=== PATIENT | male | born 1960 | race African-American/Black ===

== ENCOUNTER 2024-07-22 09:52 | Inpatient (IN) | payer OTHER, SELFPAY ==
[2024-07-22] VITALS (41 sets, daily range): BP systolic 87–170; BP diastolic 59–105; PULSE 110–152; RESP 24–54; TEMP 36.4–39.2; O2SAT 73–100; BMI 23.7
--- NOTE | ~2024-07-22 | XR_ITS ---
EXAMINATION: XR chest 1V portable DATE: 07/22/2024 10:44 INDICATION: Dyspnea. TECHNIQUE: A single frontal view of the chest was obtained. COMPARISON: None. FINDINGS: There are airspace opacities in right lower lung zone. The lung bases are excluded. No pneu mothorax. No pleural effusion. The heart size is normal. IMPRESSION: 1. Airspace opacities in right lower lung zone, consistent with pneumonia. Reviewed, dictated and finalized at location A. NG RAMMER
--- NOTE | ~2024-07-22 | US_ITS ---
EXAMINATION: US renal BI DATE: 07/26/2024 15:26 INDICATION: MILENA TECHNIQUE: Multiple grayscale and Doppler ultrasound images of the kidneys were obtained. COMPARISON: Ultrasound abdomen limited 07/23/2024. CTPA abdomen pelvis 07/22/2024. FINDINGS: The right kidney measures 11.7 x 4.8 x 5.7 cm. The left kidney measures 13.0 x 5.4 x 5.4 cm. The kidn eys demonstrate normal parenchymal echogenicity. There is mild right pelviectasis, measuring up to 1 cm. The bladder is partially decompressed by Gregorio catheter. Minimal pericholecystic fluid and gallbl adder wall thickening to 3 mm. IMPRESSION: Mild right pelviectasis. Mild pericholecystic fluid and gallbladder wall thickening. Reviewed, dictated and finalized at location K. ER CONVEYOR LOADER
--- NOTE | ~2024-07-22 | XR_ITS ---
EXAMINATION: XR chest 1V portable DATE: 07/26/2024 06:14 INDICATION: Acute respiratory failure. Mechanical ventilation. TECHNIQUE: A single frontal view of the chest was obtained. COMPARISON: Chest single view 07/25/2024 FINDINGS: There are airspace opacities in the right mid and lower lung zones and left lower lung zone . There is a small right pleural effusion. No pneumothorax. The heart size is normal. The endotrachea l tube tip is 7.4 cm above the nando. The nasogastric tube tip is beyond the inferior margin of the radiograph, but at least to the stomach. A right internal jugular central venous catheter is seen wit h tip at the superior cavoatrial junction. IMPRESSION: 1. Stable small right pleural effusion. 2. Stable airspace opacities in the right mid and lower lung zones and left lower lung zone, consiste nt with atelectasis versus pneumonia. Reviewed, dictated and finalized at location A. CTOR SOFTWARE QUALITY ASSURANCE IMPRESSION: 1. Stable small right pleural effusion. 2. Stable airspace opacities in the right mid and lower lung zones and left low er lung zone, consistent with atelectasis versus pneumonia.
--- NOTE | ~2024-07-22 | XR_ITS ---
EXAMINATION: XR abdomen gastric tube insert DATE: 07/26/2024 06:14 INDICATION: Nasogastric tube placement. TECHNIQUE: An upright view of the abdomen was obtained. COMPARISON: CT abdomen and pelvis 07/22/2024 FINDINGS: The lower abdomen is excluded. There are no dilated loops of bowel. The nasogastric tube ti p is in the stomach. There is a central line tip at superior cavoatrial junction. There is a small ri ght pleural effusion. There are airspace opacities in the lower lung zones. IMPRESSION: 1. Nasogastric tube tip in the stomach. 2. Small right pleural effusion. 3. Airspace opacities in the lower lung zones, consistent with atelectasis versus pneumonia. Reviewed, dictated and finalized at location A. OR SPECIALIST IMPRESSION: 1. Nasogastric tube tip in the stomach. 2. Small right pleural effusion. 3. Airspace opacities in the lower lung zones, consistent with atelectasis vers us pneumonia.
--- NOTE | ~2024-07-22 | XR_ITS ---
EXAMINATION: XR chest 1V portable DATE: 07/25/2024 05:09 INDICATION: Acute respiratory failure. TECHNIQUE: A single frontal view of the chest was obtained. COMPARISON: Chest single view 07/24/2024 FINDINGS: There are airspace opacities in the lower lung zones, right worse than left. There is a sma ll right pleural effusion. No pneumothorax. The heart size is normal. The endotracheal tube tip is 4. 6 cm above the nando. The nasogastric tube tip is beyond the inferior margin of the radiograph, but at least to the stomach. A right internal jugular central venous catheter is seen with tip at the sup erior cavoatrial junction. IMPRESSION: 1. Stable airspace opacities in the lower lung zones, consistent with atelectasis versus pneumonia. 2. Stable small right pleural effusion. Reviewed, dictated and finalized at location A. OR STORES AND AGENCIES SUPERVISOR IMPRESSION: 1. Stable airspace opacities in the lower lung zones, consistent with atelectas is versus pneumonia. 2. Stable small right pleural effusion.
--- NOTE | ~2024-07-22 | XR_ITS ---
EXAMINATION: XR chest 1V portable DATE: 07/27/2024 06:23 INDICATION: Acute respiratory failure. TECHNIQUE: A single frontal view of the chest was obtained. COMPARISON: Chest single view 07/26/2024 FINDINGS: There is a small right pleural effusion. There are airspace opacities in right mid and lowe r lung zones and left lower lung zone. No pneumothorax. The heart size is normal. The endotracheal tu be tip is 6.5 cm above the nando. The nasogastric tube tip is in the stomach. A right internal jugul ar central venous catheter is seen with tip at the superior cavoatrial junction. IMPRESSION: 1. Stable small right pleural effusion. 2. Stable airspace opacities in right mid and lower lung zones and left lower lung zone, consistent w ith atelectasis versus pneumonia. Reviewed, dictated and finalized at location A. TCHER AND DRIER IMPRESSION: 1. Stable small right pleural effusion. 2. Stable airspace opacities in right mid and lower lung zones and left lower l rama zone, consistent with atelectasis versus pneumonia.
--- NOTE | ~2024-07-22 | XR_ITS ---
XR abdomen gastric tube insert DATE: 07/22/2024 15:37 INDICATION: NG tube placement TECHNIQUE: AP view on 07/22/2024 1534 hours COMPARISON: None FINDINGS: NG tube tip is in the body of the stomach, the proximal side port 6 cm distal to the diaphr agmatic hiatus. IMPRESSION: NG tube in body of stomach Reviewed, dictated and finalized at Location A. Reviewed, dictated and finalized at location A. N SUPPLY LOAD BUILDER IMPRESSION: NG tube in body of stomach
--- NOTE | ~2024-07-22 | XR_ITS ---
XR chest ET placement DATE: 07/22/2024 15:37 INDICATION: Intubation and central line placement TECHNIQUE: Portable AP chest on 07/22/2024 1533 hours COMPARISON: 07/22/2024 portable AP chest at 1042 hours FINDINGS: Interval ET tube placement, distal tip approximately 5.3 cm above nando. An NG tube is not ed in the stomach. Right internal jugular central venous catheter tip overlies the lower aspect of the superior vena cav a the superior cavoatrial junction. No pneumothorax is detected. Bilateral mid and lower lung infiltrate and/or atelectasis, right greater than left. Normal heart size. Descending thoracic aortic calcification. Diffuse idiopathic skeletal hyperostosis of the thoracic spine IMPRESSION: ET and NG tube in satisfactory position Right internal jugular central venous catheter tip overlies lower aspect of superior vena cava near s uperior cavoatrial junction Bilateral mid and lower lung infiltrates and/or atelectasis, right greater than left Reviewed, dictated and finalized at Location A. Reviewed, dictated and finalized at location A. ING INSPECTOR IMPRESSION: ET and NG tube in satisfactory position Right internal jugular central venous catheter tip overlies lower aspect of sup erior vena cava near superior cavoatrial junction Bilateral mid and lower lung infiltrates and/or atelectasis, right greater than left
--- NOTE | ~2024-07-22 | XR_ITS ---
EXAMINATION: XR chest 1V portable DATE: 07/23/2024 05:59 INDICATION: Intubated. Pneumonia. TECHNIQUE: A single frontal view of the chest was obtained. COMPARISON: Chest single view 07/22/2024, chest CT 07/22/2024 FINDINGS: There are airspace opacities in the lower lung zones. There is a small right pleural effusi on. No pneumothorax. The heart size is normal. The endotracheal tube tip is 5.0 cm above the nando. The nasogastric tube tip is beyond the inferior margin of the radiograph, but at least to the stomach . A right internal jugular central venous catheter is seen with tip at the superior cavoatrial juncti on. IMPRESSION: 1. Stable airspace opacities in the lower lung zones, likely a combination of atelectasis and pneumon ia. 2. Small right pleural effusion. Reviewed, dictated and finalized at location A. LOPE MACHINE ADJUSTER IMPRESSION: 1. Stable airspace opacities in the lower lung zones, likely a combination of a telectasis and pneumonia. 2. Small right pleural effusion.
--- NOTE | ~2024-07-22 | CT_ITS ---
EXAMINATION: CTA chest PE abdomen pel DATE: 07/22/2024 18:28 INDICATION: Tachypnea, tachycardia TECHNIQUE: Computed tomography angiography (CTA) of the chest was performed with 100 mL Omnipaque-350 intravenous contrast timed to evaluate the pulmonary arteries. Coronal maximum intensity projection 3D-reconstructions were created by the technologist. Automated exposure control and iterative reconst ruction technique were employed. Exam dose: 881.96 mGy-cm total exam DLP. COMPARISON: 07/22/2024 AP chest FINDINGS: There is diagnostic contrast enhancement of the pulmonary arteries and no evidence of pulmo nary embolism. There is an ET tube. There is an NG tube in the stomach. Right internal jugular central venous catheter in superior vena cava. Mild cardiomegaly. No pericardial effusion. Prominent left main and left anterior descending coronary artery calcification. Borderline thoracic aortic dimension, the ascending aorta measures up to 4 cm diameter, the mid aorti c arch 2.9 cm, descending thoracic aorta 3 cm. No thoracic aortic dissection. No hilar or mediastinal mass lesion or lymphadenopathy is appreciated. There is very prominent consolidation of both lower lobes. Mild middle lobe infiltrate. Minimal pleural effusions. There is extensive degenerative changes of the cervical and thoracic spine. No suspicious osteolytic or osteoblastic lesions are noted. IMPRESSION: No evidence of pulmonary embolism Prominent bilateral lower lobe consolidation. Mild lobe infiltrate. Reviewed, dictated and finalized at Location A. Reviewed, dictated and finalized at location A. L HOUSEMAN
--- NOTE | ~2024-07-22 | XR_ITS ---
EXAMINATION: XR chest 1V portable DATE: 07/28/2024 05:42 INDICATION: Acute respiratory failure. Mechanical ventilation. TECHNIQUE: frontal view of the chest was obtained. COMPARISON: Chest radiograph dated 07/27/2024 FINDINGS: Endotracheal tube tip 4.6 cm above the nando. Nasogastric tube extends below the left hemidiaphragm with distal tip collimated off the study. Right internal jugular central venous catheter with distal tip at the high right atrium. Decrease in the hazy opacities in the right lower lung zone since resolved in the midlung zone consis tent with decreasing small posterior layering right pleural effusion. Mild bibasilar opacities which could represent atelectasis or pneumonia. No pneumothorax. Heart size is normal. IMPRESSION: 1. Decreasing small right pleural effusion. 2. unchanged mild bibasilar atelectasis versus pneumonia. Reviewed, dictated and finalized at location A. THCARE ANALYST
--- NOTE | ~2024-07-22 | XR_ITS ---
EXAMINATION: XR chest 1V portable DATE: 07/25/2024 18:29 INDICATION: Intermittent tachypnea with mechanical ventilation. TECHNIQUE: A single frontal view of the chest was obtained on 2 radiographs. COMPARISON: Chest view at 4:57 AM FINDINGS: There are airspace opacities in right mid and lower lung zones and left lower lung zone. Th ere is a small right pleural effusion. No pneumothorax. The heart size is normal. The nasogastric tub e tip is in the stomach. A right internal jugular central venous catheter is seen with tip at the sup erior cavoatrial junction. IMPRESSION: 1. Worsened airspace opacities in right mid and lower lung zones and left lower lung zone, consistent with atelectasis versus pneumonia. 2. Worsened small right pleural effusion. Reviewed, dictated and finalized at location A. [employer]
--- NOTE | ~2024-07-22 | US_ITS ---
Limited ABDOMINAL ULTRASOUND Ordering provider: Nidia Salinas MD History: . Y . Comparison: None. FINDINGS: LIVER: Normal size and echotexture. No focal hepatic lesions or perihepatic fluid collections are kurt ntified. Normal flow of the portal vein. Measures 17.8 cm. Fluid is seen superior to the right lobe o f the liver suggestive of pleural effusion. GALLBLADDER: Unremarkable. No evidence for stones, sludge, and gallbladder wall thickening. Minimal p ericholecystic fluid collections. Gallbladder wall is 1.4 mm A negative sonographic Matthews's sign was noted. BILIARY DUCTS: No evidence for intra or extrahepatic biliary dilation. Common bile duct measures 1.4 mm in diameter which is within normal limits. PANCREAS: Normal echotexture and size. UPPER ABDOMINAL AORTA: Normal in caliber. IVC: Patent. FREE FLUID: None. IMPRESSION: 1. Right pleural effusion. Minimal fluid around the gallbladder. Evaluation for cholecystitis advised . Otherwise, normal Limited ultrasound of the abdomen. Reviewed, dictated and finalized at location A. NT SCOUT IMPRESSION: 1. Right pleural effusion. Minimal fluid around the gallbladder. Evaluation for cholecystitis advised. Otherwise, normal Limited ultrasound of the abdomen.
--- NOTE | ~2024-07-22 | XR_ITS ---
EXAMINATION: XR chest 1V portable DATE: 07/24/2024 05:29 INDICATION: Acute respiratory failure. TECHNIQUE: A single frontal view of the chest was obtained. COMPARISON: Chest single view 07/23/2024, chest CT 07/22/2024 FINDINGS: There is a small right pleural effusion. There are airspace opacities in the lower lung zon es. No pneumothorax. The heart size is normal. The endotracheal tube tip is 6.2 cm above the nando. The nasogastric tube tip is beyond the inferior margin of the radiograph, but at least to the stomach . A right internal jugular central venous catheter is seen with tip at the superior cavoatrial juncti on. IMPRESSION: 1. Stable airspace opacities in the lower lung zones, likely a combination of atelectasis and pneumon ia. 2. Stable small right pleural effusion. Reviewed, dictated and finalized at location A. OR NEWSPAPER IMPRESSION: 1. Stable airspace opacities in the lower lung zones, likely a combination of a telectasis and pneumonia. 2. Stable small right pleural effusion.
--- NOTE | ~2024-07-22 | CT_ITS ---
EXAMINATION: CT soft tissue neck wo con DATE: 07/22/2024 18:28 INDICATION: Tachypnea and tachycardia. Restricted movement. TECHNIQUE: Computed tomography (CT) of the neck was performed without intravenous contrast. Automated exposure control and iterative reconstruction technique were employed. The dose-length product was 1 178.92 mGy-cm. COMPARISON: None FINDINGS: The endotracheal tube tip is in expected position. There is a small right pleural effusion. There are no pathologically enlarged lymph nodes. Partially visualized is an orogastric tube. Partia lly visualized is a right internal jugular central venous catheter with tip at least to the superior vena cava. There is mucosal thickening in right maxillary sinus. There is multifocal dental disease. There is a 17 mm nodule in right thyroid lobe. There are bridging endplate osteophytes at multiple le vels in the spine, consistent with diffuse idiopathic skeletal hyperostosis (DISH). IMPRESSION: 1. Small right pleural effusion. 2. 17 mm right thyroid nodule. Consider thyroid ultrasound for risk stratification. 3. Multifocal dental disease. Reviewed, dictated and finalized at location A. H HAND IMPRESSION: 1. Small right pleural effusion. 2. 17 mm right thyroid nodule. Consider thyroid ultrasound for risk stratificat ion. 3. Multifocal dental disease.
--- NOTE | 2024-07-22 09:53 | ECG_ITS ---
Test Date: 2024-07-22 10:03:54 Measurements Intervals [place] Rate: 151 P: 0 WA: 0 QRS: 43 QRSD: 79 T: 81 QT: 287 QTc: 456 Interpretive Statements sinus tachycardianwith frequent PACs INDETERMINATE AXIS MODERATE ST DEPRESSION [0.05+ mV ST DEPRESSION] CRITICAL TEST RESULT No previous ECG available for comparison Electronically Signed On 07-22-2024 10:14:04 BOOM CRANE OPERATOR by Katie White M.D.
--- NOTE | 2024-07-22 10:07 | ED_ITS ---
HPI - Chest Pain General Chief Complaint: Chest Pain Stated Complaint: chest pain Time Seen by Provider: 07/22/24 09:57 History of Present Illness HPI narrative: 63-year-old male with a past medical history including heart failure presenting to the emergency room with a chief complaint of difficulty in breathing. Patient states he is having itchiness in his chest and trouble reading. He is in respiratory distress upon arrival and requiring 15 L non-rebreather. He was 77% on room air and still hypoxic on non-rebreather. Patient denies any sharp pain or pressure in his chest but states that he feels like he is drowning. No headache, vision change, nausea or vomiting. No back pain. Patient is in respiratory distress and able to only answer questions intermittently secondary to dyspnea. He is not sure if he has any history of arrhythmia and is not able to tell me his medications at this time. He was placed in the room 6 as a medical resuscitation at this time and respiratory therapy was called to bedside for assistance. Related Data Allergies Allergy/AdvReac Type Severity Reaction Status Date / Time No Known Allergies Allergy Mild Verified 07/22/24 10:06 Review of Systems 2 Review of Systems: As reviewed above in HPI Exam 2 Narrative: GENERAL: Severe respiratory distress, dyspneic, awake and answering questions intermittently with conversational dyspnea HEAD: [Normocephalic, atraumatic.] EYES: [PERRLA and EOMI.] ENT: Nares clear, no rhinorrhea or epistaxis. Mucous membranes moist. NECK: Supple. CHEST: Very coarse breath sounds throughout all lung [place], rales, accessory muscle use with belly breathing HEART: Tachycardic rate, somewhat irregular rhythm. No murmur heard. [Normal peripheral pulses.] ABDOMEN: [Soft, nondistended], [nontender], [No rigidity or guarding] EXTREMITIES: Normal range of motion. No significant pitting edema SKIN: Warm, dry, no rash. NEURO: [No focal deficits]. Alert and oriented [x3.] PSYCH: Anxious Course Vital Signs Vital signs: Vital Signs Temperature 36.4 C 07/22/24 09:57 Pulse Rate 152 H 07/22/24 09:57 Respiratory Rate 46 H 07/22/24 09:57 Blood Pressure 142/87 H 07/22/24 09:57 Pulse Oximetry 77 L 07/22/24 09:57 Oxygen Delivery Room Air 12/22/24 09:57 Temperature 36.4 C 07/22/24 09:57 Pulse Rate 122 H 07/22/24 15:12 Respiratory Rate 43 H 07/22/24 13:35 Blood Pressure 104/74 07/22/24 13:15 Pulse Oximetry 99 07/22/24 15:12 Oxygen Delivery Mechanical Ventilation 07/22/24 15:12 Oxygen Flow Rate 15 07/22/24 10:04 Fraction of Inspired Oxygen 70 07/22/24 15:12 MDM - Chest Pain MDM Narrative Medical decision making narrative: 63-year-old male with history of heart failure and unknown other cardiac disease history presenting to the emergency department severe respiratory distress. He is found to be hypoxic at 77% on room air and still hypoxic requiring non- rebreather 15 L with only mild improvement. He does have very coarse breath sounds with rales throughout all lung yarbrough, does not appear particularly edematous without any anasarca or leg swelling. He states he has a history of heart failure but is not sure if he has any other cardiac history. Not able to tell me his medications. No records in the EMR his previous visits. RT was called to bedside to place him on BiPAP therapy with settings of 14/8 and rate of 20. Laboratory studies were obtained after IV access. He was given 40 mg of IV Lasix while laboratory studies were underway. Chest x-ray ordered as well as an EKG. EKG appears very tachycardic with a rate in the 150s but I do identify P-waves behind most QRS complexes even though the EKG is read as AFib I believe this is more sinus arrhythmia with significant sinus tachycardia and likely secondary to his respiratory variations causing the waveform, we will re-evaluate after initial treatments. Bedside ultrasound was used to identify his heart function status, he does have hyperdynamic ventricles, appropriate ejection fraction, collapse completely flat IVC more consistent with volume down status rather than fluid overload. Will discontinue diuretic therapy and switch to aggressive fluid resuscitation strategies. She is given 30 cc/kg bolus of lactated Ringer's which did improve him. After BiPAP therapy he had improvement in his tachypnea but still breathing in the 30s to 40s. His blood pressure started becoming soft and reached in the high 80s low 90s at one point. Tachycardia and tachypnea did improve and now his in the low 120s heart rate with sinus tachycardia, no irregularities. Full septic bundle was ordered this time he was given antibiotics for community-acquired coverage including vancomycin, azithromycin, ceftriaxone, lactic acid and blood cultures ordered. Patient was re-evaluated frequently and improving on the BiPAP but still to capping the 30s to 40s. Did have some slight agitation and requested something to help calm down. Given 1 mg of IV Ativan with good effect. Patient was more comfortable, breathing more comfortably on the BiPAP. I went over patient's imaging studies with him and plan of care for admission to the hospital. He requires ICU level of care at this time given his respiratory efforts. His workup reveals a white count of 6.3, anemia of 13.4 were no baseline. Blood gas reassuring with a pH is 7.36, pCO2 of 38.5, bicarb 21.3 overall very reassuring without any acute acidosis or compensatory mechanism. Electrolytes within anion gap elevated acidosis with a lactate 11.1 likely secondary to profound volume depletion and sepsis. Downtrending of 5.2 after resuscitative efforts. Creatinine of 2.0 with no baseline but likely secondary to pre renal depletion. Magnesium low at 0.8 provided 2 g IV bolus. ALT and AST mildly elevated, troponin negative at 0.024. BNP mildly elevated 727. Urinalysis without signs of infection. COVID fluid RSV negative. Chest x-ray independently reviewed shows airspace opacities in the right lower lung consistent with pneumonia. Repeat EKG obtained after fluid resuscitation significantly improved, sinus tachycardia with no ST segment elevations or depressions. No arrhythmia. No ectopy. Overall sinus tachycardia compared to previous EKG with better rate control and less ectopy. Patient at this time has been optimized here in the emergency department but I believe requires ICU level of care given his respiratory status. Discussed the case with the hospitalist as currently being covered by the midlevel provider Priya. We will patient's plan of care regarding med antibiotics, continued BiPAP therapy and respiratory support and admission to the ICU, they agreed with the plan and I contacted the sweet goods machine operator over the phone. Spoke with Dr. Salinas from ICU and we went over patient's care and he agreed patient requires ICU level of care and accepted him to the unit. Patient left the department at this time. Medical Records Data Attestation: I reviewed the patient's medical records. Lab Data Attestation: I reviewed the patient's lab results. 07/22/24 10:08 07/22/24 10:08 Labs: Lab Results 07/22/24 07/22/24 07/22/24 Range/Units 10:08 11:21 11:36 WBC 6.3 (4.5-10.0) K/mm3 RBC 3.76 L (4.6-6.20) M/mm3 Hgb 13.4 L (14.0-18.0) g/dL Hct 39.2 L (42.0-52.0) % MCV 104.3 H (80-100) fl MCH 35.6 H (26-34) pg MCHC 34.2 (32-36) g/dl RDW 12.8 (11.5-14.5) % Plt Count 195 (150-375) k/mm3 MPV 10.2 (7.4-10.4) fl Immature Gran % (Auto) 0.3 (0-0.5) % Neut % (Auto) 86.0 H (45.5-73.1) % Lymph % (Auto) 8.6 L (18.3-44.2) % [place] % (Auto) 4.8 (2.6-8.5) % Eos % (Auto) 0.0 (0-4.4) % Baso % (Auto) 0.3 (0.2-1.2) % Lymph # (Auto) 0.54 L (0.9-3.2) K/mm3 [place] # (Auto) 0.3 (0.1-0.6) K/mm3 Eos # (Auto) 0.0 (0-0.3) K/mm3 Baso # (Auto) 0.0 (0.0-0.1) K/mm3 Abs Immat Gran (auto) 0.02 (0.00-0.031) K/mm3 Absolute Neuts (auto) 5.4 (1.3-6.7) K/mm3 Absolute Nucleated RBC 0.000 (0.0-0.012) K/mm3 Nucleated RBC % 0.0 (0.0-0.2) % Platelet Estimate Adequate (Adequate) Macrocytosis 1+ (NORMAL) Schistocytes None seen PT 13.1 (11.1-14.7) Seconds INR 0.9 APTT 32.7 (22.3-36.8) Seconds Sodium 139 (137-145) mmol/L Potassium 3.7 (3.4-5.0) mmol/L Chloride 102 (98-107) mmol/L Carbon Dioxide 17 L (22-30) mmol/L Anion Gap 20 H (4-12) mmol/L BUN 22 H (9-20) mg/dL Creatinine 2.00 H (0.7-1.3) mg/dL Estim Creat Clear Calc 40 ml/min Estimated GFR 41 L (59 - ) Glucose 224 H (65-110) mg/dL Lactic Acid 11.7 H* (0.7-2.0) mmol/L Calcium 8.8 (8.4-10.2) mg/dL Magnesium 0.8 L (1.6-2.3) mg/dL Total Bilirubin 1.0 (0.2-1.3) mg/dL AST 128 H (17-59) U/L ALT 92 H (6-50) U/L Alkaline Phosphatase 68 (38-126) U/L Troponin I 0.024 (0.000-0.034) ng/mL C-Reactive Protein 4.0 H (<1.0) mg/dL NT-Pro-B Natriuret Pep 727 H (19.9-100) pg/mL Total Protein 8.0 (6.3-8.2) g/dL Albumin 4.1 (3.5-5.1) g/dL Urine Color Yellow (Yellow) Urine Appearance Clear (Clear) Urine pH 6.0 (5.0-9.0) Ur Specific [place] 1.007 (1.001-1.035) Urine Protein 1+ H (Negative) mg/dL Urine Glucose (UA) Negative (Negative) mg/dL Urine Ketones Negative (Negative) mg/dL Ur Blood (Man) Negative (Negative) Urine Nitrate Negative (Negative) Urine Bilirubin Negative (Negative) Urine Urobilinogen 0.2 (<2.0) mg/dL Leukocyte Esterase Rfl Negative (Negative) MARJ/UL Urine RBC 0-2 (0-2) /hpf Urine WBC 0-5 (0-3) /hpf Ur Squamous Epith Cells None seen (Few) /hpf Urine Bacteria None seen /hpf Urine Casts 3-5 Nasal MRSA (PCR) Not detected (NOT DETECTE) Influenza A (RT-PCR) Negative (Negative) Influenza B (RT-PCR) Negative (Negative) RSV (RT-PCR) Negative (Negative) SARS-CoV-2 RNA (RT-PCR) Negative (Negative) ABG Data Attestation: I personally reviewed and interpreted this ABG as follows: Interpretation: Normal pH, pCO2 and bicarb, no hypoxia Imaging Data Attestation: I personally reviewed and interpreted this imaging study as follows: My impression: Impressions Chest X-Ray 07/22/24 10:46 IMPRESSION: 1. Airspace opacities in right lower lung zone, consistent with pneumonia. Critical Care Time Critical Care Time Critical Care Time: Yes Total Critical Care Time: 75 Discharge Plan Discharge Clinical Impression: Pneumonia, Severe sepsis, Lactic acid acidosis, Elevated liver enzymes, CHF (congestive heart failure), MILENA (acute kidney injury), Acute respiratory failure, Tachycardia Patient Disposition: Still a Patient Condition: Serious Time of Disposition: 13:30
[2024-07-22] MEDS: ASPIRIN 81 MG CHEWABLE TABLET 324 MG PO (10:08)
[2024-07-22] MEDS: FUROSEMIDE INJ 40 MG/4 ML VIAL IV PUSH (10:10)
[2024-07-22 10:13] LABS: Basophils Percent Auto 0.3 % (0.2-1.2); Hematocrit 39.2 % (42.0-52.0); Hemoglobin 13.4 g/dL (14.0-18.0); Immature Granulocyte Absolute 0.02 K/mm3 (0.00-0.031); Immature Granulocyte Percent A 0.3 % (0-0.5); Lymphocytes Absolute Auto 0.54 K/mm3 (0.9-3.2); Lymphocytes Percent Auto 8.6 % (18.3-44.2); Mean Corpuscular HGB Conc 34.2 g/dl (32-36); Mean Corpuscular Hemoglobin 35.6 pg (26-34); Mean Corpuscular Volume 104.3 fl (80-100); Mean Platelet Volume 10.2 fl (7.4-10.4); Monocytes Absolute Auto 0.3 K/mm3 (0.1-0.6); Monocytes Percent Auto 4.8 % (2.6-8.5); Neutrophils Absolute Auto 5.4 K/mm3 (1.3-6.7); Platelet Count Result 195 k/mm3 (150-375); Red Blood Count 3.76 M/mm3 (4.6-6.20); Red Cell Distribution Width 12.8 % (11.5-14.5); White Blood Count 6.3 K/mm3 (4.5-10.0)
[2024-07-22 10:23] LABS: Macrocytosis 1+ (NORMAL); Platelet Estimate Adequate (Adequate); Schistocytes None Seen
[2024-07-22 10:25] LABS: Albumin Level 4.1 g/dL (3.5-5.1); Alkaline Phosphatase 68 U/L (38-126); Anion Gap 20 mmol/L (4-12); Blood Urea Nitrogen 22 mg/dL (9-20); Calcium 8.8 mg/dL (8.4-10.2); Carbon Dioxide 17 mmol/L (22-30); Chloride 102 mmol/L (98-107); Estimated CRCL calculation 40 ml/min; Estimated Glomerular Filt Rate 41; Glucose 224 mg/dL (65-110); Magnesium 0.8 mg/dL (1.6-2.3); Potassium 3.7 mmol/L (3.4-5.0); Sodium 139 mmol/L (137-145)
[2024-07-22 10:26] LABS: INR 0.9; Prothrombin Time 13.1 Seconds (11.1-14.7)
[2024-07-22 10:27] LABS: Partial Thromboplastin Time 32.7 Seconds (22.3-36.8)
[2024-07-22 10:34] LABS: Alanine Aminotransferase 92 U/L (6-50); Aspartate Amino Transferase 128 U/L (17-59)
[2024-07-22 10:35] LABS: NT Pro B Type Natriuretic Pept 727 pg/mL (19.9-100); Troponin I 0.024 ng/mL (0.000-0.034)
[2024-07-22] MEDS: LACTATED RINGERS 2,000 ML 999 ML IV CONT (10:40)
[2024-07-22] MEDS: ONDANSETRON INJ 4 MG/2 ML VIAL IV PUSH (10:49)
[2024-07-22] MEDS: cefTRIAXone 2 GM/NS 100 ML 2 GM/100 ML BAG IVPB (11:23)
[2024-07-22] MEDS: LACTATED RINGERS 1,000 ML 999 ML IV CONT (11:23)
[2024-07-22 11:44] LABS: Add Urine Microscopic? YES; Appearance Urine Clear (Clear); Bacteria Urine None Seen /hpf; Bilirubin Urine Negative (Negative); Blood Urine Negative (Negative); Color Urine Yellow (Yellow); Glucose Urine UA Negative (Negative); Ketones Urine Negative (Negative); Leukocyte Esterase Ur Negative LEU/UL (Negative); Nitrate Urine Negative (Negative); Protein Urine 1+ mg/dL (Negative); RBC Urine 0-2 /hpf (0-2); Specific Grav Ur 1.007 (1.001-1.035); Squamous Epithelial Cell Urine None Seen /hpf (Few); Urobilinogen Urine 0.2 mg/dL (<2.0); WBC Urine 0-5 /hpf (0-3)
[2024-07-22 11:48] LABS: Lactic Acid Reflex 11.7 mmol/L (0.7-2.0)
[2024-07-22] MEDS: AZITHROMYCIN 500 MG/NS 250 ML 500 MG/250 ML BAG 250 MG IVPB (11:56)
[2024-07-22 12:03] LABS: Influenza A QL RT-PCR Negative (Negative); Influenza B QL RT-PCR Negative (Negative); RSV RNA, RT-PCR Negative (Negative); SARS-CoV-2 RNA PCR Negative (Negative)
[2024-07-22] MEDS: MAGNESIUM SULF 2 GM/WATER 50ML 2 GM/50 ML BAG IVPB (12:03)
[2024-07-22 12:57] LABS: MRSA (PCR) NOT DETECTED (NOT DETECTE)
--- NOTE | 2024-07-22 12:58 | PM.IMHP ---
H&P: HPI History of Present Illness Date/Time: 07/22/24 12:58 Chief Complaint: Shortness of breath Narrative: 63-year-old male with a past medical history including heart failure presenting to the emergency room with a chief complaint of difficulty in breathing. HPI is limited due to patient being intubated at the time. ED chart reviewed. . He is found to be hypoxic at 77% on room air and still hypoxic requiring non-rebreather 15 L with only mild improvement. Bedside ultrasound was used to identify his heart function status, he does have hyperdynamic ventricles, appropriate ejection fraction, collapse completely flat IVC more consistent with volume down status rather than fluid overload. Will discontinue diuretic therapy and switch to aggressive fluid resuscitation strategies. She is given 30 cc/kg bolus of lactated Ringer's which did improve him. After BiPAP therapy he had improvement in his tachypnea but still breathing in the 30s to 40s. Full septic bundle was ordered this time he was given antibiotics for community-acquired coverage including vancomycin, azithromycin, ceftriaxone, lactic acid and blood cultures ordered. Patient was sent up to the ICU on BiPAP once inside the ICU digital analytics manager decided to intubate the patient. He is intubated and sedated paralyzed. His laboratory work from ED shows BUN 22, Cr 2.0, lactic acid of 11.7, CRP 4.0, BNP of 727, carbon dioxide of 17, UA negative for acute infection, influenza a, B, RSV and COVID negative. Review of Systems Review of Systems: ROS unobtainable: Yes unobtainable due to endotracheal tube PMFSH Social History Social History Smoking packs per day: 1 Smoking cigarettes per day: 20.0 Smoking status: Current every day smoker Tobacco type: cigarettes Spiritual care concerns: No (ZENAIDA) Meds Home Medications and Allergies Allergies Allergy/AdvReac Type Severity Reaction Status Date / Time No Known Allergies Allergy Mild Verified 07/22/24 10:06 Vital Signs Vital Signs - 24 hr 07/22/24 09:57 07/22/24 10:00 07/22/24 10:04 Temperature 97.6 F Pulse Rate 152 H 149 H Respiratory Rate 46 H Blood Pressure 142/87 H Pulse Oximetry 77 L 80 L Oxygen Delivery Room Air Non-Rebreather Mask Oxygen Flow Rate 15 07/22/24 10:04 07/22/24 10:10 07/22/24 10:14 Temperature Pulse Rate 144 H Respiratory Rate 51 H Blood Pressure Pulse Oximetry 73 L 100 100 Oxygen Delivery Non-Rebreather Mask BiPAP BiPAP Oxygen Flow Rate 15 07/22/24 10:21 07/22/24 10:22 07/22/24 10:31 Temperature Pulse Rate 147 H 144 H 138 H Respiratory Rate 54 H 51 H 51 H Blood Pressure 101/70 101/70 87/59 L Pulse Oximetry 100 100 100 Oxygen Delivery Oxygen Flow Rate 07/22/24 10:36 07/22/24 10:46 07/22/24 11:16 Temperature Pulse Rate 139 H 137 H 131 H Respiratory Rate 51 H 46 H 43 H Blood Pressure 90/72 L 112/85 170/105 H Pulse Oximetry 100 98 100 Oxygen Delivery Oxygen Flow Rate 07/22/24 11:30 07/22/24 11:46 07/22/24 12:01 Temperature Pulse Rate 135 H 133 H 129 H Respiratory Rate 44 H 29 H 43 H Blood Pressure 167/100 H 124/92 H Pulse Oximetry 100 100 100 Oxygen Delivery BiPAP Oxygen Flow Rate 07/22/24 12:16 Temperature Pulse Rate 128 H Respiratory Rate 45 H Blood Pressure 121/85 Pulse Oximetry 100 Oxygen Delivery Oxygen Flow Rate Exam Narrative: General: Intubated sedated paralyzed HEENT: normocephalic, atraumatic. Mucous membranes moist. EOMI, PERRLA, bilateral sclera anicteric, no conjunctival injection. Neck supple without JVD, lymphadenopathy, or bruit. Respiratory: clear to ascultation bilaterally. No rales/rhonic/wheezes. Breathing with the ventilator Cardiovascular: Tachycardic Regular rate and rhythm, normal S1-S2 upon ascultation. No murmurs, rubs, or clicks. PMI is nondisplaced, capillary refill less than 3 second. Abdomen: Soft, round, no pulsatile masses, nondistended and nontender. No rebound, no guarding. No CVA tenderness, no hepatosplenomegaly. Bowel sounds present to all four quadrants. No high pitch or tinkling sounds, resonant to percussion. Extremities: No cyanosis, clubbing, or edema present. Pulses are palpable 2/2. Active ROM to all four extremities. Neuro: Intubated, sedated and paralyzed Skin: Warm, dry, and intact, without rash, erythema, or lesion. Psych: Unable to assess H&P: Results Labs Labs: Short CBC 07/22/24 Range/Units 10:08 WBC 6.3 (4.5-10.0) K/mm3 Hgb 13.4 L (14.0-18.0) g/dL Hct 39.2 L (42.0-52.0) % Plt Count 195 (150-375) k/mm3 BMP 07/22/24 10:08 Sodium 139 Potassium 3.7 Chloride 102 Carbon Dioxide 17 L BUN 22 H Creatinine 2.00 H Glucose 224 H Calcium 8.8 Cardiac Enzymes 07/22/24 Range/Units 10:08 Troponin I 0.024 (0.000-0.034) ng/mL Liver Function 07/22/24 Range/Units 10:08 Total Bilirubin 1.0 (0.2-1.3) mg/dL AST 128 H (17-59) U/L ALT 92 H (6-50) U/L Alkaline Phosphatase 68 (38-126) U/L Albumin 4.1 (3.5-5.1) g/dL Urine 07/22/24 Range/Units 11:36 Urine Color Yellow (Yellow) Urine Appearance Clear (Clear) Urine pH 6.0 (5.0-9.0) Ur Specific [place] 1.007 (1.001-1.035) Urine Protein 1+ H (Negative) mg/dL Urine Glucose (UA) Negative (Negative) mg/dL Assessment and Plan Assessment and plan (1) Acute respiratory failure: Code(s): J96.00 - Acute respiratory failure, unspecified whether with hypoxia or hypercapnia Status: Acute Assessment and Plan: Patient was 77% on room air BiPAP failed intubated in ICU ICU digital analytics manager to manage (2) Severe sepsis: Code(s): A41.9 - Sepsis, unspecified organism; R65.20 - Severe sepsis without septic shock Status: Acute Assessment and Plan: Patient received 3 L of LR in the emergency room, initial lactic acid 11.7 Repeat lactic improving now 5.2 continue to trend IV ceftriaxone, Rocephin and vancomycin Right IJ place (3) Lactic acid acidosis: Code(s): E87.20 - Acidosis, unspecified Status: Acute Assessment and Plan: Secondary to above Lactic acid on admission 11.7 Repeat lactic is 5.2 Continue to trend to help below 2.4 (4) Pneumonia: Code(s): J18.9 - Pneumonia, unspecified organism Status: Acute Assessment and Plan: ICU admission for hypoxia, tachycardia and lactic 11.7 IV azithromycin, Rocephin and vancomycin renally dose Gentle IV hydration (5) Tachycardia: Code(s): R00.0 - Tachycardia, unspecified Status: Acute Assessment and Plan: Hypoxia and severe sepsis CAP CTA negative for PE (6) MILENA (acute kidney injury): Code(s): N17.9 - Acute kidney failure, unspecified Status: Acute Assessment and Plan: No previous in system to compare creatinine, unknown if patient has CKD Renally dose medications IV fluids for hydration Renal panel in the a.m. (7) Elevated troponin: Code(s): R79.89 - Other specified abnormal findings of blood chemistry Status: Acute Assessment and Plan: Could be due to severe hypoxia Trend troponin until flat EKG showing sinus tachycardia possible right ventricular conduction delay QTC 419 Repeat troponin improving (8) Elevated liver enzymes: Code(s): R74.8 - Abnormal levels of other serum enzymes Status: Acute Assessment and Plan: Daily CMP Hepatitis panel negative Abdominal CT and pelvis (9) CHF (congestive heart failure): Code(s): I50.9 - Heart failure, unspecified Status: Acute Assessment and Plan: History of congestive heart failure currently dehydrated Given 3 L of LR in the emergency room will need to monitor for pulmonary edema Plan Daily CMP, magnesium phosphorus, and CBC Quality VTE Prophylaxis VTE prophylaxis: mechanical ordered and pharmacologic ordered Hospitalist [facility] Advance Care Plan I have confirmed that the patient's Advanced Care Plan is present, code status is documented, or surrogate decision maker is listed in patient medical record.: Yes Medication Reconciliation The patient is not eligible for med reconciliation; the patient is in a emergent medical situation where delaying treatment would jeopardize the patients health.: Yes
[2024-07-22] MEDS: VANCOMYCIN 1,250 MG/NS 250 ML 1,250 MG/250 ML BAG 166.67 MG IVPB (13:02)
[2024-07-22 13:30] LABS: Troponin I 0.077 ng/mL (0.000-0.034)
--- NOTE | 2024-07-22 13:34 | ECG_ITS ---
Test Date: 2024-07-22 13:38:31 Measurements Intervals [place] Rate: 125 P: 70 IN: 158 QRS: 23 QRSD: 75 T: 77 QT: 290 QTc: 419 Interpretive Statements SINUS TACHYCARDIA POSSIBLE RIGHT VENTRICULAR CONDUCTION DELAY [RSR (QR) IN V1/V2] ABNORMAL RHYTHM ECG Compared to ECG 07/22/2024 10:03:54 Indeterminate axis no longer present ST (T wave) deviation no longer present Electronically Signed On 07-22-2024 14:23:56 DIRECTOR TALENT MANAGEMENT by Katie White M.D.
[2024-07-22] MEDS: LORazepam INJ (*CRX) 2 MG/ML VIAL 1 MG IV PUSH (13:37)
[2024-07-22] MEDS: LACTATED RINGERS 1,000 ML 125 ML IV CONT (13:39)
[2024-07-22 13:54] LABS: Alveolar/Arterial O2 Gradient 544.5 mmHg; Base Excess ABG -3.8 mEq/l (+/-2.0); Fractional Inspired Oxygen 100 %; HCO3 ABG 21.3 mEq/l (22.0-26.0); Oxygen Content ABG 17.2 %vol (16.0-22.0); Oxygen Saturation ABG 99.4 % (95.0-100.0); Oxyhemoglobin 98.5 % THb (90.0-100.0); PCO2 ABG 38.5 mmHg (35.0-45.0); PO2 ABG 208.4 mmHg (80.0-100.0); PO2 FiO2 Ratio Arterial Blood 2.08 %; Total Hemoglobin 12.1 g/dL (12.0-18.0)
[2024-07-22 13:55] LABS: Site Drawn RIGHT RADIAL
[2024-07-22 13:56] LABS: Device BIPAP; Expiratory Pressure 8 cmH2O; Inspiratory Pressure 14 cmH2O; Modified Allen's Test Pass
[2024-07-22 14:01] LABS: Lactic Acid Reflex 5.2 mmol/L (0.7-2.0)
[2024-07-22 14:25] LABS: Reflex Lactic Acid Yes or No Add Lactic
--- NOTE | 2024-07-22 14:34 | WPDCNINT ---
Assessment and Plan Assessment and plan (1) Severe sepsis: Code(s): A41.9 - Sepsis, unspecified organism; R65.20 - Severe sepsis without septic shock Status: Acute Assessment and Plan: 07/22: Patient presented the ED with shortness of breath, chest x-ray showed right lower lobe consolidation/pneumonia, acute kidney injury, tachycardia, tachypnea -patient given 30 cc/kg IV fluids in the ER, patient was also given Lasix 40 mg IV x1 -07/22: Blood cultures have been obtained -07/22: Have ordered sputum culture -elevated lactic acid of 11.7, down to 5.2, will continue to trend lactic acid level -started on ceftriaxone, azithromycin, vancomycin (07/22) -blood pressures have been stable at this time -07/22: Right IJ central line was inserted in the ICU (2) Acute respiratory failure: Code(s): J96.00 - Acute respiratory failure, unspecified whether with hypoxia or hypercapnia Status: Acute Assessment and Plan: Acute respiratory failure likely related to right lower lobe pneumonia. Patient also tachypneic and tachycardic, will send patient for a CT scan of the chest PE protocol to rule out pulmonary embolism -07/22: Intubated in the ICU -continue CMV mode of ventilation, peep of 10, 100% FiO2, wean FiO2 to maintain O2 sats > 92% -post intubation ABGs pending -will add bronchodilators -sedated with propofol infusion, maintain RASS of 0 to -2. Daily SAT and SBT (3) Pneumonia: Code(s): J18.9 - Pneumonia, unspecified organism Status: Acute Assessment and Plan: Right lower lobe pneumonia seen on chest x-ray -continue mechanical ventilation, bronchodilators (4) MILENA (acute kidney injury): Code(s): N17.9 - Acute kidney failure, unspecified Status: Acute Assessment and Plan: Patient presented with severe sepsis, acute kidney injury with creatinine of 2.00. Baseline creatinine unknown -received 30 cc/kg IV fluid bolus in the ER -continue maintenance IV fluids at 75 mL -will given additional 500 mL of albumin for volume expansion (5) Elevated liver enzymes: Code(s): R74.8 - Abnormal levels of other serum enzymes Status: Acute Assessment and Plan: Elevated liver enzymes -obtain hepatitis panel -order CT abdomen pelvis (6) CHF (congestive heart failure): Code(s): I50.9 - Heart failure, unspecified Status: Acute Assessment and Plan: History of CHF, proBNP was 700 -chest x-ray did not show any pulmonary edema -will obtain echocardiogram to assess structural and functional heart disease (7) Elevated troponin: Code(s): R79.89 - Other specified abnormal findings of blood chemistry Status: Acute Assessment and Plan: Elevated troponin likely related to 2 type 2 infarct, secondary to tachycardia, tachypnea -will continue to monitor -echocardiogram to evaluate wall motion abnormality -will recheck troponin received Plan DVT prophylaxis: Enoxaparin Stress ulcer prophylaxis: Protonix Nutrition: NPO Code Status: Full code Critical Care Time Spent: 77 minutes Due to a high probability of clinically significant, life threatening deterioration, the patient required my highest level of preparedness to intervene emergently and I personally spent this critical care time directly and personally managing the patient. This critical care time included obtaining a history; examining the patient; pulse oximetry; ordering and review of studies; arranging urgent treatment with development of a management plan; evaluation of patient's response to treatment; frequent reassessment; and discussions with other providers. It was exclusive of separately billable procedures and treating other patients and teaching time. Please see Assessment and Plan section and the rest of the note for further information on patient assessment and treatment This dictation may have been done utilizing a voice recognition system. Attempts have been made to correct errors. However, there may be uncorrected grammatical, spelling, and recognitions errors present. Reproductive Endocrinologist Consult Note Consult date: 07/22/24 Reason for consult: Acute respiratory failure, pneumonia, severe sepsis HPI: Kofi Verduzco is a 63 year old male with past medical history of CHF presented the ED on 07/20/2024 with complains of shortness of breath, hypoxia. He was found to be hypoxic with O2 sats of 70s on room air and remained hypoxic on non-rebreather at 15 L. In the ER patient was given Lasix 40 mg IV x1 for possible CHF exacerbation. Patient was tachypneic, tachycardic with adequate blood pressures. WBC count of 6.3, hemoglobin 13.4, platelets 195, her potassium of 3.7, BUN 22 and creatinine of 2.00 with a blood sugars of 224. Elevated LFTs, Patient had lactic acid of 11.7, troponin of 0.024. C-reactive protein of 4.0 proBNP was 727. UA was was not reflective of UTI, influenza RSV and SARS-CoV-2 PCR were negative. Patient was then given 30 cc/kg IV fluid bolus and placed on BiPAP after which the ER physician stated that his heart rate is tachypnea improved. Chest x-ray showed right lower lobe pneumonia. Blood cultures were ordered, patient was started on vancomycin and azithromycin and ceftriaxone and transferred to the ICU for further management. Patient seen and examined upon arrival to the ICU, he was breathing 40-50 times a minute, tachycardic in the 140s, could not complete a sentence. I discussed with patient regarding intubation as he would tire at some point breathing so fast. He agreed to intubation, patient in impending respiratory failure was successfully intubated in the ICU without any complications. A right IJ central line was inserted as one of his IV lines seem to be not functioning. Review of Systems Review of Systems: ROS unobtainable: Yes unobtainable due to endotracheal tube and unobtainable due to medical condition Meds Home Medications and Allergies Allergies Allergy/AdvReac Type Severity Reaction Status Date / Time No Known Allergies Allergy Mild Verified 07/22/24 10:06 Vital Signs Vital Signs - 24 hr 07/22/24 09:57 07/22/24 10:00 07/22/24 10:04 Temperature 97.6 F Pulse Rate 152 H 149 H Respiratory Rate 46 H Blood Pressure 142/87 H Pulse Oximetry 77 L 80 L Oxygen Delivery Room Air Non-Rebreather Mask Oxygen Flow Rate 15 07/22/24 10:04 07/22/24 10:10 07/22/24 10:14 Temperature Pulse Rate 144 H Respiratory Rate 51 H Blood Pressure Pulse Oximetry 73 L 100 100 Oxygen Delivery Non-Rebreather Mask BiPAP BiPAP Oxygen Flow Rate 15 07/22/24 10:21 07/22/24 10:22 07/22/24 10:31 Temperature Pulse Rate 147 H 144 H 138 H Respiratory Rate 54 H 51 H 51 H Blood Pressure 101/70 101/70 87/59 L Pulse Oximetry 100 100 100 Oxygen Delivery Oxygen Flow Rate 07/22/24 10:36 07/22/24 10:46 07/22/24 11:16 Temperature Pulse Rate 139 H 137 H 131 H Respiratory Rate 51 H 46 H 43 H Blood Pressure 90/72 L 112/85 170/105 H Pulse Oximetry 100 98 100 Oxygen Delivery Oxygen Flow Rate 07/22/24 11:30 07/22/24 11:46 07/22/24 12:01 Temperature Pulse Rate 135 H 133 H 129 H Respiratory Rate 44 H 29 H 43 H Blood Pressure 167/100 H 124/92 H Pulse Oximetry 100 100 100 Oxygen Delivery BiPAP Oxygen Flow Rate 07/22/24 12:16 07/22/24 12:31 07/22/24 13:00 Temperature Pulse Rate 128 H 126 H 138 H Respiratory Rate 45 H 42 H 29 H Blood Pressure 121/85 127/87 Pulse Oximetry 100 100 100 Oxygen Delivery Oxygen Flow Rate 07/22/24 13:07 07/22/24 13:15 Temperature Pulse Rate 129 H 123 H Respiratory Rate 44 H 39 H Blood Pressure 114/74 104/74 Pulse Oximetry 100 100 Oxygen Delivery Oxygen Flow Rate Exam Narrative: General: Ill-appearing gentleman in respiratory distress upon arrival to the ICU HEENT:? Pupils equal and reactive, sclera is clear, ETT in place Neck:? Supple Respiratory:? Coarse breath sounds bilaterally, rales in light lower base no wheezing, adequate air entry Cardiac:? S1-S2 is normal, sinus tachycardia Abdomen:? Soft, nondistended, nontender, hypoactive bowel so Extremities:? No edema, palpable pedal pulses Neuro:? Patient is intubated, sedated, does not follow simple commands or answers to questions. Prior to intubation patient was moving all 4 extremities, answering to questions appropriately Skin:? Dry skin, no other lesions noted Psych:? Unable to assess at this time Results Labs 07/22/24 10:08 07/22/24 10:08 Labs: Short CBC 07/22/24 Range/Units 10:08 WBC 6.3 (4.5-10.0) K/mm3 Hgb 13.4 L (14.0-18.0) g/dL Hct 39.2 L (42.0-52.0) % Plt Count 195 (150-375) k/mm3 BMP 07/22/24 10:08 Sodium 139 Potassium 3.7 Chloride 102 Carbon Dioxide 17 L BUN 22 H Creatinine 2.00 H Glucose 224 H Calcium 8.8 Cardiac Enzymes 07/22/24 07/22/24 Range/Units 10:08 13:02 Troponin I 0.024 0.077 H* D (0.000-0.034) ng/mL Liver Function 07/22/24 Range/Units 10:08 Total Bilirubin 1.0 (0.2-1.3) mg/dL AST 128 H (17-59) U/L ALT 92 H (6-50) U/L Alkaline Phosphatase 68 (38-126) U/L Albumin 4.1 (3.5-5.1) g/dL Urine 07/22/24 Range/Units 11:36 Urine Color Yellow (Yellow) Urine Appearance Clear (Clear) Urine pH 6.0 (5.0-9.0) Ur Specific [place] 1.007 (1.001-1.035) Urine Protein 1+ H (Negative) mg/dL Urine Glucose (UA) Negative (Negative) mg/dL Quality VTE Prophylaxis VTE prophylaxis: pharmacologic ordered Hospitalist MIPS Advance Care Plan I have confirmed that the patient's Advanced Care Plan is present, code status is documented, or surrogate decision maker is listed in patient medical record.: Yes Medication Reconciliation I have utilized all available resources to obtain, update and review the patients current medications (includes all prescriptions, OTC, herbals, cannabis, and nutritional supplements).: Yes
[2024-07-22] MEDS: VANCOMYCIN 1,000 MG/NS 250 ML 1,000 MG/250 ML BAG 250 MG IVPB (14:35)
--- NOTE | 2024-07-22 14:45 | ADMGEN ---
This patient, Kofi Verduzco, was admitted to Intensive Care Unit-8 at 1445. Patient/family oriented to hospital policies and general routines including ID bracelet, bed and alarms, visiting hours, pain management, procedures, bathroom and other care routines, personal items, smoking policy, room service/diet, and visiting hours. Information on how to activate the Rapid Response Team has been discussed. Patient/Family are encouraged to report perceived risks to care and to ask questions if they do not understand what they are told or what they should do.
[2024-07-22] MEDS: ETOMIDATE 20 MG/10 ML AMPUL 30 MG IV PUSH (14:59)
[2024-07-22] MEDS: ROCURONIUM BROMIDE 50 MG/5 ML VIAL IV PUSH ×2 (15:03→16:26)
[2024-07-22] MEDS: MIDAZOLAM HCL (*CRX) 2 MG/2 ML VIAL IV PUSH ×2 (15:05→16:26)
[2024-07-22] MEDS: PROPOFOL IV EMULSION 100 ML 5.46 MG IV CONT (15:10)
--- NOTE | 2024-07-22 15:40 | WPDPROCEDUR ---
Procedures Intubation Intubation Date: 07/22/24 Intubation Time: 15:05 Consent: Discussed with patient regarding his respiratory distress, tachypnea and that he will tire out and going to respiratory arrest. I discussed with him options of intubation and he was agreeable. A pre-procedural Time-Out was completed immediately before starting the procedure and confirmed: Patient Identification, Site, Procedure, Patient Position and the Availability of Requisite Equipment: Yes Sedative: etomidate Paralytic: rocuronium Laryngoscope: fiber optic video scope Assist device used: fiber optic device ET tube size: 8 Tube secured depth (cm): 25 Tube secured location: lips Tube placement confirmation: visualized tube passing through cords, equal breath sounds bilaterally, no breath sounds over epigastrium and confirmation by capnometry Patient tolerated procedure: well and no complications Intubation complications: none
--- NOTE | 2024-07-22 15:42 | WPDPROCEDUR ---
Procedures Central Line Placement Right IJ: Central Line Date: 07/22/24 Central Line Time: 15:42 Consent: I have discussed with the patient and/or surrogate, the non-emergent placement of a central venous catheter, including its clinical necessity/indication and associated potential risks and complications. The patient and/or surrogate understand(s) and acknowledge(s) the need to proceed with central venous catheter insertion as an important element of the patient's clinical management. Time Out Performed: Yes Patient Position: supine Patient placed on monitor/pulse ox: Yes Provider Prep: mask, sterile gown, sterile gloves, Max. sterile barrier precautions, cap and hand hygiene with conventional soap/water or alcohol based hand rub Central line prep: 2% Chlorhexidine scrub Local anesthesia used: lidocaine 1% Amount of anesthesia used (ml): 3 Sterile US Technique with sterile gel/sterile probe covers: Yes Central line lumen inserted: triple Ug[place]an: 12 Length (cm): 16 Depth of Insertion (cm): 16 Post Procedure: sutured in place, good blood return, all ports aspirated, flushed, capped, transparent dressing, hemostatic product, antimicrobial product, securement product and aseptic technique maintained throughout procedure Post procedure x-ray: tip of catheter in good position Patient tolerated procedure: well and no complications Complications: none
[2024-07-22 16:14] LABS: Alveolar/Arterial O2 Gradient 605.6 mmHg; Fractional Inspired Oxygen 100 %; HCO3 ABG 22.7 mEq/l (22.0-26.0); Modified Allen's Test Pass; Oxygen Content ABG 15.4 %vol (16.0-22.0); Oxygen Saturation ABG 91.3 % (95.0-100.0); Oxyhemoglobin 89.1 % THb (90.0-100.0); PCO2 ABG 43.2 mmHg (35.0-45.0); PO2 ABG 64.2 mmHg (80.0-100.0); PO2 FiO2 Ratio Arterial Blood 0.64 %; Site Drawn RIGHT RADIAL; Total Hemoglobin 12.3 g/dL (12.0-18.0); pH ABG 7.339 (7.350-7.450)
[2024-07-22 16:15] LABS: Arterial Blood Gas PEEP 10 cmH2O; Arterial Blood Gas Vent Mode CMV; Arterial Blood Gas Ventilator rate 24 /MIN; Device VENTILATOR
[2024-07-22 16:16] LABS: Arterial Blood Gas Tidal Volume 500 ml
[2024-07-22] MEDS: MIDAZOLAM 100MG/NS 100ML(*CRX) 100 MG/100 ML BAG IV CONT (16:25)
[2024-07-22] MEDS: ALBUMIN HUMAN 5% 25 GM/500 ML BTL IV CONT (16:26)
[2024-07-22] MEDS: CISATRACURIUM BESYLATE 200 MG in DEXTROSE 5% 80 ML 8.19 ML IV CONT (16:27)
[2024-07-22 16:32] LABS: Lactic Acid 3.7 mmol/L (0.7-2.0)
[2024-07-22 16:48] LABS: Troponin I 0.104 ng/mL (0.000-0.034)
[2024-07-22 16:52] LABS: Triglycerides 184 mg/dL (<150)
--- NOTE | 2024-07-22 17:09 | ADMGEN ---
This patient, Kofi Verduzco, was admitted to Intensive Care Unit-8. Patient/family oriented to hospital policies and general routines including ID bracelet, bed and alarms, visiting hours, pain management, procedures, bathroom and other care routines, personal items, smoking policy, room service/diet, and visiting hours. Information on how to activate the Rapid Response Team has been discussed. Patient/Family are encouraged to report perceived risks to care and to ask questions if they do not understand what they are told or what they should do.
[2024-07-22] MEDS: HYDROCORTISONE SODIUM SUCCINATE 100 MG/2 ML VIAL 50 MG IV PUSH ×2 (17:18→23:24)
[2024-07-22 17:27] LABS: Hepatitis B Surface Antigen Negative (Negative)
[2024-07-22 17:32] LABS: HAV RESULT Negative (Negative); Hepatitis B Core IgM Result Negative (Negative)
[2024-07-22 17:46] LABS: Hepatitis C Virus Antibody Reactive (Negative)
[2024-07-22] MEDS: ACETAMINOPHEN ELIXIR 325 MG/10.15 ML UDC 650 MG PO (19:06)
[2024-07-22] MEDS: PROPOFOL IV EMULSION 100 ML 21.84 MG IV CONT (19:50)
[2024-07-22 20:36] LABS: Troponin I 0.094 ng/mL (0.000-0.034)
[2024-07-22] MEDS: IPRATROPIUM BR 0.02% INH SOLN 0.5 MG/2.5 ML VIAL INHALATION (20:46)
[2024-07-22] MEDS: LEVALBUTEROL NEB 1.25 MG/3 ML INHALATION (20:46)
[2024-07-22] MEDS: MINERAL OIL/WHITE PETROLATUM OINTMENT 1 APPLIC EACH EYE (21:15)
[2024-07-22] MEDS: CENTRAL LINE FLUSH 10 ML IV PUSH (21:15)
[2024-07-22 21:45] LABS: Alveolar/Arterial O2 Gradient 495.9 mmHg; Base Excess ABG -4.9 mEq/l (+/-2.0); Fractional Inspired Oxygen 100 %; HCO3 ABG 20.1 mEq/l (22.0-26.0); Oxygen Content ABG 17.5 %vol (16.0-22.0); Oxygen Saturation ABG 99.2 % (95.0-100.0); Oxyhemoglobin 98.9 % THb (90.0-100.0); PCO2 ABG 36.9 mmHg (35.0-45.0); PO2 ABG 180.2 mmHg (80.0-100.0); Total Hemoglobin 12.3 g/dL (12.0-18.0); pH ABG 7.353 (7.350-7.450)
[2024-07-22 21:46] LABS: Device VENTILATOR; Modified Allen's Test Pass; Site Drawn RIGHT BRACHIAL
[2024-07-22 21:47] LABS: Arterial Blood Gas PEEP 8 cmH2O; Arterial Blood Gas Vent Mode CMV; Arterial Blood Gas Ventilator rate 24 /MIN
[2024-07-22 21:48] LABS: Arterial Blood Gas Tidal Volume 500 ml
[2024-07-22 22:38] LABS: MRSA (PCR) NOT DETECTED (NOT DETECTE)
[2024-07-22 23:34] LABS: Glucose Point of Care 156 mg/dl (65-105)
[2024-07-23] VITALS (59 sets, daily range): BP systolic 77–179; BP diastolic 64–126; PULSE 86–109; RESP 24; TEMP 36.5–38.8; O2SAT 95–100; BMI 23.4
[2024-07-23] MEDS: PROPOFOL IV EMULSION 100 ML 21.84 MG IV CONT ×5 (01:18→19:59)
[2024-07-23 02:25] LABS: IFOB Positive Control Positive; Immunochemical Fecal Occult Bl Negative (N)
[2024-07-23] MEDS: LEVALBUTEROL NEB 1.25 MG/3 ML INHALATION ×4 (02:56→20:03)
[2024-07-23] MEDS: IPRATROPIUM BR 0.02% INH SOLN 0.5 MG/2.5 ML VIAL INHALATION ×4 (02:56→20:03)
[2024-07-23] MEDS: CISATRACURIUM BESYLATE 200 MG in DEXTROSE 5% 80 ML 8.19 ML IV CONT (04:05)
[2024-07-23] MEDS: HYDROCORTISONE SODIUM SUCCINATE 100 MG/2 ML VIAL 50 MG IV PUSH ×4 (05:14→23:35)
[2024-07-23 05:31] LABS: Basophils Absolute Auto 0.1 K/mm3 (0.0-0.1); Basophils Percent Auto 1.5 % (0.2-1.2); Hematocrit 33.8 % (42.0-52.0); Hemoglobin 11.5 g/dL (14.0-18.0); Immature Granulocyte Absolute 0.06 K/mm3 (0.00-0.031); Lymphocytes Absolute Auto 0.38 K/mm3 (0.9-3.2); Lymphocytes Percent Auto 6.5 % (18.3-44.2); Mean Corpuscular Hemoglobin 35.5 pg (26-34); Mean Corpuscular Volume 104.3 fl (80-100); Mean Platelet Volume 10.5 fl (7.4-10.4); Monocytes Absolute Auto 0.3 K/mm3 (0.1-0.6); Monocytes Percent Auto 4.9 % (2.6-8.5); Neutrophils Percent Auto 86.1 % (45.5-73.1); Platelet Count Result 119 k/mm3 (150-375); Red Blood Count 3.24 M/mm3 (4.6-6.20); Red Cell Distribution Width 12.7 % (11.5-14.5); White Blood Count 5.9 K/mm3 (4.5-10.0)
[2024-07-23 05:40] LABS: INR 1.2; Prothrombin Time 15.3 Seconds (11.1-14.7)
[2024-07-23] MEDS: CENTRAL LINE FLUSH 10 ML IV PUSH ×3 (05:41→20:00)
[2024-07-23] MEDS: LACTATED RINGERS 1,000 ML 75 ML IV CONT (05:41)
[2024-07-23 05:43] LABS: Lactic Acid Reflex 3.1 mmol/L (0.7-2.0)
[2024-07-23 06:01] LABS: Alveolar/Arterial O2 Gradient 364.7 mmHg; Base Excess ABG -3.1 mEq/l (+/-2.0); Carboxyhemoglobin 0.1 % THb (0-2.0); Fractional Inspired Oxygen 80 %; HCO3 ABG 22.6 mEq/l (22.0-26.0); Methemoglobin ABG 0.1 %THb (0-1.5); Oxygen Content ABG 22.4 %vol (16.0-22.0); PCO2 ABG 42.4 mmHg (35.0-45.0); PO2 ABG 161.2 mmHg (80.0-100.0); PO2 FiO2 Ratio Arterial Blood 2.01 %; Reduced Hemoglobin 0.8 %THb (0-5.0); Total Hemoglobin 15.9 g/dL (12.0-18.0); pH ABG 7.344 (7.350-7.450)
[2024-07-23 06:02] LABS: Device VENTILATOR; Modified Allen's Test Pass; Site Drawn RIGHT BRACHIAL
[2024-07-23 06:03] LABS: Arterial Blood Gas PEEP 8 cmH2O; Arterial Blood Gas Tidal Volume 500 ml; Arterial Blood Gas Vent Mode CMV; Arterial Blood Gas Ventilator rate 24 /MIN
[2024-07-23 06:27] LABS: Macrocytosis 1+ (NORMAL); Platelet Estimate Slightly Decreased (Adequate); Schistocytes None Seen
[2024-07-23 06:39] LABS: Fibrinogen 536 mg/dl (215-510)
[2024-07-23 08:25] LABS: Reflex Lactic Acid Yes or No Add Lactic
[2024-07-23] MEDS: PANTOPRAZOLE SODIUM IV 40 MG VIAL IV PUSH (08:49)
[2024-07-23] MEDS: cefTRIAXone 2 GM/NS 100 ML 2 GM/100 ML BAG IVPB (08:49)
[2024-07-23] MEDS: ENOXAPARIN 40 MG/0.4 ML SYRINGE SUB-Q (08:49)
[2024-07-23] MEDS: AZITHROMYCIN 500 MG/NS 250 ML 500 MG/250 ML BAG 250 MG IVPB (08:49)
[2024-07-23] MEDS: MINERAL OIL/WHITE PETROLATUM OINTMENT 1 APPLIC EACH EYE ×2 (08:49→20:00)
[2024-07-23 09:07] LABS: Alanine Aminotransferase 106 U/L (6-50); Albumin Level 3.6 g/dL (3.5-5.1); Alkaline Phosphatase 42 U/L (38-126); Anion Gap 8 mmol/L (4-12); Aspartate Amino Transferase 217 U/L (17-59); Bilirubin,Total 0.9 mg/dL (0.2-1.3); Blood Urea Nitrogen 37 mg/dL (9-20); Calcium 7.8 mg/dL (8.4-10.2); Carbon Dioxide 23 mmol/L (22-30); Chloride 103 mmol/L (98-107); Estimated CRCL calculation 47 ml/min; Estimated Glomerular Filt Rate 50; Glucose 162 mg/dL (65-110); Lipase 15 U/L (23-300); Magnesium 1.3 mg/dL (1.6-2.3); Phosphorus 5.1 mg/dL (2.5-4.5); Potassium 5.4 mmol/L (3.4-5.0); Sodium 134 mmol/L (137-145)
[2024-07-23 09:07] LABS: Lactic Acid 3.4 mmol/L (0.7-2.0)
[2024-07-23] MEDS: SODIUM ZIRCONIUM CYCLOSILICATE 10 GM POWD.PACK PO (10:52)
[2024-07-23] MEDS: MAGNESIUM SULF 2 GM/WATER 50ML 2 GM/50 ML BAG IVPB (10:52)
--- NOTE | 2024-07-23 11:24 | P.PNINT_ITS ---
Progress Note: A&P Assessment and Plan (1) Severe sepsis: Code(s): A41.9 - Sepsis, unspecified organism; R65.20 - Severe sepsis without septic shock Status: Acute Assessment and Plan: 07/22: Patient presented the ED with shortness of breath, chest x-ray showed right lower lobe consolidation/pneumonia, acute kidney injury, tachycardia, tachypnea -patient given 30 cc/kg IV fluids in the ER, patient was also given Lasix 40 mg IV x1 -07/22: Blood cultures obtained and pending -07/22: Sputum cultures obtained and pending -elevated lactic acid of 11.7, down to 5.2, -lactic acid remains elevated, could be multifactorial -continue ceftriaxone, azithromycin, vancomycin (07/22) -07/22: Right IJ central line was inserted in the ICU -07/23: Patient has some blood in stool, Hemoccult was negative, DIC panel was within normal limits, hematuria has cleared up -blood pressures continue to remain stable an adequate continue 07/22: CT soft tissue neck without contrast: This was done as his neck movement s were restricted. Impression: The endotracheal tube tip is in expected position. There is a small right pleural effusion. There are no pathologically enlarged lymph nodes. Partially visualized is an orogastric tube. Partially visualized is a right internal jugular central venous catheter with tip at least to the superior vena cava. There is mucosal thickening in right maxillary sinus. There is multifocal dental disease. There is a 17 mm nodule in right thyroid lobe. There are bridging endplate osteophytes at multiple levels in the spine, consistent with diffuse idiopathic skeletal hyperostosis (DISH). (2) Acute respiratory failure: Code(s): J96.00 - Acute respiratory failure, unspecified whether with hypoxia or hypercapnia Status: Acute Assessment and Plan: Acute respiratory failure likely related to right lower lobe pneumonia. Patient also tachypneic and tachycardic, will send patient for a CT scan of the chest PE protocol to rule out pulmonary embolism -07/22: Intubated in the ICU -continue CMV mode of ventilation, peep of 8 and 50% FiO2, wean FiO2 to maintain O2 sats > 92% -chest x-ray this morning and ABGs reviewed, continue low tidal volume strategy -continue bronchodilators -sedated with propofol infusion, maintain RASS of 0 to -2. Daily SAT and SBT 07/22: CT a chest PE, abdomen/pelvis IMPRESSION: No evidence of pulmonary embolism Prominent bilateral lower lobe consolidation. Mild lobe infiltrate. (3) Pneumonia: Code(s): J18.9 - Pneumonia, unspecified organism Status: Acute Assessment and Plan: Right lower lobe pneumonia seen on chest x-ray -continue mechanical ventilation, bronchodilators -patient has been started on hydrocortisone 50 mg IV q.6 hours for pneumonia (4) MILENA (acute kidney injury): Code(s): N17.9 - Acute kidney failure, unspecified Status: Acute Assessment and Plan: Patient presented with severe sepsis, acute kidney injury with creatinine of 2.00. Baseline creatinine unknown -received 30 cc/kg IV fluid bolus in the ER -patient is received adequate amount of IV fluids, urine output has been adequate, creatinine improving -discontinue IV fluids at this time -hyperkalemia, will treat with Lokelma -hypomagnesemia, will be replaced magnesium (5) Elevated liver enzymes: Code(s): R74.8 - Abnormal levels of other serum enzymes Status: Acute Assessment and Plan: Elevated liver enzymes -hepatitis panel is negative -HCV RNA PCR pending -check right upper quadrant ultrasound (6) CHF (congestive heart failure): Code(s): I50.9 - Heart failure, unspecified Status: Acute Assessment and Plan: History of CHF, proBNP was 700 -chest x-ray did not show any pulmonary edema -echocardiogram has been ordered to assess structural and functional heart disease (7) Elevated troponin: Code(s): R79.89 - Other specified abnormal findings of blood chemistry Status: Acute Assessment and Plan: Elevated troponin likely related to 2 type 2 infarct, secondary to tachycardia, tachypnea -will continue to monitor -echocardiogram to evaluate wall motion abnormality -troponins have plateaued Plan DVT prophylaxis: Enoxaparin Stress ulcer prophylaxis: Protonix Nutrition: Will start tube feeds Code Status: Full code Critical Care Time Spent: 36 minutes 07/22/2024: Discuss with Miranda, patient's daughter and next of kin. She stated that the patient lives in [facility] by himself, has never , she is the only child. States he drinks alcohol from sun up to sun down, also uses marijuana and cocaine. Smokes cigarettes 1 pack per day for many years. She does not know what other medical conditions he has. I updated the daughter with patient's condition and plan of care. I answered all her questions Due to a high probability of clinically significant, life threatening deterioration, the patient required my highest level of preparedness to intervene emergently and I personally spent this critical care time directly and personally managing the patient. This critical care time included obtaining a history; examining the patient; pulse oximetry; ordering and review of studies; arranging urgent treatment with development of a management plan; evaluation of patient's response to treatment; frequent reassessment; and discussions with other providers. It was exclusive of separately billable procedures and treating other patients and teaching time. Please see Assessment and Plan section and the rest of the note for further information on patient assessment and treatment This dictation may have been done utilizing a voice recognition system. Attempts have been made to correct errors. However, there may be uncorrected grammatical, spelling, and recognitions errors present. Subjective Date/time seen: 07/23/24 11:24 Interval history: Reason for consult: Acute respiratory failure, pneumonia, severe sepsis, acute kidney injury 07/23/2024: Patient seen and examined in the ICU, remains intubated on CMV mode of ventilation, peep of 8, 80% FiO2. Sedated with Versed and propofol infusion. Patient also on Nimbex for neuromuscular blockade for vent synchrony. Urine output has been adequate, hemodynamically stable, afebrile overnight. Potassium of 5.4 this morning, creatinine down to 1.70. Lactic of 3.4. Overnight patient had some dark colored stool, Hemoccult was negative. Patient also had some hematuria which is cleared up. DIC panel was obtained which does not reflect that patient is in DIC Review of Systems Review of Systems: All systems reviewed & are unremarkable except as noted in HPI and below ROS unobtainable: Yes unobtainable due to endotracheal tube and unobtainable due to medical condition Exam Narrative: General: Patient intubated, sedated, paralyzed on Nimbex infusion HEENT:? Pupils equal and reactive, sclera is clear, ETT in place Neck:? Neck movements are restricted Respiratory:? Coarse breath sounds bilaterally, rales in light lower base no wheezing, adequate air entry Cardiac:? S1-S2 is normal, sinus tachycardia Abdomen:? Soft, nondistended, nontender, hypoactive bowel sounds Extremities:? No edema, palpable pedal pulses Neuro:? Patient is intubated, sedated, and paralyzed does not follow simple commands or answers to questions. Skin:? Dry skin, no other lesions noted Psych:? Unable to assess at this time Objective Data Vital Signs Vital Signs: Vital Signs - 24 hr 07/22/24 11:30 07/22/24 11:46 07/22/24 12:01 Temperature Pulse Rate 135 H 133 H 129 H Respiratory Rate 44 H 29 H 43 H Blood Pressure 167/100 H 124/92 H Pulse Oximetry 100 100 100 Oxygen Delivery BiPAP Fraction of Inspired Oxygen 07/22/24 12:16 07/22/24 12:31 07/22/24 13:00 Temperature Pulse Rate 128 H 126 H 138 H Respiratory Rate 45 H 42 H 29 H Blood Pressure 121/85 127/87 Pulse Oximetry 100 100 100 Oxygen Delivery Fraction of Inspired Oxygen 07/22/24 13:07 07/22/24 13:15 07/22/24 13:35 Temperature Pulse Rate 129 H 123 H 126 H Respiratory Rate 44 H 39 H 43 H Blood Pressure 114/74 104/74 Pulse Oximetry 100 100 100 Oxygen Delivery BiPAP Fraction of Inspired Oxygen 07/22/24 14:00 07/22/24 15:10 07/22/24 15:12 Temperature Pulse Rate 119 H 122 H Respiratory Rate 24 H Blood Pressure Pulse Oximetry 99 Oxygen Delivery BiPAP Mechanical Ventilation Fraction of Inspired Oxygen 70 07/22/24 15:20 07/22/24 15:30 07/22/24 15:35 Temperature Pulse Rate 120 H 116 H 110 H Respiratory Rate 24 H 30 H 32 H Blood Pressure Pulse Oximetry Oxygen Delivery Fraction of Inspired Oxygen 07/22/24 15:40 07/22/24 15:45 07/22/24 15:50 Temperature Pulse Rate 120 H 119 H 123 H Respiratory Rate 28 H 24 H 24 H Blood Pressure Pulse Oximetry Oxygen Delivery Fraction of Inspired Oxygen 07/22/24 16:00 07/22/24 16:00 07/22/24 16:00 Temperature 102 F H Pulse Rate 121 H 121 H 121 H Respiratory Rate 35 H 35 H Blood Pressure 119/89 Pulse Oximetry 91 92 Oxygen Delivery Mechanical Ventilation Fraction of Inspired Oxygen 100 07/22/24 16:15 07/22/24 16:15 07/22/24 16:25 Temperature Pulse Rate 120 H 125 H Respiratory Rate 24 H Blood Pressure Pulse Oximetry 92 92 Oxygen Delivery Mechanical Ventilation Mechanical Ventilation Fraction of Inspired Oxygen 100 100 07/22/24 16:27 07/22/24 18:00 07/22/24 18:00 Temperature 102 F H Pulse Rate 125 H 121 H 113 H Respiratory Rate 29 H 24 H Blood Pressure 122/94 H 129/94 H Pulse Oximetry 100 Oxygen Delivery Fraction of Inspired Oxygen 07/22/24 18:30 07/22/24 19:06 07/22/24 19:50 Temperature 102.5 F H Pulse Rate 115 H 111 H Respiratory Rate 24 H Blood Pressure Pulse Oximetry 100 Oxygen Delivery Mechanical Ventilation Fraction of Inspired Oxygen 100 07/22/24 19:50 07/22/24 20:00 07/22/24 20:00 Temperature Pulse Rate 111 H 111 H 111 H Respiratory Rate 24 H 24 H 24 H Blood Pressure 107/77 Pulse Oximetry Oxygen Delivery Fraction of Inspired Oxygen 07/22/24 20:00 07/22/24 20:00 07/22/24 20:00 Temperature 102.0 F H Pulse Rate 113 H 113 H Respiratory Rate 24 H Blood Pressure 107/77 Pulse Oximetry 99 Oxygen Delivery Mechanical Ventilation Fraction of Inspired Oxygen 100 07/22/24 20:00 07/22/24 20:06 07/22/24 20:38 Temperature 101.8 F H Pulse Rate 113 H Respiratory Rate Blood Pressure Pulse Oximetry 100 Oxygen Delivery Mechanical Ventilation Fraction of Inspired Oxygen 100 100 07/22/24 20:47 07/22/24 22:00 07/22/24 22:00 Temperature 100.6 F H Pulse Rate 114 H 112 H 112 H Respiratory Rate 24 H 24 H Blood Pressure 121/89 Pulse Oximetry 100 Oxygen Delivery Fraction of Inspired Oxygen 07/22/24 22:00 07/22/24 22:00 07/22/24 22:00 Temperature Pulse Rate 112 H 112 H 112 H Respiratory Rate 24 H 24 H 24 H Blood Pressure 121/89 Pulse Oximetry Oxygen Delivery Fraction of Inspired Oxygen 07/23/24 00:00 07/23/24 00:00 07/23/24 00:00 Temperature Pulse Rate 102 H Respiratory Rate Blood Pressure Pulse Oximetry 100 Oxygen Delivery Mechanical Ventilation Mechanical Ventilation Fraction of Inspired Oxygen 100 100 100 07/23/24 00:00 07/23/24 00:00 07/23/24 00:00 Temperature Pulse Rate 101 H 101 H 101 H Respiratory Rate 24 H 24 H 24 H Blood Pressure 101/78 Pulse Oximetry Oxygen Delivery Fraction of Inspired Oxygen 07/23/24 00:00 07/23/24 00:00 07/23/24 00:25 Temperature 100.0 F H Pulse Rate 101 H 101 H 95 Respiratory Rate 24 H 24 H Blood Pressure 101/78 Pulse Oximetry 100 Oxygen Delivery Fraction of Inspired Oxygen 07/23/24 01:18 07/23/24 02:00 07/23/24 02:00 Temperature Pulse Rate 95 93 93 Respiratory Rate 24 H 24 H 24 H Blood Pressure 94/71 L Pulse Oximetry Oxygen Delivery Fraction of Inspired Oxygen 07/23/24 02:00 07/23/24 02:00 07/23/24 02:00 Temperature 98.4 F Pulse Rate 93 93 93 Respiratory Rate 24 H 24 H Blood Pressure 94/71 L Pulse Oximetry 96 Oxygen Delivery Fraction of Inspired Oxygen 07/23/24 02:47 07/23/24 02:58 07/23/24 03:08 Temperature Pulse Rate 91 93 91 Respiratory Rate 24 H 24 H Blood Pressure Pulse Oximetry 99 Oxygen Delivery Mechanical Ventilation Fraction of Inspired Oxygen 100 07/23/24 04:00 07/23/24 04:00 07/23/24 04:00 Temperature Pulse Rate 89 Respiratory Rate Blood Pressure Pulse Oximetry Oxygen Delivery Mechanical Ventilation Fraction of Inspired Oxygen 80 80 07/23/24 04:00 07/23/24 04:00 07/23/24 04:00 Temperature 98.4 F Pulse Rate 89 89 89 Respiratory Rate 24 H 24 H 24 H Blood Pressure 88/76 L Pulse Oximetry 99 Oxygen Delivery Fraction of Inspired Oxygen 07/23/24 04:05 07/23/24 04:05 07/23/24 04:47 Temperature Pulse Rate 89 89 96 Respiratory Rate 24 H 24 H 24 H Blood Pressure 88/76 L 88/76 L 131/103 H Pulse Oximetry Oxygen Delivery Fraction of Inspired Oxygen 07/23/24 04:58 07/23/24 04:59 07/23/24 05:16 Temperature 98.4 F Pulse Rate 102 H 102 H 104 H Respiratory Rate 24 H 24 H 24 H Blood Pressure 157/118 H 179/126 H Pulse Oximetry 100 Oxygen Delivery Fraction of Inspired Oxygen 07/23/24 05:20 07/23/24 05:40 07/23/24 05:40 Temperature Pulse Rate 100 97 97 Respiratory Rate 24 H 24 H Blood Pressure Pulse Oximetry 100 Oxygen Delivery Mechanical Ventilation Fraction of Inspired Oxygen 100 07/23/24 06:00 07/23/24 06:00 07/23/24 06:00 Temperature Pulse Rate 99 99 99 Respiratory Rate 24 H 24 H 24 H Blood Pressure 126/90 Pulse Oximetry Oxygen Delivery Fraction of Inspired Oxygen 07/23/24 06:00 07/23/24 06:00 07/23/24 07:00 Temperature 98.9 F Pulse Rate 99 99 101 H Respiratory Rate 24 H 24 H Blood Pressure 126/90 146/105 H Pulse Oximetry 97 Oxygen Delivery Fraction of Inspired Oxygen 07/23/24 08:00 07/23/24 08:00 07/23/24 08:00 Temperature 99.0 F Pulse Rate 100 101 H 101 H Respiratory Rate 24 H 24 H 24 H Blood Pressure 155/106 H 155/106 H Pulse Oximetry 100 Oxygen Delivery Fraction of Inspired Oxygen 07/23/24 08:00 07/23/24 08:00 07/23/24 08:00 Temperature Pulse Rate 101 H 99 Respiratory Rate 24 H 24 H Blood Pressure Pulse Oximetry 98 Oxygen Delivery Mechanical Ventilation Fraction of Inspired Oxygen 80 80 07/23/24 08:00 07/23/24 08:32 07/23/24 08:32 Temperature Pulse Rate 98 102 H Respiratory Rate 24 H Blood Pressure Pulse Oximetry 100 Oxygen Delivery Mechanical Ventilation Fraction of Inspired Oxygen 50 50 07/23/24 08:58 07/23/24 09:00 07/23/24 09:00 Temperature Pulse Rate 100 99 Respiratory Rate 24 H 24 H Blood Pressure 135/99 H Pulse Oximetry 98 Oxygen Delivery Mechanical Ventilation Fraction of Inspired Oxygen 50 07/23/24 09:01 07/23/24 10:00 07/23/24 10:00 Temperature 99.1 F Pulse Rate 98 106 H 106 H Respiratory Rate 24 H Blood Pressure 136/94 H Pulse Oximetry 100 99 Oxygen Delivery Mechanical Ventilation Fraction of Inspired Oxygen 50 07/23/24 10:02 07/23/24 10:02 07/23/24 10:02 Temperature Pulse Rate 106 H 106 H 106 H Respiratory Rate 24 H 24 H 24 H Blood Pressure 136/94 H Pulse Oximetry Oxygen Delivery Fraction of Inspired Oxygen 07/23/24 10:15 07/23/24 10:46 07/23/24 10:59 Temperature Pulse Rate 109 H 109 H 109 H Respiratory Rate 24 H 24 H 24 H Blood Pressure 160/99 H Pulse Oximetry Oxygen Delivery Fraction of Inspired Oxygen 07/23/24 10:59 07/23/24 10:59 Temperature Pulse Rate 109 H 109 H Respiratory Rate 24 H 24 H Blood Pressure Pulse Oximetry Oxygen Delivery Fraction of Inspired Oxygen Intake/Output Intake/Output: Intake & Output 07/20/24 07/21/24 07/22/24 07/23/24 23:59 23:59 23:59 23:59 Intake Total 4618.7 1763.3 Output Total 300 535 Balance 4318.7 1228.3 Meds/Results Medications: Active Medications Generic Name Dose Route Start Last Admin Trade Name Freq PRN Reason Stop Dose Admin Acetaminophen 650 mg 07/22/24 17:34 07/22/24 19:06 Acetaminophen Elixir 325 Mg/10.15 Ml Udc PO 650 mg Q6H PRN Administration Mild Pain (1-3) or Fever Enoxaparin Sodium 40 mg 07/23/24 09:00 07/23/24 08:49 Enoxaparin 40 Mg/0.4 Ml Syringe SUB-Q 40 mg DAILY ACOSTA Administration Hydrocortisone Sodium Succinate 50 mg 07/22/24 16:20 07/23/24 05:14 Hydrocortisone Sodium Succinate 100 Mg/2 Ml Vial IV PUSH 50 mg Q6HR ACOSTA Administration Vancomycin HCl 1,500 mg in 500 mls @ 250 mls/hr 07/23/24 12:00 Vancomycin 1,500 Mg/Ns 500 Ml IVPB Q24H ACOSTA Ceftriaxone Sodium 2 gm in 100 mls @ 200 mls/hr 07/23/24 09:00 07/23/24 11:00 Rocephin 2 Gm/Ns 100 Ml IVPB Infused QAM ACOSTA Infusion Azithromycin 500 mg in 250 mls @ 250 mls/hr 07/23/24 09:00 07/23/24 11:00 Zithromax IVPB Infused QAM ACOSTA Infusion Propofol 100 mls @ 21.84 mls/hr 07/22/24 15:10 07/23/24 10:59 Diprivan IV CONT 40 mcg/kg/min .Q4H35M ACOSTA 21.84 mls/hr Titration Protocol 40 MCG/KG/MIN Midazolam HCl 100 mg in 100 mls @ 4 mls/hr 07/22/24 16:15 07/23/24 10:59 Versed 100 Mg/Ns 100 Ml IV CONT 4 mg/hr .Q25H ACOSTA 4 mls/hr Titration Protocol 4 MG/HR Cisatracurium Besylate 200 mg/ 100 mls @ 8.19 mls/hr 07/22/24 16:15 07/23/24 10:59 Dextrose IV CONT 07/23/24 14:29 3 mcg/kg/min .[id number] ACOSTA 8.19 mls/hr Infusion 3 MCG/KG/MIN Magnesium Sulfate 2 gm in 50 mls @ 50 mls/hr 07/23/24 10:32 07/23/24 10:52 Magnesium Sulf 2 Gm/Water 50ml IVPB 07/23/24 11:31 50 mls/hr ONCE ONE Administration Cisatracurium Besylate 200 mg/ 100 mls @ 7.452 mls/hr 07/23/24 14:30 Dextrose IV CONT .[id number] ACOSTA Protocol 3 MCG/KG/MIN Ipratropium [place] 0.5 mg 07/22/24 20:00 07/23/24 08:59 Ipratropium Br 0.02% Inh Soln 0.5 Mg/2.5 Ml Vial INHALATION 0.5 mg Q6HRT ACOSTA Administration Levalbuterol HCl 1.25 mg 07/22/24 20:00 07/23/24 08:59 Levalbuterol Neb 1.25 Mg/3 Ml INHALATION 1.25 mg Q6HRT ACOSTA Administration Multi-Ingred Cream/Lotion/Oil/Oint 1 applic 07/22/24 21:00 07/23/24 08:49 Mineral Oil/White Petrolatum Ointment EACH EYE 1 applic Q12HR ACOSTA Administration Pantoprazole Sodium 40 mg 07/23/24 09:00 07/23/24 08:49 Pantoprazole Sodium Iv 40 Mg Vial IV PUSH 40 mg DAILY ACOSTA Administration Perflutren Lipid Microsphere 0 ml 07/22/24 16:00 Perflutren Lipid Microspheres 1.5 Ml Vial Diluted To 10 Ml Total Volume IV PUSH 07/25/24 16:00 ONCE PRN adequate visualization Protocol Sodium Chloride 10 ml 07/22/24 22:00 07/23/24 05:41 Central Line Flush IV PUSH 10 ml Q8HR ACOSTA Administration Sodium Chloride 20 ml 07/22/24 16:23 Central Line Flush IV PUSH PRN PRN after blood draws Radiology Results: ITS Impressions Abdomen X-Ray 07/22/24 16:09 IMPRESSION: NG tube in body of stomach Chest/Abdomen/Pelvis CTA 07/22/24 18:32 IMPRESSION: No evidence of pulmonary embolism Prominent bilateral lower lobe consolidation. Mild lobe infiltrate. Chest X-Ray 07/23/24 06:14 IMPRESSION: 1. Stable airspace opacities in the lower lung zones, likely a combination of atelectasis and pneumonia. 2. Small right pleural effusion. Soft Tissue Neck CT 07/23/24 06:55 IMPRESSION: 1. Small right pleural effusion. 2. 17 mm right thyroid nodule. Consider thyroid ultrasound for risk stratification. 3. Multifocal dental disease. Labs Labs: Laboratory Results - last 24 hr 07/22/24 07/22/24 07/22/24 10:08 11:21 11:36 WBC RBC Hgb Hct MCV MCH MCHC RDW Plt Count MPV Immature Gran % (Auto) Neut % (Auto) Lymph % (Auto) Mcd[place] % (Auto) Eos % (Auto) Baso % (Auto) Lymph # (Auto) [place] # (Auto) Eos # (Auto) Baso # (Auto) Abs Immat Gran (auto) Absolute Neuts (auto) Absolute Nucleated RBC Nucleated RBC % Platelet Estimate % Immature Plt Fraction Macrocytosis Schistocytes PT INR APTT Fibrinogen D-Dimer Puncture Site ABG pH ABG pCO2 ABG pO2 ABG PO2/FiO2 Ratio ABG HCO3 ABG O2 Saturation ABG O2 Content ABG Base Excess A-a Gradient Oxyhemoglobin Carboxyhemoglobin Methemoglobin Reduced Hemoglobin Total Hemoglobin O2 Delivery Device O2 Liters/Min Minute Volume Vent Rate Vent Mode FiO2 Expiratory Pressure Tidal Volume PEEP Inspiratory Pressure Peak Inspir Pressure Pressure Support Sodium Potassium Chloride Carbon Dioxide Anion Gap BUN Creatinine Estim Creat Clear Calc Estimated GFR Glucose POC Capillary Glucose Lactic Acid 11.7 H* Calcium Phosphorus Magnesium Total Bilirubin AST ALT Alkaline Phosphatase Troponin I C-Reactive Protein 4.0 H Total Protein Albumin Triglycerides Lipase Urine Color Yellow Urine Appearance Clear Urine pH 6.0 Ur Specific [place] 1.007 Urine Protein 1+ H Urine Glucose (UA) Negative Urine Ketones Negative Ur Blood (Man) Negative Urine Nitrate Negative Urine Bilirubin Negative Urine Urobilinogen 0.2 Leukocyte Esterase Rfl Negative Urine RBC 0-2 Urine WBC 0-5 Ur Squamous Epith Cells None seen Urine Bacteria None seen Urine Casts 3-5 Nasal MRSA (PCR) Not detected Stl Occult Blood (IFOB) Hepatitis A IgM Ab Hep Bs Antigen Hep B Core IgM Ab Hepatitis C Ab Screen Influenza A (RT-PCR) Negative Influenza B (RT-PCR) Negative RSV (RT-PCR) Negative SARS-CoV-2 RNA (RT-PCR) Negative 07/22/24 07/22/24 07/22/24 13:02 13:43 13:48 WBC RBC Hgb Hct MCV MCH MCHC RDW Plt Count MPV Immature Gran % (Auto) Neut % (Auto) Lymph % (Auto) [place]cd[place] % (Auto) Eos % (Auto) Baso % (Auto) Lymph # (Auto) [place]cd[place] # (Auto) Eos # (Auto) Baso # (Auto) Abs Immat Gran (auto) Absolute Neuts (auto) Absolute Nucleated RBC Nucleated RBC % Platelet Estimate % Immature Plt Fraction Macrocytosis Schistocytes PT INR APTT Fibrinogen D-Dimer Puncture Site Right radial ABG pH 7.360 ABG pCO2 38.5 ABG pO2 208.4 H ABG PO2/FiO2 Ratio 2.08 ABG HCO3 21.3 L ABG O2 Saturation 99.4 ABG O2 Content 17.2 ABG Base Excess -3.8 A-a Gradient 544.5 Oxyhemoglobin 98.5 Carboxyhemoglobin Methemoglobin Reduced Hemoglobin Total Hemoglobin 12.1 O2 Delivery Device Bipap O2 Liters/Min Not Reportable Minute Volume Vent Rate Vent Mode FiO2 100 Expiratory Pressure 8 Tidal Volume PEEP Inspiratory Pressure 14 Peak Inspir Pressure Pressure Support Sodium Potassium Chloride Carbon Dioxide Anion Gap BUN Creatinine Estim Creat Clear Calc Estimated GFR Glucose POC Capillary Glucose Lactic Acid 5.2 H* Calcium Phosphorus Magnesium Total Bilirubin AST ALT Alkaline Phosphatase Troponin I 0.077 H* D C-Reactive Protein Total Protein Albumin Triglycerides Lipase Urine Color Urine Appearance Urine pH Ur Specific [place] Urine Protein Urine Glucose (UA) Urine Ketones Ur Blood (Man) Urine Nitrate Urine Bilirubin Urine Urobilinogen Leukocyte Esterase Rfl Urine RBC Urine WBC Ur Squamous Epith Cells Urine Bacteria Urine Casts Nasal MRSA (PCR) Stl Occult Blood (IFOB) Hepatitis A IgM Ab Hep Bs Antigen Hep B Core IgM Ab Hepatitis C Ab Screen Influenza A (RT-PCR) Influenza B (RT-PCR) RSV (RT-PCR) SARS-CoV-2 RNA (RT-PCR) 07/22/24 07/22/24 07/22/24 15:57 15:58 16:05 WBC RBC Hgb Hct MCV MCH MCHC RDW Plt Count MPV Immature Gran % (Auto) Neut % (Auto) Lymph % (Auto) [place]cd[place] % (Auto) Eos % (Auto) Baso % (Auto) Lymph # (Auto) [place]cd[place] # (Auto) Eos # (Auto) Baso # (Auto) Abs Immat Gran (auto) Absolute Neuts (auto) Absolute Nucleated RBC Nucleated RBC % Platelet Estimate % Immature Plt Fraction Macrocytosis Schistocytes PT INR APTT Fibrinogen D-Dimer Puncture Site Right radial ABG pH 7.339 L ABG pCO2 43.2 ABG pO2 64.2 L ABG PO2/FiO2 Ratio 0.64 ABG HCO3 22.7 ABG O2 Saturation 91.3 L ABG O2 Content 15.4 L ABG Base Excess -3.0 A-a Gradient 605.6 Oxyhemoglobin 89.1 L Carboxyhemoglobin Methemoglobin Reduced Hemoglobin Total Hemoglobin 12.3 O2 Delivery Device Ventilator O2 Liters/Min Not Reportable Minute Volume Not Reportable Vent Rate 24 Vent Mode Cmv FiO2 100 Expiratory Pressure Tidal Volume 500 PEEP 10 Inspiratory Pressure Peak Inspir Pressure Not Reportable Pressure Support Not Reportable Sodium Potassium Chloride Carbon Dioxide Anion Gap BUN Creatinine Estim Creat Clear Calc Estimated GFR Glucose POC Capillary Glucose Lactic Acid 3.7 H Calcium Phosphorus Magnesium Total Bilirubin AST ALT Alkaline Phosphatase Troponin I 0.104 H* D C-Reactive Protein Total Protein Albumin Triglycerides 184 H Lipase Urine Color Urine Appearance Urine pH Ur Specific [place] Urine Protein Urine Glucose (UA) Urine Ketones Ur Blood (Man) Urine Nitrate Urine Bilirubin Urine Urobilinogen Leukocyte Esterase Rfl Urine RBC Urine WBC Ur Squamous Epith Cells Urine Bacteria Urine Casts Nasal MRSA (PCR) Stl Occult Blood (IFOB) Hepatitis A IgM Ab Negative Hep Bs Antigen Negative Hep B Core IgM Ab Negative Hepatitis C Ab Screen Reactive Influenza A (RT-PCR) Influenza B (RT-PCR) RSV (RT-PCR) SARS-CoV-2 RNA (RT-PCR) 07/22/24 07/22/24 07/22/24 20:05 21:18 21:21 WBC RBC Hgb Hct MCV MCH MCHC RDW Plt Count MPV Immature Gran % (Auto) Neut % (Auto) Lymph % (Auto) [place] % (Auto) Eos % (Auto) Baso % (Auto) Lymph # (Auto) [place] # (Auto) Eos # (Auto) Baso # (Auto) Abs Immat Gran (auto) Absolute Neuts (auto) Absolute Nucleated RBC Nucleated RBC % Platelet Estimate % Immature Plt Fraction Macrocytosis Schistocytes PT INR APTT Fibrinogen D-Dimer Puncture Site Right brachial ABG pH 7.353 ABG pCO2 36.9 ABG pO2 180.2 H ABG PO2/FiO2 Ratio 1.80 ABG HCO3 20.1 L ABG O2 Saturation 99.2 ABG O2 Content 17.5 ABG Base Excess -4.9 A-a Gradient 495.9 Oxyhemoglobin 98.9 Carboxyhemoglobin Methemoglobin Reduced Hemoglobin Total Hemoglobin 12.3 O2 Delivery Device Ventilator O2 Liters/Min Not Reportable Minute Volume Not Reportable Vent Rate 24 Vent Mode Cmv FiO2 100 Expiratory Pressure Tidal Volume 500 PEEP 8 Inspiratory Pressure Peak Inspir Pressure Not Reportable Pressure Support Not Reportable Sodium Potassium Chloride Carbon Dioxide Anion Gap BUN Creatinine Estim Creat Clear Calc Estimated GFR Glucose POC Capillary Glucose Lactic Acid 3.0 H Calcium Phosphorus Magnesium Total Bilirubin AST ALT Alkaline Phosphatase Troponin I 0.094 H* C-Reactive Protein Total Protein Albumin Triglycerides Lipase Urine Color Urine Appearance Urine pH Ur Specific [place] Urine Protein Urine Glucose (UA) Urine Ketones Ur Blood (Man) Urine Nitrate Urine Bilirubin Urine Urobilinogen Leukocyte Esterase Rfl Urine RBC Urine WBC Ur Squamous Epith Cells Urine Bacteria Urine Casts Nasal MRSA (PCR) Not detected Stl Occult Blood (IFOB) Hepatitis A IgM Ab Hep Bs Antigen Hep B Core IgM Ab Hepatitis C Ab Screen Influenza A (RT-PCR) Influenza B (RT-PCR) RSV (RT-PCR) SARS-CoV-2 RNA (RT-PCR) 07/22/24 07/23/24 07/23/24 23:21 00:48 05:20 WBC 5.9 RBC Hgb Hct MCV MCH MCHC RDW Plt Count MPV Immature Gran % (Auto) Neut % (Auto) Lymph % (Auto) Mcd[place] % (Auto) Eos % (Auto) Baso % (Auto) Lymph # (Auto) [place] # (Auto) Eos # (Auto) Baso # (Auto) Abs Immat Gran (auto) Absolute Neuts (auto) Absolute Nucleated RBC Nucleated RBC % Platelet Estimate % Immature Plt Fraction Macrocytosis Schistocytes PT INR APTT Fibrinogen D-Dimer Puncture Site ABG pH ABG pCO2 ABG pO2 ABG PO2/FiO2 Ratio ABG HCO3 ABG O2 Saturation ABG O2 Content ABG Base Excess A-a Gradient Oxyhemoglobin Carboxyhemoglobin Methemoglobin Reduced Hemoglobin Total Hemoglobin O2 Delivery Device O2 Liters/Min Minute Volume Vent Rate Vent Mode FiO2 Expiratory Pressure Tidal Volume PEEP Inspiratory Pressure Peak Inspir Pressure Pressure Support Sodium Potassium Chloride Carbon Dioxide Anion Gap BUN Creatinine Estim Creat Clear Calc Estimated GFR Glucose POC Capillary Glucose 156 H Lactic Acid Calcium Phosphorus Magnesium Total Bilirubin AST ALT Alkaline Phosphatase Troponin I C-Reactive Protein Total Protein Albumin Triglycerides Lipase Urine Color Urine Appearance Urine pH Ur Specific [place] Urine Protein Urine Glucose (UA) Urine Ketones Ur Blood (Man) Urine Nitrate Urine Bilirubin Urine Urobilinogen Leukocyte Esterase Rfl Urine RBC Urine WBC Ur Squamous Epith Cells Urine Bacteria Urine Casts Nasal MRSA (PCR) Stl Occult Blood (IFOB) Negative Hepatitis A IgM Ab Hep Bs Antigen Hep B Core IgM Ab Hepatitis C Ab Screen Influenza A (RT-PCR) Influenza B (RT-PCR) RSV (RT-PCR) SARS-CoV-2 RNA (RT-PCR) 07/23/24 07/23/24 07/23/24 05:20 05:20 05:20 WBC Cancelled RBC 3.24 L Cancelled Hgb 11.5 L Cancelled Hct 33.8 L MCV MCH MCHC RDW Plt Count MPV Immature Gran % (Auto) Neut % (Auto) Lymph % (Auto) [place] % (Auto) Eos % (Auto) Baso % (Auto) Lymph # (Auto) [place]cd[place] # (Auto) Eos # (Auto) Baso # (Auto) Abs Immat Gran (auto) Absolute Neuts (auto) Absolute Nucleated RBC Nucleated RBC % Platelet Estimate % Immature Plt Fraction Macrocytosis Schistocytes PT INR APTT Fibrinogen D-Dimer Puncture Site ABG pH ABG pCO2 ABG pO2 ABG PO2/FiO2 Ratio ABG HCO3 ABG O2 Saturation ABG O2 Content ABG Base Excess A-a Gradient Oxyhemoglobin Carboxyhemoglobin Methemoglobin Reduced Hemoglobin Total Hemoglobin O2 Delivery Device O2 Liters/Min Minute Volume Vent Rate Vent Mode FiO2 Expiratory Pressure Tidal Volume PEEP Inspiratory Pressure Peak Inspir Pressure Pressure Support Sodium Potassium Chloride Carbon Dioxide Anion Gap BUN Creatinine Estim Creat Clear Calc Estimated GFR Glucose POC Capillary Glucose Lactic Acid Calcium Phosphorus Magnesium Total Bilirubin AST ALT Alkaline Phosphatase Troponin I C-Reactive Protein Total Protein Albumin Triglycerides Lipase Urine Color Urine Appearance Urine pH Ur Specific [place] Urine Protein Urine Glucose (UA) Urine Ketones Ur Blood (Man) Urine Nitrate Urine Bilirubin Urine Urobilinogen Leukocyte Esterase Rfl Urine RBC Urine WBC Ur Squamous Epith Cells Urine Bacteria Urine Casts Nasal MRSA (PCR) Stl Occult Blood (IFOB) Hepatitis A IgM Ab Hep Bs Antigen Hep B Core IgM Ab Hepatitis C Ab Screen Influenza A (RT-PCR) Influenza B (RT-PCR) RSV (RT-PCR) SARS-CoV-2 RNA (RT-PCR) 07/23/24 07/23/24 07/23/24 05:20 05:20 05:20 WBC RBC Hgb Hct Cancelled MCV 104.3 H Cancelled MCH 35.5 H Cancelled MCHC 34.0 RDW Plt Count MPV Immature Gran % (Auto) Neut % (Auto) Lymph % (Auto) [place] % (Auto) Eos % (Auto) Baso % (Auto) Lymph # (Auto) [place]cd[place] # (Auto) Eos # (Auto) Baso # (Auto) Abs Immat Gran (auto) Absolute Neuts (auto) Absolute Nucleated RBC Nucleated RBC % Platelet Estimate % Immature Plt Fraction Macrocytosis Schistocytes PT INR APTT Fibrinogen D-Dimer Puncture Site ABG pH ABG pCO2 ABG pO2 ABG PO2/FiO2 Ratio ABG HCO3 ABG O2 Saturation ABG O2 Content ABG Base Excess A-a Gradient Oxyhemoglobin Carboxyhemoglobin Methemoglobin Reduced Hemoglobin Total Hemoglobin O2 Delivery Device O2 Liters/Min Minute Volume Vent Rate Vent Mode FiO2 Expiratory Pressure Tidal Volume PEEP Inspiratory Pressure Peak Inspir Pressure Pressure Support Sodium Potassium Chloride Carbon Dioxide Anion Gap BUN Creatinine Estim Creat Clear Calc Estimated GFR Glucose POC Capillary Glucose Lactic Acid Calcium Phosphorus Magnesium Total Bilirubin AST ALT Alkaline Phosphatase Troponin I C-Reactive Protein Total Protein Albumin Triglycerides Lipase Urine Color Urine Appearance Urine pH Ur Specific [place] Urine Protein Urine Glucose (UA) Urine Ketones Ur Blood (Man) Urine Nitrate Urine Bilirubin Urine Urobilinogen Leukocyte Esterase Rfl Urine RBC Urine WBC Ur Squamous Epith Cells Urine Bacteria Urine Casts Nasal MRSA (PCR) Stl Occult Blood (IFOB) Hepatitis A IgM Ab Hep Bs Antigen Hep B Core IgM Ab Hepatitis C Ab Screen Influenza A (RT-PCR) Influenza B (RT-PCR) RSV (RT-PCR) SARS-CoV-2 RNA (RT-PCR) 07/23/24 07/23/24 07/23/24 05:20 05:20 05:20 WBC RBC Hgb Hct MCV MCH MCHC Cancelled RDW 12.7 Cancelled Plt Count 119 L Cancelled MPV 10.5 H Immature Gran % (Auto) Neut % (Auto) Lymph % (Auto) [place] % (Auto) Eos % (Auto) Baso % (Auto) Lymph # (Auto) [place] # (Auto) Eos # (Auto) Baso # (Auto) Abs Immat Gran (auto) Absolute Neuts (auto) Absolute Nucleated RBC Nucleated RBC % Platelet Estimate % Immature Plt Fraction Macrocytosis Schistocytes PT INR APTT Fibrinogen D-Dimer Puncture Site ABG pH ABG pCO2 ABG pO2 ABG PO2/FiO2 Ratio ABG HCO3 ABG O2 Saturation ABG O2 Content ABG Base Excess A-a Gradient Oxyhemoglobin Carboxyhemoglobin Methemoglobin Reduced Hemoglobin Total Hemoglobin O2 Delivery Device O2 Liters/Min Minute Volume Vent Rate Vent Mode FiO2 Expiratory Pressure Tidal Volume PEEP Inspiratory Pressure Peak Inspir Pressure Pressure Support Sodium Potassium Chloride Carbon Dioxide Anion Gap BUN Creatinine Estim Creat Clear Calc Estimated GFR Glucose POC Capillary Glucose Lactic Acid Calcium Phosphorus Magnesium Total Bilirubin AST ALT Alkaline Phosphatase Troponin I C-Reactive Protein Total Protein Albumin Triglycerides Lipase Urine Color Urine Appearance Urine pH Ur Specific [place] Urine Protein Urine Glucose (UA) Urine Ketones Ur Blood (Man) Urine Nitrate Urine Bilirubin Urine Urobilinogen Leukocyte Esterase Rfl Urine RBC Urine WBC Ur Squamous Epith Cells Urine Bacteria Urine Casts Nasal MRSA (PCR) Stl Occult Blood (IFOB) Hepatitis A IgM Ab Hep Bs Antigen Hep B Core IgM Ab Hepatitis C Ab Screen Influenza A (RT-PCR) Influenza B (RT-PCR) RSV (RT-PCR) SARS-CoV-2 RNA (RT-PCR) 07/23/24 07/23/24 07/23/24 05:20 05:20 05:20 WBC RBC Hgb Hct MCV MCH MCHC RDW Plt Count MPV Cancelled Immature Gran % (Auto) 1.0 H Neut % (Auto) 86.1 H Lymph % (Auto) 6.5 L Mcdonough % (Auto) 4.9 Eos % (Auto) 0.0 Baso % (Auto) 1.5 H Lymph # (Auto) 0.38 L [place]cd[place] # (Auto) 0.3 Eos # (Auto) 0.0 Baso # (Auto) 0.1 Abs Immat Gran (auto) 0.06 H Absolute Neuts (auto) 5.0 Absolute Nucleated RBC 0.000 Nucleated RBC % 0.0 Platelet Estimate Slightly decreased % Immature Plt Fraction 6.0 Cancelled Macrocytosis 1+ Schistocytes None seen PT Cancelled INR Cancelled APTT Cancelled Fibrinogen Cancelled D-Dimer Cancelled Puncture Site ABG pH ABG pCO2 ABG pO2 ABG PO2/FiO2 Ratio ABG HCO3 ABG O2 Saturation ABG O2 Content ABG Base Excess A-a Gradient Oxyhemoglobin Carboxyhemoglobin Methemoglobin Reduced Hemoglobin Total Hemoglobin O2 Delivery Device O2 Liters/Min Minute Volume Vent Rate Vent Mode FiO2 Expiratory Pressure Tidal Volume PEEP Inspiratory Pressure Peak Inspir Pressure Pressure Support Sodium 134 L Potassium 5.4 H Chloride 103 Carbon Dioxide 23 Anion Gap 8 BUN 37 H D Creatinine 1.70 H Estim Creat Clear Calc 47 Estimated GFR 50 L Glucose 162 H POC Capillary Glucose Lactic Acid 3.1 H Calcium 7.8 L Phosphorus 5.1 H Magnesium 1.3 L Cancelled Total Bilirubin 0.9 AST 217 H ALT 106 H Alkaline Phosphatase 42 Troponin I C-Reactive Protein Total Protein 7.0 Albumin 3.6 Triglycerides Lipase 15 L Urine Color Urine Appearance Urine pH Ur Specific [place] Urine Protein Urine Glucose (UA) Urine Ketones Ur Blood (Man) Urine Nitrate Urine Bilirubin Urine Urobilinogen Leukocyte Esterase Rfl Urine RBC Urine WBC Ur Squamous Epith Cells Urine Bacteria Urine Casts Nasal MRSA (PCR) Stl Occult Blood (IFOB) Hepatitis A IgM Ab Hep Bs Antigen Hep B Core IgM Ab Hepatitis C Ab Screen Influenza A (RT-PCR) Influenza B (RT-PCR) RSV (RT-PCR) SARS-CoV-2 RNA (RT-PCR) 07/23/24 07/23/24 07/23/24 05:21 05:22 08:47 WBC RBC Hgb Hct MCV MCH MCHC RDW Plt Count MPV Immature Gran % (Auto) Neut % (Auto) Lymph % (Auto) [place] % (Auto) Eos % (Auto) Baso % (Auto) Lymph # (Auto) [place] # (Auto) Eos # (Auto) Baso # (Auto) Abs Immat Gran (auto) Absolute Neuts (auto) Absolute Nucleated RBC Nucleated RBC % Platelet Estimate % Immature Plt Fraction Macrocytosis Schistocytes PT 15.3 H INR 1.2 APTT 39.0 H Fibrinogen 536 H D-Dimer 1.50 H Puncture Site Right brachial ABG pH 7.344 L ABG pCO2 42.4 ABG pO2 161.2 H ABG PO2/FiO2 Ratio 2.01 ABG HCO3 22.6 ABG O2 Saturation 99.0 ABG O2 Content 22.4 H ABG Base Excess -3.1 A-a Gradient 364.7 Oxyhemoglobin 99.0 Carboxyhemoglobin 0.1 Methemoglobin 0.1 Reduced Hemoglobin 0.8 Total Hemoglobin 15.9 O2 Delivery Device Ventilator O2 Liters/Min Not Reportable Minute Volume Not Reportable Vent Rate 24 Vent Mode Cmv FiO2 80 Expiratory Pressure Tidal Volume 500 PEEP 8 Inspiratory Pressure Peak Inspir Pressure Not Reportable Pressure Support Not Reportable Sodium Potassium Chloride Carbon Dioxide Anion Gap BUN Creatinine Estim Creat Clear Calc Estimated GFR Glucose POC Capillary Glucose Lactic Acid 3.4 H Calcium Phosphorus Magnesium Total Bilirubin AST ALT Alkaline Phosphatase Troponin I C-Reactive Protein Total Protein Albumin Triglycerides Lipase Urine Color Urine Appearance Urine pH Ur Specific [place] Urine Protein Urine Glucose (UA) Urine Ketones Ur Blood (Man) Urine Nitrate Urine Bilirubin Urine Urobilinogen Leukocyte Esterase Rfl Urine RBC Urine WBC Ur Squamous Epith Cells Urine Bacteria Urine Casts Nasal MRSA (PCR) Stl Occult Blood (IFOB) Hepatitis A IgM Ab Hep Bs Antigen Hep B Core IgM Ab Hepatitis C Ab Screen Influenza A (RT-PCR) Influenza B (RT-PCR) RSV (RT-PCR) SARS-CoV-2 RNA (RT-PCR) Quality VTE Prophylaxis VTE prophylaxis: mechanical ordered and pharmacologic ordered
--- NOTE | 2024-07-23 11:57 | PC.NURSE ---
Care Coordination has updated family. Family at bedside and verified daughter's (Valarie) phone number of [phone]. Secondary number obtained for contact purposes for Valarie (daughter) is [phone]. This number is Valarie's mother's (Adore) contact information. If we are unable to get ahold of Valarie at her primary number we may use Adore's number for a point of contact.
[2024-07-23] MEDS: VANCOMYCIN 1,500 MG/NS 500 ML 1,500 MG/500 ML BAG 250 MG IVPB (12:53)
[2024-07-23] MEDS: INSULIN ASPART (*BKC) 100 UNITS/ML SUB-Q (13:01)
[2024-07-23 13:02] LABS: Glucose Point of Care 227 mg/dl (65-105)
[2024-07-23] MEDS: CISATRACURIUM BESYLATE 200 MG in DEXTROSE 5% 80 ML IV CONT (14:38)
[2024-07-23 18:13] LABS: Glucose Point of Care 134 mg/dl (65-105)
--- NOTE | 2024-07-23 19:06 | PM.IMPN ---
Progress Note: A&P Assessment and Plan (1) Severe sepsis: Code(s): A41.9 - Sepsis, unspecified organism; R65.20 - Severe sepsis without septic shock Status: Acute Assessment and Plan: Patient presented the ED with SOB and fond to have acute resp failure. CXR showing RLL PNA. Sepsis due to PNA with MILENA, lactic acidosis, fever, resp failure, and tachycaroda Given 30cc/kg IV fluids in the ER, patient was also given Lasix 40 mg IV x1. Central line placed 07/22 Started on Rocephin, Azithro and Vanco after BCx collected. BCx - growing GPC in chains in aerobic bottle only Sputum Cx - pending Lactic 11.7 -> 3.4. WBC normal. CRP 4. DIC panel was within normal limits CTA Ch/A/P - no PE but prominent bilateral LL consolidation. CT Neck showing small rt pleural effusion, dental disease and 1.7cm thyroid nodule Continue ceftriaxone, azithromycin, vancomycin (07/22) Monitor for the development of empyema (2) Acute respiratory failure: Code(s): J96.00 - Acute respiratory failure, unspecified whether with hypoxia or hypercapnia Status: Acute Assessment and Plan: Acute respiratory failure on admisison related to RLL pneumonia. CTA negative for PE. Patient intubated in the ICU on 07/22 Patient sedated and paralyzed Vent management per [employer]. Appreciate their input (3) Pneumonia: Code(s): J18.9 - Pneumonia, unspecified organism Status: Acute Assessment and Plan: As above (4) MILENA (acute kidney injury): Code(s): N17.9 - Acute kidney failure, unspecified Status: Acute Assessment and Plan: Patient presented with severe sepsis including possibly MILENA Baseline Cr unknown with admission Cr 2.0 and BUN 22. Recieved IV rehydration. Cr 1.7 today. Monior closely since received contrast. Monitor renal fxn, UOP and electrolytes. (5) Elevated liver enzymes: Code(s): R74.8 - Abnormal levels of other serum enzymes Status: Acute Assessment and Plan: Elevated AST/ALT. Hepatitis panel negative except HepC Ab positive. Confirmatory testing pending. RUQ US showing Rt pleural effusion and minimal fluid around the GB. Suspect elevated LFTs related to sepsis. Follow (6) CHF (congestive heart failure): Code(s): I50.9 - Heart failure, unspecified Status: Acute Assessment and Plan: Patient has a hx of CHF, type unknown. proBNP was 700 CXR did not show any pulmonary edema Echo ordered (7) Elevated troponin: Code(s): R79.89 - Other specified abnormal findings of blood chemistry Status: Acute Assessment and Plan: Elevated troponin likely related to a type 2 infarct, secondary to tachycardia, tachypnea -will continue to monitor -echocardiogram to evaluate wall motion abnormality -troponins have plateaued Plan DVT prophylaxis - Lovenox Code Status - full Subjective Date/time seen: 07/23/24 19:06 Interval history: 63yo male with CHF here for SOB. Patient intubated and sedated. Patient also on paralytics. Overnight patient had dark colored stool but hemoccult was negative. Patient also had some hematuria which is improved Review of Systems Review of Systems: ROS unobtainable: Yes unobtainable due to endotracheal tube Exam Narrative: Tm 102.5 98.0 114/83 100 24 98% mv Gen - intubated and sedated. HEENT - OGT and ETT secured Neck - Rt IJ TLC secured. Chest - decreased BS in the right flank o/w clear CV - RRR S1/S2. Tele showing no significnat dysrhythmias Abd - Soft, ND, +BS - Gregorio secured draining clear yellow urine. FCS in place with brown stool in tubing Ext - No pedal edema. 2+ DP pulses Neuro - remains on paralytics. Skin - Warm and dry Objective Data Vital Signs Vital Signs: Vital Signs - 24 hr 07/22/24 19:50 07/22/24 19:50 07/22/24 20:00 Temperature Pulse Rate 111 H 111 H 111 H Respiratory Rate 24 H 24 H 24 H Blood Pressure 107/77 Pulse Oximetry Oxygen Delivery Fraction of Inspired Oxygen 07/22/24 20:00 07/22/24 20:00 07/22/24 20:00 Temperature 102.0 F H Pulse Rate 111 H 113 H Respiratory Rate 24 H 24 H Blood Pressure 107/77 Pulse Oximetry 99 Oxygen Delivery Mechanical Ventilation Fraction of Inspired Oxygen 100 07/22/24 20:00 07/22/24 20:00 07/22/24 20:06 Temperature 101.8 F H Pulse Rate 113 H Respiratory Rate Blood Pressure Pulse Oximetry Oxygen Delivery Fraction of Inspired Oxygen 100 07/22/24 20:38 07/22/24 20:47 07/22/24 22:00 Temperature Pulse Rate 113 H 114 H 112 H Respiratory Rate 24 H Blood Pressure Pulse Oximetry 100 Oxygen Delivery Mechanical Ventilation Fraction of Inspired Oxygen 100 07/22/24 22:00 07/22/24 22:00 07/22/24 22:00 Temperature 100.6 F H Pulse Rate 112 H 112 H 112 H Respiratory Rate 24 H 24 H 24 H Blood Pressure 121/89 121/89 Pulse Oximetry 100 Oxygen Delivery Fraction of Inspired Oxygen 07/22/24 22:00 07/23/24 00:00 07/23/24 00:00 Temperature Pulse Rate 112 H 102 H Respiratory Rate 24 H Blood Pressure Pulse Oximetry 100 Oxygen Delivery Mechanical Ventilation Mechanical Ventilation Fraction of Inspired Oxygen 100 100 07/23/24 00:00 07/23/24 00:00 07/23/24 00:00 Temperature Pulse Rate 101 H 101 H Respiratory Rate 24 H 24 H Blood Pressure 101/78 Pulse Oximetry Oxygen Delivery Fraction of Inspired Oxygen 100 07/23/24 00:00 07/23/24 00:00 07/23/24 00:00 Temperature 100.0 F H Pulse Rate 101 H 101 H 101 H Respiratory Rate 24 H 24 H Blood Pressure 101/78 Pulse Oximetry 100 Oxygen Delivery Fraction of Inspired Oxygen 07/23/24 00:25 07/23/24 01:18 07/23/24 02:00 Temperature Pulse Rate 95 95 93 Respiratory Rate 24 H 24 H 24 H Blood Pressure 94/71 L Pulse Oximetry Oxygen Delivery Fraction of Inspired Oxygen 07/23/24 02:00 07/23/24 02:00 07/23/24 02:00 Temperature Pulse Rate 93 93 93 Respiratory Rate 24 H 24 H Blood Pressure Pulse Oximetry Oxygen Delivery Fraction of Inspired Oxygen 07/23/24 02:00 07/23/24 02:47 07/23/24 02:58 Temperature 98.4 F Pulse Rate 93 91 93 Respiratory Rate 24 H 24 H Blood Pressure 94/71 L Pulse Oximetry 96 99 Oxygen Delivery Mechanical Ventilation Fraction of Inspired Oxygen 100 07/23/24 03:08 07/23/24 04:00 07/23/24 04:00 Temperature Pulse Rate 91 89 Respiratory Rate 24 H Blood Pressure Pulse Oximetry Oxygen Delivery Mechanical Ventilation Fraction of Inspired Oxygen 80 07/23/24 04:00 07/23/24 04:00 07/23/24 04:00 Temperature 98.4 F Pulse Rate 89 89 Respiratory Rate 24 H 24 H Blood Pressure 88/76 L Pulse Oximetry 99 Oxygen Delivery Fraction of Inspired Oxygen 80 07/23/24 04:00 07/23/24 04:05 07/23/24 04:05 Temperature Pulse Rate 89 89 89 Respiratory Rate 24 H 24 H 24 H Blood Pressure 88/76 L 88/76 L Pulse Oximetry Oxygen Delivery Fraction of Inspired Oxygen 07/23/24 04:47 07/23/24 04:58 07/23/24 04:59 Temperature 98.4 F Pulse Rate 96 102 H 102 H Respiratory Rate 24 H 24 H 24 H Blood Pressure 131/103 H 157/118 H Pulse Oximetry 100 Oxygen Delivery Fraction of Inspired Oxygen 07/23/24 05:16 07/23/24 05:20 07/23/24 05:40 Temperature Pulse Rate 104 H 100 97 Respiratory Rate 24 H 24 H Blood Pressure 179/126 H Pulse Oximetry 100 Oxygen Delivery Mechanical Ventilation Fraction of Inspired Oxygen 100 07/23/24 05:40 07/23/24 06:00 07/23/24 06:00 Temperature Pulse Rate 97 99 99 Respiratory Rate 24 H 24 H 24 H Blood Pressure 126/90 Pulse Oximetry Oxygen Delivery Fraction of Inspired Oxygen 07/23/24 06:00 07/23/24 06:00 07/23/24 06:00 Temperature 98.9 F Pulse Rate 99 99 99 Respiratory Rate 24 H 24 H Blood Pressure 126/90 Pulse Oximetry 97 Oxygen Delivery Fraction of Inspired Oxygen 07/23/24 07:00 07/23/24 08:00 07/23/24 08:00 Temperature 99.0 F Pulse Rate 101 H 100 101 H Respiratory Rate 24 H 24 H 24 H Blood Pressure 146/105 H 155/106 H Pulse Oximetry 100 Oxygen Delivery Fraction of Inspired Oxygen 07/23/24 08:00 07/23/24 08:00 07/23/24 08:00 Temperature Pulse Rate 101 H 101 H 99 Respiratory Rate 24 H 24 H 24 H Blood Pressure 155/106 H Pulse Oximetry 98 Oxygen Delivery Mechanical Ventilation Fraction of Inspired Oxygen 80 07/23/24 08:00 07/23/24 08:00 07/23/24 08:32 Temperature Pulse Rate 98 102 H Respiratory Rate 24 H Blood Pressure Pulse Oximetry 100 Oxygen Delivery Mechanical Ventilation Fraction of Inspired Oxygen 80 50 07/23/24 08:32 07/23/24 08:58 07/23/24 09:00 Temperature Pulse Rate 100 99 Respiratory Rate 24 H 24 H Blood Pressure 135/99 H Pulse Oximetry Oxygen Delivery Fraction of Inspired Oxygen 50 07/23/24 09:00 07/23/24 09:01 07/23/24 10:00 Temperature Pulse Rate 98 106 H Respiratory Rate Blood Pressure Pulse Oximetry 98 100 Oxygen Delivery Mechanical Ventilation Mechanical Ventilation Fraction of Inspired Oxygen 50 50 07/23/24 10:00 07/23/24 10:02 07/23/24 10:02 Temperature 99.1 F Pulse Rate 106 H 106 H 106 H Respiratory Rate 24 H 24 H 24 H Blood Pressure 136/94 H 136/94 H Pulse Oximetry 99 Oxygen Delivery Fraction of Inspired Oxygen 07/23/24 10:02 07/23/24 10:15 07/23/24 10:46 Temperature Pulse Rate 106 H 109 H 109 H Respiratory Rate 24 H 24 H 24 H Blood Pressure Pulse Oximetry Oxygen Delivery Fraction of Inspired Oxygen 07/23/24 10:59 07/23/24 10:59 07/23/24 10:59 Temperature Pulse Rate 109 H 109 H 109 H Respiratory Rate 24 H 24 H 24 H Blood Pressure 160/99 H Pulse Oximetry Oxygen Delivery Fraction of Inspired Oxygen 07/23/24 12:00 07/23/24 12:00 07/23/24 12:00 Temperature 99.1 F Pulse Rate 99 99 99 Respiratory Rate 24 H 24 H 24 H Blood Pressure 95/69 L Pulse Oximetry 96 Oxygen Delivery Fraction of Inspired Oxygen 07/23/24 12:00 07/23/24 12:00 07/23/24 12:00 Temperature Pulse Rate 99 99 Respiratory Rate 24 H Blood Pressure Pulse Oximetry 95 Oxygen Delivery Mechanical Ventilation Fraction of Inspired Oxygen 50 50 07/23/24 12:30 07/23/24 12:30 07/23/24 12:33 Temperature Pulse Rate 98 Respiratory Rate Blood Pressure Pulse Oximetry 96 98 Oxygen Delivery Mechanical Ventilation Mechanical Ventilation Fraction of Inspired Oxygen 40 40 40 07/23/24 12:57 07/23/24 12:57 07/23/24 14:00 Temperature Pulse Rate 99 98 98 Respiratory Rate 24 H 24 H Blood Pressure 95/69 L 99/78 L Pulse Oximetry Oxygen Delivery Fraction of Inspired Oxygen 07/23/24 14:00 07/23/24 14:03 07/23/24 14:03 Temperature 98.8 F Pulse Rate 95 98 98 Respiratory Rate 24 H 24 H 24 H Blood Pressure 91/72 L Pulse Oximetry 98 Oxygen Delivery Fraction of Inspired Oxygen 07/23/24 14:03 07/23/24 14:20 07/23/24 14:20 Temperature Pulse Rate 98 97 Respiratory Rate 24 H 24 H Blood Pressure 104/75 Pulse Oximetry 97 Oxygen Delivery Mechanical Ventilation Fraction of Inspired Oxygen 35 07/23/24 14:20 07/23/24 14:35 07/23/24 14:35 Temperature Pulse Rate 94 97 Respiratory Rate 24 H Blood Pressure Pulse Oximetry 95 Oxygen Delivery Mechanical Ventilation Fraction of Inspired Oxygen 35 35 07/23/24 14:38 07/23/24 15:00 07/23/24 15:56 Temperature Pulse Rate 95 97 98 Respiratory Rate 24 H 24 H 24 H Blood Pressure 104/74 105/81 Pulse Oximetry Oxygen Delivery Fraction of Inspired Oxygen 07/23/24 15:56 07/23/24 16:00 07/23/24 16:00 Temperature Pulse Rate 98 97 97 Respiratory Rate 24 H 24 H 24 H Blood Pressure 130/85 Pulse Oximetry Oxygen Delivery Fraction of Inspired Oxygen 07/23/24 16:00 07/23/24 16:00 07/23/24 16:00 Temperature Pulse Rate 97 98 Respiratory Rate 24 H Blood Pressure Pulse Oximetry 96 Oxygen Delivery Mechanical Ventilation Fraction of Inspired Oxygen 35 35 07/23/24 16:00 07/23/24 17:02 07/23/24 17:51 Temperature 98.3 F Pulse Rate 97 93 94 Respiratory Rate 24 H 24 H Blood Pressure 130/85 91/69 L Pulse Oximetry 97 98 Oxygen Delivery Mechanical Ventilation Fraction of Inspired Oxygen 35 07/23/24 18:00 07/23/24 18:00 07/23/24 18:00 Temperature Pulse Rate 99 99 99 Respiratory Rate 24 H 24 H Blood Pressure Pulse Oximetry Oxygen Delivery Fraction of Inspired Oxygen 07/23/24 18:00 07/23/24 18:01 07/23/24 19:03 Temperature 98.0 F Pulse Rate 99 99 100 Respiratory Rate 24 H 24 H 24 H Blood Pressure 128/97 H 128/97 H 114/83 Pulse Oximetry 98 Oxygen Delivery Fraction of Inspired Oxygen Intake/Output Intake/Output: Intake & Output 12/20/24 12/21/24 12/22/24 12/23/24 23:59 23:59 23:59 23:59 Intake Total 4618.7 2655.6 Output Total 300 1335 Balance 4318.7 1320.6 Meds/Results Medications: Active Medications Generic Name Dose Route Start Last Admin Trade Name Freq PRN Reason Stop Dose Admin Acetaminophen 650 mg 07/22/24 17:34 07/22/24 19:06 Acetaminophen Elixir 325 Mg/10.15 Ml Udc PO 650 mg Q6H PRN Administration Mild Pain (1-3) or Fever Dextrose 12.5 gm 07/23/24 12:52 Dextrose 50% 25 Gm/50 Ml Syringe IV PUSH PRN PRN Hypoglycemia Protocol Enoxaparin Sodium 40 mg 07/23/24 09:00 07/23/24 08:49 Enoxaparin 40 Mg/0.4 Ml Syringe SUB-Q 40 mg DAILY ACOSTA Administration Glucagon 1 mg 07/23/24 12:52 Glucagon For Inj 1 Mg Vial IM PRN PRN Hypoglycemia Protocol Glucose 15 gm 07/23/24 12:52 Glucose Oral Gel 15 Gm Of Glucse In 37.5 Gm Tube PO PRN PRN Hypoglycemia Protocol Hydrocortisone Sodium Succinate 50 mg 07/22/24 16:20 07/23/24 18:00 Hydrocortisone Sodium Succinate 100 Mg/2 Ml Vial IV PUSH 50 mg Q6HR ACOSTA Administration Vancomycin HCl 1,500 mg in 500 mls @ 250 mls/hr 07/23/24 12:00 07/23/24 18:02 Vancomycin 1,500 Mg/Ns 500 Ml IVPB Infused Q24H ACOSTA Infusion Ceftriaxone Sodium 2 gm in 100 mls @ 200 mls/hr 07/23/24 09:00 07/23/24 11:00 Rocephin 2 Gm/Ns 100 Ml IVPB Infused QAM [facility]STA Infusion Azithromycin 500 mg in 250 mls @ 250 mls/hr 07/23/24 09:00 07/23/24 11:00 Zithromax IVPB Infused QAM [facility]STA Infusion Propofol 100 mls @ 21.84 mls/hr 07/22/24 15:10 07/23/24 18:00 Diprivan IV CONT 40 mcg/kg/min .Q4H35M ACOSTA 21.84 mls/hr Titration Protocol 40 MCG/KG/MIN Midazolam HCl 100 mg in 100 mls @ 4 mls/hr 07/22/24 16:15 07/23/24 18:00 Versed 100 Mg/Ns 100 Ml IV CONT 4 mg/hr .Q25H ACOSTA 4 mls/hr Titration Protocol 4 MG/HR Cisatracurium Besylate 200 mg/ 100 mls @ 7.452 mls/hr 07/23/24 14:30 07/23/24 19:03 Dextrose IV CONT 3.5 mcg/kg/min .[id number] ACOSTA 8.69 mls/hr Titration Protocol 3 MCG/KG/MIN Dextrose 1,000 mls @ 100 mls/hr 07/23/24 12:52 Dextrose 5% 1,000 Ml IVPB PRN PRN Hypoglycemia Protocol Insulin Aspart 2 - 5 units 07/23/24 12:55 07/23/24 18:00 Insulin Aspart (*Bkc) 100 Units/Ml SUB-Q Not Given Q6HR ACOSTA Protocol Ipratropium Lanse 0.5 mg 07/22/24 20:00 07/23/24 14:34 Ipratropium Br 0.02% Inh Soln 0.5 Mg/2.5 Ml Vial INHALATION 0.5 mg Q6HRT A[facility]STA Administration Levalbuterol HCl 1.25 mg 07/22/24 20:00 07/23/24 14:34 Levalbuterol Neb 1.25 Mg/3 Ml INHALATION 1.25 mg Q6HRT ACOSTA Administration Multi-Ingred Cream/Lotion/Oil/Oint 1 applic 07/22/24 21:00 07/23/24 08:49 Mineral Oil/White Petrolatum Ointment EACH EYE 1 applic Q12HR A[facility]STA Administration Pantoprazole Sodium 40 mg 07/23/24 09:00 07/23/24 08:49 Pantoprazole Sodium Iv 40 Mg Vial IV PUSH 40 mg DAILY ACOSTA Administration Perflutren Lipid Microsphere 0 ml 07/22/24 16:00 Perflutren Lipid Microspheres 1.5 Ml Vial Diluted To 10 Ml Total Volume IV PUSH 07/25/24 16:00 ONCE PRN adequate visualization Protocol Sodium Chloride 10 ml 07/22/24 22:00 07/23/24 12:58 Central Line Flush IV PUSH 10 ml Q8HR ACOSTA Administration Sodium Chloride 20 ml 07/22/24 16:23 Central Line Flush IV PUSH PRN PRN after blood draws Radiology Results: ITS Impressions Abdomen X-Ray 07/22/24 16:09 IMPRESSION: NG tube in body of stomach Chest/Abdomen/Pelvis CTA 07/22/24 18:32 IMPRESSION: No evidence of pulmonary embolism Prominent bilateral lower lobe consolidation. Mild lobe infiltrate. Chest X-Ray 07/23/24 06:14 IMPRESSION: 1. Stable airspace opacities in the lower lung zones, likely a combination of atelectasis and pneumonia. 2. Small right pleural effusion. Soft Tissue Neck CT 07/23/24 06:55 IMPRESSION: 1. Small right pleural effusion. 2. 17 mm right thyroid nodule. Consider thyroid ultrasound for risk stratification. 3. Multifocal dental disease. Abdomen Ultrasound 07/23/24 12:48 IMPRESSION: 1. Right pleural effusion. Minimal fluid around the gallbladder. Evaluation for cholecystitis advised. Otherwise, normal Limited ultrasound of the abdomen. Labs Labs: Laboratory Results - last 24 hr 07/22/24 07/22/24 07/22/24 20:05 21:18 21:21 WBC RBC Hgb Hct MCV MCH MCHC RDW Plt Count MPV Immature Gran % (Auto) Neut % (Auto) Lymph % (Auto) [place] % (Auto) Eos % (Auto) Baso % (Auto) Lymph # (Auto) [place] # (Auto) Eos # (Auto) Baso # (Auto) Abs Immat Gran (auto) Absolute Neuts (auto) Absolute Nucleated RBC Nucleated RBC % Platelet Estimate % Immature Plt Fraction Macrocytosis Schistocytes PT INR APTT Fibrinogen D-Dimer Puncture Site Right brachial ABG pH 7.353 ABG pCO2 36.9 ABG pO2 180.2 H ABG PO2/FiO2 Ratio 1.80 ABG HCO3 20.1 L ABG O2 Saturation 99.2 ABG O2 Content 17.5 ABG Base Excess -4.9 A-a Gradient 495.9 Oxyhemoglobin 98.9 Carboxyhemoglobin Methemoglobin Reduced Hemoglobin Total Hemoglobin 12.3 O2 Delivery Device Ventilator O2 Liters/Min Not Reportable Minute Volume Not Reportable Vent Rate 24 Vent Mode Cmv FiO2 100 Tidal Volume 500 PEEP 8 Peak Inspir Pressure Not Reportable Pressure Support Not Reportable Sodium Potassium Chloride Carbon Dioxide Anion Gap BUN Creatinine Estim Creat Clear Calc Estimated GFR Glucose POC Capillary Glucose Lactic Acid 3.0 H Calcium Phosphorus Magnesium Total Bilirubin AST ALT Alkaline Phosphatase Troponin I 0.094 H* Total Protein Albumin Lipase Nasal MRSA (PCR) Not detected Stl Occult Blood (IFOB) 07/22/24 07/23/24 07/23/24 23:21 00:48 05:20 WBC 5.9 RBC Hgb Hct MCV MCH MCHC RDW Plt Count MPV Immature Gran % (Auto) Neut % (Auto) Lymph % (Auto) [place] % (Auto) Eos % (Auto) Baso % (Auto) Lymph # (Auto) [place] # (Auto) Eos # (Auto) Baso # (Auto) Abs Immat Gran (auto) Absolute Neuts (auto) Absolute Nucleated RBC Nucleated RBC % Platelet Estimate % Immature Plt Fraction Macrocytosis Schistocytes PT INR APTT Fibrinogen D-Dimer Puncture Site ABG pH ABG pCO2 ABG pO2 ABG PO2/FiO2 Ratio ABG HCO3 ABG O2 Saturation ABG O2 Content ABG Base Excess A-a Gradient Oxyhemoglobin Carboxyhemoglobin Methemoglobin Reduced Hemoglobin Total Hemoglobin O2 Delivery Device O2 Liters/Min Minute Volume Vent Rate Vent Mode FiO2 Tidal Volume PEEP Peak Inspir Pressure Pressure Support Sodium Potassium Chloride Carbon Dioxide Anion Gap BUN Creatinine Estim Creat Clear Calc Estimated GFR Glucose POC Capillary Glucose 156 H Lactic Acid Calcium Phosphorus Magnesium Total Bilirubin AST ALT Alkaline Phosphatase Troponin I Total Protein Albumin Lipase Nasal MRSA (PCR) Stl Occult Blood (IFOB) Negative 07/23/24 07/23/24 07/23/24 05:20 05:20 05:20 WBC Cancelled RBC 3.24 L Cancelled Hgb 11.5 L Cancelled Hct 33.8 L MCV MCH MCHC RDW Plt Count MPV Immature Gran % (Auto) Neut % (Auto) Lymph % (Auto) [place] % (Auto) Eos % (Auto) Baso % (Auto) Lymph # (Auto) [place] # (Auto) Eos # (Auto) Baso # (Auto) Abs Immat Gran (auto) Absolute Neuts (auto) Absolute Nucleated RBC Nucleated RBC % Platelet Estimate % Immature Plt Fraction Macrocytosis Schistocytes PT INR APTT Fibrinogen D-Dimer Puncture Site ABG pH ABG pCO2 ABG pO2 ABG PO2/FiO2 Ratio ABG HCO3 ABG O2 Saturation ABG O2 Content ABG Base Excess A-a Gradient Oxyhemoglobin Carboxyhemoglobin Methemoglobin Reduced Hemoglobin Total Hemoglobin O2 Delivery Device O2 Liters/Min Minute Volume Vent Rate Vent Mode FiO2 Tidal Volume PEEP Peak Inspir Pressure Pressure Support Sodium Potassium Chloride Carbon Dioxide Anion Gap BUN Creatinine Estim Creat Clear Calc Estimated GFR Glucose POC Capillary Glucose Lactic Acid Calcium Phosphorus Magnesium Total Bilirubin AST ALT Alkaline Phosphatase Troponin I Total Protein Albumin Lipase Nasal MRSA (PCR) Stl Occult Blood (IFOB) 07/23/24 07/23/24 07/23/24 05:20 05:20 05:20 WBC RBC Hgb Hct Cancelled MCV 104.3 H Cancelled MCH 35.5 H Cancelled MCHC 34.0 RDW Plt Count MPV Immature Gran % (Auto) Neut % (Auto) Lymph % (Auto) [place] % (Auto) Eos % (Auto) Baso % (Auto) Lymph # (Auto) [place] # (Auto) Eos # (Auto) Baso # (Auto) Abs Immat Gran (auto) Absolute Neuts (auto) Absolute Nucleated RBC Nucleated RBC % Platelet Estimate % Immature Plt Fraction Macrocytosis Schistocytes PT INR APTT Fibrinogen D-Dimer Puncture Site ABG pH ABG pCO2 ABG pO2 ABG PO2/FiO2 Ratio ABG HCO3 ABG O2 Saturation ABG O2 Content ABG Base Excess A-a Gradient Oxyhemoglobin Carboxyhemoglobin Methemoglobin Reduced Hemoglobin Total Hemoglobin O2 Delivery Device O2 Liters/Min Minute Volume Vent Rate Vent Mode FiO2 Tidal Volume PEEP Peak Inspir Pressure Pressure Support Sodium Potassium Chloride Carbon Dioxide Anion Gap BUN Creatinine Estim Creat Clear Calc Estimated GFR Glucose POC Capillary Glucose Lactic Acid Calcium Phosphorus Magnesium Total Bilirubin AST ALT Alkaline Phosphatase Troponin I Total Protein Albumin Lipase Nasal MRSA (PCR) Stl Occult Blood (IFOB) 07/23/24 07/23/24 07/23/24 05:20 05:20 05:20 WBC RBC Hgb Hct MCV MCH MCHC Cancelled RDW 12.7 Cancelled Plt Count 119 L Cancelled MPV 10.5 H Immature Gran % (Auto) Neut % (Auto) Lymph % (Auto) [place] % (Auto) Eos % (Auto) Baso % (Auto) Lymph # (Auto) [place] # (Auto) Eos # (Auto) Baso # (Auto) Abs Immat Gran (auto) Absolute Neuts (auto) Absolute Nucleated RBC Nucleated RBC % Platelet Estimate % Immature Plt Fraction Macrocytosis Schistocytes PT INR APTT Fibrinogen D-Dimer Puncture Site ABG pH ABG pCO2 ABG pO2 ABG PO2/FiO2 Ratio ABG HCO3 ABG O2 Saturation ABG O2 Content ABG Base Excess A-a Gradient Oxyhemoglobin Carboxyhemoglobin Methemoglobin Reduced Hemoglobin Total Hemoglobin O2 Delivery Device O2 Liters/Min Minute Volume Vent Rate Vent Mode FiO2 Tidal Volume PEEP Peak Inspir Pressure Pressure Support Sodium Potassium Chloride Carbon Dioxide Anion Gap BUN Creatinine Estim Creat Clear Calc Estimated GFR Glucose POC Capillary Glucose Lactic Acid Calcium Phosphorus Magnesium Total Bilirubin AST ALT Alkaline Phosphatase Troponin I Total Protein Albumin Lipase Nasal MRSA (PCR) Stl Occult Blood (IFOB) 07/23/24 07/23/24 07/23/24 05:20 05:20 05:20 WBC RBC Hgb Hct MCV MCH MCHC RDW Plt Count MPV Cancelled Immature Gran % (Auto) 1.0 H Neut % (Auto) 86.1 H Lymph % (Auto) 6.5 L [place] % (Auto) 4.9 Eos % (Auto) 0.0 Baso % (Auto) 1.5 H Lymph # (Auto) 0.38 L [place] # (Auto) 0.3 Eos # (Auto) 0.0 Baso # (Auto) 0.1 Abs Immat Gran (auto) 0.06 H Absolute Neuts (auto) 5.0 Absolute Nucleated RBC 0.000 Nucleated RBC % 0.0 Platelet Estimate Slightly decreased % Immature Plt Fraction 6.0 Cancelled Macrocytosis 1+ Schistocytes None seen PT Cancelled INR Cancelled APTT Cancelled Fibrinogen Cancelled D-Dimer Cancelled Puncture Site ABG pH ABG pCO2 ABG pO2 ABG PO2/FiO2 Ratio ABG HCO3 ABG O2 Saturation ABG O2 Content ABG Base Excess A-a Gradient Oxyhemoglobin Carboxyhemoglobin Methemoglobin Reduced Hemoglobin Total Hemoglobin O2 Delivery Device O2 Liters/Min Minute Volume Vent Rate Vent Mode FiO2 Tidal Volume PEEP Peak Inspir Pressure Pressure Support Sodium 134 L Potassium 5.4 H Chloride 103 Carbon Dioxide 23 Anion Gap 8 BUN 37 H D Creatinine 1.70 H Estim Creat Clear Calc 47 Estimated GFR 50 L Glucose 162 H POC Capillary Glucose Lactic Acid 3.1 H Calcium 7.8 L Phosphorus 5.1 H Magnesium 1.3 L Cancelled Total Bilirubin 0.9 AST 217 H ALT 106 H Alkaline Phosphatase 42 Troponin I Total Protein 7.0 Albumin 3.6 Lipase 15 L Nasal MRSA (PCR) Stl Occult Blood (IFOB) 07/23/24 07/23/24 07/23/24 05:21 05:22 08:47 WBC RBC Hgb Hct MCV MCH MCHC RDW Plt Count MPV Immature Gran % (Auto) Neut % (Auto) Lymph % (Auto) [place] % (Auto) Eos % (Auto) Baso % (Auto) Lymph # (Auto) [place] # (Auto) Eos # (Auto) Baso # (Auto) Abs Immat Gran (auto) Absolute Neuts (auto) Absolute Nucleated RBC Nucleated RBC % Platelet Estimate % Immature Plt Fraction Macrocytosis Schistocytes PT 15.3 H INR 1.2 APTT 39.0 H Fibrinogen 536 H D-Dimer 1.50 H Puncture Site Right brachial ABG pH 7.344 L ABG pCO2 42.4 ABG pO2 161.2 H ABG PO2/FiO2 Ratio 2.01 ABG HCO3 22.6 ABG O2 Saturation 99.0 ABG O2 Content 22.4 H ABG Base Excess -3.1 A-a Gradient 364.7 Oxyhemoglobin 99.0 Carboxyhemoglobin 0.1 Methemoglobin 0.1 Reduced Hemoglobin 0.8 Total Hemoglobin 15.9 O2 Delivery Device Ventilator O2 Liters/Min Not Reportable Minute Volume Not Reportable Vent Rate 24 Vent Mode Cmv FiO2 80 Tidal Volume 500 PEEP 8 Peak Inspir Pressure Not Reportable Pressure Support Not Reportable Sodium Potassium Chloride Carbon Dioxide Anion Gap BUN Creatinine Estim Creat Clear Calc Estimated GFR Glucose POC Capillary Glucose Lactic Acid 3.4 H Calcium Phosphorus Magnesium Total Bilirubin AST ALT Alkaline Phosphatase Troponin I Total Protein Albumin Lipase Nasal MRSA (PCR) Stl Occult Blood (IFOB) 07/23/24 07/23/24 12:52 17:59 WBC RBC Hgb Hct MCV MCH MCHC RDW Plt Count MPV Immature Gran % (Auto) Neut % (Auto) Lymph % (Auto) [place] % (Auto) Eos % (Auto) Baso % (Auto) Lymph # (Auto) [place] # (Auto) Eos # (Auto) Baso # (Auto) Abs Immat Gran (auto) Absolute Neuts (auto) Absolute Nucleated RBC Nucleated RBC % Platelet Estimate % Immature Plt Fraction Macrocytosis Schistocytes PT INR APTT Fibrinogen D-Dimer Puncture Site ABG pH ABG pCO2 ABG pO2 ABG PO2/FiO2 Ratio ABG HCO3 ABG O2 Saturation ABG O2 Content ABG Base Excess A-a Gradient Oxyhemoglobin Carboxyhemoglobin Methemoglobin Reduced Hemoglobin Total Hemoglobin O2 Delivery Device O2 Liters/Min Minute Volume Vent Rate Vent Mode FiO2 Tidal Volume PEEP Peak Inspir Pressure Pressure Support Sodium Potassium Chloride Carbon Dioxide Anion Gap BUN Creatinine Estim Creat Clear Calc Estimated GFR Glucose POC Capillary Glucose 227 H 134 H Lactic Acid Calcium Phosphorus Magnesium Total Bilirubin AST ALT Alkaline Phosphatase Troponin I Total Protein Albumin Lipase Nasal MRSA (PCR) Stl Occult Blood (IFOB)
[2024-07-23] MEDS: MIDAZOLAM 100MG/NS 100ML(*CRX) 100 MG/100 ML BAG IV CONT (20:19)
[2024-07-23] MEDS: NOREPINEPHRINE 8 MG/D5W 250 ML 8 MG/250 ML BAG 9.38 MG IV CONT (21:43)
[2024-07-23 23:49] LABS: Glucose Point of Care 188 mg/dl (65-105)
[2024-07-24] VITALS (67 sets, daily range): BP systolic 64–125; BP diastolic 44–85; PULSE 82–912; RESP 24–36; TEMP 36.4–37.5; O2SAT 92–100
--- NOTE | 2024-07-24 | ECHO_ITS ---
Patient Info Name: Kofi Verduzco Age: 63 years : 1960 Gender: Male Ht: 74 in Wt: 181 lbs BSA: 2.07 m2 HR: 99 bpm BP: 112 / 77 mmHg Technical Quality: Good Exam Date: 07/24/2024 11:06 AM Exam Location: Echo Lab Patient Status: Inpatient Admit Date: 07/22/2024 Staff Ordering Physician: Nidia Salinas MD Department Of Sociology Chair: Juvenal Marmolejo RDCS Attending Provider: Mikel Lozano MD Referring Physician: Rita KOO; Exam Type: CA echo doppler color flow Study Info Indications I50.9 - Heart failure, unspecified Complete two-dimensional, color flow and Doppler transthoracic echocardiogram is performed. Summary 1. Complete two-dimensional, color flow and Doppler transthoracic echocardiogram is performed. 2. Left ventricle is normal in size with mildly reduced systolic function. The left ventricular ejection fraction is visually estimated to be 45-50%. 3. The right ventricle is normal in size and systolic function. 4. The aortic valve is not well visualized. The Doppler gradients does not suggest any hemodynamically significant stenosis. Left Ventricle Left ventricle is normal in size with mildly reduced systolic function. The left ventricular ejection fraction is visually estimated to be 45-50%. Right Ventricle The right ventricle is normal in size and systolic function. Left Atria The left atrium is normal in size. Right Atria The right atrium is normal in size. Atrial Septum The atrial septum visually appears intact. Aortic Valve The aortic valve is not well visualized. The Doppler gradients does not suggest any hemodynamically significant stenosis. Pulmonic Valve The pulmonic valve is grossly normal. There is no color Doppler evidence of pulmonic valve regurgitation. Mitral Valve The mitral valve is normal. There is mild mitral regurgitation. Tricuspid Valve The tricuspid valve is normal. There is trace tricuspid regurgitation. Pericardium/Pleural Pericardium is normal in appearance with no evidence for significant pericardial effusion. Inferior Vena Cava Normal inferior vena cava with >50% collapse upon inspiration consistent with normal right atrial pressure, 3 mmHg. Normal inferior vena cava with >50% collapse upon inspiration consistent with normal right atrial pressure, 3 mmHg. Aorta Aortic root at the level of the sinus of Valsalva measures 3.7 cm in diameter. Left Ventricular Outflow Tract Name Value Normal LVOT 2D LVOT Diameter 2.0 cm LVOT Doppler LVOT Peak Gradient 3 mmHg LVOT Mean Gradient 2 mmHg LVOT VTI 13 cm LVOT VTI/AV VTI Ratio 0.7 LVOT Stroke Volume 41 ml LVOT CO 3.8 l/min LVOT CI 1.9 l/min/m2 Pulmonic Valve Name Value Normal PV Doppler PV Peak Gradient 2 mmHg PV Regurgitation Doppler WV Peak End Diastolic Velocity 132 cm/s Mitral Valve Name Value Normal MV Doppler MV Decel [place] 419 cm/s2 MV PHT 32 ms MV Area (PHT) 6.9 cm2 4.0-5.0 MV Diastolic Function MV E Peak Velocity 46 cm/s MV A Peak Velocity 79 cm/s MV E/A 0.6 MV Decel Time 110 ms Tricuspid Valve Name Value Normal TV Regurgitation Doppler TR Peak Velocity 242 cm/s TR Peak Gradient 13 mmHg Estimated PAP/RSVP RA Pressure 3 mmHg <=5 PA Systolic Pressure 26 mmHg <36 RV Systolic Pressure 26 mmHg <36 Aorta Name Value Normal Ascending Aorta Ao Root Diameter (MM) 2.5 cm Ao Root Diam Index (MM) 1.2 cm/m2 Aortic Valve Name Value Normal AV Doppler AV Peak Velocity 117 cm/s AV Peak Gradient 5 mmHg AV Mean Gradient 3 mmHg AV VTI 19 cm AV Area (Cont Eq VTI) 2.1 cm2 >=3.0 AV Area (Cont Eq Qasim) 2.2 cm2 AV Regurgitation 2D LVOT Area 3.0 cm2 Ventricles Name Value Normal LV Dimensions 2D/MM IVS Diastolic Thickness (2D) 1.0 cm 0.6-1.0 IVS Diastole Thickness (MM) 0.7 cm 0.6-1.0 LVID Diastole (2D) 4.9 cm 4.2-5.8 LVID Diastole (MM) 6.2 cm 4.2-5.8 LVIW Diastolic Thickness (2D) 1.1 cm 0.6-1.0 LVIW Diastolic Thickness (MM) 0.8 cm 0.6-1.0 LVID Systole (2D) 3.7 cm 2.5-4.0 LVID Systole (MM) 4.4 cm 2.5-4.0 LVOT Diameter 2.0 cm LV Mass (2D Cubed) 176.15 g 88.00-224.00 LV Mass Index (2D Cubed) 85 g/m2 49-115 Relative Wall Thickness (2D) 0.44 LV Mass (MM Cubed) 172.02 g 88.00-224.00 LV Mass Index (MM Cubed) 83 g/m2 49-115 Relative Wall Thickness (MM) 0.25 LV Fractional Shortening/Ejection Fraction 2D/MM LV Fractional Shortening (2D) 23 % 25-43 LV Fractional Shortening (MM) 29 % 25-43 LV EF (MM Teicholz) 55 % 52-72 LV EF (2D Teicholz) 46 % 52-72 LV Diastolic Volume (4C MOD) 86 ml LV EF (4C MOD) 42 % LV Diastolic Volume (2C MOD) 91 ml LV EF (2C MOD) 41 % LV Diastolic Volume (BP MOD) 92 ml 62-150 LV Diastolic Volume Index (BP MOD) 45 ml/m2 34-74 LV Systolic Volume (BP MOD) 53 ml 21-61 LV Systolic Volume Index (BP MOD) 26 ml/m2 11-31 LV EF (BP MOD) 43 % 52-72 LV Diastolic Length (4C) 7.7 cm LV Systolic Length (4C) 6.7 cm LV Stroke Volume (4C MOD) 36 ml Atria Name Value Normal LA Dimensions LA Dimension (MM) 3.5 cm 3.0-4.1 LA Volume (4C A-L) 23 ml LA Volume (BP A-L) 43 ml RA Dimensions RA Area (4C) 15.9 cm2 <=18.0 Report Signatures
[2024-07-24] MEDS: PROPOFOL IV EMULSION 100 ML 21.84 MG IV CONT ×2 (00:58→06:10)
[2024-07-24] MEDS: LEVALBUTEROL NEB 1.25 MG/3 ML INHALATION ×4 (02:09→20:30)
[2024-07-24] MEDS: IPRATROPIUM BR 0.02% INH SOLN 0.5 MG/2.5 ML VIAL INHALATION ×4 (02:09→20:30)
[2024-07-24] MEDS: CISATRACURIUM BESYLATE 200 MG in DEXTROSE 5% 80 ML 8.69 ML IV CONT (04:03)
[2024-07-24] MEDS: CENTRAL LINE FLUSH 10 ML IV PUSH ×3 (05:06→21:43)
[2024-07-24] MEDS: HYDROCORTISONE SODIUM SUCCINATE 100 MG/2 ML VIAL 50 MG IV PUSH ×3 (05:06→17:23)
[2024-07-24 05:22] LABS: Hematocrit 30.2 % (42.0-52.0); Hemoglobin 10.4 g/dL (14.0-18.0); Mean Corpuscular HGB Conc 34.4 g/dl (32-36); Mean Corpuscular Hemoglobin 35.5 pg (26-34); Mean Corpuscular Volume 103.1 fl (80-100); Mean Platelet Volume 11.1 fl (7.4-10.4); Platelet Count Result 94 k/mm3 (150-375); Red Blood Count 2.93 M/mm3 (4.6-6.20); Red Cell Distribution Width 12.9 % (11.5-14.5); White Blood Count 6.9 K/mm3 (4.5-10.0)
[2024-07-24 05:31] LABS: INR 1.1; Prothrombin Time 14.5 Seconds (11.1-14.7)
[2024-07-24 05:41] LABS: Alanine Aminotransferase 99 U/L (6-50); Albumin Level 3.1 g/dL (3.5-5.1); Alkaline Phosphatase 53 U/L (38-126); Anion Gap 4 mmol/L (4-12); Aspartate Amino Transferase 154 U/L (17-59); Bilirubin,Total 0.8 mg/dL (0.2-1.3); Blood Urea Nitrogen 42 mg/dL (9-20); Calcium 7.9 mg/dL (8.4-10.2); Carbon Dioxide 26 mmol/L (22-30); Chloride 103 mmol/L (98-107); Estimated CRCL calculation 53 ml/min; Estimated Glomerular Filt Rate 57; Glucose 245 mg/dL (65-110); Lactic Acid Reflex 2.8 mmol/L (0.7-2.0); Magnesium 1.9 mg/dL (1.6-2.3); Phosphorus 3.5 mg/dL (2.5-4.5); Sodium 133 mmol/L (137-145)
[2024-07-24 05:43] LABS: Alveolar/Arterial O2 Gradient 126.2 mmHg; Base Excess ABG -0.6 mEq/l (+/-2.0); Carboxyhemoglobin 0.1 % THb (0-2.0); Fractional Inspired Oxygen 35 %; HCO3 ABG 25.4 mEq/l (22.0-26.0); Methemoglobin ABG 0.3 %THb (0-1.5); Oxygen Content ABG 14.8 %vol (16.0-22.0); Oxygen Saturation ABG 92.7 % (95.0-100.0); Oxyhemoglobin 91.8 % THb (90.0-100.0); PCO2 ABG 47.2 mmHg (35.0-45.0); PO2 ABG 68.5 mmHg (80.0-100.0); PO2 FiO2 Ratio Arterial Blood 1.96 %; Reduced Hemoglobin 7.8 %THb (0-5.0); Total Hemoglobin 11.4 g/dL (12.0-18.0); pH ABG 7.348 (7.350-7.450)
[2024-07-24 05:44] LABS: Arterial Blood Gas PEEP 8 cmH2O; Arterial Blood Gas Tidal Volume 500 ml; Arterial Blood Gas Vent Mode CMV; Arterial Blood Gas Ventilator rate 24 /MIN; Device VENTILATOR; Modified Allen's Test Unable to perform; Site Drawn RIGHT RADIAL
[2024-07-24 05:56] LABS: Glucose Point of Care 224 mg/dl (65-105)
[2024-07-24] MEDS: INSULIN ASPART (*BKC) 100 UNITS/ML SUB-Q ×4 (05:56→23:58)
[2024-07-24 08:18] LABS: Reflex Lactic Acid Yes or No Add Lactic
[2024-07-24] MEDS: cefTRIAXone 2 GM/NS 100 ML 2 GM/100 ML BAG IVPB (08:30)
[2024-07-24] MEDS: MINERAL OIL/WHITE PETROLATUM OINTMENT 1 APPLIC EACH EYE ×2 (08:37→20:27)
[2024-07-24] MEDS: PANTOPRAZOLE SODIUM IV 40 MG VIAL IV PUSH (08:37)
[2024-07-24] MEDS: ENOXAPARIN 40 MG/0.4 ML SYRINGE SUB-Q (08:38)
--- NOTE | 2024-07-24 08:39 | PC.NURSE ---
DR Burnhamly aware of PLT. OK to give lovenox.
--- NOTE | 2024-07-24 08:53 | P.PNINT_ITS ---
Progress Note: A&P Assessment and Plan (1) Severe sepsis: Code(s): A41.9 - Sepsis, unspecified organism; R65.20 - Severe sepsis without septic shock Status: Acute Assessment and Plan: 07/22: Patient presented the ED with shortness of breath, chest x-ray showed right lower lobe consolidation/pneumonia, acute kidney injury, tachycardia, tachypnea -patient given 30 cc/kg IV fluids in the ER, patient was also given Lasix 40 mg IV x1 -07/22: Blood cultures growing Gram-positive cocci in chains 1/2 bottles -07/22: Sputum cultures growing gram-positive cocci in pairs suggestive of pneumococci -lactic acids trending down, likely related to severe hypoxia, severe sepsis -continue ceftriaxone, azithromycin, vancomycin (07/22) -07/22: Right IJ central line was inserted in the ICU -07/23: Patient has some blood in stool, Hemoccult was negative, DIC panel was within normal limits, hematuria has cleared up -07/24: Overnight patient dropped his blood pressures in the 70s, I had to be started on Levophed for a brief amount of time, 07/22: CT soft tissue neck without contrast: This was done as his neck movements were restricted. Impression: The endotracheal tube tip is in expected position. There is a small right pleural effusion. There are no pathologically enlarged lymph nodes. Partially visualized is an orogastric tube. Partially visualized is a right internal jugular central venous catheter with tip at least to the superior vena cava. There is mucosal thickening in right maxillary sinus. There is multifocal dental disease. There is a 17 mm nodule in right thyroid lobe. There are bridging endplate osteophytes at multiple levels in the spine, consistent with diffuse idiopathic skeletal hyperostosis (DISH). (2) Acute respiratory failure: Code(s): J96.00 - Acute respiratory failure, unspecified whether with hypoxia or hypercapnia Status: Acute Assessment and Plan: Acute respiratory failure likely related to right lower lobe pneumonia. Patient also tachypneic and tachycardic, will send patient for a CT scan of the chest PE protocol to rule out pulmonary embolism -07/22: Intubated in the ICU -continue CMV mode of ventilation, peep of 8 and 50% FiO2, wean FiO2 to maintain O2 sats > 92% -chest x-ray this morning and ABGs reviewed, continue low tidal volume strategy -continue bronchodilators -sedated with propofol infusion, maintain RASS of 0 to -2. Daily SAT and SBT -patient also on Nimbex for neuromuscular blockade for ventilator synchrony 07/22: CT a chest PE, abdomen/pelvis IMPRESSION: No evidence of pulmonary embolism Prominent bilateral lower lobe consolidation. Mild lobe infiltrate. (3) Pneumonia: Code(s): J18.9 - Pneumonia, unspecified organism Status: Acute Assessment and Plan: Right lower lobe pneumonia seen on chest x-ray -continue mechanical ventilation, bronchodilators -patient has been started on hydrocortisone 50 mg IV q.6 hours for pneumonia (4) MILENA (acute kidney injury): Code(s): N17.9 - Acute kidney failure, unspecified Status: Acute Assessment and Plan: Patient presented with severe sepsis, acute kidney injury with creatinine of 2.00. Baseline creatinine unknown -received 30 cc/kg IV fluid bolus in the ER -patient is received adequate amount of IV fluids, urine output has been adequate, creatinine improving -discontinue IV fluids at this time -hyperkalemia, resolved -hypomagnesemia, resolved -creatinine improving (5) Elevated liver enzymes: Code(s): R74.8 - Abnormal levels of other serum enzymes Status: Acute Assessment and Plan: Elevated liver enzymes -hepatitis panel is negative -HCV RNA PCR pending -07/23: RUQ ultrasound: Right pleural effusion, minimal fluid around the gallbladder. Evaluation of cholecystitis advised, otherwise normal limited ultrasound of the abdomen -LFTs trending down, continue to monitor (6) CHF (congestive heart failure): Code(s): I50.9 - Heart failure, unspecified Status: Acute Assessment and Plan: History of CHF, proBNP was 700 -chest x-ray did not show any pulmonary edema -echocardiogram has been ordered to assess structural and functional heart disease (7) Elevated troponin: Code(s): R79.89 - Other specified abnormal findings of blood chemistry Status: Acute Assessment and Plan: Elevated troponin likely related to 2 type 2 infarct, secondary to tachycardia, tachypnea -will continue to monitor -echocardiogram to evaluate wall motion abnormality -troponins have plateaued Plan DVT prophylaxis: Enoxaparin Stress ulcer prophylaxis: Protonix Nutrition: Tolerating tube, will add banatrol Code Status: Full code Critical Care Time Spent: 35 minutes Will update family 07/22/2024: Discuss with Miranda, patient's daughter and next of kin. She stated that the patient lives in [facility] by himself, has never , she is the only child. States he drinks alcohol from sun up to sun down, also uses marijuana and cocaine. Smokes cigarettes 1 pack per day for many years. She does not know what other medical conditions he has. I updated the daughter with patient's condition and plan of care. I answered all her questions Due to a high probability of clinically significant, life threatening deterior ation, the patient required my highest level of preparedness to intervene emergently and I personally spent this critical care time directly and personally managing the patient. This critical care time included obtaining a history; examining the patient; pulse oximetry; ordering and review of studies; arranging urgent treatment with development of a management plan; evaluation of patient's response to treatment; frequent reassessment; and discussions with other providers. It was exclusive of separately billable procedures and treating other patients and teaching time. Please see Assessment and Plan section and the rest of the note for further information on patient assessment and treatment This dictation may have been done utilizing a voice recognition system. Attempts have been made to correct errors. However, there may be uncorrected grammatical, spelling, and recognitions errors present. Subjective Date/time seen: 07/24/24 08:53 Interval history: Reason for consult: Acute respiratory failure, pneumonia, severe sepsis, acute kidney injury Intubated: 07/2207/24/2024: Patient seen and examined the ICU, remains intubated on CMV mode of ventilation, peep of 8, 35% FiO2. Sedated with propofol and Versed infusion. Patient also on Nimbex for neuromuscular blockade for vent synchrony. Urine output has been adequate, patient has been afebrile. He did drop his blood pressures overnight requiring Levophed for a brief amount of time. Patient is tolerating tube feeds, has diarrhea Platelets down to 94. Potassium is normalized, creatinine improving Review of Systems Review of Systems: ROS unobtainable: Yes unobtainable due to endotracheal tube and unobtainable due to medical condition Exam Narrative: General: Patient intubated, sedated, paralyzed on Nimbex infusion HEENT:? Pupils equal and reactive, sclera is clear, ETT in place Neck:? Neck movements are restricted Respiratory:? Coarse breath sounds bilaterally, rales in right lower base no wheezing, adequate air entry Cardiac:? S1-S2 is normal, sinus tachycardia Abdomen:? Soft, nondistended, nontender, hypoactive bowel sounds Extremities:? No edema, palpable pedal pulses Neuro:? Patient is intubated, sedated, and paralyzed does not follow simple commands or answers to questions. Skin:? Dry skin, no other lesions noted Psych:? Unable to assess at this time Objective Data Vital Signs Vital Signs: Vital Signs - 24 hr 07/23/24 08:58 07/23/24 09:00 07/23/24 09:00 Temperature Pulse Rate 100 99 Respiratory Rate 24 H 24 H Blood Pressure 135/99 H Pulse Oximetry 98 Oxygen Delivery Mechanical Ventilation Fraction of Inspired Oxygen 50 07/23/24 09:01 07/23/24 10:00 07/23/24 10:00 Temperature 99.1 F Pulse Rate 98 106 H 106 H Respiratory Rate 24 H Blood Pressure 136/94 H Pulse Oximetry 100 99 Oxygen Delivery Mechanical Ventilation Fraction of Inspired Oxygen 50 07/23/24 10:02 07/23/24 10:02 07/23/24 10:02 Temperature Pulse Rate 106 H 106 H 106 H Respiratory Rate 24 H 24 H 24 H Blood Pressure 136/94 H Pulse Oximetry Oxygen Delivery Fraction of Inspired Oxygen 07/23/24 10:15 07/23/24 10:46 07/23/24 10:59 Temperature Pulse Rate 109 H 109 H 109 H Respiratory Rate 24 H 24 H 24 H Blood Pressure 160/99 H Pulse Oximetry Oxygen Delivery Fraction of Inspired Oxygen 07/23/24 10:59 07/23/24 10:59 07/23/24 12:00 Temperature 99.1 F Pulse Rate 109 H 109 H 99 Respiratory Rate 24 H 24 H 24 H Blood Pressure 95/69 L Pulse Oximetry 96 Oxygen Delivery Fraction of Inspired Oxygen 07/23/24 12:00 07/23/24 12:00 07/23/24 12:00 Temperature Pulse Rate 99 99 99 Respiratory Rate 24 H 24 H 24 H Blood Pressure Pulse Oximetry 95 Oxygen Delivery Mechanical Ventilation Fraction of Inspired Oxygen 50 07/23/24 12:00 07/23/24 12:00 07/23/24 12:30 Temperature Pulse Rate 99 Respiratory Rate Blood Pressure Pulse Oximetry 96 Oxygen Delivery Mechanical Ventilation Fraction of Inspired Oxygen 50 40 07/23/24 12:30 07/23/24 12:33 07/23/24 12:57 Temperature Pulse Rate 98 99 Respiratory Rate 24 H Blood Pressure 95/69 L Pulse Oximetry 98 Oxygen Delivery Mechanical Ventilation Fraction of Inspired Oxygen 40 40 07/23/24 12:57 07/23/24 14:00 07/23/24 14:00 Temperature 98.8 F Pulse Rate 98 98 95 Respiratory Rate 24 H 24 H Blood Pressure 99/78 L 91/72 L Pulse Oximetry 98 Oxygen Delivery Fraction of Inspired Oxygen 07/23/24 14:03 07/23/24 14:03 07/23/24 14:03 Temperature Pulse Rate 98 98 98 Respiratory Rate 24 H 24 H 24 H Blood Pressure 104/75 Pulse Oximetry Oxygen Delivery Fraction of Inspired Oxygen 07/23/24 14:20 07/23/24 14:20 07/23/24 14:20 Temperature Pulse Rate 97 Respiratory Rate 24 H Blood Pressure Pulse Oximetry 97 Oxygen Delivery Mechanical Ventilation Fraction of Inspired Oxygen 35 35 07/23/24 14:35 07/23/24 14:35 07/23/24 14:38 Temperature Pulse Rate 94 97 95 Respiratory Rate 24 H 24 H Blood Pressure 104/74 Pulse Oximetry 95 Oxygen Delivery Mechanical Ventilation Fraction of Inspired Oxygen 35 07/23/24 15:00 07/23/24 15:56 07/23/24 15:56 Temperature Pulse Rate 97 98 98 Respiratory Rate 24 H 24 H 24 H Blood Pressure 105/81 Pulse Oximetry Oxygen Delivery Fraction of Inspired Oxygen 07/23/24 16:00 07/23/24 16:00 07/23/24 16:00 Temperature Pulse Rate 97 97 97 Respiratory Rate 24 H 24 H 24 H Blood Pressure 130/85 Pulse Oximetry 96 Oxygen Delivery Mechanical Ventilation Fraction of Inspired Oxygen 35 07/23/24 16:00 07/23/24 16:00 07/23/24 16:00 Temperature 98.3 F Pulse Rate 98 97 Respiratory Rate 24 H Blood Pressure 130/85 Pulse Oximetry 97 Oxygen Delivery Fraction of Inspired Oxygen 35 07/23/24 17:02 07/23/24 17:51 07/23/24 18:00 Temperature Pulse Rate 93 94 99 Respiratory Rate 24 H 24 H Blood Pressure 91/69 L Pulse Oximetry 98 Oxygen Delivery Mechanical Ventilation Fraction of Inspired Oxygen 35 07/23/24 18:00 07/23/24 18:00 07/23/24 18:00 Temperature 98.0 F Pulse Rate 99 99 99 Respiratory Rate 24 H 24 H Blood Pressure 128/97 H Pulse Oximetry 98 Oxygen Delivery Fraction of Inspired Oxygen 07/23/24 18:01 07/23/24 19:03 07/23/24 19:59 Temperature Pulse Rate 99 100 96 Respiratory Rate 24 H 24 H 24 H Blood Pressure 128/97 H 114/83 Pulse Oximetry Oxygen Delivery Fraction of Inspired Oxygen 07/23/24 19:59 07/23/24 20:00 07/23/24 20:00 Temperature Pulse Rate 96 96 97 Respiratory Rate 24 H 24 H 24 H Blood Pressure 96/72 L Pulse Oximetry Oxygen Delivery Fraction of Inspired Oxygen 07/23/24 20:00 07/23/24 20:00 07/23/24 20:00 Temperature 98.3 F Pulse Rate 97 Respiratory Rate 24 H Blood Pressure 96/72 L Pulse Oximetry 96 Oxygen Delivery Mechanical Ventilation Fraction of Inspired Oxygen 35 35 07/23/24 20:00 07/23/24 20:03 07/23/24 20:04 Temperature Pulse Rate 98 97 97 Respiratory Rate 24 H Blood Pressure Pulse Oximetry 96 Oxygen Delivery Mechanical Ventilation Fraction of Inspired Oxygen 35 07/23/24 20:11 07/23/24 20:19 07/23/24 20:19 Temperature Pulse Rate 97 96 96 Respiratory Rate 24 H 24 H 24 H Blood Pressure Pulse Oximetry Oxygen Delivery Fraction of Inspired Oxygen 07/23/24 20:30 07/23/24 21:00 07/23/24 21:30 Temperature 98.2 F 98.1 F 97.9 F Pulse Rate 95 92 92 Respiratory Rate 24 H 24 H 24 H Blood Pressure 84/67 L 84/65 L 77/64 L Pulse Oximetry 97 96 95 Oxygen Delivery Fraction of Inspired Oxygen 07/23/24 21:43 07/23/24 22:00 07/23/24 22:00 Temperature Pulse Rate 92 88 88 Respiratory Rate 24 H 24 H Blood Pressure 77/64 L 91/73 L Pulse Oximetry Oxygen Delivery Fraction of Inspired Oxygen 07/23/24 22:00 07/23/24 22:00 07/23/24 22:00 Temperature Pulse Rate 88 88 88 Respiratory Rate 24 H Blood Pressure 91/73 L Pulse Oximetry Oxygen Delivery Fraction of Inspired Oxygen 07/23/24 22:00 07/23/24 22:34 07/23/24 23:03 Temperature 97.7 F Pulse Rate 88 86 87 Respiratory Rate 24 H Blood Pressure 91/73 L 103/72 Pulse Oximetry 98 96 Oxygen Delivery Mechanical Ventilation Fraction of Inspired Oxygen 35 07/23/24 23:45 07/24/24 00:00 07/24/24 00:00 Temperature Pulse Rate 89 91 91 Respiratory Rate 24 H 24 H Blood Pressure 114/85 112/85 Pulse Oximetry Oxygen Delivery Fraction of Inspired Oxygen 07/24/24 00:00 07/24/24 00:00 07/24/24 00:00 Temperature 98.0 F Pulse Rate 91 91 91 Respiratory Rate 24 H 24 H Blood Pressure 112/85 Pulse Oximetry 98 Oxygen Delivery Fraction of Inspired Oxygen 07/24/24 00:00 07/24/24 00:00 07/24/24 00:16 Temperature Pulse Rate 91 Respiratory Rate Blood Pressure 101/77 Pulse Oximetry Oxygen Delivery Mechanical Ventilation Fraction of Inspired Oxygen 35 35 07/24/24 00:58 07/24/24 00:58 07/24/24 01:01 Temperature Pulse Rate 94 93 94 Respiratory Rate 24 H 24 H Blood Pressure 108/69 Pulse Oximetry Oxygen Delivery Fraction of Inspired Oxygen 07/24/24 01:40 07/24/24 02:00 07/24/24 02:00 Temperature Pulse Rate 93 94 94 Respiratory Rate 24 H 24 H Blood Pressure 109/71 107/69 Pulse Oximetry Oxygen Delivery Fraction of Inspired Oxygen 07/24/24 02:00 07/24/24 02:00 07/24/24 02:00 Temperature Pulse Rate 94 94 94 Respiratory Rate 24 H Blood Pressure 107/69 Pulse Oximetry Oxygen Delivery Fraction of Inspired Oxygen 07/24/24 02:00 07/24/24 02:08 07/24/24 02:09 Temperature 97.9 F Pulse Rate 94 93 93 Respiratory Rate 24 H 24 H Blood Pressure 107/69 Pulse Oximetry 92 93 Oxygen Delivery Mechanical Ventilation Fraction of Inspired Oxygen 35 07/24/24 04:00 07/24/24 04:00 07/24/24 04:00 Temperature Pulse Rate 91 912 H 91 Respiratory Rate 24 H 24 H Blood Pressure Pulse Oximetry Oxygen Delivery Fraction of Inspired Oxygen 07/24/24 04:00 07/24/24 04:00 07/24/24 04:00 Temperature 97.5 F L Pulse Rate 91 Respiratory Rate 24 H Blood Pressure 99/68 L Pulse Oximetry 98 Oxygen Delivery Mechanical Ventilation Fraction of Inspired Oxygen 35 35 07/24/24 04:03 07/24/24 04:03 07/24/24 05:05 Temperature Pulse Rate 91 91 94 Respiratory Rate 24 H 24 H Blood Pressure 99/68 L 99/68 L Pulse Oximetry 95 Oxygen Delivery Mechanical Ventilation Fraction of Inspired Oxygen 35 07/24/24 05:33 07/24/24 06:00 07/24/24 06:00 Temperature 97.7 F Pulse Rate 99 99 99 Respiratory Rate 24 H 24 H Blood Pressure 112/77 Pulse Oximetry 92 Oxygen Delivery Fraction of Inspired Oxygen 07/24/24 06:10 07/24/24 06:11 07/24/24 06:11 Temperature Pulse Rate 99 99 99 Respiratory Rate 24 H 24 H 24 H Blood Pressure 112/77 Pulse Oximetry Oxygen Delivery Fraction of Inspired Oxygen 07/24/24 07:30 07/24/24 07:30 07/24/24 07:40 Temperature Pulse Rate 113 H 113 H 107 H Respiratory Rate 24 H 24 H Blood Pressure Pulse Oximetry 95 Oxygen Delivery Mechanical Ventilation Fraction of Inspired Oxygen 35 07/24/24 08:29 Temperature Pulse Rate 109 H Respiratory Rate 24 H Blood Pressure 115/61 Pulse Oximetry Oxygen Delivery Fraction of Inspired Oxygen Intake/Output Intake/Output: Intake & Output 07/21/24 07/22/24 07/23/24 07/24/24 23:59 23:59 23:59 23:59 Intake Total 4618.7 2801.5 745.7 Output Total 300 1335 450 Balance 4318.7 1466.5 295.7 Meds/Results Medications: Active Medications Generic Name Dose Route Start Last Admin Trade Name Freq PRN Reason Stop Dose Admin Acetaminophen 650 mg 07/22/24 17:34 07/22/24 19:06 Acetaminophen Elixir 325 Mg/10.15 Ml Udc PO 650 mg Q6H PRN Administration Mild Pain (1-3) or Fever Dextrose 12.5 gm 07/23/24 12:52 Dextrose 50% 25 Gm/50 Ml Syringe IV PUSH PRN PRN Hypoglycemia Protocol Enoxaparin Sodium 40 mg 07/23/24 09:00 07/24/24 08:38 Enoxaparin 40 Mg/0.4 Ml Syringe SUB-Q 40 mg DAILY ACOSTA Administration Glucagon 1 mg 07/23/24 12:52 Glucagon For Inj 1 Mg Vial IM PRN PRN Hypoglycemia Protocol Glucose 15 gm 07/23/24 12:52 Glucose Oral Gel 15 Gm Of Glucse In 37.5 Gm Tube PO PRN PRN Hypoglycemia Protocol Hydrocortisone Sodium Succinate 50 mg 07/22/24 16:20 07/24/24 05:06 Hydrocortisone Sodium Succinate 100 Mg/2 Ml Vial IV PUSH 50 mg Q6HR ACOSTA Administration Vancomycin HCl 1,500 mg in 500 mls @ 250 mls/hr 07/23/24 12:00 07/23/24 18:02 Vancomycin 1,500 Mg/Ns 500 Ml IVPB Infused Q24H ACOSTA Infusion Ceftriaxone Sodium 2 gm in 100 mls @ 200 mls/hr 07/23/24 09:00 07/24/24 08:30 Rocephin 2 Gm/Ns 100 Ml IVPB 100 mls/hr QAM ACOSTA Administration Azithromycin 500 mg in 250 mls @ 250 mls/hr 07/23/24 09:00 07/23/24 11:00 Zithromax IVPB Infused QAM ACOSTA Infusion Propofol 100 mls @ 21.84 mls/hr 07/22/24 15:10 07/24/24 06:10 Diprivan IV CONT 40 mcg/kg/min .Q4H35M ACOSTA 21.84 mls/hr Administration Protocol 40 MCG/KG/MIN Midazolam HCl 100 mg in 100 mls @ 4 mls/hr 07/22/24 16:15 07/24/24 06:11 Versed 100 Mg/Ns 100 Ml IV CONT 4 mg/hr .Q25H ACOSTA 4 mls/hr Titration Protocol 4 MG/HR Cisatracurium Besylate 200 mg/ 100 mls @ 7.452 mls/hr 07/23/24 14:30 07/24/24 08:29 Dextrose IV CONT 3 mcg/kg/min .H55Q68S ACOSTA 7.45 mls/hr Titration Protocol 3 MCG/KG/MIN Dextrose 1,000 mls @ 100 mls/hr 07/23/24 12:52 Dextrose 5% 1,000 Ml IVPB PRN PRN Hypoglycemia Protocol Norepinephrine Bitartrate 8 mg in 250 mls @ 0 mls/hr 07/23/24 21:35 07/24/24 02:00 Levophed 8 Mg/D5w 250 Ml IV CONT 0 mcg/min .Q0M ACOSTA 0 mls/hr Titration Protocol Insulin Aspart 3 - 6 units 07/24/24 12:00 Insulin Aspart (*Bkc) 100 Units/Ml SUB-Q Q6HR ACOSTA Protocol Ipratropium [place] 0.5 mg 07/22/24 20:00 07/24/24 07:25 Ipratropium Br 0.02% Inh Soln 0.5 Mg/2.5 Ml Vial INHALATION 0.5 mg Q6HRT A[facility]STA Administration Levalbuterol HCl 1.25 mg 07/22/24 20:00 07/24/24 07:25 Levalbuterol Neb 1.25 Mg/3 Ml INHALATION 1.25 mg Q6HRT ACOSTA Administration Multi-Ingred Cream/Lotion/Oil/Oint 1 applic 07/22/24 21:00 07/24/24 08:37 Mineral Oil/White Petrolatum Ointment EACH EYE 1 applic Q12HR ACOSTA Administration Pantoprazole Sodium 40 mg 07/23/24 09:00 07/24/24 08:37 Pantoprazole Sodium Iv 40 Mg Vial IV PUSH 40 mg DAILY A[facility]STA Administration Perflutren Lipid Microsphere 0 ml 07/22/24 16:00 Perflutren Lipid Microspheres 1.5 Ml Vial Diluted To 10 Ml Total Volume IV PUSH 07/25/24 16:00 ONCE PRN adequate visualization Protocol Sodium Chloride 10 ml 07/22/24 22:00 07/24/24 05:06 Central Line Flush IV PUSH 10 ml Q8HR ACOSTA Administration Sodium Chloride 20 ml 07/22/24 16:23 Central Line Flush IV PUSH PRN PRN after blood draws Radiology Results: ITS Impressions Abdomen X-Ray 07/22/24 16:09 IMPRESSION: NG tube in body of stomach Chest/Abdomen/Pelvis CTA 07/22/24 18:32 IMPRESSION: No evidence of pulmonary embolism Prominent bilateral lower lobe consolidation. Mild lobe infiltrate. Soft Tissue Neck CT 07/23/24 06:55 IMPRESSION: 1. Small right pleural effusion. 2. 17 mm right thyroid nodule. Consider thyroid ultrasound for risk stratification. 3. Multifocal dental disease. Abdomen Ultrasound 07/23/24 12:48 IMPRESSION: 1. Right pleural effusion. Minimal fluid around the gallbladder. Evaluation for cholecystitis advised. Otherwise, normal Limited ultrasound of the abdomen. Chest X-Ray 07/24/24 06:00 IMPRESSION: 1. Stable airspace opacities in the lower lung zones, likely a combination of atelectasis and pneumonia. 2. Stable small right pleural effusion. Labs Labs: Laboratory Results - last 24 hr 07/23/24 07/23/24 07/23/24 05:20 08:47 12:52 WBC RBC Hgb Hct MCV MCH MCHC RDW Plt Count MPV % Immature Plt Fraction PT INR Puncture Site ABG pH ABG pCO2 ABG pO2 ABG PO2/FiO2 Ratio ABG HCO3 ABG O2 Saturation ABG O2 Content ABG Base Excess A-a Gradient Oxyhemoglobin Carboxyhemoglobin Methemoglobin Reduced Hemoglobin Total Hemoglobin O2 Delivery Device O2 Liters/Min Minute Volume Vent Rate Vent Mode FiO2 Tidal Volume PEEP Peak Inspir Pressure Pressure Support Sodium 134 L Potassium 5.4 H Chloride 103 Carbon Dioxide 23 Anion Gap 8 BUN 37 H D Creatinine 1.70 H Estim Creat Clear Calc 47 Estimated GFR 50 L Glucose 162 H POC Capillary Glucose 227 H Lactic Acid 3.4 H Calcium 7.8 L Phosphorus 5.1 H Magnesium 1.3 L Total Bilirubin 0.9 AST 217 H ALT 106 H Alkaline Phosphatase 42 Total Protein 7.0 Albumin 3.6 Lipase 15 L 07/23/24 07/23/24 07/24/24 17:59 23:34 05:14 WBC 6.9 RBC 2.93 L Hgb 10.4 L Hct 30.2 L MCV 103.1 H MCH 35.5 H MCHC 34.4 RDW 12.9 Plt Count 94 L MPV 11.1 H % Immature Plt Fraction 8.0 PT 14.5 INR 1.1 Puncture Site ABG pH ABG pCO2 ABG pO2 ABG PO2/FiO2 Ratio ABG HCO3 ABG O2 Saturation ABG O2 Content ABG Base Excess A-a Gradient Oxyhemoglobin Carboxyhemoglobin Methemoglobin Reduced Hemoglobin Total Hemoglobin O2 Delivery Device O2 Liters/Min Minute Volume Vent Rate Vent Mode FiO2 Tidal Volume PEEP Peak Inspir Pressure Pressure Support Sodium 133 L Potassium 4.0 Chloride 103 Carbon Dioxide 26 Anion Gap 4 BUN 42 H Creatinine 1.50 H Estim Creat Clear Calc 53 Estimated GFR 57 L Glucose 245 H POC Capillary Glucose 134 H 188 H Lactic Acid 2.8 H Calcium 7.9 L Phosphorus 3.5 Magnesium 1.9 Total Bilirubin 0.8 AST 154 H ALT 99 H Alkaline Phosphatase 53 Total Protein 6.0 L Albumin 3.1 L Lipase 07/24/24 07/24/24 05:30 05:53 WBC RBC Hgb Hct MCV MCH MCHC RDW Plt Count MPV % Immature Plt Fraction PT INR Puncture Site Right radial ABG pH 7.348 L ABG pCO2 47.2 H ABG pO2 68.5 L ABG PO2/FiO2 Ratio 1.96 ABG HCO3 25.4 ABG O2 Saturation 92.7 L ABG O2 Content 14.8 L ABG Base Excess -0.6 A-a Gradient 126.2 Oxyhemoglobin 91.8 Carboxyhemoglobin 0.1 Methemoglobin 0.3 Reduced Hemoglobin 7.8 H Total Hemoglobin 11.4 L O2 Delivery Device Ventilator O2 Liters/Min Not Reportable Minute Volume Not Reportable Vent Rate 24 Vent Mode Cmv FiO2 35 Tidal Volume 500 PEEP 8 Peak Inspir Pressure Not Reportable Pressure Support Not Reportable Sodium Potassium Chloride Carbon Dioxide Anion Gap BUN Creatinine Estim Creat Clear Calc Estimated GFR Glucose POC Capillary Glucose 224 H Lactic Acid Calcium Phosphorus Magnesium Total Bilirubin AST ALT Alkaline Phosphatase Total Protein Albumin Lipase
[2024-07-24 09:15] LABS: Lactic Acid 2.4 mmol/L (0.7-2.0)
[2024-07-24] MEDS: AZITHROMYCIN 500 MG/NS 250 ML 500 MG/250 ML BAG 250 MG IVPB (09:53)
[2024-07-24 10:15] LABS: Toxigenic C. Diff NEGATIVE (NEGATIVE)
[2024-07-24] MEDS: FENTANYL 2,500MCG/NS250ML(*CRX 2,500 MCG/250 ML BAG 10 MCG IV CONT (10:34)
[2024-07-24] MEDS: PROPOFOL IV EMULSION 100 ML 10.92 MG IV CONT (10:35)
--- NOTE | 2024-07-24 11:13 | PCNFU ---
Nutrition Follow-Up Complete: Suboptimal Energy Intake as related to mechanical ventilation as evidenced by NPO. Goal: Meet estimated nutritional needs. Patient is progressing towards goal. We will continue current goal. Pt current nutrition is Vital AF 1.2 at 40 ml/hr. Nutrition recommendation: goal rate at 70 ml/hr. Last recorded weight is 82.3 kg, stable Bowel Motility: FMS Labs Reviewed:Glu 245, BUN 42, GFR 57, NA 133 Meds Noted: Nimbex, Rocephin, Propofol 20 mcg,Versed, Levophed, Fentanyl. Skin: WNL Additional Notes: Patient remains on mechanical vent. Tube feedings are being tolerated of Vital AF 1.2 at 40 ml/hr. Plans to titrate Propofol down today. Recommend increasing tube feedings to goal rate of 70 ml/hr as propofol is titrated down. Tube feeding at 70 ml/hr providing 1848 kcal/116 gm protein/ 1249 ml water. Meeting 89% kcal needs at 25 kcal/kg and 100% protein needs at 1.2-1.4 gm/kg. FMS placed Banatrol TF ordered TID for stool bulking. Agree with diet orders. Will monitor weight, labs, skin, meds, diet orders every Tuesday and Tuesday.
[2024-07-24 11:28] LABS: Vancomycin Trough 9.6 ug/mL (10.0-20.0)
[2024-07-24 12:12] LABS: Glucose Point of Care 250 mg/dl (65-105)
[2024-07-24] MEDS: VANCOMYCIN 1,750 MG/NS 500 ML 1,750 MG/500 ML BAG 250 MG IVPB (12:33)
[2024-07-24] MEDS: ACETYLCYSTEINE 20% INHAL SOLN 800 MG/4 ML VIAL 200 MG INHALATION ×2 (13:20→20:29)
[2024-07-24] MEDS: DORNASE ALFA INH SOLN 1 MG/ML 2.5 ML AMP 2.5 MG INHALATION ×2 (13:30→20:30)
[2024-07-24 15:16] LABS: Triglycerides 183 mg/dL (<150)
--- NOTE | 2024-07-24 15:21 | PC.NURSE ---
PT off propofol and nimbex. Currently on Fentanyl and versed. PT becoming more restless, tapping foot and trying to open eyes. PT tachypneic RR 30's HR 110's. Notified Dr Salinas who gave telephone order to restart propofol. If patient is sedated with propofol, versed, and fentanyl then there is no need for Nimbex. Propofol resumed, Fentanyl,versed, and levo running.
[2024-07-24 15:28] LABS: Hepatitis C RNA, Quant PCR 1160000 IU/mL (NOT DETECTED)
--- NOTE | 2024-07-24 16:42 | PM.IMPN ---
Progress Note: A&P Assessment and Plan (1) Severe sepsis: Code(s): A41.9 - Sepsis, unspecified organism; R65.20 - Severe sepsis without septic shock Status: Acute Assessment and Plan: Patient presented the ED with SOB and fond to have acute resp failure. CXR showing RLL PNA. Sepsis due to PNA with MILENA, lactic acidosis, fever, resp failure, and tachycaroda Given 30cc/kg IV fluids in the ER, patient was also given Lasix 40 mg IV x1. Central line placed 07/22 and Levophed started. Started on Rocephin, Azithro and Vanco after BCx collected. BCx (07/22) - growing Strept pneumoniae in aerobic bottle only; 2nd set negative Sputum Cx - pending BCx (07/24) - pending Lactic 11.7 -> 2.4. WBC normal. CRP 4. CTA Ch/A/P - no PE but prominent bilateral LL consolidation. CT Neck showing small rt pleural effusion, dental disease and 1.7cm thyroid nodule Levophed weaned off overnight but resumed again this morning. Continue ceftriaxone, azithromycin, vancomycin (07/22). Narrow once sensitivities known. Monitor for the development of empyema. Wean Levophed as tolerated. (2) Acute respiratory failure: Code(s): J96.00 - Acute respiratory failure, unspecified whether with hypoxia or hypercapnia Status: Acute Assessment and Plan: Acute respiratory failure on admisison related to RLL pneumonia. CTA negative for PE. Patient intubated in the ICU on 07/22 Patient sedated and was paralyzed. Paralytic weaned off today Vent management per layout worker. Appreciate their input (3) Pneumonia: Code(s): J18.9 - Pneumonia, unspecified organism Status: Acute Assessment and Plan: As above (4) MILENA (acute kidney injury): Code(s): N17.9 - Acute kidney failure, unspecified Status: Acute Assessment and Plan: Patient presented with severe sepsis including possibly MILENA Baseline Cr unknown with admission Cr 2.0 and BUN 22. Received IV rehydration. Cr 1.5 today. Monior closely since received contrast. Monitor renal fxn, UOP and electrolytes. Check renal US (5) Elevated liver enzymes: Code(s): R74.8 - Abnormal levels of other serum enzymes Status: Acute Assessment and Plan: Elevated AST/ALT. Hepatitis panel negative except HepC Ab positive. Confirmatory testing for HepC positive with HCV RNA 1.16M IU/mL (6.1 log IU/mL) RUQ US showing Rt pleural effusion and minimal fluid around the GB. Suspect elevated LFTs related to sepsis. Check HIV Follow (6) CHF (congestive heart failure): Code(s): I50.9 - Heart failure, unspecified Status: Acute Assessment and Plan: Patient has a hx of CHF, type unknown. proBNP was 700 Echo showing EF 45-50% with normal RV size and systolic fxn. No significant valve disease. CXR did not show any pulmonary edema Monitor fluid status (7) Elevated troponin: Code(s): R79.89 - Other specified abnormal findings of blood chemistry Status: Acute Assessment and Plan: Elevated troponin likely related to a type 2 infarct, secondary to tachycardia, tachypnea -will continue to monitor -echo as above -troponins have plateaued (8) Thrombocytopenia: Code(s): D69.6 - Thrombocytopenia, unspecified Status: Acute Assessment and Plan: Platelet normal on admission at 195K but has trended down to 94K today. On Lovenox but felt more likely low plt related to sepsis. Monitor closely Plan DVT prophylaxis - Lovenox Code Status - full Subjective Date/time seen: 07/24/24 16:42 Interval history: 63yo male with CHF here for SOB. Patient intubated and sedated. Patient also on paralytics. No issues overnight per RN. Noted to have increasing stool output. Review of Systems Review of Systems: ROS unobtainable: Yes unobtainable due to endotracheal tube Exam Narrative: AF 99.0 98/61 86 24 100% mv Gen - intubated and sedated. HEENT - OGT and ETT secured Neck - Rt IJ TLC secured. Chest - decreased BS in the right flank o/w clear CV - RRR S1/S2. Tele showing episode of ATach Abd - Soft, ND, +BS - Gregorio secured draining clear yellow urine. FCS in place with brown stool in tubing Ext - No pedal edema. Neuro - remains on paralytics. Skin - Warm and dry Objective Data Vital Signs Vital Signs: Vital Signs - 24 hr 07/23/24 17:02 07/23/24 17:51 07/23/24 18:00 Temperature Pulse Rate 93 94 99 Respiratory Rate 24 H 24 H Blood Pressure 91/69 L Pulse Oximetry 98 Oxygen Delivery Mechanical Ventilation Fraction of Inspired Oxygen 35 07/23/24 18:00 07/23/24 18:00 07/23/24 18:00 Temperature 98.0 F Pulse Rate 99 99 99 Respiratory Rate 24 H 24 H Blood Pressure 128/97 H Pulse Oximetry 98 Oxygen Delivery Fraction of Inspired Oxygen 07/23/24 18:01 07/23/24 19:03 07/23/24 19:59 Temperature Pulse Rate 99 100 96 Respiratory Rate 24 H 24 H 24 H Blood Pressure 128/97 H 114/83 Pulse Oximetry Oxygen Delivery Fraction of Inspired Oxygen 07/23/24 19:59 07/23/24 20:00 07/23/24 20:00 Temperature Pulse Rate 96 96 97 Respiratory Rate 24 H 24 H 24 H Blood Pressure 96/72 L Pulse Oximetry Oxygen Delivery Fraction of Inspired Oxygen 07/23/24 20:00 07/23/24 20:00 07/23/24 20:00 Temperature 98.3 F Pulse Rate 97 Respiratory Rate 24 H Blood Pressure 96/72 L Pulse Oximetry 96 Oxygen Delivery Mechanical Ventilation Fraction of Inspired Oxygen 35 35 07/23/24 20:00 07/23/24 20:03 07/23/24 20:04 Temperature Pulse Rate 98 97 97 Respiratory Rate 24 H Blood Pressure Pulse Oximetry 96 Oxygen Delivery Mechanical Ventilation Fraction of Inspired Oxygen 35 07/23/24 20:11 07/23/24 20:19 07/23/24 20:19 Temperature Pulse Rate 97 96 96 Respiratory Rate 24 H 24 H 24 H Blood Pressure Pulse Oximetry Oxygen Delivery Fraction of Inspired Oxygen 07/23/24 20:30 07/23/24 21:00 07/23/24 21:30 Temperature 98.2 F 98.1 F 97.9 F Pulse Rate 95 92 92 Respiratory Rate 24 H 24 H 24 H Blood Pressure 84/67 L 84/65 L 77/64 L Pulse Oximetry 97 96 95 Oxygen Delivery Fraction of Inspired Oxygen 07/23/24 21:43 07/23/24 22:00 07/23/24 22:00 Temperature Pulse Rate 92 88 88 Respiratory Rate 24 H 24 H Blood Pressure 77/64 L 91/73 L Pulse Oximetry Oxygen Delivery Fraction of Inspired Oxygen 07/23/24 22:00 07/23/24 22:00 07/23/24 22:00 Temperature Pulse Rate 88 88 88 Respiratory Rate 24 H Blood Pressure 91/73 L Pulse Oximetry Oxygen Delivery Fraction of Inspired Oxygen 07/23/24 22:00 07/23/24 22:34 07/23/24 23:03 Temperature 97.7 F Pulse Rate 88 86 87 Respiratory Rate 24 H Blood Pressure 91/73 L 103/72 Pulse Oximetry 98 96 Oxygen Delivery Mechanical Ventilation Fraction of Inspired Oxygen 35 07/23/24 23:45 07/24/24 00:00 07/24/24 00:00 Temperature Pulse Rate 89 91 91 Respiratory Rate 24 H 24 H Blood Pressure 114/85 112/85 Pulse Oximetry Oxygen Delivery Fraction of Inspired Oxygen 07/24/24 00:00 07/24/24 00:00 07/24/24 00:00 Temperature 98.0 F Pulse Rate 91 91 91 Respiratory Rate 24 H 24 H Blood Pressure 112/85 Pulse Oximetry 98 Oxygen Delivery Fraction of Inspired Oxygen 07/24/24 00:00 07/24/24 00:00 07/24/24 00:16 Temperature Pulse Rate 91 Respiratory Rate Blood Pressure 101/77 Pulse Oximetry Oxygen Delivery Mechanical Ventilation Fraction of Inspired Oxygen 35 35 07/24/24 00:58 07/24/24 00:58 07/24/24 01:01 Temperature Pulse Rate 94 93 94 Respiratory Rate 24 H 24 H Blood Pressure 108/69 Pulse Oximetry Oxygen Delivery Fraction of Inspired Oxygen 07/24/24 01:40 07/24/24 02:00 07/24/24 02:00 Temperature Pulse Rate 93 94 94 Respiratory Rate 24 H 24 H Blood Pressure 109/71 107/69 Pulse Oximetry Oxygen Delivery Fraction of Inspired Oxygen 07/24/24 02:00 07/24/24 02:00 07/24/24 02:00 Temperature Pulse Rate 94 94 94 Respiratory Rate 24 H Blood Pressure 107/69 Pulse Oximetry Oxygen Delivery Fraction of Inspired Oxygen 07/24/24 02:00 07/24/24 02:08 07/24/24 02:09 Temperature 97.9 F Pulse Rate 94 93 93 Respiratory Rate 24 H 24 H Blood Pressure 107/69 Pulse Oximetry 92 93 Oxygen Delivery Mechanical Ventilation Fraction of Inspired Oxygen 35 07/24/24 04:00 07/24/24 04:00 07/24/24 04:00 Temperature Pulse Rate 91 912 H 91 Respiratory Rate 24 H 24 H Blood Pressure Pulse Oximetry Oxygen Delivery Fraction of Inspired Oxygen 07/24/24 04:00 07/24/24 04:00 07/24/24 04:00 Temperature 97.5 F L Pulse Rate 91 Respiratory Rate 24 H Blood Pressure 99/68 L Pulse Oximetry 98 Oxygen Delivery Mechanical Ventilation Fraction of Inspired Oxygen 35 35 07/24/24 04:03 07/24/24 04:03 07/24/24 05:05 Temperature Pulse Rate 91 91 94 Respiratory Rate 24 H 24 H Blood Pressure 99/68 L 99/68 L Pulse Oximetry 95 Oxygen Delivery Mechanical Ventilation Fraction of Inspired Oxygen 35 07/24/24 05:33 07/24/24 06:00 07/24/24 06:00 Temperature 97.7 F Pulse Rate 99 99 99 Respiratory Rate 24 H 24 H Blood Pressure 112/77 Pulse Oximetry 92 Oxygen Delivery Fraction of Inspired Oxygen 07/24/24 06:10 07/24/24 06:11 07/24/24 06:11 Temperature Pulse Rate 99 99 99 Respiratory Rate 24 H 24 H 24 H Blood Pressure 112/77 Pulse Oximetry Oxygen Delivery Fraction of Inspired Oxygen 07/24/24 07:30 07/24/24 07:30 07/24/24 07:40 Temperature Pulse Rate 113 H 113 H 107 H Respiratory Rate 24 H 24 H Blood Pressure Pulse Oximetry 95 Oxygen Delivery Mechanical Ventilation Fraction of Inspired Oxygen 35 07/24/24 08:00 07/24/24 08:00 07/24/24 08:00 Temperature Pulse Rate 114 H Respiratory Rate Blood Pressure Pulse Oximetry Oxygen Delivery Mechanical Ventilation Fraction of Inspired Oxygen 35 35 07/24/24 08:00 07/24/24 08:29 07/24/24 10:00 Temperature 98.0 F Pulse Rate 109 H 109 H 97 Respiratory Rate 24 H 24 H Blood Pressure 116/62 115/61 Pulse Oximetry 94 97 Oxygen Delivery Mechanical Ventilation Fraction of Inspired Oxygen 35 07/24/24 10:00 07/24/24 10:00 07/24/24 10:12 Temperature 98.1 F Pulse Rate 99 99 98 Respiratory Rate 24 H Blood Pressure 87/56 L 79/53 L Pulse Oximetry 93 Oxygen Delivery Fraction of Inspired Oxygen 07/24/24 10:16 07/24/24 10:34 07/24/24 10:35 Temperature Pulse Rate 97 94 93 Respiratory Rate 24 H 24 H 24 H Blood Pressure 78/54 L Pulse Oximetry Oxygen Delivery Fraction of Inspired Oxygen 07/24/24 10:35 07/24/24 10:36 07/24/24 11:59 Temperature Pulse Rate 93 92 97 Respiratory Rate 24 H 24 H 24 H Blood Pressure 81/52 L Pulse Oximetry Oxygen Delivery Fraction of Inspired Oxygen 07/24/24 12:00 07/24/24 12:00 07/24/24 12:00 Temperature Pulse Rate 97 Respiratory Rate 24 H Blood Pressure 91/60 L Pulse Oximetry Oxygen Delivery Mechanical Ventilation Fraction of Inspired Oxygen 50 35 07/24/24 12:00 07/24/24 12:00 07/24/24 12:00 Temperature Pulse Rate 100 97 109 H Respiratory Rate 24 H 24 H Blood Pressure 114/67 Pulse Oximetry 99 Oxygen Delivery Fraction of Inspired Oxygen 07/24/24 12:01 07/24/24 12:14 07/24/24 12:37 Temperature Pulse Rate 97 94 97 Respiratory Rate 24 H 24 H Blood Pressure 74/48 L 113/66 Pulse Oximetry Oxygen Delivery Fraction of Inspired Oxygen 07/24/24 12:49 07/24/24 13:20 07/24/24 13:20 Temperature Pulse Rate 102 H 104 H 104 H Respiratory Rate 24 H 24 H Blood Pressure 125/61 Pulse Oximetry 98 Oxygen Delivery Mechanical Ventilation Fraction of Inspired Oxygen 35 07/24/24 13:25 07/24/24 13:25 07/24/24 13:30 Temperature Pulse Rate 103 H 107 H 112 H Respiratory Rate 24 H 24 H 24 H Blood Pressure 114/67 Pulse Oximetry Oxygen Delivery Fraction of Inspired Oxygen 07/24/24 13:40 07/24/24 13:40 07/24/24 13:44 Temperature Pulse Rate 112 H 110 H 114 H Respiratory Rate 24 H 27 H Blood Pressure Pulse Oximetry 99 Oxygen Delivery Mechanical Ventilation Fraction of Inspired Oxygen 100 07/24/24 13:50 07/24/24 14:00 07/24/24 14:00 Temperature 98.4 F Pulse Rate 111 H 113 H 113 H Respiratory Rate 24 H 25 H Blood Pressure 112/62 Pulse Oximetry 99 Oxygen Delivery Fraction of Inspired Oxygen 07/24/24 14:10 07/24/24 14:12 07/24/24 14:13 Temperature Pulse Rate 112 H 111 H 112 H Respiratory Rate 32 H 29 H Blood Pressure 112/62 112/62 Pulse Oximetry Oxygen Delivery Fraction of Inspired Oxygen 07/24/24 14:14 07/24/24 14:24 07/24/24 14:26 Temperature Pulse Rate 111 H 114 H 114 H Respiratory Rate 29 H 33 H 36 H Blood Pressure Pulse Oximetry Oxygen Delivery Fraction of Inspired Oxygen 07/24/24 14:55 07/24/24 14:55 07/24/24 14:55 Temperature Pulse Rate 117 H 117 H 117 H Respiratory Rate 32 H 32 H 32 H Blood Pressure Pulse Oximetry Oxygen Delivery Fraction of Inspired Oxygen 07/24/24 15:00 07/24/24 15:10 07/24/24 15:19 Temperature Pulse Rate 107 H 107 H 109 H Respiratory Rate 30 H 30 H Blood Pressure 79/54 L Pulse Oximetry Oxygen Delivery Fraction of Inspired Oxygen 07/24/24 15:30 07/24/24 15:30 07/24/24 15:35 Temperature Pulse Rate 90 90 90 Respiratory Rate 24 H Blood Pressure 64/44 L 72/52 L Pulse Oximetry Oxygen Delivery Fraction of Inspired Oxygen 07/24/24 15:35 07/24/24 15:40 07/24/24 15:40 Temperature Pulse Rate 90 89 94 Respiratory Rate 24 H 24 H Blood Pressure 82/54 L Pulse Oximetry Oxygen Delivery Fraction of Inspired Oxygen 07/24/24 15:45 07/24/24 15:46 07/24/24 15:46 Temperature Pulse Rate 88 88 88 Respiratory Rate 24 H 24 H Blood Pressure 79/54 L Pulse Oximetry Oxygen Delivery Fraction of Inspired Oxygen 07/24/24 15:49 07/24/24 15:55 07/24/24 16:00 Temperature Pulse Rate 88 87 Respiratory Rate 24 H Blood Pressure 84/55 L Pulse Oximetry 100 Oxygen Delivery Mechanical Ventilation Fraction of Inspired Oxygen 100 07/24/24 16:00 07/24/24 16:00 07/24/24 16:00 Temperature Pulse Rate 87 86 85 Respiratory Rate 24 H 24 H Blood Pressure 87/49 L 87/49 L Pulse Oximetry Oxygen Delivery Fraction of Inspired Oxygen 07/24/24 16:00 07/24/24 16:00 07/24/24 16:00 Temperature 99.0 F Pulse Rate 85 85 Respiratory Rate 24 H 24 H Blood Pressure 98/61 L Pulse Oximetry 100 Oxygen Delivery Mechanical Ventilation Fraction of Inspired Oxygen 100 07/24/24 16:00 07/24/24 16:00 Temperature Pulse Rate 86 Respiratory Rate Blood Pressure Pulse Oximetry Oxygen Delivery Fraction of Inspired Oxygen 100 Intake/Output Intake/Output: Intake & Output 07/21/24 07/22/24 07/23/24 07/24/24 23:59 23:59 23:59 23:59 Intake Total 4618.7 2801.5 1936.6 Output Total 300 1335 450 Balance 4318.7 1466.5 1486.6 Meds/Results Medications: Active Medications Generic Name Dose Route Start Last Admin Trade Name Freq PRN Reason Stop Dose Admin Acetaminophen 650 mg 07/22/24 17:34 07/22/24 19:06 Acetaminophen Elixir 325 Mg/10.15 Ml Udc PO 650 mg Q6H PRN Administration Mild Pain (1-3) or Fever Acetylcysteine 200 mg 07/24/24 14:00 07/24/24 13:20 Acetylcysteine 20% Inhal Soln 800 Mg/4 Ml Vial INHALATION 200 mg Q6HRT ACOSTA Administration Dextrose 12.5 gm 07/23/24 12:52 Dextrose 50% 25 Gm/50 Ml Syringe IV PUSH PRN PRN Hypoglycemia Protocol Dornase Gene 2.5 mg 07/24/24 13:00 07/24/24 13:30 Dornase Gene Inh Soln 1 Mg/Ml 2.5 Ml Amp INHALATION 2.5 mg Q12HRT ACOSTA Administration Enoxaparin Sodium 40 mg 07/23/24 09:00 07/24/24 08:38 Enoxaparin 40 Mg/0.4 Ml Syringe SUB-Q 40 mg DAILY ACOSTA Administration Glucagon 1 mg 07/23/24 12:52 Glucagon For Inj 1 Mg Vial IM PRN PRN Hypoglycemia Protocol Glucose 15 gm 07/23/24 12:52 Glucose Oral Gel 15 Gm Of Glucse In 37.5 Gm Tube PO PRN PRN Hypoglycemia Protocol Hydrocortisone Sodium Succinate 50 mg 07/22/24 16:20 07/24/24 12:04 Hydrocortisone Sodium Succinate 100 Mg/2 Ml Vial IV PUSH 50 mg Q6HR ACOSTA Administration Ceftriaxone Sodium 2 gm in 100 mls @ 200 mls/hr 07/23/24 09:00 07/24/24 14:12 Rocephin 2 Gm/Ns 100 Ml IVPB Infused QAM ACOSTA Infusion Azithromycin 500 mg in 250 mls @ 250 mls/hr 07/23/24 09:00 07/24/24 14:13 Zithromax IVPB Infused QAM ACOSTA Infusion Propofol 100 mls @ 0 mls/hr 07/22/24 15:10 07/24/24 16:00 Diprivan IV CONT 0 mcg/kg/min .Q0M ACOSTA 0 mls/hr Titration Protocol Midazolam HCl 100 mg in 100 mls @ 7 mls/hr 07/22/24 16:15 07/24/24 16:00 Versed 100 Mg/Ns 100 Ml IV CONT 7 mg/hr .[id number] ACOSTA 7 mls/hr Titration Protocol 7 MG/HR Cisatracurium Besylate 200 mg/ 100 mls @ 0 mls/hr 07/23/24 14:30 07/24/24 16:00 Dextrose IV CONT 0 mcg/kg/min .Q0M ACOSTA 0 mls/hr Titration Protocol Dextrose 1,000 mls @ 100 mls/hr 07/23/24 12:52 Dextrose 5% 1,000 Ml IVPB PRN PRN Hypoglycemia Protocol Norepinephrine Bitartrate 8 mg in 250 mls @ 31.875 mls/hr 07/23/24 21:35 07/24/24 16:00 Levophed 8 Mg/D5w 250 Ml IV CONT 17 mcg/min .Q7H51M ACOSTA 31.88 mls/hr Titration Protocol 17 MCG/MIN Fentanyl Citrate 2,500 mcg in 250 mls @ 15 mls/hr 07/24/24 10:15 07/24/24 16:00 Fentanyl 2,500 Mcg/Ns 250 Ml IV CONT 150 mcg/hr .[id number] ACOSTA 15 mls/hr Titration Protocol 150 MCG/HR Vancomycin HCl 1,750 mg in 500 mls @ 250 mls/hr 07/24/24 12:00 07/24/24 16:06 Vancomycin 1,750 Mg/Ns 500 Ml IVPB Infused Q18H ACOSTA Infusion Insulin Aspart 3 - 6 units 07/24/24 12:00 07/24/24 12:11 Insulin Aspart (*Bkc) 100 Units/Ml SUB-Q 3 units Q6HR ACOSTA Administration Protocol Ipratropium [place] 0.5 mg 07/22/24 20:00 07/24/24 13:20 Ipratropium Br 0.02% Inh Soln 0.5 Mg/2.5 Ml Vial INHALATION 0.5 mg Q6HRT A[place]STA Administration Levalbuterol HCl 1.25 mg 07/22/24 20:00 07/24/24 13:20 Levalbuterol Neb 1.25 Mg/3 Ml INHALATION 1.25 mg Q6HRT ACOSTA Administration Multi-Ingred Cream/Lotion/Oil/Oint 1 applic 07/22/24 21:00 07/24/24 08:37 Mineral Oil/White Petrolatum Ointment EACH EYE 1 applic Q12HR ACOSTA Administration Pantoprazole Sodium 40 mg 07/23/24 09:00 07/24/24 08:37 Pantoprazole Sodium Iv 40 Mg Vial IV PUSH 40 mg DAILY ACOSTA Administration Perflutren Lipid Microsphere 0 ml 07/22/24 16:00 Perflutren Lipid Microspheres 1.5 Ml Vial Diluted To 10 Ml Total Volume IV PUSH 07/25/24 16:00 ONCE PRN adequate visualization Protocol Sodium Chloride 10 ml 07/22/24 22:00 07/24/24 14:15 Central Line Flush IV PUSH 10 ml Q8HR ACOSTA Administration Sodium Chloride 20 ml 07/22/24 16:23 Central Line Flush IV PUSH PRN PRN after blood draws Radiology Results: ITS Impressions Abdomen X-Ray 07/22/24 16:09 IMPRESSION: NG tube in body of stomach Chest/Abdomen/Pelvis CTA 07/22/24 18:32 IMPRESSION: No evidence of pulmonary embolism Prominent bilateral lower lobe consolidation. Mild lobe infiltrate. Soft Tissue Neck CT 07/23/24 06:55 IMPRESSION: 1. Small right pleural effusion. 2. 17 mm right thyroid nodule. Consider thyroid ultrasound for risk stratification. 3. Multifocal dental disease. Abdomen Ultrasound 07/23/24 12:48 IMPRESSION: 1. Right pleural effusion. Minimal fluid around the gallbladder. Evaluation for cholecystitis advised. Otherwise, normal Limited ultrasound of the abdomen. Chest X-Ray 07/24/24 06:00 IMPRESSION: 1. Stable airspace opacities in the lower lung zones, likely a combination of atelectasis and pneumonia. 2. Stable small right pleural effusion. Labs Labs: Laboratory Results - last 24 hr 07/22/24 07/23/24 07/23/24 15:57 17:59 23:34 WBC RBC Hgb Hct MCV MCH MCHC RDW Plt Count MPV % Immature Plt Fraction PT INR Puncture Site ABG pH ABG pCO2 ABG pO2 ABG PO2/FiO2 Ratio ABG HCO3 ABG O2 Saturation ABG O2 Content ABG Base Excess A-a Gradient Oxyhemoglobin Carboxyhemoglobin Methemoglobin Reduced Hemoglobin Total Hemoglobin O2 Delivery Device O2 Liters/Min Minute Volume Vent Rate Vent Mode FiO2 Tidal Volume PEEP Peak Inspir Pressure Pressure Support Sodium Potassium Chloride Carbon Dioxide Anion Gap BUN Creatinine Estim Creat Clear Calc Estimated GFR Glucose POC Capillary Glucose 134 H 188 H Lactic Acid Calcium Phosphorus Magnesium Total Bilirubin AST ALT Alkaline Phosphatase Total Protein Albumin Triglycerides Vancomycin Trough C. difficile (PCR) HCV RNA (PCR) IUs/ml [id number] H HCV RNA PCR log IUs/ml 6.06 H 07/24/24 07/24/24 07/24/24 05:14 05:30 05:53 WBC 6.9 RBC 2.93 L Hgb 10.4 L Hct 30.2 L MCV 103.1 H MCH 35.5 H MCHC 34.4 RDW 12.9 Plt Count 94 L MPV 11.1 H % Immature Plt Fraction 8.0 PT 14.5 INR 1.1 Puncture Site Right radial ABG pH 7.348 L ABG pCO2 47.2 H ABG pO2 68.5 L ABG PO2/FiO2 Ratio 1.96 ABG HCO3 25.4 ABG O2 Saturation 92.7 L ABG O2 Content 14.8 L ABG Base Excess -0.6 A-a Gradient 126.2 Oxyhemoglobin 91.8 Carboxyhemoglobin 0.1 Methemoglobin 0.3 Reduced Hemoglobin 7.8 H Total Hemoglobin 11.4 L O2 Delivery Device Ventilator O2 Liters/Min Not Reportable Minute Volume Not Reportable Vent Rate 24 Vent Mode Cmv FiO2 35 Tidal Volume 500 PEEP 8 Peak Inspir Pressure Not Reportable Pressure Support Not Reportable Sodium 133 L Potassium 4.0 Chloride 103 Carbon Dioxide 26 Anion Gap 4 BUN 42 H Creatinine 1.50 H Estim Creat Clear Calc 53 Estimated GFR 57 L Glucose 245 H POC Capillary Glucose 224 H Lactic Acid 2.8 H Calcium 7.9 L Phosphorus 3.5 Magnesium 1.9 Total Bilirubin 0.8 AST 154 H ALT 99 H Alkaline Phosphatase 53 Total Protein 6.0 L Albumin 3.1 L Triglycerides Vancomycin Trough C. difficile (PCR) HCV RNA (PCR) IUs/ml HCV RNA PCR log IUs/ml 07/24/24 07/24/24 07/24/24 08:43 08:44 10:44 WBC RBC Hgb Hct MCV MCH MCHC RDW Plt Count MPV % Immature Plt Fraction PT INR Puncture Site ABG pH ABG pCO2 ABG pO2 ABG PO2/FiO2 Ratio ABG HCO3 ABG O2 Saturation ABG O2 Content ABG Base Excess A-a Gradient Oxyhemoglobin Carboxyhemoglobin Methemoglobin Reduced Hemoglobin Total Hemoglobin O2 Delivery Device O2 Liters/Min Minute Volume Vent Rate Vent Mode FiO2 Tidal Volume PEEP Peak Inspir Pressure Pressure Support Sodium Potassium Chloride Carbon Dioxide Anion Gap BUN Creatinine Estim Creat Clear Calc Estimated GFR Glucose POC Capillary Glucose Lactic Acid 2.4 H Calcium Phosphorus Magnesium Total Bilirubin AST ALT Alkaline Phosphatase Total Protein Albumin Triglycerides Vancomycin Trough 9.6 L C. difficile (PCR) Negative HCV RNA (PCR) IUs/ml HCV RNA PCR log IUs/ml 07/24/24 07/24/24 12:07 15:00 WBC RBC Hgb Hct MCV MCH MCHC RDW Plt Count MPV % Immature Plt Fraction PT INR Puncture Site ABG pH ABG pCO2 ABG pO2 ABG PO2/FiO2 Ratio ABG HCO3 ABG O2 Saturation ABG O2 Content ABG Base Excess A-a Gradient Oxyhemoglobin Carboxyhemoglobin Methemoglobin Reduced Hemoglobin Total Hemoglobin O2 Delivery Device O2 Liters/Min Minute Volume Vent Rate Vent Mode FiO2 Tidal Volume PEEP Peak Inspir Pressure Pressure Support Sodium Potassium Chloride Carbon Dioxide Anion Gap BUN Creatinine Estim Creat Clear Calc Estimated GFR Glucose POC Capillary Glucose 250 H Lactic Acid Calcium Phosphorus Magnesium Total Bilirubin AST ALT Alkaline Phosphatase Total Protein Albumin Triglycerides 183 H Vancomycin Trough C. difficile (PCR) HCV RNA (PCR) IUs/ml HCV RNA PCR log IUs/ml
[2024-07-24] MEDS: MIDAZOLAM 100MG/NS 100ML(*CRX) 100 MG/100 ML BAG 6 MG IV CONT (17:18)
[2024-07-24 17:54] LABS: Glucose Point of Care 206 mg/dl (65-105)
[2024-07-24] MEDS: NOREPINEPHRINE 8 MG/D5W 250 ML 8 MG/250 ML BAG 31.88 MG IV CONT (21:43)
[2024-07-25] VITALS (54 sets, daily range): BP systolic 99–173; BP diastolic 8–116; PULSE 67–129; RESP 24–44; TEMP 36.9–37.7; O2SAT 92–100
[2024-07-25 00:12] LABS: Glucose Point of Care 313 mg/dl (65-105)
[2024-07-25] MEDS: HYDROCORTISONE SODIUM SUCCINATE 100 MG/2 ML VIAL 50 MG IV PUSH ×4 (00:17→17:45)
[2024-07-25] MEDS: IPRATROPIUM BR 0.02% INH SOLN 0.5 MG/2.5 ML VIAL INHALATION ×4 (02:31→20:17)
[2024-07-25] MEDS: ACETYLCYSTEINE 20% INHAL SOLN 800 MG/4 ML VIAL 200 MG INHALATION ×4 (02:31→20:16)
[2024-07-25] MEDS: LEVALBUTEROL NEB 1.25 MG/3 ML INHALATION ×4 (02:31→20:17)
[2024-07-25 03:56] LABS: Hematocrit 30.5 % (42.0-52.0); Hemoglobin 10.3 g/dL (14.0-18.0); Mean Corpuscular HGB Conc 33.8 g/dl (32-36); Mean Corpuscular Hemoglobin 35.2 pg (26-34); Mean Corpuscular Volume 104.1 fl (80-100); Mean Platelet Volume 11.2 fl (7.4-10.4); Platelet Count Result 103 k/mm3 (150-375); Red Blood Count 2.93 M/mm3 (4.6-6.20); Red Cell Distribution Width 12.9 % (11.5-14.5); White Blood Count 13.8 K/mm3 (4.5-10.0)
[2024-07-25 04:06] LABS: Alanine Aminotransferase 81 U/L (6-50); Albumin Level 3.2 g/dL (3.5-5.1); Alkaline Phosphatase 94 U/L (38-126); Anion Gap 4 mmol/L (4-12); Aspartate Amino Transferase 68 U/L (17-59); Bilirubin,Total 0.5 mg/dL (0.2-1.3); Blood Urea Nitrogen 44 mg/dL (9-20); Calcium 8.4 mg/dL (8.4-10.2); Carbon Dioxide 28 mmol/L (22-30); Chloride 103 mmol/L (98-107); Estimated CRCL calculation 50 ml/min; Estimated Glomerular Filt Rate 53; Glucose 319 mg/dL (65-110); Lactic Acid Reflex 1.9 mmol/L (0.7-2.0); Magnesium 2.2 mg/dL (1.6-2.3); Phosphorus 2.2 mg/dL (2.5-4.5); Sodium 135 mmol/L (137-145)
[2024-07-25 04:07] LABS: Prothrombin Time 13.8 Seconds (11.1-14.7)
[2024-07-25 04:46] LABS: HIV 1/2 Ab P24 Ag Result Negative (Negative)
[2024-07-25] MEDS: VANCOMYCIN 1,750 MG/NS 500 ML 1,750 MG/500 ML BAG 250 MG IVPB (05:29)
[2024-07-25] MEDS: CENTRAL LINE FLUSH 10 ML IV PUSH ×3 (05:30→21:26)
[2024-07-25 06:06] LABS: Alveolar/Arterial O2 Gradient 229.5 mmHg; Base Excess ABG 0.6 mEq/l (+/-2.0); Fractional Inspired Oxygen 65 %; Oxygen Content ABG 14.6 %vol (16.0-22.0); Oxygen Saturation ABG 99.3 % (95.0-100.0); Oxyhemoglobin 98.9 % THb (90.0-100.0); PCO2 ABG 39.1 mmHg (35.0-45.0); PO2 ABG 191.4 mmHg (80.0-100.0); PO2 FiO2 Ratio Arterial Blood 2.94 %; Total Hemoglobin 10.2 g/dL (12.0-18.0); pH ABG 7.424 (7.350-7.450)
[2024-07-25 06:08] LABS: Arterial Blood Gas PEEP 10 cmH2O; Arterial Blood Gas Tidal Volume 500 ml; Arterial Blood Gas Vent Mode CMV; Arterial Blood Gas Ventilator rate 24 /MIN; Device VENTILATOR; Modified Allen's Test Pass; Site Drawn RIGHT RADIAL
[2024-07-25] MEDS: INSULIN ASPART (*BKC) 100 UNITS/ML SUB-Q ×3 (06:36→17:49)
[2024-07-25 06:40] LABS: Glucose Point of Care 363 mg/dl (65-105)
[2024-07-25] MEDS: PANTOPRAZOLE SODIUM IV 40 MG VIAL IV PUSH (08:00)
[2024-07-25] MEDS: cefTRIAXone 2 GM/NS 100 ML 2 GM/100 ML BAG IVPB (08:00)
[2024-07-25] MEDS: ENOXAPARIN 40 MG/0.4 ML SYRINGE SUB-Q (08:00)
[2024-07-25] MEDS: MINERAL OIL/WHITE PETROLATUM OINTMENT 1 APPLIC EACH EYE ×2 (08:01→21:24)
[2024-07-25] MEDS: ACETAMINOPHEN ELIXIR 325 MG/10.15 ML UDC 650 MG PO (08:16)
[2024-07-25] MEDS: POTASSIUM/PHOSPHORUS/SODIUM 1.5 GM PACKET 1 PACKET FEED TUBE (08:16)
[2024-07-25] MEDS: DORNASE ALFA INH SOLN 1 MG/ML 2.5 ML AMP 2.5 MG INHALATION ×2 (08:23→20:17)
[2024-07-25] MEDS: AZITHROMYCIN 500 MG/NS 250 ML 500 MG/250 ML BAG 250 MG IVPB (08:43)
[2024-07-25 12:15] LABS: Glucose Point of Care 297 mg/dl (65-105)
[2024-07-25] MEDS: MIDAZOLAM 100MG/NS 100ML(*CRX) 100 MG/100 ML BAG 6 MG IV CONT (13:03)
[2024-07-25] MEDS: FENTANYL 2,500MCG/NS250ML(*CRX 2,500 MCG/250 ML BAG 10 MCG IV CONT (13:42)
--- NOTE | 2024-07-25 14:03 | WPDINTPN ---
Progress Note: A&P Assessment and Plan (1) Severe sepsis: Code(s): A41.9 - Sepsis, unspecified organism; R65.20 - Severe sepsis without septic shock Status: Acute Assessment and Plan: 07/22: Patient presented the ED with shortness of breath, chest x-ray showed right lower lobe consolidation/pneumonia, acute kidney injury, tachycardia, tachypnea -patient given 30 cc/kg IV fluids in the ER, patient was also given Lasix 40 mg IV x1 -07/22: Blood cultures growing Streptococcus pneumoniae 1/2 bottles -07/22: Sputum cultures growing Streptococcus pneumoniae 07/24: Repeat blood cultures negative so far -lactic acidosis has resolved -continue ceftriaxone, azithromycin, vancomycin (07/22) -07/22: Right IJ central line was inserted in the ICU -07/23: Patient has some blood in stool, Hemoccult was negative, DIC panel was within normal limits, hematuria has cleared up -07/24: Overnight patient dropped his blood pressures in the 70s, I had to be started on Levophed for a brief amount of time, -07/25: Remains on low-dose Levophed, wean to maintain MAP > 65 mmHg or SBP > 100 mmHg for adequate end organ perfusion 07/22: CT soft tissue neck without contrast: This was done as his neck movements were restricted. Impression: The endotracheal tube tip is in expected position. There is a small right pleural effusion. There are no pathologically enlarged lymph nodes. Partially visualized is an orogastric tube. Partially visualized is a right internal jugular central venous catheter with tip at least to the superior vena cava. There is mucosal thickening in right maxillary sinus. There is multifocal dental disease. There is a 17 mm nodule in right thyroid lobe. There are bridging endplate osteophytes at multiple levels in the spine, consistent with diffuse idiopathic skeletal hyperostosis (DISH). (2) Acute respiratory failure: Code(s): J96.00 - Acute respiratory failure, unspecified whether with hypoxia or hypercapnia Status: Acute Assessment and Plan: Acute respiratory failure likely related to right lower lobe pneumonia. Patient also tachypneic and tachycardic, will send patient for a CT scan of the chest PE protocol to rule out pulmonary embolism -07/22: Intubated in the ICU -continue CMV mode of ventilation, peep of10 and 30 FiO2, wean FiO2 to maintain O2 sats > 92%, will decrease PEEP to 8 -chest x-ray this morning and ABGs reviewed, continue low tidal volume strategy -continue bronchodilators -07/24: patient had thick secretions, added Mucomyst and Pulmozyme nebs, secretions have improved -sedated with propofol infusion, maintain RASS of 0 to -2. Daily SAT and SBT -off Nimbex since 07/24 07/22: CT a chest PE, abdomen/pelvis IMPRESSION: No evidence of pulmonary embolism Prominent bilateral lower lobe consolidation. Mild lobe infiltrate. (3) Pneumonia: Code(s): J18.9 - Pneumonia, unspecified organism Status: Acute Assessment and Plan: Right lower lobe pneumonia seen on chest x-ray -continue mechanical ventilation, bronchodilators -continue hydrocortisone 50 mg IV q.6 hours for pneumonia (4) MILENA (acute kidney injury): Code(s): N17.9 - Acute kidney failure, unspecified Status: Acute Assessment and Plan: Patient presented with severe sepsis, acute kidney injury with creatinine of 2.00. Baseline creatinine unknown -received 30 cc/kg IV fluid bolus in the ER -patient is received adequate amount of IV fluids, urine output has been adequate, creatinine improving -discontinue IV fluids at this time -hyperkalemia, resolved -hypomagnesemia, resolved -creatinine stable (5) Elevated liver enzymes: Code(s): R74.8 - Abnormal levels of other serum enzymes Status: Acute Assessment and Plan: Elevated liver enzymes, could be related to severe hypoxemia, HCV, -hepatitis panel is negative -HCV RNA PCR : Elevated PCR titers,, will have GI evaluate the patient once he is extubated -07/23: RUQ ultrasound: Right pleural effusion, minimal fluid around the gallbladder. Evaluation of cholecystitis advised, otherwise normal limited ultrasound of the abdomen -LFTs trending down, continue to monitor (6) CHF (congestive heart failure): Code(s): I50.9 - Heart failure, unspecified Status: Acute Assessment and Plan: History of CHF, proBNP was 700 -chest x-ray did not show any pulmonary edema 07/24: Echocardiogram Summary 1. Complete two-dimensional, color flow and Doppler transthoracic echocardiogram is performed. 2. Left ventricle is normal in size with mildly reduced systolic function. The left ventricular ejection fraction is visually estimated to be 45-50%. 3. The right ventricle is normal in size and systolic function. 4. The aortic valve is not well visualized. The Doppler gradients does not suggest any hemodynamically significant stenosis. (7) Elevated troponin: Code(s): R79.89 - Other specified abnormal findings of blood chemistry Status: Acute Assessment and Plan: Elevated troponin likely related to 2 type 2 infarct, secondary to tachycardia, tachypnea -echocardiogram did not reveal any new wall motion abnormality, continue to monitor for chest pain -troponins have plateaued Plan DVT prophylaxis: Enoxaparin Stress ulcer prophylaxis: Protonix Nutrition: Tolerating tube, and banatrol Code Status: Full code Critical Care Time Spent: 33 minutes 07/22/2024: Discuss with Miranda, patient's daughter and next of kin. She stated that the patient lives in [facility] by himself, has never , she is the only child. States he drinks alcohol from sun up to sun down, also uses marijuana and cocaine. Smokes cigarettes 1 pack per day for many years. She does not know what other medical conditions he has. I updated the daughter with patient's condition and plan of care. I answered all her questions Due to a high probability of clinically significant, life threatening deterioration, the patient required my highest level of preparedness to intervene emergently and I personally spent this critical care time directly and personally managing the patient. This critical care time included obtaining a history; examining the patient; pulse oximetry; ordering and review of studies; arranging urgent treatment with development of a management plan; evaluation of patient's response to treatment; frequent reassessment; and discussions with other providers. It was exclusive of separately billable procedures and treating other patients and teaching time. Please see Assessment and Plan section and the rest of the note for further information on patient assessment and treatment This dictation may have been done utilizing a voice recognition system. Attempts have been made to correct errors. However, there may be uncorrected grammatical, spelling, and recognitions errors present. Subjective Date/time seen: 07/25/24 14:03 Interval history: Reason for consult: Acute respiratory failure, pneumonia, severe sepsis, acute kidney injury Intubated: 07/2207/25/2024: Patient seen and examined the ICU, remains intubated on CMV mode of ventilation, peep of 10 and 30% FiO2. Sedated with fentanyl and Versed infusion. Propofol of. Patient opens his eyes but does not follow simple commands. Patient is off Nimbex infusion urine output has been adequate, afebrile. Remains on Levophed. Tolerating tube feed. Decreased liquid stools, FMS in place Review of Systems Review of Systems: ROS unobtainable: Yes unobtainable due to endotracheal tube and unobtainable due to medical condition Exam Narrative: General: Patient intubated, sedated, not in acute distress HEENT:? Pupils equal and reactive, sclera is clear, ETT in place Neck:? Neck movements are restricted Respiratory:? Coarse breath sounds bilaterally, rales in right lower base no wheezing, adequate air entry Cardiac:? S1-S2 is normal, sinus tachycardia Abdomen:? Soft, nondistended, nontender, hypoactive bowel sounds Extremities:? No edema, palpable pedal pulses Neuro:? Patient is intubated, sedated,, opens his eyes but does not follow simple commands, withdraws to pain in all extremities. Skin:? Dry skin, no other lesions noted Psych:? Unable to assess at this time Objective Data Vital Signs Vital Signs: Vital Signs - 24 hr 07/24/24 14:10 07/24/24 14:12 07/24/24 14:13 Temperature Pulse Rate 112 H 111 H 112 H Respiratory Rate 32 H 29 H Blood Pressure 112/62 112/62 Pulse Oximetry Oxygen Delivery Fraction of Inspired Oxygen 07/24/24 14:14 07/24/24 14:24 07/24/24 14:26 Temperature Pulse Rate 111 H 114 H 114 H Respiratory Rate 29 H 33 H 36 H Blood Pressure Pulse Oximetry Oxygen Delivery Fraction of Inspired Oxygen 07/24/24 14:55 07/24/24 14:55 07/24/24 14:55 Temperature Pulse Rate 117 H 117 H 117 H Respiratory Rate 32 H 32 H 32 H Blood Pressure Pulse Oximetry Oxygen Delivery Fraction of Inspired Oxygen 07/24/24 15:00 07/24/24 15:10 07/24/24 15:19 Temperature Pulse Rate 107 H 107 H 109 H Respiratory Rate 30 H 30 H Blood Pressure 79/54 L Pulse Oximetry Oxygen Delivery Fraction of Inspired Oxygen 07/24/24 15:30 07/24/24 15:30 07/24/24 15:35 Temperature Pulse Rate 90 90 90 Respiratory Rate 24 H Blood Pressure 64/44 L 72/52 L Pulse Oximetry Oxygen Delivery Fraction of Inspired Oxygen 07/24/24 15:35 07/24/24 15:40 07/24/24 15:40 Temperature Pulse Rate 90 89 94 Respiratory Rate 24 H 24 H Blood Pressure 82/54 L Pulse Oximetry Oxygen Delivery Fraction of Inspired Oxygen 07/24/24 15:45 07/24/24 15:46 07/24/24 15:46 Temperature Pulse Rate 88 88 88 Respiratory Rate 24 H 24 H Blood Pressure 79/54 L Pulse Oximetry Oxygen Delivery Fraction of Inspired Oxygen 07/24/24 15:49 07/24/24 15:55 07/24/24 16:00 Temperature Pulse Rate 88 87 Respiratory Rate 24 H Blood Pressure 84/55 L Pulse Oximetry 100 Oxygen Delivery Mechanical Ventilation Fraction of Inspired Oxygen 100 07/24/24 16:00 07/24/24 16:00 07/24/24 16:00 Temperature Pulse Rate 87 86 85 Respiratory Rate 24 H 24 H Blood Pressure 87/49 L 87/49 L Pulse Oximetry Oxygen Delivery Fraction of Inspired Oxygen 07/24/24 16:00 07/24/24 16:00 07/24/24 16:00 Temperature 99.0 F Pulse Rate 85 85 Respiratory Rate 24 H 24 H Blood Pressure 98/61 L Pulse Oximetry 100 Oxygen Delivery Mechanical Ventilation Fraction of Inspired Oxygen 100 07/24/24 16:00 07/24/24 16:00 07/24/24 17:00 Temperature Pulse Rate 86 84 Respiratory Rate 24 H Blood Pressure Pulse Oximetry Oxygen Delivery Fraction of Inspired Oxygen 100 07/24/24 17:18 07/24/24 17:18 07/24/24 17:35 Temperature Pulse Rate 85 85 85 Respiratory Rate 24 H 24 H 24 H Blood Pressure Pulse Oximetry Oxygen Delivery Fraction of Inspired Oxygen 07/24/24 18:00 07/24/24 18:00 07/24/24 18:00 Temperature 99.3 F Pulse Rate 85 88 86 Respiratory Rate 24 H 24 H Blood Pressure 101/57 L Pulse Oximetry 99 Oxygen Delivery Fraction of Inspired Oxygen 07/24/24 18:00 07/24/24 18:00 07/24/24 18:00 Temperature Pulse Rate 86 87 89 Respiratory Rate 24 H 24 H Blood Pressure 101/57 L 101/57 L Pulse Oximetry Oxygen Delivery Fraction of Inspired Oxygen 07/24/24 18:00 07/24/24 20:00 07/24/24 20:00 Temperature Pulse Rate 86 86 86 Respiratory Rate 24 H 24 H Blood Pressure 111/57 L Pulse Oximetry Oxygen Delivery Fraction of Inspired Oxygen 07/24/24 20:00 07/24/24 20:00 07/24/24 20:00 Temperature 99.4 F Pulse Rate 86 86 86 Respiratory Rate 24 H 24 H 24 H Blood Pressure 111/57 L Pulse Oximetry 99 Oxygen Delivery Fraction of Inspired Oxygen 07/24/24 20:00 07/24/24 20:00 07/24/24 20:00 Temperature Pulse Rate 88 84 Respiratory Rate 24 H Blood Pressure Pulse Oximetry 100 Oxygen Delivery Mechanical Ventilation Fraction of Inspired Oxygen 90 90 07/24/24 20:30 07/24/24 20:30 07/24/24 20:31 Temperature Pulse Rate 87 87 86 Respiratory Rate 24 H 24 H Blood Pressure 111/57 L Pulse Oximetry 99 Oxygen Delivery Mechanical Ventilation Fraction of Inspired Oxygen 90 07/24/24 20:31 07/24/24 20:59 07/24/24 21:43 Temperature Pulse Rate 87 84 90 Respiratory Rate 24 H 24 H Blood Pressure 110/62 Pulse Oximetry Oxygen Delivery Fraction of Inspired Oxygen 07/24/24 21:43 07/24/24 22:00 07/24/24 22:00 Temperature Pulse Rate 90 84 84 Respiratory Rate 24 H Blood Pressure 110/62 116/70 Pulse Oximetry Oxygen Delivery Fraction of Inspired Oxygen 07/24/24 22:00 07/24/24 22:00 07/24/24 22:00 Temperature Pulse Rate 84 84 84 Respiratory Rate 24 H 24 H 24 H Blood Pressure 116/60 Pulse Oximetry Oxygen Delivery Fraction of Inspired Oxygen 07/24/24 22:00 07/24/24 22:00 07/24/24 23:32 Temperature 99.5 F Pulse Rate 84 84 82 Respiratory Rate 24 H Blood Pressure 116/70 Pulse Oximetry 100 100 Oxygen Delivery Mechanical Ventilation Fraction of Inspired Oxygen 80 07/25/24 00:00 07/25/24 00:00 07/25/24 00:00 Temperature 99.5 F Pulse Rate 73 77 Respiratory Rate 24 H Blood Pressure 119/69 Pulse Oximetry 100 Oxygen Delivery Fraction of Inspired Oxygen 80 07/25/24 00:00 07/25/24 00:00 07/25/24 00:00 Temperature Pulse Rate 73 73 73 Respiratory Rate 24 H 24 H Blood Pressure 119/69 Pulse Oximetry 100 Oxygen Delivery Mechanical Ventilation Fraction of Inspired Oxygen 80 07/25/24 00:00 07/25/24 00:00 07/25/24 00:00 Temperature Pulse Rate 73 73 73 Respiratory Rate 24 H 24 H 24 H Blood Pressure 119/69 Pulse Oximetry Oxygen Delivery Fraction of Inspired Oxygen 07/25/24 02:00 07/25/24 02:00 07/25/24 02:00 Temperature 99.9 F H Pulse Rate 72 72 72 Respiratory Rate 24 H Blood Pressure 110/73 110/73 Pulse Oximetry 99 Oxygen Delivery Fraction of Inspired Oxygen 07/25/24 02:00 07/25/24 02:00 07/25/24 02:00 Temperature Pulse Rate 72 72 72 Respiratory Rate 24 H 24 H 24 H Blood Pressure 110/73 Pulse Oximetry Oxygen Delivery Fraction of Inspired Oxygen 07/25/24 02:00 07/25/24 02:31 07/25/24 02:31 Temperature Pulse Rate 72 67 67 Respiratory Rate 24 H 24 H Blood Pressure Pulse Oximetry 99 Oxygen Delivery Mechanical Ventilation Fraction of Inspired Oxygen 65 07/25/24 02:45 07/25/24 02:45 07/25/24 03:00 Temperature Pulse Rate 71 71 102 H Respiratory Rate 24 H Blood Pressure 116/71 173/112 H Pulse Oximetry Oxygen Delivery Fraction of Inspired Oxygen 07/25/24 03:15 07/25/24 03:30 07/25/24 04:00 Temperature Pulse Rate 88 96 71 Respiratory Rate Blood Pressure 173/107 H 168/113 H 141/105 H Pulse Oximetry Oxygen Delivery Fraction of Inspired Oxygen 07/25/24 04:00 07/25/24 04:00 07/25/24 04:00 Temperature Pulse Rate 71 71 71 Respiratory Rate 24 H 24 H 24 H Blood Pressure Pulse Oximetry Oxygen Delivery Fraction of Inspired Oxygen 07/25/24 04:00 07/25/24 04:00 07/25/24 04:00 Temperature 98.8 F Pulse Rate 71 73 67 Respiratory Rate 24 H 24 H Blood Pressure 142/105 H Pulse Oximetry 100 100 Oxygen Delivery Mechanical Ventilation Fraction of Inspired Oxygen 65 07/25/24 04:00 07/25/24 04:12 07/25/24 04:15 Temperature Pulse Rate 71 72 Respiratory Rate 24 H Blood Pressure 141/105 H 158/105 H Pulse Oximetry Oxygen Delivery Fraction of Inspired Oxygen 65 07/25/24 04:30 07/25/24 04:45 07/25/24 05:00 Temperature Pulse Rate 75 69 77 Respiratory Rate Blood Pressure 162/113 H 158/116 H 145/99 H Pulse Oximetry Oxygen Delivery Fraction of Inspired Oxygen 07/25/24 05:15 07/25/24 05:30 07/25/24 05:45 Temperature Pulse Rate 70 73 81 Respiratory Rate Blood Pressure 158/108 H 160/109 H 152/106 H Pulse Oximetry Oxygen Delivery Fraction of Inspired Oxygen 07/25/24 05:58 07/25/24 06:00 07/25/24 06:00 Temperature Pulse Rate 82 82 82 Respiratory Rate 24 H Blood Pressure 133/95 H Pulse Oximetry 100 Oxygen Delivery Mechanical Ventilation Fraction of Inspired Oxygen 30 07/25/24 06:00 07/25/24 06:00 07/25/24 06:00 Temperature Pulse Rate 82 82 82 Respiratory Rate 24 H 24 H 24 H Blood Pressure 133/95 H Pulse Oximetry Oxygen Delivery Fraction of Inspired Oxygen 07/25/24 06:00 07/25/24 06:00 07/25/24 07:40 Temperature 99.2 F Pulse Rate 82 82 85 Respiratory Rate 24 H Blood Pressure 133/95 H 135/94 H Pulse Oximetry 100 Oxygen Delivery Fraction of Inspired Oxygen 07/25/24 07:55 07/25/24 08:00 07/25/24 08:00 Temperature 99.2 F Pulse Rate 87 85 110 H Respiratory Rate 25 H Blood Pressure 122/85 129/8 L 128/85 Pulse Oximetry 92 Oxygen Delivery Fraction of Inspired Oxygen 07/25/24 08:00 07/25/24 08:00 07/25/24 08:00 Temperature Pulse Rate 98 86 Respiratory Rate 24 H Blood Pressure Pulse Oximetry 95 Oxygen Delivery Mechanical Ventilation Fraction of Inspired Oxygen 30 30 07/25/24 08:00 07/25/24 08:00 07/25/24 08:00 Temperature Pulse Rate 86 86 82 Respiratory Rate 24 H 24 H 24 H Blood Pressure 129/87 Pulse Oximetry Oxygen Delivery Fraction of Inspired Oxygen 07/25/24 08:00 07/25/24 08:15 07/25/24 08:16 Temperature 99.2 F Pulse Rate 84 89 Respiratory Rate 24 H Blood Pressure 119/87 Pulse Oximetry Oxygen Delivery Fraction of Inspired Oxygen 07/25/24 08:28 07/25/24 08:30 07/25/24 08:30 Temperature Pulse Rate 129 H 129 H 129 H Respiratory Rate 27 H 27 H Blood Pressure Pulse Oximetry 94 Oxygen Delivery Mechanical Ventilation Fraction of Inspired Oxygen 30 07/25/24 08:30 07/25/24 08:33 07/25/24 08:42 Temperature Pulse Rate 101 H 126 H 113 H Respiratory Rate 26 H 28 H Blood Pressure 131/87 Pulse Oximetry Oxygen Delivery Fraction of Inspired Oxygen 07/25/24 08:43 07/25/24 09:16 07/25/24 10:00 Temperature 99.4 F Pulse Rate 111 H 95 Respiratory Rate 28 H Blood Pressure Pulse Oximetry Oxygen Delivery Fraction of Inspired Oxygen 07/25/24 10:00 07/25/24 10:00 07/25/24 10:00 Temperature 99.4 F Pulse Rate 94 94 94 Respiratory Rate 24 H 24 H 24 H Blood Pressure 99/71 L Pulse Oximetry 96 Oxygen Delivery Fraction of Inspired Oxygen 07/25/24 10:00 07/25/24 10:00 07/25/24 10:00 Temperature Pulse Rate 94 96 96 Respiratory Rate 24 H 24 H Blood Pressure 105/75 105/79 Pulse Oximetry Oxygen Delivery Fraction of Inspired Oxygen 07/25/24 11:58 07/25/24 12:00 07/25/24 12:00 Temperature Pulse Rate 87 88 Respiratory Rate Blood Pressure Pulse Oximetry 97 Oxygen Delivery Mechanical Ventilation Fraction of Inspired Oxygen 30 30 07/25/24 12:00 07/25/24 12:00 07/25/24 12:00 Temperature 99.4 F Pulse Rate 88 89 86 Respiratory Rate 24 H 24 H 24 H Blood Pressure 107/77 Pulse Oximetry 97 97 Oxygen Delivery Mechanical Ventilation Fraction of Inspired Oxygen 30 07/25/24 12:00 07/25/24 12:00 07/25/24 12:00 Temperature Pulse Rate 86 86 86 Respiratory Rate 24 H 24 H Blood Pressure 106/74 107/77 Pulse Oximetry Oxygen Delivery Fraction of Inspired Oxygen 07/25/24 13:02 07/25/24 13:03 07/25/24 13:42 Temperature Pulse Rate 89 89 87 Respiratory Rate 24 H 24 H 24 H Blood Pressure Pulse Oximetry Oxygen Delivery Fraction of Inspired Oxygen 07/25/24 13:42 07/25/24 13:54 07/25/24 13:54 Temperature Pulse Rate 87 86 86 Respiratory Rate 24 H 24 H Blood Pressure Pulse Oximetry 97 Oxygen Delivery Mechanical Ventilation Fraction of Inspired Oxygen 30 Intake/Output Intake/Output: Intake & Output 07/22/24 07/23/24 07/24/24 07/25/24 23:59 23:59 23:59 23:59 Intake Total 4618.7 2801.5 2695.9 2088.8 Output Total 300 1335 1550 550 Balance 4318.7 1466.5 1145.9 1538.8 Meds/Results Medications: Active Medications Generic Name Dose Route Start Last Admin Trade Name Freq PRN Reason Stop Dose Admin Acetaminophen 650 mg 07/22/24 17:34 07/25/24 08:16 Acetaminophen Elixir 325 Mg/10.15 Ml Udc PO 650 mg Q6H PRN Administration Mild Pain (1-3) or Fever Acetylcysteine 200 mg 07/24/24 14:00 07/25/24 13:50 Acetylcysteine 20% Inhal Soln 800 Mg/4 Ml Vial INHALATION 200 mg Q6HRT ACOSTA Administration Dextrose 12.5 gm 07/23/24 12:52 Dextrose 50% 25 Gm/50 Ml Syringe IV PUSH PRN PRN Hypoglycemia Protocol Dornase Gene 2.5 mg 07/24/24 13:00 07/25/24 08:23 Dornase Gene Inh Soln 1 Mg/Ml 2.5 Ml Amp INHALATION 2.5 mg Q12HRT ACOSTA Administration Enoxaparin Sodium 40 mg 07/23/24 09:00 07/25/24 08:00 Enoxaparin 40 Mg/0.4 Ml Syringe SUB-Q 40 mg DAILY ACOSTA Administration Glucagon 1 mg 07/23/24 12:52 Glucagon For Inj 1 Mg Vial IM PRN PRN Hypoglycemia Protocol Glucose 15 gm 07/23/24 12:52 Glucose Oral Gel 15 Gm Of Glucse In 37.5 Gm Tube PO PRN PRN Hypoglycemia Protocol Hydrocortisone Sodium Succinate 50 mg 07/22/24 16:20 07/25/24 12:22 Hydrocortisone Sodium Succinate 100 Mg/2 Ml Vial IV PUSH 50 mg Q6HR ACOSTA Administration Ceftriaxone Sodium 2 gm in 100 mls @ 200 mls/hr 07/23/24 09:00 07/25/24 09:00 Rocephin 2 Gm/Ns 100 Ml IVPB Infused QAM ACOSTA Infusion Azithromycin 500 mg in 250 mls @ 250 mls/hr 07/23/24 09:00 07/25/24 09:43 Zithromax IVPB Infused QAM ACOSTA Infusion Propofol 100 mls @ 0 mls/hr 07/22/24 15:10 07/25/24 10:00 Diprivan IV CONT Infused .Q0M ACOSTA Titration Protocol Midazolam HCl 100 mg in 100 mls @ 6 mls/hr 07/22/24 16:15 07/25/24 13:03 Versed 100 Mg/Ns 100 Ml IV CONT 6 mg/hr .[id number] ACOSTA 6 mls/hr Administration Protocol 6 MG/HR Cisatracurium Besylate 200 mg/ 100 mls @ 0 mls/hr 07/23/24 14:30 07/25/24 12:00 Dextrose IV CONT 0 mcg/kg/min .Q0M ACOSTA 0 mls/hr Titration Protocol Dextrose 1,000 mls @ 100 mls/hr 07/23/24 12:52 Dextrose 5% 1,000 Ml IVPB PRN PRN Hypoglycemia Protocol Norepinephrine Bitartrate 8 mg in 250 mls @ 0 mls/hr 07/23/24 21:35 07/25/24 12:00 Levophed 8 Mg/D5w 250 Ml IV CONT 0 mcg/min .Q0M ACOSTA 0 mls/hr Titration Protocol 0 MCG/MIN Fentanyl Citrate 2,500 mcg in 250 mls @ 10 mls/hr 07/24/24 10:15 07/25/24 13:42 Fentanyl 2,500 Mcg/Ns 250 Ml IV CONT 100 mcg/hr .Q25H ACOSTA 10 mls/hr Administration Protocol 100 MCG/HR Vancomycin HCl 1,750 mg in 500 mls @ 250 mls/hr 07/24/24 12:00 07/25/24 07:29 Vancomycin 1,750 Mg/Ns 500 Ml IVPB Infused Q18H ACOSTA Infusion Insulin Aspart 3 - 6 units 07/24/24 12:00 07/25/24 12:22 Insulin Aspart (*Bkc) 100 Units/Ml SUB-Q 4 units Q6HR ACOSTA Administration Protocol Ipratropium Randolph 0.5 mg 07/22/24 20:00 07/25/24 13:50 Ipratropium Br 0.02% Inh Soln 0.5 Mg/2.5 Ml Vial INHALATION 0.5 mg Q6HRT ACOSTA Administration Levalbuterol HCl 1.25 mg 07/22/24 20:00 07/25/24 13:50 Levalbuterol Neb 1.25 Mg/3 Ml INHALATION 1.25 mg Q6HRT ACOSTA Administration Multi-Ingred Cream/Lotion/Oil/Oint 1 applic 07/22/24 21:00 07/25/24 08:01 Mineral Oil/White Petrolatum Ointment EACH EYE 1 applic Q12HR ACOSTA Administration Pantoprazole Sodium 40 mg 07/23/24 09:00 07/25/24 08:00 Pantoprazole Sodium Iv 40 Mg Vial IV PUSH 40 mg DAILY ACOSTA Administration Perflutren Lipid Microsphere 0 ml 07/22/24 16:00 Perflutren Lipid Microspheres 1.5 Ml Vial Diluted To 10 Ml Total Volume IV PUSH 07/25/24 16:00 ONCE PRN adequate visualization Protocol Sodium Chloride 10 ml 07/22/24 22:00 07/25/24 05:30 Central Line Flush IV PUSH 10 ml Q8HR ACOSTA Administration Sodium Chloride 20 ml 07/22/24 16:23 Central Line Flush IV PUSH PRN PRN after blood draws Radiology Results: ITS Impressions Abdomen X-Ray 07/22/24 16:09 IMPRESSION: NG tube in body of stomach Chest/Abdomen/Pelvis CTA 07/22/24 18:32 IMPRESSION: No evidence of pulmonary embolism Prominent bilateral lower lobe consolidation. Mild lobe infiltrate. Soft Tissue Neck CT 07/23/24 06:55 IMPRESSION: 1. Small right pleural effusion. 2. 17 mm right thyroid nodule. Consider thyroid ultrasound for risk stratification. 3. Multifocal dental disease. Abdomen Ultrasound 07/23/24 12:48 IMPRESSION: 1. Right pleural effusion. Minimal fluid around the gallbladder. Evaluation for cholecystitis advised. Otherwise, normal Limited ultrasound of the abdomen. Chest X-Ray 07/25/24 06:46 IMPRESSION: 1. Stable airspace opacities in the lower lung zones, consistent with atelectasis versus pneumonia. 2. Stable small right pleural effusion. Labs Labs: Laboratory Results - last 24 hr 07/22/24 07/24/24 07/24/24 15:57 15:00 17:29 WBC RBC Hgb Hct MCV MCH MCHC RDW Plt Count MPV % Immature Plt Fraction PT INR Puncture Site ABG pH ABG pCO2 ABG pO2 ABG PO2/FiO2 Ratio ABG HCO3 ABG O2 Saturation ABG O2 Content ABG Base Excess A-a Gradient Oxyhemoglobin Total Hemoglobin O2 Delivery Device O2 Liters/Min Minute Volume Vent Rate Vent Mode FiO2 Tidal Volume PEEP Peak Inspir Pressure Pressure Support Sodium Potassium Chloride Carbon Dioxide Anion Gap BUN Creatinine Estim Creat Clear Calc Estimated GFR Glucose POC Capillary Glucose 206 H Lactic Acid Calcium Phosphorus Magnesium Total Bilirubin AST ALT Alkaline Phosphatase Total Protein Albumin Triglycerides 183 H HCV RNA (PCR) IUs/ml [id number] H HCV RNA PCR log IUs/ml 6.06 H HIV 1&2 Ab/P24 Ag 4thGn 07/24/24 07/25/24 07/25/24 23:46 03:45 06:00 WBC 13.8 H RBC 2.93 L Hgb 10.3 L Hct 30.5 L MCV 104.1 H MCH 35.2 H MCHC 33.8 RDW 12.9 Plt Count 103 L MPV 11.2 H % Immature Plt Fraction 9.0 PT 13.8 INR 1.0 Puncture Site Right radial ABG pH 7.424 ABG pCO2 39.1 ABG pO2 191.4 H ABG PO2/FiO2 Ratio 2.94 ABG HCO3 25.0 ABG O2 Saturation 99.3 ABG O2 Content 14.6 L ABG Base Excess 0.6 A-a Gradient 229.5 Oxyhemoglobin 98.9 Total Hemoglobin 10.2 L O2 Delivery Device Ventilator O2 Liters/Min Not Reportable Minute Volume Not Reportable Vent Rate 24 Vent Mode Cmv FiO2 65 Tidal Volume 500 PEEP 10 Peak Inspir Pressure Not Reportable Pressure Support Not Reportable Sodium 135 L Potassium 4.0 Chloride 103 Carbon Dioxide 28 Anion Gap 4 BUN 44 H Creatinine 1.60 H Estim Creat Clear Calc 50 Estimated GFR 53 L Glucose 319 H POC Capillary Glucose 313 H Lactic Acid 1.9 Calcium 8.4 Phosphorus 2.2 L Magnesium 2.2 Total Bilirubin 0.5 AST 68 H ALT 81 H Alkaline Phosphatase 94 Total Protein 7.0 Albumin 3.2 L Triglycerides HCV RNA (PCR) IUs/ml HCV RNA PCR log IUs/ml HIV 1&2 Ab/P24 Ag 4thGn Negative 07/25/24 07/25/24 06:35 12:09 WBC RBC Hgb Hct MCV MCH MCHC RDW Plt Count MPV % Immature Plt Fraction PT INR Puncture Site ABG pH ABG pCO2 ABG pO2 ABG PO2/FiO2 Ratio ABG HCO3 ABG O2 Saturation ABG O2 Content ABG Base Excess A-a Gradient Oxyhemoglobin Total Hemoglobin O2 Delivery Device O2 Liters/Min Minute Volume Vent Rate Vent Mode FiO2 Tidal Volume PEEP Peak Inspir Pressure Pressure Support Sodium Potassium Chloride Carbon Dioxide Anion Gap BUN Creatinine Estim Creat Clear Calc Estimated GFR Glucose POC Capillary Glucose 363 H 297 H Lactic Acid Calcium Phosphorus Magnesium Total Bilirubin AST ALT Alkaline Phosphatase Total Protein Albumin Triglycerides HCV RNA (PCR) IUs/ml HCV RNA PCR log IUs/ml HIV 1&2 Ab/P24 Ag 4thGn Quality VTE Prophylaxis VTE prophylaxis: mechanical ordered and pharmacologic ordered
[2024-07-25] MEDS: MIDAZOLAM HCL (*CRX) 2 MG/2 ML VIAL IV PUSH (17:39)
[2024-07-25 17:50] LABS: Glucose Point of Care 333 mg/dl (65-105)
[2024-07-25 18:39] LABS: Base Excess ABG 1.8 mEq/l (+/-2.0); Fractional Inspired Oxygen 30 %; HCO3 ABG 23.9 mEq/l (22.0-26.0); Oxygen Content ABG 13.5 %vol (16.0-22.0); Oxygen Saturation ABG 96.6 % (95.0-100.0); Oxyhemoglobin 95.7 % THb (90.0-100.0); PCO2 ABG 28.8 mmHg (35.0-45.0); PO2 ABG 75.1 mmHg (80.0-100.0)
[2024-07-25 18:44] LABS: Device VENTILATOR; Modified Allen's Test Pass; Site Drawn RIGHT RADIAL; pH ABG 7.536 (7.350-7.450)
[2024-07-25 18:45] LABS: Arterial Blood Gas PEEP 8 cmH2O; Arterial Blood Gas Tidal Volume 500 ml; Arterial Blood Gas Vent Mode CMV; Arterial Blood Gas Ventilator rate 24 /MIN
[2024-07-25 23:54] LABS: Glucose Point of Care 321 mg/dl (65-105)
[2024-07-26] VITALS (63 sets, daily range): BP systolic 120–198; BP diastolic 83–132; PULSE 72–113; RESP 18–39; TEMP 36.7–37.2; O2SAT 91–100
[2024-07-26] MEDS: VANCOMYCIN 1,750 MG/NS 500 ML 1,750 MG/500 ML BAG 250 MG IVPB ×2 (00:03→17:38)
[2024-07-26] MEDS: INSULIN ASPART (*BKC) 100 UNITS/ML SUB-Q ×4 (00:05→17:46)
[2024-07-26] MEDS: LEVALBUTEROL NEB 1.25 MG/3 ML INHALATION ×4 (03:15→20:25)
[2024-07-26] MEDS: ACETYLCYSTEINE 20% INHAL SOLN 800 MG/4 ML VIAL 200 MG INHALATION ×4 (03:15→20:24)
[2024-07-26] MEDS: IPRATROPIUM BR 0.02% INH SOLN 0.5 MG/2.5 ML VIAL INHALATION ×4 (03:15→20:25)
[2024-07-26] MEDS: MIDAZOLAM 100MG/NS 100ML(*CRX) 100 MG/100 ML BAG 7 MG IV CONT (04:07)
[2024-07-26 04:40] LABS: Hematocrit 27.5 % (42.0-52.0); Hemoglobin 9.4 g/dL (14.0-18.0); Immature Platelet Fraction Pct 6.7 % (0.9-11.2); Mean Corpuscular HGB Conc 34.2 g/dl (32-36); Mean Corpuscular Hemoglobin 34.7 pg (26-34); Mean Corpuscular Volume 101.5 fl (80-100); Mean Platelet Volume 11.6 fl (7.4-10.4); Platelet Count Result 86 k/mm3 (150-375); Red Blood Count 2.71 M/mm3 (4.6-6.20); Red Cell Distribution Width 12.9 % (11.5-14.5); White Blood Count 20.1 K/mm3 (4.5-10.0)
[2024-07-26 04:49] LABS: Lactic Acid Reflex 1.9 mmol/L (0.7-2.0); Magnesium 2.5 mg/dL (1.6-2.3); Phosphorus 1.1 mg/dL (2.5-4.5)
[2024-07-26 04:50] LABS: Alanine Aminotransferase 54 U/L (6-50); Albumin Level 2.9 g/dL (3.5-5.1); Alkaline Phosphatase 91 U/L (38-126); Anion Gap 4 mmol/L (4-12); Aspartate Amino Transferase 36 U/L (17-59); Bilirubin,Total 0.5 mg/dL (0.2-1.3); Blood Urea Nitrogen 48 mg/dL (9-20); Calcium 8.6 mg/dL (8.4-10.2); Carbon Dioxide 25 mmol/L (22-30); Chloride 109 mmol/L (98-107); Estimated CRCL calculation 53 ml/min; Estimated Glomerular Filt Rate 57; Glucose 338 mg/dL (65-110); Potassium 3.5 mmol/L (3.4-5.0); Sodium 138 mmol/L (137-145)
[2024-07-26 04:54] LABS: INR 1.1
[2024-07-26 05:30] LABS: Alveolar/Arterial O2 Gradient 113.2 mmHg; Base Excess ABG 1.9 mEq/l (+/-2.0); Carboxyhemoglobin 0.3 % THb (0-2.0); Fractional Inspired Oxygen 30 %; HCO3 ABG 24.6 mEq/l (22.0-26.0); Methemoglobin ABG 0.3 %THb (0-1.5); Oxygen Content ABG 13.6 %vol (16.0-22.0); Oxygen Saturation ABG 94.3 % (95.0-100.0); Oxyhemoglobin 92.5 % THb (90.0-100.0); PCO2 ABG 31.8 mmHg (35.0-45.0); PO2 ABG 63.3 mmHg (80.0-100.0); PO2 FiO2 Ratio Arterial Blood 2.11 %; Reduced Hemoglobin 6.9 %THb (0-5.0); Total Hemoglobin 10.4 g/dL (12.0-18.0)
[2024-07-26 05:31] LABS: Device VENTILATOR; Modified Allen's Test Pass; Site Drawn RIGHT RADIAL; pH ABG 7.507 (7.350-7.450)
[2024-07-26 05:32] LABS: Arterial Blood Gas PEEP 8 cmH2O; Arterial Blood Gas Tidal Volume 500 ml; Arterial Blood Gas Vent Mode CMV; Arterial Blood Gas Ventilator rate 24 /MIN
[2024-07-26 06:02] LABS: Glucose Point of Care 356 mg/dl (65-105)
[2024-07-26] MEDS: CENTRAL LINE FLUSH 10 ML IV PUSH ×3 (06:10→20:49)
[2024-07-26] MEDS: HYDROCORTISONE SODIUM SUCCINATE 100 MG/2 ML VIAL 50 MG IV PUSH ×4 (06:10→17:38)
[2024-07-26] MEDS: POTASSIUM/PHOSPHORUS/SODIUM 1.5 GM PACKET 1 PACKET PO ×2 (08:21→10:32)
[2024-07-26] MEDS: cefTRIAXone 2 GM/NS 100 ML 2 GM/100 ML BAG IVPB (08:21)
[2024-07-26] MEDS: AZITHROMYCIN 500 MG/NS 250 ML 500 MG/250 ML BAG 250 MG IVPB (08:21)
[2024-07-26] MEDS: POTASSIUM CHLORIDE 20 MEQ PACKET (FOR LIQUID) 40 MEQ PO (08:22)
[2024-07-26] MEDS: FUROSEMIDE INJ 40 MG/4 ML VIAL IV PUSH (08:22)
[2024-07-26] MEDS: PANTOPRAZOLE SODIUM IV 40 MG VIAL IV PUSH (08:22)
[2024-07-26] MEDS: DORNASE ALFA INH SOLN 1 MG/ML 2.5 ML AMP 2.5 MG INHALATION ×2 (08:24→20:26)
--- NOTE | 2024-07-26 08:40 | P.CONGI_ITS ---
<Statement entered by Roe Hughes MD - 08/08/24 09:50> I, Roe Hughes MD, have provided a substantive portion of the care of this patient and discussed the patient with my Nurse Practitioner. I have reviewed any new relevant radiographic and laboratory results including medications. I agree with her documentation as noted below.?I personally performed the medical decision making and much of the history and exam for this encounter. Assessment and Plan Assessment and plan (1) Hepatitis C: Qualifiers: Viral hepatitis chronicity: chronic Hepatic coma status: without hepatic coma Qualified Code(s): B18.2 - Chronic viral hepatitis C Code(s): B19.20 - Unspecified viral hepatitis C without hepatic coma Status: Acute (2) Elevated liver enzymes: Code(s): R74.8 - Abnormal levels of other serum enzymes Status: Acute (3) Severe sepsis: Code(s): A41.9 - Sepsis, unspecified organism; R65.20 - Severe sepsis without septic shock Status: Acute (4) Leukocytosis: Qualifiers: Leukocytosis type: unspecified Qualified Code(s): D72.829 - Elevated white blood cell count, unspecified Code(s): D72.829 - Elevated white blood cell count, unspecified Status: Acute (5) Macrocytic anemia: Code(s): D53.9 - Nutritional anemia, unspecified Status: Acute Plan 1. Hepatitis C/elevated LFT's: Patient with Hx of substance abuse, unclear if this is drug, alcohol or both. LFT's were at there highest 07/26/2024 showing total bilirubin 0.9, AST 217, ALT 106, alkaline phosphatase 42. Labs today show LFT's now normal except mildly elevated ALT 54. Albumin low at 2.9 Hepatitis A and B were negative. Hepatitis C positive with PCR 1,160,000. * If the patient decides to stay with family in the local area he can follow up with us as outpatient to discuss treatment options * no further workup required at this time unless LFT's increase again at which time we can order a full liver work up 2. Leukocytosis/sepsis/pneumonia: Patient with sputum and blood cultures positive for strep pneumoniae. currently intubated on antibiotics. WBCs at 20. Patient afebrile today. No findings on imaging to think GI source of infection. C-Diff was negative. * Care per primary care team 3. Macrocytic anemia /thrombocytopenia: Unclear on patient's alcohol use history. No signs of active GI bleeding. Fecal occult blood negative. WBC is 9, HGB 28, MCV 102, platelets 86. * no indication for emergent endoscopic evaluation at this time, primary care team to continue monitoring H&H and transfuse as needed to keep HGB > 7 Thank you very much for allowing me to share in the care of this very complex patient. This report may have been done utilizing a voice recognition system. Attempts have been made to correct errors. However, there may be uncorrected grammatical, spelling, and recognition errors present. GI Consult Note Consult date/time: 07/26/24 08:40 Reason for consult: Hepatitis C HPI: This is a 63 year old male with PMSH of CHF and substance abuse but otherwise unknown medical surgical Hx. He presented to the ER 07/22/2024 with breathing difficulty and was intubated. Currently admitted for ARF, severe sepsis and pneumonia. GI consulted for Hepatitis C. Unable to obtaining a subjective information as the patient is intubated and sedated. According to the patient's nurse it is believed that the patient lives in [facility] in [place] be homeless at this time. He has a known history of substance abuse. He was in town visiting his daughter before getting ill. Patient was shown to have mildly elevated LFTs and workup revealed positive hepatitis C PCR. ENDOSCOPY HISTORY: EGD and colonoscopy Hx unknown LABS AND STOOL STUDIES: Labs 07/26/2024: Sodium 138, potassium 3.5, BUN 48, creatinine 1.50, GFR 57. WBC is 20, HGB 9, HCT 28, MCV 102, platelets 860. Total bilirubin 0.5, AST 36, ALT 54, alkaline phosphatase 91, albumin 2.9, lipase 15. Lactic acid 1.9, triglycerides 184, calcium 8.6, phosphorus 1.1, magnesium 2.5. Blood cultures and sputum cultures both positive for strep pneumoniae hepatitis a and B negative hepatitis C positive with PCR 1,160,000 Fecal occult blood negative IMAGING: Abdominal Xray 07/26/2024 IMPRESSION: 1. Nasogastric tube tip in the stomach. 2. Small right pleural effusion. 3. Airspace opacities in the lower lung zones, consistent with atelectasis versus pneumonia. Abdominal Ultrasound 07/23/2024 FINDINGS: LIVER: Normal size and echotexture. No focal hepatic lesions or perihepatic fluid collections are identified. Normal flow of the portal vein. Measures 17.8 cm. Fluid is seen superior to the right lobe of the liver suggestive of pleural effusion. GALLBLADDER: Unremarkable. No evidence for stones, sludge, and gallbladder wall thickening. Minimal pericholecystic fluid collections. Gallbladder wall is 1.4 mm A negative sonographic Matthews's sign was noted. BILIARY DUCTS: No evidence for intra or extrahepatic biliary dilation. Common bile duct measures 1.4 mm in diameter which is within normal limits. PANCREAS: Normal echotexture and size. UPPER ABDOMINAL AORTA: Normal in caliber. IVC: Patent. FREE FLUID: None. IMPRESSION: 1. Right pleural effusion. Minimal fluid around the gallbladder. Evaluation for cholecystitis advised. Otherwise, normal Limited ultrasound of the abdomen. CTA chest/abd/pelvis 07/22/2024 FINDINGS: There is diagnostic contrast enhancement of the pulmonary arteries and no evidence of pulmonary embolism. There is an ET tube. There is an NG tube in the stomach. Right internal jugular central venous catheter in superior vena cava. Mild cardiomegaly. No pericardial effusion. Prominent left main and left anterior descending coronary artery calcification. Borderline thoracic aortic dimension, the ascending aorta measures up to 4 cm diameter, the mid aortic arch 2.9 cm, descending thoracic aorta 3 cm. No thoracic aortic dissection. No hilar or mediastinal mass lesion or lymphadenopathy is appreciated. There is very prominent consolidation of both lower lobes. Mild middle lobe infiltrate. Minimal pleural effusions. There is extensive degenerative changes of the cervical and thoracic spine. No suspicious osteolytic or osteoblastic lesions are noted. IMPRESSION: No evidence of pulmonary embolism Prominent bilateral lower lobe consolidation. Mild lobe infiltrate. Review of Systems 2 Review of Systems: ROS unobtainable: Yes unobtainable due to endotracheal tube and unobtainable due to medical condition [facility] Social History Social History Smoking packs per day: 1 Smoking cigarettes per day: 20.0 Smoking status: Current every day smoker Tobacco type: cigarettes Spiritual care concerns: No Meds Home Medications and Allergies Home Medications ?Medication ?Instructions ?Recorded ?Confirmed ?Type Unable to Obtain Home Medications 07/23/24 07/23/24 History Allergies Allergy/AdvReac Type Severity Reaction Status Date / Time No Known Allergies Allergy Mild Verified 07/22/24 10:06 Vital Signs Vital Signs - 24 hr 07/25/24 08:42 07/25/24 08:43 07/25/24 09:16 Temperature 99.4 F Pulse Rate 113 H 111 H Respiratory Rate 28 H 28 H Blood Pressure Pulse Oximetry Oxygen Delivery Fraction of Inspired Oxygen 07/25/24 10:00 07/25/24 10:00 07/25/24 10:00 Temperature 99.4 F Pulse Rate 95 94 94 Respiratory Rate 24 H 24 H Blood Pressure 99/71 L Pulse Oximetry 96 Oxygen Delivery Fraction of Inspired Oxygen 07/25/24 10:00 07/25/24 10:00 07/25/24 10:00 Temperature Pulse Rate 94 94 96 Respiratory Rate 24 H 24 H 24 H Blood Pressure 105/75 Pulse Oximetry Oxygen Delivery Fraction of Inspired Oxygen 07/25/24 10:00 07/25/24 11:58 07/25/24 12:00 Temperature Pulse Rate 96 87 88 Respiratory Rate Blood Pressure 105/79 Pulse Oximetry 97 Oxygen Delivery Mechanical Ventilation Fraction of Inspired Oxygen 30 07/25/24 12:00 07/25/24 12:00 07/25/24 12:00 Temperature 99.4 F Pulse Rate 88 89 Respiratory Rate 24 H 24 H Blood Pressure 107/77 Pulse Oximetry 97 97 Oxygen Delivery Mechanical Ventilation Fraction of Inspired Oxygen 30 30 07/25/24 12:00 07/25/24 12:00 07/25/24 12:00 Temperature Pulse Rate 86 86 86 Respiratory Rate 24 H 24 H 24 H Blood Pressure 106/74 Pulse Oximetry Oxygen Delivery Fraction of Inspired Oxygen 07/25/24 12:00 07/25/24 13:02 07/25/24 13:03 Temperature Pulse Rate 86 89 89 Respiratory Rate 24 H 24 H Blood Pressure 107/77 Pulse Oximetry Oxygen Delivery Fraction of Inspired Oxygen 07/25/24 13:42 07/25/24 13:42 07/25/24 13:54 Temperature Pulse Rate 87 87 86 Respiratory Rate 24 H 24 H Blood Pressure Pulse Oximetry 97 Oxygen Delivery Mechanical Ventilation Fraction of Inspired Oxygen 30 07/25/24 13:54 07/25/24 14:00 07/25/24 14:00 Temperature Pulse Rate 86 86 86 Respiratory Rate 24 H 24 H 24 H Blood Pressure Pulse Oximetry Oxygen Delivery Fraction of Inspired Oxygen 07/25/24 14:00 07/25/24 14:00 07/25/24 14:00 Temperature Pulse Rate 87 87 95 Respiratory Rate 24 H Blood Pressure 103/80 103/80 Pulse Oximetry Oxygen Delivery Fraction of Inspired Oxygen 07/25/24 14:00 07/25/24 14:11 07/25/24 16:00 Temperature 99.1 F Pulse Rate 89 87 88 Respiratory Rate 24 H 24 H 24 H Blood Pressure 115/82 Pulse Oximetry 97 Oxygen Delivery Fraction of Inspired Oxygen 07/25/24 16:00 07/25/24 16:00 07/25/24 16:00 Temperature Pulse Rate 87 88 87 Respiratory Rate 24 H 24 H Blood Pressure 104/75 104/75 Pulse Oximetry Oxygen Delivery Fraction of Inspired Oxygen 07/25/24 16:00 07/25/24 16:00 07/25/24 16:00 Temperature 99.1 F Pulse Rate 87 88 Respiratory Rate 24 H Blood Pressure 104/75 Pulse Oximetry 98 Oxygen Delivery Fraction of Inspired Oxygen 30 07/25/24 16:00 07/25/24 16:58 07/25/24 16:59 Temperature Pulse Rate 88 81 93 Respiratory Rate 24 H Blood Pressure 110/81 Pulse Oximetry 96 96 Oxygen Delivery Mechanical Ventilation Mechanical Ventilation Fraction of Inspired Oxygen 30 30 07/25/24 17:00 07/25/24 17:36 07/25/24 17:36 Temperature 98.9 F Pulse Rate 91 94 97 Respiratory Rate 24 H 44 H 44 H Blood Pressure 134/92 H 130/93 H 130/93 H Pulse Oximetry 99 95 Oxygen Delivery Mechanical Ventilation Fraction of Inspired Oxygen 07/25/24 18:00 07/25/24 18:00 07/25/24 18:00 Temperature 99.1 F Pulse Rate 85 84 89 Respiratory Rate 24 H 30 H Blood Pressure 110/78 Pulse Oximetry 98 Oxygen Delivery Fraction of Inspired Oxygen 07/25/24 18:00 07/25/24 18:21 07/25/24 18:22 Temperature Pulse Rate 91 91 87 Respiratory Rate 24 H 35 H 34 H Blood Pressure Pulse Oximetry Oxygen Delivery Fraction of Inspired Oxygen 07/25/24 20:00 07/25/24 20:00 07/25/24 20:00 Temperature Pulse Rate 85 88 Respiratory Rate 24 H Blood Pressure Pulse Oximetry 98 Oxygen Delivery Mechanical Ventilation Fraction of Inspired Oxygen 30 30 07/25/24 20:00 07/25/24 20:00 07/25/24 20:00 Temperature Pulse Rate 84 84 84 Respiratory Rate 24 H 24 H 24 H Blood Pressure 121/84 Pulse Oximetry Oxygen Delivery Fraction of Inspired Oxygen 07/25/24 20:00 07/25/24 20:18 07/25/24 20:20 Temperature Pulse Rate 84 85 84 Respiratory Rate 24 H Blood Pressure 121/84 Pulse Oximetry 98 Oxygen Delivery Mechanical Ventilation Fraction of Inspired Oxygen 30 07/25/24 20:21 07/25/24 20:27 07/25/24 22:00 Temperature 98.8 F Pulse Rate 84 85 110 H Respiratory Rate 24 H 24 H 24 H Blood Pressure 121/84 Pulse Oximetry 98 Oxygen Delivery Fraction of Inspired Oxygen 07/25/24 22:00 07/25/24 22:00 07/25/24 22:12 Temperature 98.5 F Pulse Rate 110 H 94 98 Respiratory Rate 24 H 24 H Blood Pressure 146/110 H Pulse Oximetry 98 Oxygen Delivery Fraction of Inspired Oxygen 07/25/24 23:13 07/26/24 00:00 07/26/24 00:00 Temperature Pulse Rate 84 82 82 Respiratory Rate 24 H 24 H Blood Pressure Pulse Oximetry 96 Oxygen Delivery Mechanical Ventilation Fraction of Inspired Oxygen 30 07/26/24 00:00 07/26/24 00:00 07/26/24 00:00 Temperature Pulse Rate 75 83 Respiratory Rate 24 H Blood Pressure Pulse Oximetry 99 Oxygen Delivery Mechanical Ventilation Fraction of Inspired Oxygen 30 30 07/26/24 00:07 07/26/24 02:00 07/26/24 02:00 Temperature 98.5 F Pulse Rate 83 72 72 Respiratory Rate 24 H 24 H Blood Pressure 129/93 H Pulse Oximetry 98 Oxygen Delivery Fraction of Inspired Oxygen 07/26/24 02:06 07/26/24 02:08 07/26/24 03:16 Temperature 98.3 F Pulse Rate 73 72 75 Respiratory Rate 24 H 24 H 25 H Blood Pressure 120/83 Pulse Oximetry 97 Oxygen Delivery Fraction of Inspired Oxygen 07/26/24 03:22 07/26/24 03:28 07/26/24 04:00 Temperature Pulse Rate 77 76 74 Respiratory Rate 24 H 24 H Blood Pressure Pulse Oximetry 99 Oxygen Delivery Mechanical Ventilation Fraction of Inspired Oxygen 30 07/26/24 04:00 07/26/24 04:00 07/26/24 04:00 Temperature Pulse Rate 75 72 Respiratory Rate 24 H 24 H Blood Pressure Pulse Oximetry 99 Oxygen Delivery Mechanical Ventilation Fraction of Inspired Oxygen 30 30 07/26/24 04:00 07/26/24 04:06 07/26/24 04:07 Temperature Pulse Rate 72 73 73 Respiratory Rate 19 19 Blood Pressure Pulse Oximetry Oxygen Delivery Fraction of Inspired Oxygen 07/26/24 04:40 07/26/24 05:19 07/26/24 06:00 Temperature 98.1 F Pulse Rate 95 83 107 H Respiratory Rate 24 H 24 H Blood Pressure 172/132 H Pulse Oximetry 100 99 Oxygen Delivery Mechanical Ventilation Fraction of Inspired Oxygen 30 07/26/24 06:00 07/26/24 06:00 07/26/24 06:00 Temperature 98.2 F Pulse Rate 107 H 92 90 Respiratory Rate 18 24 H Blood Pressure 125/85 Pulse Oximetry 97 Oxygen Delivery Fraction of Inspired Oxygen 07/26/24 08:00 07/26/24 08:00 Temperature 98.3 F Pulse Rate 90 93 Respiratory Rate 24 H 22 H Blood Pressure 129/91 H Pulse Oximetry 97 91 Oxygen Delivery Mechanical Ventilation Fraction of Inspired Oxygen 30 Exam 2 Const: General: comfortable and no acute distress HENMT: Mouth: Yes moist mucous membranes Eyes: General: appearance normal, both eyes and all related structures S clera: sclerae normal Pupils: Equal, round and reactive pupils present Neck: Neck: supple Resp: Other: intubated on vent Cardio: Rate: regular rate Rhythm: regular rhythm Other: rectal tube in place GI: Inspection: non-distended GI Palp: Yes Soft to palpation, No Firmness to palpation present (GI), No Tenderness to palpation present (GI) and No Guarding due to palpation present (GI) Other: hypoactive Urinary Catheter: Urinary Catheter: patent and draining Results Labs 07/26/24 04:28 07/26/24 04:28 Labs: Short CBC 07/26/24 Range/Units 04:28 WBC 20.1 H (4.5-10.0) K/mm3 Hgb 9.4 L (14.0-18.0) g/dL Hct 27.5 L (42.0-52.0) % Plt Count 86 L (150-375) k/mm3 BMP 07/26/24 04:28 Sodium 138 Potassium 3.5 Chloride 109 H Carbon Dioxide 25 BUN 48 H Creatinine 1.50 H Glucose 338 H Calcium 8.6 Liver Function 07/26/24 Range/Units 04:28 Total Bilirubin 0.5 (0.2-1.3) mg/dL AST 36 (17-59) U/L ALT 54 H (6-50) U/L Alkaline Phosphatase 91 (38-126) U/L Albumin 2.9 L (3.5-5.1) g/dL
[2024-07-26] MEDS: dexmedeTOMIDine 400 MCG/100 ML 400 MCG/100 ML BAG IV CONT (08:51)
[2024-07-26] MEDS: MINERAL OIL/WHITE PETROLATUM OINTMENT 1 APPLIC EACH EYE ×3 (08:55→20:49)
[2024-07-26] MEDS: INSULIN GLARGINE (*BKC) 100 UNITS/ML 10 UNITS SUB-Q (08:55)
--- NOTE | 2024-07-26 09:33 | P.PNINT_ITS ---
Progress Note: A&P Assessment and Plan (1) Severe sepsis: Code(s): A41.9 - Sepsis, unspecified organism; R65.20 - Severe sepsis without septic shock Status: Acute Assessment and Plan: 07/22: Patient presented the ED with shortness of breath, chest x-ray showed right lower lobe consolidation/pneumonia, acute kidney injury, tachycardia, tachypnea -patient given 30 cc/kg IV fluids in the ER, patient was also given Lasix 40 mg IV x1 -07/22: Blood cultures growing Streptococcus pneumoniae 1/2 bottles -07/22: Sputum cultures growing Streptococcus pneumoniae 07/24: Repeat blood cultures negative so far -lactic acidosis has resolved -continue ceftriaxone, azithromycin, vancomycin (07/22) -07/22: Right IJ central line was inserted in the ICU -07/23: Patient has some blood in stool, Hemoccult was negative, DIC panel was within normal limits, hematuria has cleared up -07/24: Overnight patient dropped his blood pressures in the 70s, I had to be started on Levophed for a brief amount of time, -07/25: Remains on low-dose Levophed, wean to maintain MAP > 65 mmHg or SBP > 100 mmHg for adequate end organ perfusion -off Levophed 07/22: CT soft tissue neck without contrast: This was done as his neck movements were restricted. Impression: The endotracheal tube tip is in expected position. There is a small right pleural effusion. There are no pathologically enlarged lymph nodes. Partially visualized is an orogastric tube. Partially visualized is a right internal jugular central venous catheter with tip at least to the superior vena cava. There is mucosal thickening in right maxillary sinus. There is multifocal dental disease. There is a 17 mm nodule in right thyroid lobe. There are bridging endplate osteophytes at multiple levels in the spine, consistent with diffuse idiopathic skeletal hyperostosis (DISH). (2) Acute respiratory failure: Code(s): J96.00 - Acute respiratory failure, unspecified whether with hypoxia or hypercapnia Status: Acute Assessment and Plan: Acute respiratory failure likely related to right lower lobe pneumonia. Patient also tachypneic and tachycardic, will send patient for a CT scan of the chest PE protocol to rule out pulmonary embolism -07/22: Intubated in the ICU -continue CMV mode of ventilation, peep of10 and 30 FiO2, wean FiO2 to maintain O2 sats > 92%, will decrease PEEP to 8 -chest x-ray this morning and ABGs reviewed, continue low tidal volume strategy -continue bronchodilators -07/24: patient had thick secretions, added Mucomyst and Pulmozyme nebs, secretions have improved -sedated with propofol infusion, maintain RASS of 0 to -2. Daily SAT and SBT 07/26: Will place patient on Precedex infusion, wean fentanyl and Versed infusion once patient is more awake will evaluate for extubation. Will diurese today -off Nimbex since 07/24 07/22: CT a chest PE, abdomen/pelvis IMPRESSION: No evidence of pulmonary embolism Prominent bilateral lower lobe consolidation. Mild lobe infiltrate. (3) Pneumonia: Code(s): J18.9 - Pneumonia, unspecified organism Status: Acute Assessment and Plan: Right lower lobe pneumonia seen on chest x-ray -continue mechanical ventilation, bronchodilators -continue hydrocortisone 50 mg IV q.6 hours for pneumonia (07/22) continue 5 days (4) MILENA (acute kidney injury): Code(s): N17.9 - Acute kidney failure, unspecified Status: Acute Assessment and Plan: Patient presented with severe sepsis, acute kidney injury with creatinine of 2.00. Baseline creatinine unknown -received 30 cc/kg IV fluid bolus in the ER -patient is received adequate amount of IV fluids, urine output has been adequate, creatinine improving -discontinue IV fluids at this time -hyperkalemia, resolved -hypomagnesemia, resolved -replace phosphorous -creatinine stable (5) Elevated liver enzymes: Code(s): R74.8 - Abnormal levels of other serum enzymes Status: Acute Assessment and Plan: Elevated liver enzymes, could be related to severe hypoxemia, HCV, -hepatitis panel is negative -HCV RNA PCR : Elevated PCR titers, appreciate GI evaluation recommendations, if patient decides to stay with the family in the local area he can follow with them to discuss treatment option -07/23: RUQ ultrasound: Right pleural effusion, minimal fluid around the gallbladder. Evaluation of cholecystitis advised, otherwise normal limited ul trasound of the abdomen -LFTs trending down, continue to monitor (6) CHF (congestive heart failure): Code(s): I50.9 - Heart failure, unspecified Status: Acute Assessment and Plan: History of CHF, proBNP was 700 -chest x-ray did not show any pulmonary edema 07/24: Echocardiogram Summary 1. Complete two-dimensional, color flow and Doppler transthoracic echocardiogram is performed. 2. Left ventricle is normal in size with mildly reduced systolic function. The left ventricular ejection fraction is visually estimated to be 45-50%. 3. The right ventricle is normal in size and systolic function. 4. The aortic valve is not well visualized. The Doppler gradients does not suggest any hemodynamically significant stenosis. (7) Elevated troponin: Code(s): R79.89 - Other specified abnormal findings of blood chemistry Status: Acute Assessment and Plan: Elevated troponin likely related to 2 type 2 infarct, secondary to tachycardia, tachypnea -echocardiogram did not reveal any new wall motion abnormality, continue to monitor for chest pain -troponins have plateaued Plan DVT prophylaxis: Hold Lovenox due to thrombocytopenia, continue SCDs Stress ulcer prophylaxis: Protonix Nutrition: Tolerating tube, and banatrol Code Status: Full code Critical Care Time Spent: 32 minutes Will update family 07/22/2024: Discuss with Miranda, patient's daughter and next of kin. She stated that the patient lives in [facility] by himself, has never , she is the only child. States he drinks alcohol from sun up to sun down, also uses marijuana and cocaine. Smokes cigarettes 1 pack per day for many years. She does not know what other medical conditions he has. I updated the daughter with patient's condition and plan of care. I answered all her questions Due to a high probability of clinically significant, life threatening deterioration, the patient required my highest level of preparedness to intervene emergently and I personally spent this critical care time directly and personally managing the patient. This critical care time included obtaining a history; examining the patient; pulse oximetry; ordering and review of studies; arranging urgent treatment with development of a management plan; evaluation of patient's response to treatment; frequent reassessment; and discussions with other providers. It was exclusive of separately billable procedures and treating other patients and teaching time. Please see Assessment and Plan section and the rest of the note for further information on patient assessment and treatment This dictation may have been done utilizing a voice recognition system. Attempts have been made to correct errors. However, there may be uncorrected grammatical, spelling, and recognitions errors present. Subjective Date/time seen: 07/26/24 09:33 Interval history: Reason for consult: Acute respiratory failure, pneumonia, severe sepsis, acute kidney injury Intubated: 07/2207/26/2024: Patient seen and examined the ICU, remains intubated, on CMV mode of ventilation, peep of 8 and 30% FiO2. Sedated with fentanyl, Versed infusion. Propofol has been off since 48 hours. Patient does not open his eyes or follow simple commands. Urine output has been adequate, patient is afebrile, hemodynamically stable, not requiring any vasopressors, off Levophed for 24 hours. Positive bowel movement. Tolerating tube feeds Review of Systems Review of Systems: ROS unobtainable: Yes unobtainable due to endotracheal tube and unobtainable due to medical condition Exam Narrative: General: Patient intubated, sedated, not in acute distress HEENT:? Pupils equal and reactive, sclera is clear, ETT in place Neck:? Neck movements are restricted Respiratory:? Coarse breath sounds bilaterally, rales in right lower base no wheezing, adequate air entry Cardiac:? S1-S2 is normal, sinus tachycardia Abdomen:? Soft, nondistended, nontender, hypoactive bowel sounds Extremities:? No edema, palpable pedal pulses Neuro:? Patient is intubated, sedated,, opens his eyes but does not follow simple commands, withdraws to pain in all extremities. Skin:? Dry skin, no other lesions noted Psych:? Unable to assess at this time Objective Data Vital Signs Vital Signs: Vital Signs - 24 hr 07/25/24 10:00 07/25/24 10:00 07/25/24 10:00 Temperature 99.4 F Pulse Rate 95 94 94 Respiratory Rate 24 H 24 H Blood Pressure 99/71 L Pulse Oximetry 96 Oxygen Delivery Fraction of Inspired Oxygen 07/25/24 10:00 07/25/24 10:00 07/25/24 10:00 Temperature Pulse Rate 94 94 96 Respiratory Rate 24 H 24 H 24 H Blood Pressure 105/75 Pulse Oximetry Oxygen Delivery Fraction of Inspired Oxygen 07/25/24 10:00 07/25/24 11:58 07/25/24 12:00 Temperature Pulse Rate 96 87 88 Respiratory Rate Blood Pressure 105/79 Pulse Oximetry 97 Oxygen Delivery Mechanical Ventilation Fraction of Inspired Oxygen 30 07/25/24 12:00 07/25/24 12:00 07/25/24 12:00 Temperature 99.4 F Pulse Rate 88 89 Respiratory Rate 24 H 24 H Blood Pressure 107/77 Pulse Oximetry 97 97 Oxygen Delivery Mechanical Ventilation Fraction of Inspired Oxygen 30 30 07/25/24 12:00 07/25/24 12:00 07/25/24 12:00 Temperature Pulse Rate 86 86 86 Respiratory Rate 24 H 24 H 24 H Blood Pressure 106/74 Pulse Oximetry Oxygen Delivery Fraction of Inspired Oxygen 07/25/24 12:00 07/25/24 13:02 07/25/24 13:03 Temperature Pulse Rate 86 89 89 Respiratory Rate 24 H 24 H Blood Pressure 107/77 Pulse Oximetry Oxygen Delivery Fraction of Inspired Oxygen 07/25/24 13:42 07/25/24 13:42 07/25/24 13:54 Temperature Pulse Rate 87 87 86 Respiratory Rate 24 H 24 H Blood Pressure Pulse Oximetry 97 Oxygen Delivery Mechanical Ventilation Fraction of Inspired Oxygen 30 07/25/24 13:54 07/25/24 14:00 07/25/24 14:00 Temperature Pulse Rate 86 86 86 Respiratory Rate 24 H 24 H 24 H Blood Pressure Pulse Oximetry Oxygen Delivery Fraction of Inspired Oxygen 07/25/24 14:00 07/25/24 14:00 07/25/24 14:00 Temperature Pulse Rate 87 87 95 Respiratory Rate 24 H Blood Pressure 103/80 103/80 Pulse Oximetry Oxygen Delivery Fraction of Inspired Oxygen 07/25/24 14:00 07/25/24 14:11 07/25/24 16:00 Temperature 99.1 F Pulse Rate 89 87 88 Respiratory Rate 24 H 24 H 24 H Blood Pressure 115/82 Pulse Oximetry 97 Oxygen Delivery Fraction of Inspired Oxygen 07/25/24 16:00 07/25/24 16:00 07/25/24 16:00 Temperature Pulse Rate 87 88 87 Respiratory Rate 24 H 24 H Blood Pressure 104/75 104/75 Pulse Oximetry Oxygen Delivery Fraction of Inspired Oxygen 07/25/24 16:00 07/25/24 16:00 07/25/24 16:00 Temperature 99.1 F Pulse Rate 87 88 Respiratory Rate 24 H Blood Pressure 104/75 Pulse Oximetry 98 Oxygen Delivery Fraction of Inspired Oxygen 30 07/25/24 16:00 07/25/24 16:58 07/25/24 16:59 Temperature Pulse Rate 88 81 93 Respiratory Rate 24 H Blood Pressure 110/81 Pulse Oximetry 96 96 Oxygen Delivery Mechanical Ventilation Mechanical Ventilation Fraction of Inspired Oxygen 30 30 12/25/24 17:00 07/25/24 17:36 07/25/24 17:36 Temperature 98.9 F Pulse Rate 91 94 97 Respiratory Rate 24 H 44 H 44 H Blood Pressure 134/92 H 130/93 H 130/93 H Pulse Oximetry 99 95 Oxygen Delivery Mechanical Ventilation Fraction of Inspired Oxygen 07/25/24 18:00 07/25/24 18:00 07/25/24 18:00 Temperature 99.1 F Pulse Rate 85 84 89 Respiratory Rate 24 H 30 H Blood Pressure 110/78 Pulse Oximetry 98 Oxygen Delivery Fraction of Inspired Oxygen 07/25/24 18:00 07/25/24 18:21 07/25/24 18:22 Temperature Pulse Rate 91 91 87 Respiratory Rate 24 H 35 H 34 H Blood Pressure Pulse Oximetry Oxygen Delivery Fraction of Inspired Oxygen 07/25/24 20:00 07/25/24 20:00 07/25/24 20:00 Temperature Pulse Rate 85 88 Respiratory Rate 24 H Blood Pressure Pulse Oximetry 98 Oxygen Delivery Mechanical Ventilation Fraction of Inspired Oxygen 30 30 07/25/24 20:00 07/25/24 20:00 07/25/24 20:00 Temperature Pulse Rate 84 84 84 Respiratory Rate 24 H 24 H 24 H Blood Pressure 121/84 Pulse Oximetry Oxygen Delivery Fraction of Inspired Oxygen 07/25/24 20:00 07/25/24 20:18 07/25/24 20:20 Temperature Pulse Rate 84 85 84 Respiratory Rate 24 H Blood Pressure 121/84 Pulse Oximetry 98 Oxygen Delivery Mechanical Ventilation Fraction of Inspired Oxygen 30 07/25/24 20:21 07/25/24 20:27 07/25/24 22:00 Temperature 98.8 F Pulse Rate 84 85 110 H Respiratory Rate 24 H 24 H 24 H Blood Pressure 121/84 Pulse Oximetry 98 Oxygen Delivery Fraction of Inspired Oxygen 07/25/24 22:00 07/25/24 22:00 07/25/24 22:12 Temperature 98.5 F Pulse Rate 110 H 94 98 Respiratory Rate 24 H 24 H Blood Pressure 146/110 H Pulse Oximetry 98 Oxygen Delivery Fraction of Inspired Oxygen 07/25/24 23:13 07/26/24 00:00 07/26/24 00:00 Temperature Pulse Rate 84 82 82 Respiratory Rate 24 H 24 H Blood Pressure Pulse Oximetry 96 Oxygen Delivery Mechanical Ventilation Fraction of Inspired Oxygen 30 07/26/24 00:00 07/26/24 00:00 07/26/24 00:00 Temperature Pulse Rate 75 83 Respiratory Rate 24 H Blood Pressure Pulse Oximetry 99 Oxygen Delivery Mechanical Ventilation Fraction of Inspired Oxygen 30 30 07/26/24 00:07 07/26/24 02:00 07/26/24 02:00 Temperature 98.5 F Pulse Rate 83 72 72 Respiratory Rate 24 H 24 H Blood Pressure 129/93 H Pulse Oximetry 98 Oxygen Delivery Fraction of Inspired Oxygen 07/26/24 02:06 07/26/24 02:08 07/26/24 03:16 Temperature 98.3 F Pulse Rate 73 72 75 Respiratory Rate 24 H 24 H 25 H Blood Pressure 120/83 Pulse Oximetry 97 Oxygen Delivery Fraction of Inspired Oxygen 07/26/24 03:22 07/26/24 03:28 07/26/24 04:00 Temperature Pulse Rate 77 76 74 Respiratory Rate 24 H 24 H Blood Pressure Pulse Oximetry 99 Oxygen Delivery Mechanical Ventilation Fraction of Inspired Oxygen 30 07/26/24 04:00 07/26/24 04:00 07/26/24 04:00 Temperature Pulse Rate 75 72 Respiratory Rate 24 H 24 H Blood Pressure Pulse Oximetry 99 Oxygen Delivery Mechanical Ventilation Fraction of Inspired Oxygen 30 30 07/26/24 04:00 07/26/24 04:06 07/26/24 04:07 Temperature Pulse Rate 72 73 73 Respiratory Rate 19 19 Blood Pressure Pulse Oximetry Oxygen Delivery Fraction of Inspired Oxygen 07/26/24 04:40 07/26/24 05:19 07/26/24 06:00 Temperature 98.1 F Pulse Rate 95 83 107 H Respiratory Rate 24 H 24 H Blood Pressure 172/132 H Pulse Oximetry 100 99 Oxygen Delivery Mechanical Ventilation Fraction of Inspired Oxygen 30 07/26/24 06:00 07/26/24 06:00 07/26/24 06:00 Temperature 98.2 F Pulse Rate 107 H 92 90 Respiratory Rate 18 24 H Blood Pressure 125/85 Pulse Oximetry 97 Oxygen Delivery Fraction of Inspired Oxygen 07/26/24 07:58 07/26/24 07:58 07/26/24 08:00 Temperature Pulse Rate 81 81 90 Respiratory Rate 20 24 H Blood Pressure Pulse Oximetry 98 97 Oxygen Delivery Mechanical Ventilation Mechanical Ventilation Fraction of Inspired Oxygen 30 30 07/26/24 08:00 07/26/24 08:00 12/26/24 08:00 Temperature 98.3 F Pulse Rate 93 91 Respiratory Rate 22 H Blood Pressure 129/91 H Pulse Oximetry 91 Oxygen Delivery Fraction of Inspired Oxygen 30 07/26/24 08:00 07/26/24 08:00 07/26/24 08:32 Temperature Pulse Rate 91 91 94 Respiratory Rate 24 H 24 H 20 Blood Pressure Pulse Oximetry Oxygen Delivery Fraction of Inspired Oxygen 07/26/24 08:51 07/26/24 09:00 07/26/24 09:01 Temperature Pulse Rate 78 79 83 Respiratory Rate 20 20 20 Blood Pressure Pulse Oximetry Oxygen Delivery Fraction of Inspired Oxygen Intake/Output Intake/Output: Intake & Output 07/23/24 07/24/24 07/25/24 07/26/24 23:59 23:59 23:59 23:59 Intake Total 2801.5 2695.9 3115.3 1735.4 Output Total 1335 1550 1400 775 Balance 1466.5 1145.9 1715.3 960.4 Meds/Results Medications: Active Medications Generic Name Dose Route Start Last Admin Trade Name Freq PRN Reason Stop Dose Admin Acetaminophen 650 mg 07/22/24 17:34 07/25/24 08:16 Acetaminophen Elixir 325 Mg/10.15 Ml Udc PO 650 mg Q6H PRN Administration Mild Pain (1-3) or Fever Acetylcysteine 200 mg 07/24/24 14:00 07/26/24 07:58 Acetylcysteine 20% Inhal Soln 800 Mg/4 Ml Vial INHALATION 200 mg Q6HRT ACOSTA Administration Dextrose 12.5 gm 07/23/24 12:52 Dextrose 50% 25 Gm/50 Ml Syringe IV PUSH PRN PRN Hypoglycemia Protocol Dornase Gene 2.5 mg 07/24/24 13:00 07/26/24 08:24 Dornase Gene Inh Soln 1 Mg/Ml 2.5 Ml Amp INHALATION 2.5 mg Q12HRT ACOSTA Administration Enoxaparin Sodium 40 mg 07/23/24 09:00 07/25/24 08:00 Enoxaparin 40 Mg/0.4 Ml Syringe SUB-Q 40 mg DAILY ACOSTA Administration Glucagon 1 mg 07/23/24 12:52 Glucagon For Inj 1 Mg Vial IM PRN PRN Hypoglycemia Protocol Glucose 15 gm 07/23/24 12:52 Glucose Oral Gel 15 Gm Of Glucse In 37.5 Gm Tube PO PRN PRN Hypoglycemia Protocol Hydrocortisone Sodium Succinate 50 mg 07/22/24 16:20 07/26/24 06:10 Hydrocortisone Sodium Succinate 100 Mg/2 Ml Vial IV PUSH 50 mg Q6HR ACOSTA Administration Ceftriaxone Sodium 2 gm in 100 mls @ 200 mls/hr 07/23/24 09:00 07/26/24 09:30 Rocephin 2 Gm/Ns 100 Ml IVPB Infused QAM ACOSTA Infusion Azithromycin 500 mg in 250 mls @ 250 mls/hr 07/23/24 09:00 07/26/24 08:21 Zithromax IVPB 250 mls/hr QAM ACOSTA Administration Midazolam HCl 100 mg in 100 mls @ 6 mls/hr 07/22/24 16:15 07/26/24 09:01 Versed 100 Mg/Ns 100 Ml IV CONT 6 mg/hr .[id number] ACOSTA 6 mls/hr Titration Protocol 6 MG/HR Dextrose 1,000 mls @ 100 mls/hr 07/23/24 12:52 Dextrose 5% 1,000 Ml IVPB PRN PRN Hypoglycemia Protocol Fentanyl Citrate 2,500 mcg in 250 mls @ 10 mls/hr 07/24/24 10:15 07/26/24 09:00 Fentanyl 2,500 Mcg/Ns 250 Ml IV CONT 100 mcg/hr .Q25H ACOSTA 10 mls/hr Titration Protocol 100 MCG/HR Vancomycin HCl 1,750 mg in 500 mls @ 250 mls/hr 07/24/24 12:00 07/26/24 02:09 Vancomycin 1,750 Mg/Ns 500 Ml IVPB Infused Q18H ACOSTA Infusion Dexmedetomidine HCl 400 mcg in 100 mls @ 4.26 mls/hr 07/26/24 08:20 07/26/24 08:51 Precedex 400 Mcg/100 Ml IV CONT 0.2 mcg/kg/hr .[id number] ACOSTA 4.26 mls/hr Administration Protocol 0.2 MCG/KG/HR Insulin Aspart 3 - 6 units 07/24/24 12:00 07/26/24 06:10 Insulin Aspart (*Bkc) 100 Units/Ml SUB-Q 6 units Q6HR ACOSTA Administration Protocol Insulin Glargine 10 units 07/26/24 09:00 07/26/24 08:55 Insulin Glargine (*Bkc) 100 Units/Ml SUB-Q 10 units DAILY ACOSTA Administration Ipratropium Falconer 0.5 mg 07/22/24 20:00 07/26/24 07:58 Ipratropium Br 0.02% Inh Soln 0.5 Mg/2.5 Ml Vial INHALATION 0.5 mg Q6HRT ACOSTA Administration Levalbuterol HCl 1.25 mg 07/22/24 20:00 07/26/24 07:58 Levalbuterol Neb 1.25 Mg/3 Ml INHALATION 1.25 mg Q6HRT ACOSTA Administration Multi-Ingred Cream/Lotion/Oil/Oint 1 applic 07/22/24 21:00 07/25/24 21:24 Mineral Oil/White Petrolatum Ointment EACH EYE 1 applic Q12HR ACOSTA Administration Pantoprazole Sodium 40 mg 07/23/24 09:00 07/26/24 08:22 Pantoprazole Sodium Iv 40 Mg Vial IV PUSH 40 mg DAILY ACOSTA Administration Sodium Chloride 10 ml 07/22/24 22:00 07/26/24 06:10 Central Line Flush IV PUSH 10 ml Q8HR ACOSTA Administration Sodium Chloride 20 ml 07/22/24 16:23 Central Line Flush IV PUSH PRN PRN after blood draws Radiology Results: ITS Impressions Chest/Abdomen/Pelvis CTA 07/22/24 18:32 IMPRESSION: No evidence of pulmonary embolism Prominent bilateral lower lobe consolidation. Mild lobe infiltrate. Soft Tissue Neck CT 07/23/24 06:55 IMPRESSION: 1. Small right pleural effusion. 2. 17 mm right thyroid nodule. Consider thyroid ultrasound for risk stratification. 3. Multifocal dental disease. Abdomen Ultrasound 07/23/24 12:48 IMPRESSION: 1. Right pleural effusion. Minimal fluid around the gallbladder. Evaluation for cholecystitis advised. Otherwise, normal Limited ultrasound of the abdomen. Abdomen X-Ray 07/26/24 06:25 IMPRESSION: 1. Nasogastric tube tip in the stomach. 2. Small right pleural effusion. 3. Airspace opacities in the lower lung zones, consistent with atelectasis versus pneumonia. Chest X-Ray 07/26/24 06:26 IMPRESSION: 1. Stable small right pleural effusion. 2. Stable airspace opacities in the right mid and lower lung zones and left l ower lung zone, consistent with atelectasis versus pneumonia. Labs Labs: Laboratory Results - last 24 hr 07/25/24 07/25/24 07/25/24 12:09 17:47 18:28 WBC RBC Hgb Hct MCV MCH MCHC RDW Plt Count MPV % Immature Plt Fraction PT INR Puncture Site Right radial ABG pH 7.536 H* ABG pCO2 28.8 L ABG pO2 75.1 L ABG PO2/FiO2 Ratio 2.50 ABG HCO3 23.9 ABG O2 Saturation 96.6 ABG O2 Content 13.5 L ABG Base Excess 1.8 A-a Gradient 105.0 Oxyhemoglobin 95.7 Carboxyhemoglobin Methemoglobin Reduced Hemoglobin Total Hemoglobin 10.0 L O2 Delivery Device Ventilator O2 Liters/Min Not Reportable Minute Volume Not Reportable Vent Rate 24 Vent Mode Cmv FiO2 30 Tidal Volume 500 PEEP 8 Peak Inspir Pressure Not Reportable Pressure Support Not Reportable Sodium Potassium Chloride Carbon Dioxide Anion Gap BUN Creatinine Estim Creat Clear Calc Estimated GFR Glucose POC Capillary Glucose 297 H 333 H Lactic Acid Calcium Phosphorus Magnesium Total Bilirubin AST ALT Alkaline Phosphatase Total Protein Albumin 07/25/24 07/26/24 07/26/24 23:52 04:28 05:17 WBC 20.1 H RBC 2.71 L Hgb 9.4 L Hct 27.5 L MCV 101.5 H MCH 34.7 H MCHC 34.2 RDW 12.9 Plt Count 86 L MPV 11.6 H % Immature Plt Fraction 6.7 PT 14.0 INR 1.1 Puncture Site Right radial ABG pH 7.507 H* ABG pCO2 31.8 L ABG pO2 63.3 L ABG PO2/FiO2 Ratio 2.11 ABG HCO3 24.6 ABG O2 Saturation 94.3 L ABG O2 Content 13.6 L ABG Base Excess 1.9 A-a Gradient 113.2 Oxyhemoglobin 92.5 Carboxyhemoglobin 0.3 Methemoglobin 0.3 Reduced Hemoglobin 6.9 H Total Hemoglobin 10.4 L O2 Delivery Device Ventilator O2 Liters/Min Not Reportable Minute Volume Not Reportable Vent Rate 24 Vent Mode Cmv FiO2 30 Tidal Volume 500 PEEP 8 Peak Inspir Pressure Not Reportable Pressure Support Not Reportable Sodium 138 Potassium 3.5 Chloride 109 H Carbon Dioxide 25 Anion Gap 4 BUN 48 H Creatinine 1.50 H Estim Creat Clear Calc 53 Estimated GFR 57 L Glucose 338 H POC Capillary Glucose 321 H Lactic Acid 1.9 Calcium 8.6 Phosphorus 1.1 L Magnesium 2.5 H Total Bilirubin 0.5 AST 36 ALT 54 H Alkaline Phosphatase 91 Total Protein 6.0 L Albumin 2.9 L 07/26/24 06:00 WBC RBC Hgb Hct MCV MCH MCHC RDW Plt Count MPV % Immature Plt Fraction PT INR Puncture Site ABG pH ABG pCO2 ABG pO2 ABG PO2/FiO2 Ratio ABG HCO3 ABG O2 Saturation ABG O2 Content ABG Base Excess A-a Gradient Oxyhemoglobin Carboxyhemoglobin Methemoglobin Reduced Hemoglobin Total Hemoglobin O2 Delivery Device O2 Liters/Min Minute Volume Vent Rate Vent Mode FiO2 Tidal Volume PEEP Peak Inspir Pressure Pressure Support Sodium Potassium Chloride Carbon Dioxide Anion Gap BUN Creatinine Estim Creat Clear Calc Estimated GFR Glucose POC Capillary Glucose 356 H Lactic Acid Calcium Phosphorus Magnesium Total Bilirubin AST ALT Alkaline Phosphatase Total Protein Albumin Quality VTE Prophylaxis VTE prophylaxis: mechanical ordered and pharmacologic ordered
[2024-07-26] MEDS: hydrALAZINE HCL 20 MG/ML VIAL 10 MG IV PUSH ×3 (11:02→19:33)
--- NOTE | 2024-07-26 11:11 | PCFNICU ---
ICU Rounding Note: Pt current nutrition is Vital AF 1.2 @ goal rate 70 ml/h. Nutrition recommendation: No new nutrition recommendations Last recorded weight is 85.2 kg. Bowel Motility:Liquid stool per FMS Labs Reviewed: Hgb 9.4, Hct 27.5, Alb 2.9, GFR 57, BUN 48, Cre 1.5, Glu 338, Mag 2.5, TRIG 183 Meds Noted: Novolog, rocephin, Precedex, fentanyl. Sedation on hold for possible weaning trial Skin: No skin issues Additional Notes: Meet estimated needs with tube feedings. Vital 1.2 AF @ 70 ml/h provides 1848 kcal, 116 g protein, 1249 ml free water. Tube feedings to go on hold today for breathing trial. Continue to monitor Following daily in ICU rounds. Will monitor weight, labs, skin, meds, diet orders every Tuesday and Tuesday. .
[2024-07-26 11:12] LABS: Glucose Point of Care 311 mg/dl (65-105)
[2024-07-26] MEDS: METOPROLOL TARTRATE INJ 5 MG/5 ML VIAL IV PUSH (11:42)
[2024-07-26] MEDS: amLODIPine BESYLATE 10 MG TABLET PO (12:37)
[2024-07-26] MEDS: PROPOFOL IV EMULSION 100 ML 2.56 MG IV CONT (13:28)
[2024-07-26 14:11] LABS: Triglycerides 136 mg/dL (<150)
[2024-07-26] MEDS: dexmedeTOMIDine 400 MCG/100 ML 400 MCG/100 ML BAG 31.95 MCG IV CONT ×3 (15:19→21:18)
--- NOTE | 2024-07-26 16:06 | P.PNIM_ITS ---
Progress Note: A&P Assessment and Plan (1) Severe sepsis: Code(s): A41.9 - Sepsis, unspecified organism; R65.20 - Severe sepsis without septic shock Status: Acute Assessment and Plan: 07/22: Patient presented the ED with shortness of breath, chest x-ray showed right lower lobe consolidation/pneumonia, acute kidney injury, tachycardia, tachypnea -patient given 30 cc/kg IV fluids in the ER, patient was also given Lasix 40 mg IV x1 -07/22: Blood cultures growing Streptococcus pneumoniae 1/2 bottles -07/22: Sputum cultures growing Streptococcus pneumoniae 07/24: Repeat blood cultures negative so far -lactic acidosis has resolved -continue ceftriaxone, azithromycin, vancomycin (07/22) -07/22: Right IJ central line was inserted in the ICU -07/23: Patient has some blood in stool, Hemoccult was negative, DIC panel was within normal limits, hematuria has cleared up -07/24: Overnight patient dropped his blood pressures in the 70s, I had to be started on Levophed for a brief amount of time, -07/25: Remains on low-dose Levophed, wean to maintain MAP > 65 mmHg or SBP > 100 mmHg for adequate end organ perfusion -off Levophed 07/22: CT soft tissue neck without contrast: This was done as his neck movements were restricted. Impression: The endotracheal tube tip is in expected position. There is a small right pleural effusion. There are no pathologically enlarged lymph nodes. Partially visualized is an orogastric tube. Partially visualized is a right internal jugular central venous catheter with tip at least to the superior vena cava. There is mucosal thickening in right maxillary sinus. There is multifocal dental disease. There is a 17 mm nodule in right thyroid lobe. There are bridging endplate osteophytes at multiple levels in the spine, consistent with diffuse idiopathic skeletal hyperostosis (DISH). (2) Acute respiratory failure: Code(s): J96.00 - Acute respiratory failure, unspecified whether with hypoxia or hypercapnia Status: Acute Assessment and Plan: Acute respiratory failure likely related to right lower lobe pneumonia. Patient also tachypneic and tachycardic, will send patient for a CT scan of the chest PE protocol to rule out pulmonary embolism -07/22: Intubated in the ICU -continue CMV mode of ventilation, peep of10 and 30 FiO2, wean FiO2 to maintain O2 sats > 92%, will decrease PEEP to 8 -chest x-ray this morning and ABGs reviewed, continue low tidal volume strategy -continue bronchodilators -07/24: patient had thick secretions, added Mucomyst and Pulmozyme nebs, secretions have improved -sedated with propofol infusion, maintain RASS of 0 to -2. Daily SAT and SBT 07/26: Will place patient on Precedex infusion, wean fentanyl and Versed infusion once patient is more awake will evaluate for extubation. Will diurese today -off Nimbex since 07/24 07/22: CT a chest PE, abdomen/pelvis IMPRESSION: No evidence of pulmonary embolism Prominent bilateral lower lobe consolidation. Mild lobe infiltrate. (3) Pneumonia: Code(s): J18.9 - Pneumonia, unspecified organism Status: Acute Assessment and Plan: Right lower lobe pneumonia seen on chest x-ray -continue mechanical ventilation, bronchodilators -continue hydrocortisone 50 mg IV q.6 hours for pneumonia (07/22) continue 5 days (4) MILENA (acute kidney injury): Code(s): N17.9 - Acute kidney failure, unspecified Status: Acute Assessment and Plan: Patient presented with severe sepsis, acute kidney injury with creatinine of 2.00. Baseline creatinine unknown -received 30 cc/kg IV fluid bolus in the ER -patient is received adequate amount of IV fluids, urine output has been adequate, creatinine improving -discontinue IV fluids at this time -hyperkalemia, resolved -hypomagnesemia, resolved -replace phosphorous -creatinine stable (5) Elevated liver enzymes: Code(s): R74.8 - Abnormal levels of other serum enzymes Status: Acute Assessment and Plan: Elevated liver enzymes, could be related to severe hypoxemia, HCV, -hepatitis panel is negative -HCV RNA PCR : Elevated PCR titers, appreciate GI evaluation recommendations, if patient decides to stay with the family in the local area he can follow with them to discuss treatment option -07/23: RUQ ultrasound: Right pleural effusion, minimal fluid around the gallbladder. Evaluation of cholecystitis advised, otherwise normal limited ul trasound of the abdomen -LFTs trending down, continue to monitor (6) CHF (congestive heart failure): Code(s): I50.9 - Heart failure, unspecified Status: Acute Assessment and Plan: History of CHF, proBNP was 700 -chest x-ray did not show any pulmonary edema 07/24: Echocardiogram Summary 1. Complete two-dimensional, color flow and Doppler transthoracic echocardiogram is performed. 2. Left ventricle is normal in size with mildly reduced systolic function. The left ventricular ejection fraction is visually estimated to be 45-50%. 3. The right ventricle is normal in size and systolic function. 4. The aortic valve is not well visualized. The Doppler gradients does not suggest any hemodynamically significant stenosis. (7) Elevated troponin: Code(s): R79.89 - Other specified abnormal findings of blood chemistry Status: Acute Assessment and Plan: Elevated troponin likely related to 2 type 2 infarct, secondary to tachycardia, tachypnea -echocardiogram did not reveal any new wall motion abnormality, continue to monitor for chest pain -troponins have plateaued Plan DVT prophylaxis: Hold Lovenox due to thrombocytopenia, continue SCDs Stress ulcer prophylaxis: Protonix Nutrition: Tolerating tube, and banatrol Code Status: Full code Subjective Date/time seen: 07/26/24 16:06 Interval history: intubated and sedated Review of Systems Review of Systems: All systems reviewed & are unremarkable except as noted in HPI and below ROS unobtainable: Yes unobtainable due to endotracheal tube and unobtainable due to medical condition Exam Narrative: General: Patient intubated, sedated, not in acute distress HEENT:? Pupils equal and reactive, sclera is clear, ETT in place Neck:? Neck movements are restricted Respiratory:? Coarse breath sounds bilaterally, rales in right lower base no wheezing, adequate air entry Cardiac:? S1-S2 is normal, sinus tachycardia Abdomen:? Soft, nondistended, nontender, hypoactive bowel sounds Extremities:? No edema, palpable pedal pulses Neuro:? Patient is intubated, sedated,, opens his eyes but does not follow simple commands, withdraws to pain in all extremities. Skin:? Dry skin, no other lesions noted Psych:? Unable to assess at this time Objective Data Vital Signs Vital Signs: Vital Signs - 24 hr 07/25/24 16:58 07/25/24 16:59 07/25/24 17:00 Temperature Pulse Rate 81 93 91 Respiratory Rate 24 H Blood Pressure 110/81 134/92 H Pulse Oximetry 96 Oxygen Delivery Mechanical Ventilation Fraction of Inspired Oxygen 30 07/25/24 17:36 07/25/24 17:36 07/25/24 18:00 Temperature 98.9 F Pulse Rate 94 97 85 Respiratory Rate 44 H 44 H Blood Pressure 130/93 H 130/93 H Pulse Oximetry 99 95 Oxygen Delivery Mechanical Ventilation Fraction of Inspired Oxygen 07/25/24 18:00 07/25/24 18:00 07/25/24 18:00 Temperature 99.1 F Pulse Rate 84 89 91 Respiratory Rate 24 H 30 H 24 H Blood Pressure 110/78 Pulse Oximetry 98 Oxygen Delivery Fraction of Inspired Oxygen 07/25/24 18:21 07/25/24 18:22 07/25/24 20:00 Temperature Pulse Rate 91 87 Respiratory Rate 35 H 34 H Blood Pressure Pulse Oximetry Oxygen Delivery Fraction of Inspired Oxygen 30 07/25/24 20:00 07/25/24 20:00 07/25/24 20:00 Temperature Pulse Rate 85 88 84 Respiratory Rate 24 H 24 H Blood Pressure Pulse Oximetry 98 Oxygen Delivery Mechanical Ventilation Fraction of Inspired Oxygen 30 07/25/24 20:00 07/25/24 20:00 07/25/24 20:00 Temperature Pulse Rate 84 84 84 Respiratory Rate 24 H 24 H Blood Pressure 121/84 121/84 Pulse Oximetry Oxygen Delivery Fraction of Inspired Oxygen 07/25/24 20:18 07/25/24 20:20 07/25/24 20:21 Temperature 98.8 F Pulse Rate 85 84 84 Respiratory Rate 24 H 24 H Blood Pressure 121/84 Pulse Oximetry 98 98 Oxygen Delivery Mechanical Ventilation Fraction of Inspired Oxygen 30 07/25/24 20:27 07/25/24 22:00 07/25/24 22:00 Temperature Pulse Rate 85 110 H 110 H Respiratory Rate 24 H 24 H 24 H Blood Pressure Pulse Oximetry Oxygen Delivery Fraction of Inspired Oxygen 07/25/24 22:00 07/25/24 22:12 07/25/24 23:13 Temperature 98.5 F Pulse Rate 94 98 84 Respiratory Rate 24 H Blood Pressure 146/110 H Pulse Oximetry 98 96 Oxygen Delivery Mechanical Ventilation Fraction of Inspired Oxygen 30 07/26/24 00:00 07/26/24 00:00 07/26/24 00:00 Temperature Pulse Rate 82 82 Respiratory Rate 24 H 24 H Blood Pressure Pulse Oximetry Oxygen Delivery Fraction of Inspired Oxygen 30 07/26/24 00:00 07/26/24 00:00 07/26/24 00:07 Temperature 98.5 F Pulse Rate 75 83 83 Respiratory Rate 24 H 24 H Blood Pressure 129/93 H Pulse Oximetry 99 98 Oxygen Delivery Mechanical Ventilation Fraction of Inspired Oxygen 30 07/26/24 02:00 07/26/24 02:00 07/26/24 02:06 Temperature 98.3 F Pulse Rate 72 72 73 Respiratory Rate 24 H 24 H Blood Pressure 120/83 Pulse Oximetry 97 Oxygen Delivery Fraction of Inspired Oxygen 07/26/24 02:08 07/26/24 03:16 07/26/24 03:22 Temperature Pulse Rate 72 75 77 Respiratory Rate 24 H 25 H Blood Pressure Pulse Oximetry 99 Oxygen Delivery Mechanical Ventilation Fraction of Inspired Oxygen 30 07/26/24 03:28 07/26/24 04:00 07/26/24 04:00 Temperature Pulse Rate 76 74 75 Respiratory Rate 24 H 24 H 24 H Blood Pressure Pulse Oximetry Oxygen Delivery Fraction of Inspired Oxygen 07/26/24 04:00 07/26/24 04:00 07/26/24 04:00 Temperature Pulse Rate 72 72 Respiratory Rate 24 H Blood Pressure Pulse Oximetry 99 Oxygen Delivery Mechanical Ventilation Fraction of Inspired Oxygen 30 30 07/26/24 04:06 07/26/24 04:07 07/26/24 04:40 Temperature 98.1 F Pulse Rate 73 73 95 Respiratory Rate 19 19 24 H Blood Pressure 172/132 H Pulse Oximetry 100 Oxygen Delivery Fraction of Inspired Oxygen 07/26/24 05:19 07/26/24 06:00 07/26/24 06:00 Temperature Pulse Rate 83 107 H 107 H Respiratory Rate 24 H 18 Blood Pressure Pulse Oximetry 99 Oxygen Delivery Mechanical Ventilation Fraction of Inspired Oxygen 30 07/26/24 06:00 07/26/24 06:00 07/26/24 07:58 Temperature 98.2 F Pulse Rate 92 90 81 Respiratory Rate 24 H Blood Pressure 125/85 Pulse Oximetry 97 98 Oxygen Delivery Mechanical Ventilation Fraction of Inspired Oxygen 30 07/26/24 07:58 07/26/24 08:00 07/26/24 08:00 Temperature 98.3 F Pulse Rate 81 90 93 Respiratory Rate 20 24 H 22 H Blood Pressure 129/91 H Pulse Oximetry 97 91 Oxygen Delivery Mechanical Ventilation Fraction of Inspired Oxygen 30 07/26/24 08:00 07/26/24 08:00 07/26/24 08:00 Temperature Pulse Rate 91 91 Respiratory Rate 24 H Blood Pressure Pulse Oximetry Oxygen Delivery Fraction of Inspired Oxygen 30 07/26/24 08:00 07/26/24 08:32 07/26/24 08:51 Temperature Pulse Rate 91 94 78 Respiratory Rate 24 H 20 20 Blood Pressure Pulse Oximetry Oxygen Delivery Fraction of Inspired Oxygen 07/26/24 09:00 07/26/24 09:01 07/26/24 09:45 Temperature Pulse Rate 79 83 88 Respiratory Rate 20 20 20 Blood Pressure Pulse Oximetry Oxygen Delivery Fraction of Inspired Oxygen 07/26/24 09:45 07/26/24 10:00 07/26/24 10:00 Temperature 98.1 F Pulse Rate 88 84 89 Respiratory Rate 20 20 Blood Pressure 141/98 H Pulse Oximetry 100 Oxygen Delivery Fraction of Inspired Oxygen 07/26/24 10:23 07/26/24 10:24 07/26/24 10:24 Temperature Pulse Rate 79 80 80 Respiratory Rate 20 20 20 Blood Pressure Pulse Oximetry Oxygen Delivery Fraction of Inspired Oxygen 07/26/24 10:42 07/26/24 11:00 07/26/24 11:25 Temperature Pulse Rate 85 90 110 H Respiratory Rate 20 27 H Blood Pressure 163/110 H Pulse Oximetry 100 100 Oxygen Delivery Mechanical Ventilation Fraction of Inspired Oxygen 30 07/26/24 11:32 07/26/24 11:42 07/26/24 12:00 Temperature Pulse Rate 113 H 107 H 92 Respiratory Rate 26 H Blood Pressure 185/128 H Pulse Oximetry Oxygen Delivery Fraction of Inspired Oxygen 07/26/24 12:00 07/26/24 12:00 07/26/24 12:00 Temperature 98.7 F Pulse Rate 94 96 Respiratory Rate 26 H 25 H Blood Pressure 171/116 H Pulse Oximetry 96 96 Oxygen Delivery Mechanical Ventilation Fraction of Inspired Oxygen 30 30 07/26/24 12:00 07/26/24 12:00 07/26/24 12:01 Temperature 98.6 F Pulse Rate 90 91 94 Respiratory Rate 23 H 27 H Blood Pressure 171/116 H Pulse Oximetry 95 Oxygen Delivery Fraction of Inspired Oxygen 07/26/24 12:02 07/26/24 12:45 07/26/24 12:51 Temperature Pulse Rate 94 100 Respiratory Rate 26 H 23 H Blood Pressure Pulse Oximetry Oxygen Delivery Fraction of Inspired Oxygen 30 07/26/24 13:19 07/26/24 13:28 07/26/24 13:32 Temperature Pulse Rate 98 95 93 Respiratory Rate 39 H 31 H Blood Pressure Pulse Oximetry 98 Oxygen Delivery Mechanical Ventilation Fraction of Inspired Oxygen 30 07/26/24 13:32 07/26/24 13:45 07/26/24 14:00 Temperature 98.9 F Pulse Rate 93 100 107 H Respiratory Rate 30 H 25 H 22 H Blood Pressure 198/128 H Pulse Oximetry 100 Oxygen Delivery Fraction of Inspired Oxygen 07/26/24 14:00 07/26/24 14:00 07/26/24 14:00 Temperature Pulse Rate 107 H 107 H 107 H Respiratory Rate 22 H 29 H 29 H Blood Pressure Pulse Oximetry Oxygen Delivery Fraction of Inspired Oxygen 07/26/24 14:00 07/26/24 14:00 07/26/24 14:30 Temperature Pulse Rate 107 H 77 107 H Respiratory Rate 29 H 22 H Blood Pressure Pulse Oximetry Oxygen Delivery Fraction of Inspired Oxygen 07/26/24 15:19 07/26/24 15:19 07/26/24 15:35 Temperature Pulse Rate 91 91 88 Respiratory Rate 22 H 22 H 20 Blood Pressure Pulse Oximetry 98 Oxygen Delivery Mechanical Ventilation Fraction of Inspired Oxygen 30 07/26/24 15:44 07/26/24 16:00 Temperature 98.7 F Pulse Rate 93 Respiratory Rate 23 H Blood Pressure 182/116 H Pulse Oximetry 95 Oxygen Delivery Fraction of Inspired Oxygen 30 Intake/Output Intake/Output: Intake & Output 07/23/24 07/24/24 07/25/24 07/26/24 23:59 23:59 23:59 23:59 Intake Total 2801.5 2695.9 3115.3 2085.8 Output Total 1335 1550 1400 1575 Balance 1466.5 1145.9 1715.3 510.8 Meds/Results Medications: Active Medications Generic Name Dose Route Start Last Admin Trade Name Freq PRN Reason Stop Dose Admin Acetaminophen 650 mg 07/22/24 17:34 07/25/24 08:16 Acetaminophen Elixir 325 Mg/10.15 Ml Udc PO 650 mg Q6H PRN Administration Mild Pain (1-3) or Fever Acetylcysteine 200 mg 07/24/24 14:00 07/26/24 13:22 Acetylcysteine 20% Inhal Soln 800 Mg/4 Ml Vial INHALATION 200 mg Q6HRT ACOSTA Administration Amlodipine Besylate 10 mg 07/26/24 12:30 07/26/24 12:37 Amlodipine Besylate 10 Mg Tablet PO 10 mg DAILY ACOSTA Administration Dextrose 12.5 gm 07/23/24 12:52 Dextrose 50% 25 Gm/50 Ml Syringe IV PUSH PRN PRN Hypoglycemia Protocol Dornase Gene 2.5 mg 07/24/24 13:00 07/26/24 08:24 Dornase Gene Inh Soln 1 Mg/Ml 2.5 Ml Amp INHALATION 2.5 mg Q12HRT ACOSTA Administration Enoxaparin Sodium 40 mg 07/23/24 09:00 07/25/24 08:00 Enoxaparin 40 Mg/0.4 Ml Syringe SUB-Q 40 mg DAILY ACOSTA Administration Glucagon 1 mg 07/23/24 12:52 Glucagon For Inj 1 Mg Vial IM PRN PRN Hypoglycemia Protocol Glucose 15 gm 07/23/24 12:52 Glucose Oral Gel 15 Gm Of Glucse In 37.5 Gm Tube PO PRN PRN Hypoglycemia Protocol Hydralazine HCl 10 mg 07/26/24 10:51 07/26/24 15:21 Hydralazine Hcl 20 Mg/Ml Vial IV PUSH 10 mg Q4H PRN Administration Blood Pressure - High Hydrocortisone Sodium Succinate 50 mg 07/22/24 16:20 07/26/24 11:02 Hydrocortisone Sodium Succinate 100 Mg/2 Ml Vial IV PUSH 50 mg Q6HR ACOSTA Administration Ceftriaxone Sodium 2 gm in 100 mls @ 200 mls/hr 07/23/24 09:00 07/26/24 09:30 Rocephin 2 Gm/Ns 100 Ml IVPB Infused QAM ACOSTA Infusion Azithromycin 500 mg in 250 mls @ 250 mls/hr 07/23/24 09:00 07/26/24 11:25 Zithromax IVPB Infused QAM ACOSTA Infusion Midazolam HCl 100 mg in 100 mls @ 0 mls/hr 07/22/24 16:15 07/26/24 14:00 Versed 100 Mg/Ns 100 Ml IV CONT 0 mg/hr .Q0M ACOSTA 0 mls/hr Titration Protocol Dextrose 1,000 mls @ 100 mls/hr 07/23/24 12:52 Dextrose 5% 1,000 Ml IVPB PRN PRN Hypoglycemia Protocol Fentanyl Citrate 2,500 mcg in 250 mls @ 0 mls/hr 07/24/24 10:15 07/26/24 14:00 Fentanyl 2,500 Mcg/Ns 250 Ml IV CONT 0 mcg/hr .Q0M ACOSTA 0 mls/hr Titration Protocol Vancomycin HCl 1,750 mg in 500 mls @ 250 mls/hr 07/24/24 12:00 07/26/24 02:09 Vancomycin 1,750 Mg/Ns 500 Ml IVPB Infused Q18H [facility]COSTA Infusion Dexmedetomidine HCl 400 mcg in 100 mls @ 31.95 mls/hr 07/26/24 08:20 07/26/24 15:19 Precedex 400 Mcg/100 Ml IV CONT 1.5 mcg/kg/hr .Q3H8M ACOSTA 31.95 mls/hr Administration Protocol 1.5 MCG/KG/HR Propofol 100 mls @ 2.556 mls/hr 07/26/24 13:25 07/26/24 14:00 Diprivan IV CONT 5 mcg/kg/min .Q39H8M ACOSTA 2.56 mls/hr Titration Protocol 5 MCG/KG/MIN Insulin Aspart 3 - 6 units 07/24/24 12:00 07/26/24 11:14 Insulin Aspart (*Bkc) 100 Units/Ml SUB-Q 5 units Q6HR ACOSTA Administration Protocol Insulin Glargine 10 units 07/26/24 09:00 07/26/24 08:55 Insulin Glargine (*Bkc) 100 Units/Ml SUB-Q 10 units DAILY ACOSTA Administration Ipratropium [place] 0.5 mg 07/22/24 20:00 07/26/24 13:22 Ipratropium Br 0.02% Inh Soln 0.5 Mg/2.5 Ml Vial INHALATION 0.5 mg Q6HRT ACOSTA Administration Levalbuterol HCl 1.25 mg 07/22/24 20:00 07/26/24 13:22 Levalbuterol Neb 1.25 Mg/3 Ml INHALATION 1.25 mg Q6HRT ACOSTA Administration Multi-Ingred Cream/Lotion/Oil/Oint 1 applic 07/22/24 21:00 07/26/24 09:35 Mineral Oil/White Petrolatum Ointment EACH EYE 1 applic Q12HR ACOSTA Administration Pantoprazole Sodium 40 mg 07/23/24 09:00 07/26/24 08:22 Pantoprazole Sodium Iv 40 Mg Vial IV PUSH 40 mg DAILY ACOSTA Administration Sodium Chloride 10 ml 07/22/24 22:00 07/26/24 13:33 Central Line Flush IV PUSH 10 ml Q8HR ACOSTA Administration Sodium Chloride 20 ml 07/22/24 16:23 Central Line Flush IV PUSH PRN PRN after blood draws Radiology Results: ITS Impressions Chest/Abdomen/Pelvis CTA 07/22/24 18:32 IMPRESSION: No evidence of pulmonary embolism Prominent bilateral lower lobe consolidation. Mild lobe infiltrate. Soft Tissue Neck CT 07/23/24 06:55 IMPRESSION: 1. Small right pleural effusion. 2. 17 mm right thyroid nodule. Consider thyroid ultrasound for risk stratification. 3. Multifocal dental disease. Abdomen Ultrasound 07/23/24 12:48 IMPRESSION: 1. Right pleural effusion. Minimal fluid around the gallbladder. Evaluation for cholecystitis advised. Otherwise, normal Limited ultrasound of the abdomen. Abdomen X-Ray 07/26/24 06:25 IMPRESSION: 1. Nasogastric tube tip in the stomach. 2. Small right pleural effusion. 3. Airspace opacities in the lower lung zones, consistent with atelectasis versus pneumonia. Chest X-Ray 07/26/24 06:26 IMPRESSION: 1. Stable small right pleural effusion. 2. Stable airspace opacities in the right mid and lower lung zones and left lower lung zone, consistent with atelectasis versus pneumonia. Renal Ultrasound 07/26/24 15:27 IMPRESSION: Mild right pelviectasis. Mild pericholecystic fluid and gallbladder wall thickening. Labs Labs: Laboratory Results - last 24 hr 07/25/24 07/25/24 07/25/24 17:47 18:28 23:52 WBC RBC Hgb Hct MCV MCH MCHC RDW Plt Count MPV % Immature Plt Fraction PT INR Puncture Site Right radial ABG pH 7.536 H* ABG pCO2 28.8 L ABG pO2 75.1 L ABG PO2/FiO2 Ratio 2.50 ABG HCO3 23.9 ABG O2 Saturation 96.6 ABG O2 Content 13.5 L ABG Base Excess 1.8 A-a Gradient 105.0 Oxyhemoglobin 95.7 Carboxyhemoglobin Methemoglobin Reduced Hemoglobin Total Hemoglobin 10.0 L O2 Delivery Device Ventilator O2 Liters/Min Not Reportable Minute Volume Not Reportable Vent Rate 24 Vent Mode Cmv FiO2 30 Tidal Volume 500 PEEP 8 Peak Inspir Pressure Not Reportable Pressure Support Not Reportable Sodium Potassium Chloride Carbon Dioxide Anion Gap BUN Creatinine Estim Creat Clear Calc Estimated GFR Glucose POC Capillary Glucose 333 H 321 H Lactic Acid Calcium Phosphorus Magnesium Total Bilirubin AST ALT Alkaline Phosphatase Total Protein Albumin Triglycerides 07/26/24 07/26/24 07/26/24 04:28 05:17 06:00 WBC 20.1 H RBC 2.71 L Hgb 9.4 L Hct 27.5 L MCV 101.5 H MCH 34.7 H MCHC 34.2 RDW 12.9 Plt Count 86 L MPV 11.6 H % Immature Plt Fraction 6.7 PT 14.0 INR 1.1 Puncture Site Right radial ABG pH 7.507 H* ABG pCO2 31.8 L ABG pO2 63.3 L ABG PO2/FiO2 Ratio 2.11 ABG HCO3 24.6 ABG O2 Saturation 94.3 L ABG O2 Content 13.6 L ABG Base Excess 1.9 A-a Gradient 113.2 Oxyhemoglobin 92.5 Carboxyhemoglobin 0.3 Methemoglobin 0.3 Reduced Hemoglobin 6.9 H Total Hemoglobin 10.4 L O2 Delivery Device Ventilator O2 Liters/Min Not Reportable Minute Volume Not Reportable Vent Rate 24 Vent Mode Cmv FiO2 30 Tidal Volume 500 PEEP 8 Peak Inspir Pressure Not Reportable Pressure Support Not Reportable Sodium 138 Potassium 3.5 Chloride 109 H Carbon Dioxide 25 Anion Gap 4 BUN 48 H Creatinine 1.50 H Estim Creat Clear Calc 53 Estimated GFR 57 L Glucose 338 H POC Capillary Glucose 356 H Lactic Acid 1.9 Calcium 8.6 Phosphorus 1.1 L Magnesium 2.5 H Total Bilirubin 0.5 AST 36 ALT 54 H Alkaline Phosphatase 91 Total Protein 6.0 L Albumin 2.9 L Triglycerides 07/26/24 07/26/24 11:08 13:52 WBC RBC Hgb Hct MCV MCH MCHC RDW Plt Count MPV % Immature Plt Fraction PT INR Puncture Site ABG pH ABG pCO2 ABG pO2 ABG PO2/FiO2 Ratio ABG HCO3 ABG O2 Saturation ABG O2 Content ABG Base Excess A-a Gradient Oxyhemoglobin Carboxyhemoglobin Methemoglobin Reduced Hemoglobin Total Hemoglobin O2 Delivery Device O2 Liters/Min Minute Volume Vent Rate Vent Mode FiO2 Tidal Volume PEEP Peak Inspir Pressure Pressure Support Sodium Potassium Chloride Carbon Dioxide Anion Gap BUN Creatinine Estim Creat Clear Calc Estimated GFR Glucose POC Capillary Glucose 311 H Lactic Acid Calcium Phosphorus Magnesium Total Bilirubin AST ALT Alkaline Phosphatase Total Protein Albumin Triglycerides 136 Quality VTE Prophylaxis VTE prophylaxis: mechanical ordered and pharmacologic ordered
--- NOTE | 2024-07-26 16:14 | PC.NURSE ---
PT BP remains elevated. 182/119. Notified Dr Salinas who gave order for lisinopril 10mg by tube. Order read back and verified.
[2024-07-26] MEDS: lisinopriL 10 MG TABLET FEED TUBE (16:26)
[2024-07-26 17:16] LABS: Vancomycin Trough 17.9 ug/mL (10.0-20.0)
--- NOTE | 2024-07-26 17:33 | PC.NURSE ---
Notified Dr Salinas of patients continued HTN. Latest BP 182/117. PT is agitated, biting the tube, trying to pull at catheter and Ventilator tubes. PT restless in bed. Received order to continue titrating propofol up and to give 2mg of Versed IV push once. Orders read back and verified.
[2024-07-26] MEDS: MIDAZOLAM HCL (*CRX) 2 MG/2 ML VIAL IV PUSH (17:39)
[2024-07-26 17:44] LABS: Glucose Point of Care 286 mg/dl (65-105)
[2024-07-26] MEDS: PROPOFOL IV EMULSION 100 ML 17.89 MG IV CONT (22:57)
--- NOTE | 2024-07-26 23:45 | PC.NURSE ---
Dr. Salinas notified of patient's BP. with new order for labetolo 20mg IV push q4hr PRN for SBP >160
[2024-07-27] VITALS (57 sets, daily range): BP systolic 100–186; BP diastolic 70–115; PULSE 62–94; RESP 20–37; TEMP 36.2–38; O2SAT 94–100
[2024-07-27] MEDS: LABETALOL HCL INJ 100 MG/20 ML VIAL 20 MG IV PUSH ×2 (00:15→04:32)
[2024-07-27] MEDS: dexmedeTOMIDine 400 MCG/100 ML 400 MCG/100 ML BAG 31.95 MCG IV CONT ×7 (00:34→22:44)
[2024-07-27] MEDS: HYDROCORTISONE SODIUM SUCCINATE 100 MG/2 ML VIAL 50 MG IV PUSH ×2 (00:44→06:17)
[2024-07-27] MEDS: INSULIN ASPART (*BKC) 100 UNITS/ML SUB-Q ×4 (00:44→17:14)
[2024-07-27] MEDS: hydrALAZINE HCL 20 MG/ML VIAL 10 MG IV PUSH ×4 (01:05→16:36)
[2024-07-27 01:13] LABS: Glucose Point of Care 304 mg/dl (65-105)
[2024-07-27] MEDS: IPRATROPIUM BR 0.02% INH SOLN 0.5 MG/2.5 ML VIAL INHALATION ×4 (02:48→20:53)
[2024-07-27] MEDS: ACETYLCYSTEINE 20% INHAL SOLN 800 MG/4 ML VIAL 200 MG INHALATION ×4 (02:48→20:53)
[2024-07-27] MEDS: LEVALBUTEROL NEB 1.25 MG/3 ML INHALATION ×4 (02:49→20:53)
[2024-07-27] MEDS: PROPOFOL IV EMULSION 100 ML 23 MG IV CONT ×2 (03:45→11:59)
[2024-07-27 05:00] LABS: Hematocrit 29.9 % (42.0-52.0); Hemoglobin 10.3 g/dL (14.0-18.0); Immature Platelet Fraction Pct 7.5 % (0.9-11.2); Mean Corpuscular HGB Conc 34.4 g/dl (32-36); Mean Corpuscular Hemoglobin 34.7 pg (26-34); Mean Corpuscular Volume 100.7 fl (80-100); Mean Platelet Volume 11.6 fl (7.4-10.4); Platelet Count Result 95 k/mm3 (150-375); Red Blood Count 2.97 M/mm3 (4.6-6.20); White Blood Count 20.4 K/mm3 (4.5-10.0)
[2024-07-27 05:08] LABS: Lactic Acid Reflex 1.4 mmol/L (0.7-2.0)
[2024-07-27 05:10] LABS: Alanine Aminotransferase 54 U/L (6-50); Albumin Level 3.1 g/dL (3.5-5.1); Alkaline Phosphatase 121 U/L (38-126); Anion Gap 5 mmol/L (4-12); Aspartate Amino Transferase 52 U/L (17-59); Bilirubin,Total 0.8 mg/dL (0.2-1.3); Blood Urea Nitrogen 54 mg/dL (9-20); Calcium 8.8 mg/dL (8.4-10.2); Carbon Dioxide 24 mmol/L (22-30); Chloride 110 mmol/L (98-107); Estimated CRCL calculation 56 ml/min; Estimated Glomerular Filt Rate > 60; Glucose 382 mg/dL (65-110); Magnesium 2.2 mg/dL (1.6-2.3); Phosphorus 2.8 mg/dL (2.5-4.5); Potassium 3.1 mmol/L (3.4-5.0); Sodium 139 mmol/L (137-145)
[2024-07-27 05:15] LABS: INR 1.1; Prothrombin Time 14.4 Seconds (11.1-14.7)
[2024-07-27 05:20] LABS: Alveolar/Arterial O2 Gradient 93.4 mmHg; Arterial Blood Gas PEEP 5 cmH2O; Arterial Blood Gas Vent Mode CMV; Arterial Blood Gas Ventilator rate 20 /MIN; Base Excess ABG -1.4 mEq/l (+/-2.0); Carboxyhemoglobin 0.3 % THb (0-2.0); Device VENTILATOR; Fractional Inspired Oxygen 30 %; HCO3 ABG 20.9 mEq/l (22.0-26.0); Methemoglobin ABG 0.3 %THb (0-1.5); Modified Allen's Test Unable to perform; Oxygen Saturation ABG 97.4 % (95.0-100.0); Oxyhemoglobin 96.3 % THb (90.0-100.0); PCO2 ABG 27.8 mmHg (35.0-45.0); PO2 ABG 87.8 mmHg (80.0-100.0); PO2 FiO2 Ratio Arterial Blood 2.93 %; Reduced Hemoglobin 3.1 %THb (0-5.0); Site Drawn RIGHT RADIAL; pH ABG 7.494 (7.350-7.450)
[2024-07-27 05:21] LABS: Arterial Blood Gas Tidal Volume 500 ml
[2024-07-27] MEDS: CENTRAL LINE FLUSH 10 ML IV PUSH ×3 (06:25→22:06)
[2024-07-27] MEDS: dexmedeTOMIDine 400 MCG/100 ML 400 MCG/100 ML BAG 29.82 MCG IV CONT (06:56)
[2024-07-27] MEDS: PROPOFOL IV EMULSION 100 ML 17.89 MG IV CONT ×3 (07:22→20:45)
[2024-07-27] MEDS: DORNASE ALFA INH SOLN 1 MG/ML 2.5 ML AMP 2.5 MG INHALATION (07:54)
[2024-07-27] MEDS: BUMETANIDE INJ 1 MG/4 ML VIAL 2 MG IV PUSH (08:23)
[2024-07-27] MEDS: PANTOPRAZOLE SODIUM IV 40 MG VIAL IV PUSH (08:23)
[2024-07-27] MEDS: lisinopriL 20 MG TABLET 40 MG PO (08:24)
[2024-07-27] MEDS: amLODIPine BESYLATE 10 MG TABLET PO (08:24)
[2024-07-27] MEDS: POTASSIUM CHLORIDE 20 MEQ PACKET (FOR LIQUID) 40 MEQ FEED TUBE (08:24)
[2024-07-27] MEDS: AZITHROMYCIN 500 MG/NS 250 ML 500 MG/250 ML BAG 250 MG IVPB (08:25)
[2024-07-27] MEDS: cefTRIAXone 2 GM/NS 100 ML 2 GM/100 ML BAG IVPB (08:25)
[2024-07-27] MEDS: KCL 40 MEQ/WATER 100 ML 100 ML 25 ML IVPB ×2 (08:30→14:11)
[2024-07-27] MEDS: INSULIN GLARGINE (*BKC) 100 UNITS/ML 10 UNITS SUB-Q ×2 (08:36→16:09)
[2024-07-27] MEDS: MINERAL OIL/WHITE PETROLATUM OINTMENT 1 APPLIC EACH EYE ×2 (08:36→22:06)
--- NOTE | 2024-07-27 11:13 | PCNFU ---
Nutrition Follow-Up Complete: Suboptimal Energy Intake as related to mechanical ventilation as evidenced by NPO. Meet estimated nutritional needs. - Goal is being met with tube feedings Goal: Pt current nutrition is Vital 1.2 @ 70 ml/h. Flush 30 ml q 4 hours. Banatrol TID for diarrhea. Nutrition recommendation: Decrease rate to 60 ml/h because of higher dose of propofol. To titrate back up to 70 when propofol is decreased. Last recorded weight is 86.6 kg. Bowel Motility: +1 BM 07/27. Liquid stools per FMS Labs Reviewed: Hgb 10.3, Hct 29.9, Alb 3.1, K+ 3.1, BUN 54, Cre 1.4, Glu 382 Meds Noted: Propofol @ 23 ml/h= 607 kcal. Novolog, Rocephin Skin: WNL Additional Notes: Vital 1.2 @ 60 ml to provide 1584 kcal (~76% EER), 99 g protein (100% estimated needs @ 1.2 g/kg), 1070 ml free water. Titrate back up to 70 ml/h when propofol is decreased. Will monitor weight, labs, skin, meds, diet orders every Tuesday and Tuesday.
[2024-07-27 11:33] LABS: Glucose Point of Care 496 mg/dl (65-105)
[2024-07-27] MEDS: INSULIN HUMAN REGULAR (*BKC) 100 UNITS/ML 10 UNITS IV PUSH (11:36)
[2024-07-27] MEDS: QUEtiapine FUMARATE 25 MG TABLET PO ×2 (11:38→22:06)
--- NOTE | 2024-07-27 12:12 | PC.NURSE ---
Notified Dr. Salinas of pt's blood glucose of 496. New order to administer 10 units IVP Regular Insulin, and administer the highest dose on the sliding scale that is ordered. See MAR
--- NOTE | 2024-07-27 13:05 | P.PNINT_ITS ---
Progress Note: A&P Assessment and Plan (1) Severe sepsis: Code(s): A41.9 - Sepsis, unspecified organism; R65.20 - Severe sepsis without septic shock Status: Acute Assessment and Plan: 07/22: Patient presented the ED with shortness of breath, chest x-ray showed right lower lobe consolidation/pneumonia, acute kidney injury, tachycardia, tachypnea -patient given 30 cc/kg IV fluids in the ER, patient was also given Lasix 40 mg IV x1 -07/22: Blood cultures growing Streptococcus pneumoniae 1/2 bottles -07/22: Sputum cultures growing Streptococcus pneumoniae 07/24: Repeat blood cultures negative so far -lactic acidosis has resolved -continue ceftriaxone, azithromycin, vancomycin (07/22) -07/22: Right IJ central line was inserted in the ICU -07/23: Patient has some blood in stool, Hemoccult was negative, DIC panel was within normal limits, hematuria has cleared up -07/24: Overnight patient dropped his blood pressures in the 70s, I had to be started on Levophed for a brief amount of time, -07/25: Remains on low-dose Levophed, wean to maintain MAP > 65 mmHg or SBP > 100 mmHg for adequate end organ perfusion -off Levophed 07/22: CT soft tissue neck without contrast: This was done as his neck movements were restricted. Impression: The endotracheal tube tip is in expected position. There is a small right pleural effusion. There are no pathologically enlarged lymph nodes. Partially visualized is an orogastric tube. Partially visualized is a right internal jugular central venous catheter with tip at least to the superior vena cava. There is mucosal thickening in right maxillary sinus. There is multifocal dental disease. There is a 17 mm nodule in right thyroid lobe. There are bridging endplate osteophytes at multiple levels in the spine, consistent with diffuse idiopathic skeletal hyperostosis (DISH). (2) Acute respiratory failure: Code(s): J96.00 - Acute respiratory failure, unspecified whether with hypoxia or hypercapnia Status: Acute Assessment and Plan: Acute respiratory failure likely related to right lower lobe pneumonia. Patient also tachypneic and tachycardic, will send patient for a CT scan of the chest PE protocol to rule out pulmonary embolism -07/22: Intubated in the ICU -continue CMV mode of ventilation, peep of10 and 30 FiO2, wean FiO2 to maintain O2 sats > 92%, will decrease PEEP to 8 -chest x-ray this morning and ABGs reviewed, continue low tidal volume strategy -continue bronchodilators -07/24: patient had thick secretions, added Mucomyst and Pulmozyme nebs, secretions have improved -sedated with propofol infusion, maintain RASS of 0 to -2. Daily SAT and SBT 07/26: Will place patient on Precedex infusion, wean fentanyl and Versed infusion once patient is more awake will evaluate for extubation. Will diurese today 07/27: Will try patient on SBT, continue diuresis -off Nimbex since 07/24 07/22: CT a chest PE, abdomen/pelvis IMPRESSION: No evidence of pulmonary embolism Prominent bilateral lower lobe consolidation. Mild lobe infiltrate. (3) Pneumonia: Code(s): J18.9 - Pneumonia, unspecified organism Status: Acute Assessment and Plan: Right lower lobe pneumonia seen on chest x-ray -continue mechanical ventilation, bronchodilators -continue hydrocortisone 50 mg IV q.6 hours for pneumonia (07/22) continue 5 days, discontinue steroids (4) MILENA (acute kidney injury): Code(s): N17.9 - Acute kidney failure, unspecified Status: Acute Assessment and Plan: Patient presented with severe sepsis, acute kidney injury with creatinine of 2.00. Baseline creatinine unknown -received 30 cc/kg IV fluid bolus in the ER -patient is received adequate amount of IV fluids, urine output has been adequate, creatinine improving -discontinue IV fluids at this time -hyperkalemia, resolved -hypomagnesemia, resolved -replace phosphorous -creatinine stable and improving (5) Elevated liver enzymes: Code(s): R74.8 - Abnormal levels of other serum enzymes Status: Acute Assessment and Plan: Elevated liver enzymes, could be related to severe hypoxemia, HCV, -hepatitis panel is negative -HCV RNA PCR : Elevated PCR titers, appreciate GI evaluation recommendations, if patient decides to stay with the family in the local area he can follow with them to discuss treatment option -07/23: RUQ ultrasound: Right pleural effusion, minimal fluid around the gallbladder. Evaluation of cholecystitis advised, otherwise normal limited ultrasound of the abdomen -LFTs trending down, continue to monitor (6) CHF (congestive heart failure): Code(s): I50.9 - Heart failure, unspecified Status: Acute Assessment and Plan: History of CHF, proBNP was 700 -chest x-ray did not show any pulmonary edema 07/24: Echocardiogram Summary 1. Complete two-dimensional, color flow and Doppler transthoracic echocardiogram is performed. 2. Left ventricle is normal in size with mildly reduced systolic function. The left ventricular ejection fraction is visually estimated to be 45-50%. 3. The right ventricle is normal in size and systolic function. 4. The aortic valve is not well visualized. The Doppler gradients does not suggest any hemodynamically significant stenosis. (7) Elevated troponin: Code(s): R79.89 - Other specified abnormal findings of blood chemistry Status: Acute Assessment and Plan: Elevated troponin likely related to 2 type 2 infarct, secondary to tachycardia, tachypnea -echocardiogram did not reveal any new wall motion abnormality, continue to monitor for chest pain -troponins have plateaued Plan DVT prophylaxis: Hold Lovenox due to thrombocytopenia, continue SCDs Stress ulcer prophylaxis: Protonix Nutrition: Tolerating tube, and banatrol Code Status: Full code Critical Care Time Spent: 32 minutes Discussed with patient's daughter, brother and other family members at bedside updated them with his condition and plan of care. They are aware that we will place him on SBT and evaluate for extubation. I answered all questions 07/22/2024: Discuss with Miranda, patient's daughter and next of kin. She stated that the patient lives in [facility] by himself, has never , she is the only child. States he drinks alcohol from sun up to sun down, also uses marijuana and cocaine. Smokes cigarettes 1 pack per day for many years. She does not know what other medical conditions he has. I updated the daughter with patient's condition and plan of care. I answered all her questions Due to a high probability of clinically significant, life threatening deterioration, the patient required my highest level of preparedness to inter vene emergently and I personally spent this critical care time directly and personally managing the patient. This critical care time included obtaining a history; examining the patient; pulse oximetry; ordering and review of studies; arranging urgent treatment with development of a management plan; evaluation of patient's response to treatment; frequent reassessment; and discussions with other providers. It was exclusive of separately billable procedures and treating other patients and teaching time. Please see Assessment and Plan section and the rest of the note for further information on patient assessment and treatment This dictation may have been done utilizing a voice recognition system. Attempts have been made to correct errors. However, there may be uncorrected grammatical, spelling, and recognitions errors present. Subjective Date/time seen: 07/27/24 13:05 Interval history: Reason for consult: Acute respiratory failure, pneumonia, severe sepsis, acute kidney injury Intubated: 07/2207/27/2024: Patient seen and examined the ICU, remains intubated on CMV mode of ventilation peep of 5 and 30% FiO2. Sedated with Precedex and propofol infusion. Patient does open his eyes and follows simple commands. Patient was hypotensive all through the evening yesterday and overnight requiring multiple doses of hydralazine, labetalol, was also given lisinopril and amlodipine. Patient remains off vasopressors as he is hypertensive. Responded well to diuresis, afebrile, tolerating tube feeds Review of Systems Review of Systems: All systems reviewed & are unremarkable except as noted in HPI and below ROS unobtainable: Yes unobtainable due to endotracheal tube and unobtainable due to medical condition Exam Narrative: General: Patient intubated, sedated, not in acute distress HEENT:? Pupils equal and reactive, sclera is clear, ETT in place Neck:? Neck movements are restricted Respiratory:? Coarse breath sounds bilaterally, rales in right lower base no wheezing, adequate air entry Cardiac:? S1-S2 is normal, sinus tachycardia Abdomen:? Soft, nondistended, nontender, hypoactive bowel sounds Extremities:? No edema, palpable pedal pulses Neuro:? Patient is intubated, sedated,, opens his eyes and follows simple commands, withdraws to pain in all extremities. Skin:? Dry skin, no other lesions noted Psych:? Unable to assess at this time Objective Data Vital Signs Vital Signs: Vital Signs - 24 hr 07/26/24 13:19 07/26/24 13:28 07/26/24 13:32 Temperature Pulse Rate 98 95 93 Respiratory Rate 39 H 31 H Blood Pressure Pulse Oximetry 98 Oxygen Delivery Mechanical Ventilation Fraction of Inspired Oxygen 30 07/26/24 13:32 07/26/24 13:45 07/26/24 14:00 Temperature 98.9 F Pulse Rate 93 100 107 H Respiratory Rate 30 H 25 H 22 H Blood Pressure 198/128 H Pulse Oximetry 100 Oxygen Delivery Fraction of Inspired Oxygen 07/26/24 14:00 07/26/24 14:00 07/26/24 14:00 Temperature Pulse Rate 107 H 107 H 107 H Respiratory Rate 22 H 29 H 29 H Blood Pressure Pulse Oximetry Oxygen Delivery Fraction of Inspired Oxygen 07/26/24 14:00 07/26/24 14:00 07/26/24 14:30 Temperature Pulse Rate 107 H 77 107 H Respiratory Rate 29 H 22 H Blood Pressure Pulse Oximetry Oxygen Delivery Fraction of Inspired Oxygen 07/26/24 15:19 07/26/24 15:19 07/26/24 15:35 Temperature Pulse Rate 91 91 88 Respiratory Rate 22 H 22 H 20 Blood Pressure Pulse Oximetry 98 Oxygen Delivery Mechanical Ventilation Fraction of Inspired Oxygen 30 07/26/24 15:44 07/26/24 16:00 07/26/24 16:00 Temperature 98.7 F Pulse Rate 93 90 Respiratory Rate 23 H Blood Pressure 182/116 H Pulse Oximetry 95 Oxygen Delivery Fraction of Inspired Oxygen 30 07/26/24 16:00 07/26/24 16:00 07/26/24 16:00 Temperature Pulse Rate 85 88 89 Respiratory Rate 26 H 25 H 25 H Blood Pressure Pulse Oximetry Oxygen Delivery Fraction of Inspired Oxygen 07/26/24 16:00 07/26/24 16:56 07/26/24 16:58 Temperature Pulse Rate 89 90 91 Respiratory Rate 25 H 29 H Blood Pressure Pulse Oximetry 98 Oxygen Delivery Mechanical Ventilation Fraction of Inspired Oxygen 30 07/26/24 17:13 07/26/24 17:49 07/26/24 17:53 Temperature Pulse Rate 90 89 81 Respiratory Rate 30 H 29 H 21 H Blood Pressure Pulse Oximetry Oxygen Delivery Fraction of Inspired Oxygen 07/26/24 17:53 07/26/24 18:00 07/26/24 18:00 Temperature 98.7 F Pulse Rate 81 83 77 Respiratory Rate 21 H 22 H Blood Pressure 172/109 H Pulse Oximetry 96 Oxygen Delivery Fraction of Inspired Oxygen 07/26/24 18:00 07/26/24 18:09 07/26/24 18:10 Temperature Pulse Rate 74 78 76 Respiratory Rate 20 23 H 23 H Blood Pressure Pulse Oximetry Oxygen Delivery Fraction of Inspired Oxygen 07/26/24 18:12 07/26/24 20:00 07/26/24 20:00 Temperature 98.4 F Pulse Rate 79 75 Respiratory Rate 23 H 20 Blood Pressure 164/102 H Pulse Oximetry 98 98 Oxygen Delivery Mechanical Ventilation Fraction of Inspired Oxygen 30 07/26/24 20:00 07/26/24 20:00 07/26/24 20:00 Temperature Pulse Rate 75 75 Respiratory Rate 20 20 Blood Pressure Pulse Oximetry Oxygen Delivery Fraction of Inspired Oxygen 30 07/26/24 20:00 07/26/24 20:20 07/26/24 20:30 Temperature Pulse Rate 75 82 79 Respiratory Rate 25 H Blood Pressure Pulse Oximetry 99 Oxygen Delivery Mechanical Ventilation Fraction of Inspired Oxygen 30 07/26/24 20:56 07/26/24 20:56 07/26/24 21:01 Temperature Pulse Rate 82 92 83 Respiratory Rate 26 H 30 H 20 Blood Pressure Pulse Oximetry Oxygen Delivery Fraction of Inspired Oxygen 07/26/24 21:03 07/26/24 21:11 07/26/24 21:18 Temperature Pulse Rate 84 83 Respiratory Rate 20 20 Blood Pressure Pulse Oximetry 96 Oxygen Delivery Mechanical Ventilation Fraction of Inspired Oxygen 50 07/26/24 22:00 07/26/24 22:00 07/26/24 22:00 Temperature Pulse Rate 79 79 79 Respiratory Rate 20 20 Blood Pressure Pulse Oximetry Oxygen Delivery Fraction of Inspired Oxygen 07/26/24 22:00 07/26/24 22:57 07/26/24 22:57 Temperature 98.6 F Pulse Rate 79 91 91 Respiratory Rate 20 26 H 26 H Blood Pressure 176/106 H Pulse Oximetry 97 Oxygen Delivery Fraction of Inspired Oxygen 07/26/24 23:12 07/26/24 23:56 07/27/24 00:00 Temperature 99.4 F Pulse Rate 79 78 80 Respiratory Rate 20 20 Blood Pressure 186/115 H Pulse Oximetry 98 99 Oxygen Delivery Mechanical Ventilation Fraction of Inspired Oxygen 30 07/27/24 00:00 07/27/24 00:00 07/27/24 00:00 Temperature Pulse Rate 80 80 Respiratory Rate 20 20 Blood Pressure Pulse Oximetry Oxygen Delivery Fraction of Inspired Oxygen 30 07/27/24 00:00 07/27/24 00:00 07/27/24 00:15 Temperature Pulse Rate 79 77 Respiratory Rate Blood Pressure Pulse Oximetry 99 Oxygen Delivery Mechanical Ventilation Fraction of Inspired Oxygen 30 07/27/24 00:34 07/27/24 00:34 07/27/24 02:00 Temperature Pulse Rate 68 68 91 Respiratory Rate 20 20 Blood Pressure Pulse Oximetry Oxygen Delivery Fraction of Inspired Oxygen 07/27/24 02:00 07/27/24 02:00 07/27/24 02:00 Temperature 99 F Pulse Rate 91 91 90 Respiratory Rate 23 H 23 H 23 H Blood Pressure 161/94 H Pulse Oximetry 97 Oxygen Delivery Fraction of Inspired Oxygen 07/27/24 02:15 07/27/24 02:30 07/27/24 02:44 Temperature Pulse Rate 92 90 86 Respiratory Rate 27 H 20 26 H Blood Pressure Pulse Oximetry Oxygen Delivery Fraction of Inspired Oxygen 07/27/24 02:57 07/27/24 03:08 07/27/24 03:20 Temperature Pulse Rate 85 89 84 Respiratory Rate 26 H 31 H Blood Pressure Pulse Oximetry 97 Oxygen Delivery Mechanical Ventilation Fraction of Inspired Oxygen 30 07/27/24 03:45 07/27/24 03:45 07/27/24 03:50 Temperature Pulse Rate 76 76 73 Respiratory Rate 20 20 20 Blood Pressure Pulse Oximetry Oxygen Delivery Fraction of Inspired Oxygen 07/27/24 03:50 07/27/24 04:00 07/27/24 04:00 Temperature Pulse Rate 73 89 89 Respiratory Rate 20 20 20 Blood Pressure Pulse Oximetry Oxygen Delivery Fraction of Inspired Oxygen 07/27/24 04:00 07/27/24 04:00 07/27/24 04:00 Temperature 98.3 F Pulse Rate 89 Respiratory Rate 20 Blood Pressure 169/112 H Pulse Oximetry 98 98 Oxygen Delivery Mechanical Ventilation Fraction of Inspired Oxygen 30 30 07/27/24 04:00 07/27/24 04:32 07/27/24 05:06 Temperature Pulse Rate 88 94 62 Respiratory Rate Blood Pressure Pulse Oximetry 99 Oxygen Delivery Mechanical Ventilation Fraction of Inspired Oxygen 30 07/27/24 06:00 07/27/24 06:00 07/27/24 06:00 Temperature 97.9 F Pulse Rate 67 67 64 Respiratory Rate 20 20 20 Blood Pressure 181/113 H Pulse Oximetry 98 Oxygen Delivery Fraction of Inspired Oxygen 07/27/24 06:00 07/27/24 06:15 07/27/24 06:30 Temperature Pulse Rate 64 64 73 Respiratory Rate 20 20 Blood Pressure Pulse Oximetry Oxygen Delivery Fraction of Inspired Oxygen 07/27/24 06:56 07/27/24 06:56 07/27/24 06:57 Temperature Pulse Rate 87 87 87 Respiratory Rate 31 H 31 H 31 H Blood Pressure Pulse Oximetry Oxygen Delivery Fraction of Inspired Oxygen 07/27/24 07:22 07/27/24 07:22 07/27/24 07:29 Temperature Pulse Rate 93 93 89 Respiratory Rate 35 H 35 H 35 H Blood Pressure Pulse Oximetry Oxygen Delivery Fraction of Inspired Oxygen 07/27/24 07:55 07/27/24 07:55 07/27/24 08:00 Temperature Pulse Rate 87 87 88 Respiratory Rate 26 H 27 H Blood Pressure Pulse Oximetry 98 Oxygen Delivery Mechanical Ventilation Fraction of Inspired Oxygen 30 07/27/24 08:00 07/27/24 08:00 07/27/24 08:00 Temperature Pulse Rate 88 90 Respiratory Rate 27 H 35 H Blood Pressure Pulse Oximetry 98 Oxygen Delivery Mechanical Ventilation Fraction of Inspired Oxygen 30 30 07/27/24 08:00 07/27/24 08:00 07/27/24 08:35 Temperature 98.6 F Pulse Rate 88 85 90 Respiratory Rate 27 H 35 H Blood Pressure 164/99 H Pulse Oximetry 98 Oxygen Delivery Fraction of Inspired Oxygen 07/27/24 08:35 07/27/24 10:00 07/27/24 10:00 Temperature 99.2 F Pulse Rate 90 92 92 Respiratory Rate 35 H 27 H Blood Pressure 155/99 H Pulse Oximetry 99 Oxygen Delivery Fraction of Inspired Oxygen 07/27/24 10:10 07/27/24 10:10 07/27/24 10:11 Temperature Pulse Rate 92 92 92 Respiratory Rate 31 H 31 H 31 H Blood Pressure Pulse Oximetry Oxygen Delivery Fraction of Inspired Oxygen 07/27/24 11:52 07/27/24 11:59 07/27/24 12:00 Temperature Pulse Rate 93 93 93 Respiratory Rate 36 H 35 H 35 H Blood Pressure Pulse Oximetry Oxygen Delivery Fraction of Inspired Oxygen 07/27/24 12:00 07/27/24 12:00 07/27/24 12:00 Temperature 99.8 F H Pulse Rate 91 93 Respiratory Rate 35 H 37 H Blood Pressure 138/79 Pulse Oximetry 96 97 Oxygen Delivery Mechanical Ventilation Fraction of Inspired Oxygen 30 30 07/27/24 12:00 07/27/24 12:05 Temperature Pulse Rate 89 91 Respiratory Rate Blood Pressure Pulse Oximetry 96 Oxygen Delivery Mechanical Ventilation Fraction of Inspired Oxygen 30 Intake/Output Intake/Output: Intake & Output 07/24/24 07/25/24 07/26/24 07/27/24 23:59 23:59 23:59 23:59 Intake Total 2695.9 3115.3 3498.0 1485.7 Output Total 1550 1400 0725 9642 Balance 1145.9 1715.3 923.0 -3389.3 Meds/Results Medications: Active Medications Generic Name Dose Route Start Last Admin Trade Name Freq PRN Reason Stop Dose Admin Acetaminophen 650 mg 07/22/24 17:34 07/25/24 08:16 Acetaminophen Elixir 325 Mg/10.15 Ml Udc PO 650 mg Q6H PRN Administration Mild Pain (1-3) or Fever Acetylcysteine 200 mg 07/24/24 14:00 07/27/24 07:53 Acetylcysteine 20% Inhal Soln 800 Mg/4 Ml Vial INHALATION 200 mg Q6HRT ACOSTA Administration Amlodipine Besylate 10 mg 07/27/24 09:00 07/27/24 08:24 Amlodipine Besylate 10 Mg Tablet PO 10 mg DAILY ACOSTA Administration Dextrose 12.5 gm 07/23/24 12:52 Dextrose 50% 25 Gm/50 Ml Syringe IV PUSH PRN PRN Hypoglycemia Protocol Enoxaparin Sodium 40 mg 07/23/24 09:00 07/25/24 08:00 Enoxaparin 40 Mg/0.4 Ml Syringe SUB-Q 40 mg DAILY ACOSTA Administration Glucagon 1 mg 07/23/24 12:52 Glucagon For Inj 1 Mg Vial IM PRN PRN Hypoglycemia Protocol Glucose 15 gm 07/23/24 12:52 Glucose Oral Gel 15 Gm Of Glucse In 37.5 Gm Tube PO PRN PRN Hypoglycemia Protocol Hydralazine HCl 10 mg 07/26/24 10:51 07/27/24 11:51 Hydralazine Hcl 20 Mg/Ml Vial IV PUSH 10 mg Q4H PRN Administration Blood Pressure - High Ceftriaxone Sodium 2 gm in 100 mls @ 200 mls/hr 07/23/24 09:00 07/27/24 08:25 Rocephin 2 Gm/Ns 100 Ml IVPB 100 mls/hr QAM ACOSTA Administration Azithromycin 500 mg in 250 mls @ 250 mls/hr 07/23/24 09:00 07/27/24 08:25 Zithromax IVPB 250 mls/hr QAM ACOSTA Administration Dextrose 1,000 mls @ 100 mls/hr 07/23/24 12:52 Dextrose 5% 1,000 Ml IVPB PRN PRN Hypoglycemia Protocol Dexmedetomidine HCl 400 mcg in 100 mls @ 31.95 mls/hr 07/26/24 08:20 07/27/24 12:00 Precedex 400 Mcg/100 Ml IV CONT 1.5 mcg/kg/hr .Q3H8M ACOSTA 31.95 mls/hr Titration Protocol 1.5 MCG/KG/HR Propofol 100 mls @ 23.004 mls/hr 07/26/24 13:25 07/27/24 11:59 Diprivan IV CONT 45 mcg/kg/min .Q4H21M ACOSTA 23 mls/hr Administration Protocol 45 MCG/KG/MIN Insulin Aspart 3 - 6 units 07/24/24 12:00 07/27/24 11:38 Insulin Aspart (*Bkc) 100 Units/Ml SUB-Q 6 units Q6HR ACOSTA Administration Protocol Insulin Glargine 10 units 07/26/24 09:00 07/27/24 08:36 Insulin Glargine (*Bkc) 100 Units/Ml SUB-Q 10 units DAILY ACOSTA Administration Ipratropium [place] 0.5 mg 07/22/24 20:00 07/27/24 07:53 Ipratropium Br 0.02% Inh Soln 0.5 Mg/2.5 Ml Vial INHALATION 0.5 mg Q6HRT ACOSTA Administration Labetalol HCl 20 mg 07/26/24 23:45 07/27/24 04:32 Labetalol Hcl Inj 100 Mg/20 Ml Vial IV PUSH 20 mg Q4HR PRN Administration Blood Pressure - High Levalbuterol HCl 1.25 mg 07/22/24 20:00 07/27/24 07:53 Levalbuterol Neb 1.25 Mg/3 Ml INHALATION 1.25 mg Q6HRT ACOSTA Administration Lisinopril 40 mg 07/27/24 09:00 07/27/24 08:24 Lisinopril 20 Mg Tablet PO 40 mg QAM ACOSTA Administration Multi-Ingred Cream/Lotion/Oil/Oint 1 applic 07/22/24 21:00 07/27/24 08:36 Mineral Oil/White Petrolatum Ointment EACH EYE 1 applic Q12HR ACOSTA Administration Pantoprazole Sodium 40 mg 07/23/24 09:00 12/27/24 08:23 Pantoprazole Sodium Iv 40 Mg Vial IV PUSH 40 mg DAILY ACOSTA Administration Quetiapine Fumarate 25 mg 07/27/24 10:34 07/27/24 11:38 Quetiapine Fumarate 25 Mg Tablet PO 25 mg Q12HR ACOSTA Administration Sodium Chloride 10 ml 07/22/24 22:00 07/27/24 06:25 Central Line Flush IV PUSH 10 ml Q8HR ACOSTA Administration Sodium Chloride 20 ml 07/22/24 16:23 Central Line Flush IV PUSH PRN PRN after blood draws Radiology Results: ITS Impressions Chest/Abdomen/Pelvis CTA 07/22/24 18:32 IMPRESSION: No evidence of pulmonary embolism Prominent bilateral lower lobe consolidation. Mild lobe infiltrate. Soft Tissue Neck CT 07/23/24 06:55 IMPRESSION: 1. Small right pleural effusion. 2. 17 mm right thyroid nodule. Consider thyroid ultrasound for risk stratification. 3. Multifocal dental disease. Abdomen Ultrasound 07/23/24 12:48 IMPRESSION: 1. Right pleural effusion. Minimal fluid around the gallbladder. Evaluation for cholecystitis advised. Otherwise, normal Limited ultrasound of the abdomen. Abdomen X-Ray 07/26/24 06:25 IMPRESSION: 1. Nasogastric tube tip in the stomach. 2. Small right pleural effusion. 3. Airspace opacities in the lower lung zones, consistent with atelectasis versus pneumonia. Renal Ultrasound 07/26/24 15:27 IMPRESSION: Mild right pelviectasis. Mild pericholecystic fluid and gallbladder wall thickening. Chest X-Ray 07/27/24 06:31 IMPRESSION: 1. Stable small right pleural effusion. 2. Stable airspace opacities in right mid and lower lung zones and left lower lung zone, consistent with atelectasis versus pneumonia. Labs Labs: Laboratory Results - last 24 hr 07/26/24 07/26/24 07/26/24 13:52 16:41 17:42 WBC RBC Hgb Hct MCV MCH MCHC RDW Plt Count MPV % Immature Plt Fraction PT INR Puncture Site ABG pH ABG pCO2 ABG pO2 ABG PO2/FiO2 Ratio ABG HCO3 ABG O2 Saturation ABG O2 Content ABG Base Excess A-a Gradient Oxyhemoglobin Carboxyhemoglobin Methemoglobin Reduced Hemoglobin Total Hemoglobin O2 Delivery Device O2 Liters/Min Minute Volume Vent Rate Vent Mode FiO2 Tidal Volume PEEP Peak Inspir Pressure Pressure Support Sodium Potassium Chloride Carbon Dioxide Anion Gap BUN Creatinine Estim Creat Clear Calc Estimated GFR Glucose POC Capillary Glucose 286 H Lactic Acid Calcium Phosphorus Magnesium Total Bilirubin AST ALT Alkaline Phosphatase Total Protein Albumin Triglycerides 136 Vancomycin Trough 17.9 07/27/24 07/27/24 07/27/24 00:43 04:48 05:12 WBC 20.4 H RBC 2.97 L Hgb 10.3 L Hct 29.9 L MCV 100.7 H MCH 34.7 H MCHC 34.4 RDW 13.0 Plt Count 95 L MPV 11.6 H % Immature Plt Fraction 7.5 PT 14.4 INR 1.1 Puncture Site Right radial ABG pH 7.494 H ABG pCO2 27.8 L ABG pO2 87.8 ABG PO2/FiO2 Ratio 2.93 ABG HCO3 20.9 L ABG O2 Saturation 97.4 ABG O2 Content 15.0 L ABG Base Excess -1.4 A-a Gradient 93.4 Oxyhemoglobin 96.3 Carboxyhemoglobin 0.3 Methemoglobin 0.3 Reduced Hemoglobin 3.1 Total Hemoglobin 11.0 L O2 Delivery Device Ventilator O2 Liters/Min Not Reportable Minute Volume Not Reportable Vent Rate 20 Vent Mode Cmv FiO2 30 Tidal Volume 500 PEEP 5 Peak Inspir Pressure Not Reportable Pressure Support Not Reportable Sodium 139 Potassium 3.1 L Chloride 110 H Carbon Dioxide 24 Anion Gap 5 BUN 54 H Creatinine 1.40 H Estim Creat Clear Calc 56 Estimated GFR > 60 Glucose 382 H POC Capillary Glucose 304 H Lactic Acid 1.4 Calcium 8.8 Phosphorus 2.8 Magnesium 2.2 Total Bilirubin 0.8 AST 52 ALT 54 H Alkaline Phosphatase 121 Total Protein 7.0 Albumin 3.1 L Triglycerides Vancomycin Trough 07/27/24 11:31 WBC RBC Hgb Hct MCV MCH MCHC RDW Plt Count MPV % Immature Plt Fraction PT INR Puncture Site ABG pH ABG pCO2 ABG pO2 ABG PO2/FiO2 Ratio ABG HCO3 ABG O2 Saturation ABG O2 Content ABG Base Excess A-a Gradient Oxyhemoglobin Carboxyhemoglobin Methemoglobin Reduced Hemoglobin Total Hemoglobin O2 Delivery Device O2 Liters/Min Minute Volume Vent Rate Vent Mode FiO2 Tidal Volume PEEP Peak Inspir Pressure Pressure Support Sodium Potassium Chloride Carbon Dioxide Anion Gap BUN Creatinine Estim Creat Clear Calc Estimated GFR Glucose POC Capillary Glucose 496 H Lactic Acid Calcium Phosphorus Magnesium Total Bilirubin AST ALT Alkaline Phosphatase Total Protein Albumin Triglycerides Vancomycin Trough Quality VTE Prophylaxis VTE prophylaxis: mechanical ordered and pharmacologic ordered
[2024-07-27] MEDS: ACETAMINOPHEN ELIXIR 325 MG/10.15 ML UDC 650 MG PO (13:22)
[2024-07-27 13:51] LABS: Anion Gap 7 mmol/L (4-12); Blood Urea Nitrogen 57 mg/dL (9-20); Calcium 8.8 mg/dL (8.4-10.2); Carbon Dioxide 24 mmol/L (22-30); Chloride 110 mmol/L (98-107); Estimated CRCL calculation 53 ml/min; Estimated Glomerular Filt Rate 57; Glucose 353 mg/dL (65-110); Potassium 2.8 mmol/L (3.4-5.0); Sodium 141 mmol/L (137-145)
[2024-07-27] MEDS: POTASSIUM CHLORIDE 20 MEQ PACKET (FOR LIQUID) 80 MEQ FEED TUBE (14:09)
[2024-07-27 17:15] LABS: Glucose Point of Care 396 mg/dl (65-105)
[2024-07-27 19:19] LABS: Anion Gap 4 mmol/L (4-12); Blood Urea Nitrogen 55 mg/dL (9-20); Calcium 8.9 mg/dL (8.4-10.2); Carbon Dioxide 26 mmol/L (22-30); Chloride 113 mmol/L (98-107); Estimated CRCL calculation 53 ml/min; Estimated Glomerular Filt Rate 57; Glucose 280 mg/dL (65-110); Potassium 3.3 mmol/L (3.4-5.0); Sodium 143 mmol/L (137-145)
[2024-07-28] VITALS (42 sets, daily range): BP systolic 120–155; BP diastolic 79–103; PULSE 68–88; RESP 16–33; TEMP 35.8–37.7; O2SAT 94–98
[2024-07-28] MEDS: INSULIN ASPART (*BKC) 100 UNITS/ML SUB-Q ×3 (00:11→13:00)
[2024-07-28 00:15] LABS: Glucose Point of Care 229 mg/dl (65-105)
[2024-07-28] MEDS: dexmedeTOMIDine 400 MCG/100 ML 400 MCG/100 ML BAG 31.95 MCG IV CONT ×8 (01:52→23:27)
[2024-07-28] MEDS: IPRATROPIUM BR 0.02% INH SOLN 0.5 MG/2.5 ML VIAL INHALATION ×4 (02:09→19:52)
[2024-07-28] MEDS: LEVALBUTEROL NEB 1.25 MG/3 ML INHALATION ×4 (02:09→19:52)
[2024-07-28] MEDS: ACETYLCYSTEINE 20% INHAL SOLN 800 MG/4 ML VIAL 200 MG INHALATION ×4 (02:10→19:52)
[2024-07-28] MEDS: PROPOFOL IV EMULSION 100 ML 15.34 MG IV CONT ×2 (03:05→20:30)
[2024-07-28 04:54] LABS: Base Excess ABG 0.6 mEq/l (+/-2.0); Fractional Inspired Oxygen 30 %; HCO3 ABG 23.1 mEq/l (22.0-26.0); Methemoglobin ABG 0.3 %THb (0-1.5); Oxygen Content ABG 14.7 %vol (16.0-22.0); Oxygen Saturation ABG 96.3 % (95.0-100.0); Oxyhemoglobin 94.8 % THb (90.0-100.0); PO2 ABG 74.7 mmHg (80.0-100.0); PO2 FiO2 Ratio Arterial Blood 2.49 %; Reduced Hemoglobin 4.9 %THb (0-5.0)
[2024-07-28 04:57] LABS: Arterial Blood Gas Vent Mode CMV; Arterial Blood Gas Ventilator rate 20 /MIN; Device VENTILATOR; Modified Allen's Test Pass; Site Drawn RIGHT RADIAL; pH ABG 7.504 (7.350-7.450)
[2024-07-28 04:58] LABS: Arterial Blood Gas PEEP 8 cmH2O; Arterial Blood Gas Tidal Volume 500 ml
[2024-07-28] MEDS: CENTRAL LINE FLUSH 10 ML IV PUSH ×3 (05:04→22:03)
[2024-07-28 06:51] LABS: Basophils Percent Auto 0.3 % (0.2-1.2); Eosinophils Percent Auto 0.2 % (0-4.4); Hematocrit 30.4 % (42.0-52.0); Hemoglobin 10.3 g/dL (14.0-18.0); Immature Granulocyte Absolute 0.41 K/mm3 (0.00-0.031); Immature Granulocyte Percent A 3.2 % (0-0.5); Lymphocytes Absolute Auto 0.96 K/mm3 (0.9-3.2); Lymphocytes Percent Auto 7.5 % (18.3-44.2); Mean Corpuscular HGB Conc 33.9 g/dl (32-36); Mean Corpuscular Hemoglobin 34.8 pg (26-34); Mean Corpuscular Volume 102.7 fl (80-100); Mean Platelet Volume 11.9 fl (7.4-10.4); Monocytes Percent Auto 7.6 % (2.6-8.5); Neutrophils Absolute Auto 10.4 K/mm3 (1.3-6.7); Neutrophils Percent Auto 81.2 % (45.5-73.1); Nucleated Red Blood Cells Perc 0.8 % (0.0-0.2); Platelet Count Result 109 k/mm3 (150-375); Red Blood Count 2.96 M/mm3 (4.6-6.20); Red Cell Distribution Width 13.4 % (11.5-14.5); White Blood Count 12.8 K/mm3 (4.5-10.0)
[2024-07-28 07:06] LABS: Lactic Acid Reflex 1.6 mmol/L (0.7-2.0)
[2024-07-28 07:07] LABS: Alanine Aminotransferase 54 U/L (6-50); Albumin Level 2.9 g/dL (3.5-5.1); Alkaline Phosphatase 118 U/L (38-126); Anion Gap 5 mmol/L (4-12); Aspartate Amino Transferase 52 U/L (17-59); Bilirubin,Total 0.5 mg/dL (0.2-1.3); Blood Urea Nitrogen 55 mg/dL (9-20); Carbon Dioxide 26 mmol/L (22-30); Chloride 114 mmol/L (98-107); Estimated CRCL calculation 61 ml/min; Estimated Glomerular Filt Rate > 60; Glucose 237 mg/dL (65-110); Magnesium 2.2 mg/dL (1.6-2.3); Phosphorus 3.3 mg/dL (2.5-4.5); Potassium 3.3 mmol/L (3.4-5.0); Sodium 145 mmol/L (137-145)
[2024-07-28 07:48] LABS: Macrocytosis 1+ (NORMAL); Platelet Estimate Decreased (Adequate); Schistocytes None Seen
[2024-07-28] MEDS: PROPOFOL IV EMULSION 100 ML 17.89 MG IV CONT (08:16)
[2024-07-28] MEDS: amLODIPine BESYLATE 10 MG TABLET PO (08:17)
[2024-07-28] MEDS: AZITHROMYCIN 500 MG/NS 250 ML 500 MG/250 ML BAG 250 MG IVPB (08:17)
[2024-07-28] MEDS: QUEtiapine FUMARATE 25 MG TABLET PO ×2 (08:17→20:00)
[2024-07-28] MEDS: lisinopriL 20 MG TABLET 40 MG PO (08:17)
[2024-07-28] MEDS: MINERAL OIL/WHITE PETROLATUM OINTMENT 1 APPLIC EACH EYE ×2 (08:18→19:59)
[2024-07-28] MEDS: PANTOPRAZOLE SODIUM IV 40 MG VIAL IV PUSH (08:18)
[2024-07-28] MEDS: cefTRIAXone 2 GM/NS 100 ML 2 GM/100 ML BAG IVPB (08:18)
[2024-07-28] MEDS: INSULIN GLARGINE (*BKC) 100 UNITS/ML 20 UNITS SUB-Q (08:23)
[2024-07-28] MEDS: POTASSIUM CHLORIDE 20 MEQ PACKET (FOR LIQUID) FEED TUBE (08:46)
[2024-07-28] MEDS: POTASSIUM CHLORIDE 20 MEQ PACKET (FOR LIQUID) 40 MEQ FEED TUBE (08:46)
[2024-07-28] MEDS: BUMETANIDE INJ 1 MG/4 ML VIAL IV PUSH (08:47)
[2024-07-28] MEDS: KCL 40 MEQ/WATER 100 ML 100 ML 25 ML IVPB (08:47)
[2024-07-28] MEDS: ENOXAPARIN 40 MG/0.4 ML SYRINGE SUB-Q (09:05)
--- NOTE | 2024-07-28 11:35 | WPDINTPN ---
Progress Note: A&P Assessment and Plan (1) Severe sepsis: Code(s): A41.9 - Sepsis, unspecified organism; R65.20 - Severe sepsis without septic shock Status: Acute Assessment and Plan: 07/22: Patient presented the ED with shortness of breath, chest x-ray showed right lower lobe consolidation/pneumonia, acute kidney injury, tachycardia, tachypnea -patient given 30 cc/kg IV fluids in the ER, patient was also given Lasix 40 mg IV x1 -07/22: Blood cultures growing Streptococcus pneumoniae 1/2 bottles -07/22: Sputum cultures growing Streptococcus pneumoniae 07/24: Repeat blood cultures negative so far -lactic acidosis has resolved -continue ceftriaxone, azithromycin, vancomycin (07/22) -07/22: Right IJ central line was inserted in the ICU -07/23: Patient has some blood in stool, Hemoccult was negative, DIC panel was within normal limits, hematuria has cleared up -07/24: Overnight patient dropped his blood pressures in the 70s, I had to be started on Levophed for a brief amount of time, -07/25: Remains on low-dose Levophed, wean to maintain MAP > 65 mmHg or SBP > 100 mmHg for adequate end organ perfusion -off Levophed 07/22: CT soft tissue neck without contrast: This was done as his neck movements were restricted. Impression: The endotracheal tube tip is in expected position. There is a small right pleural effusion. There are no pathologically enlarged lymph nodes. Partially visualized is an orogastric tube. Partially visualized is a right internal jugular central venous catheter with tip at least to the superior vena cava. There is mucosal thickening in right maxillary sinus. There is multifocal dental disease. There is a 17 mm nodule in right thyroid lobe. There are bridging endplate osteophytes at multiple levels in the spine, consistent with diffuse idiopathic skeletal hyperostosis (DISH). (2) Acute respiratory failure: Code(s): J96.00 - Acute respiratory failure, unspecified whether with hypoxia or hypercapnia Status: Acute Assessment and Plan: Acute respiratory failure likely related to right lower lobe pneumonia. Patient also tachypneic and tachycardic, will send patient for a CT scan of the chest PE protocol to rule out pulmonary embolism -07/22: Intubated in the ICU -continue CMV mode of ventilation, peep of10 and 30 FiO2, wean FiO2 to maintain O2 sats > 92%, will decrease PEEP to 8 -chest x-ray this morning and ABGs reviewed, continue low tidal volume strategy -continue bronchodilators -07/24: patient had thick secretions, added Mucomyst and Pulmozyme nebs, secretions have improved 07/26: Will place patient on Precedex infusion, wean fentanyl and Versed infusion once patient is more awake will evaluate for extubation. Will diurese today 07/27: Failed SBT, was tachypneic, tachycardic, with decreased tidal volume -sedated with propofol and Precedex infusion, maintain RASS of 0 to -2. Daily SAT and SBT, diurese again today 07/28: Placed patient on ASV mode and tolerating. Once his propofol is weaned off, will place patient on SBT -off Nimbex since 07/24 07/22: CT a chest PE, abdomen/pelvis IMPRESSION: No evidence of pulmonary embolism Prominent bilateral lower lobe consolidation. Mild lobe infiltrate. (3) Pneumonia: Code(s): J18.9 - Pneumonia, unspecified organism Status: Acute Assessment and Plan: Right lower lobe pneumonia seen on chest x-ray -continue mechanical ventilation, bronchodilators -continue hydrocortisone 50 mg IV q.6 hours for pneumonia (07/22) continue 5 days, discontinue steroids (4) MILENA (acute kidney injury): Code(s): N17.9 - Acute kidney failure, unspecified Status: Acute Assessment and Plan: Patient presented with severe sepsis, acute kidney injury with creatinine of 2.00. Baseline creatinine unknown -received 30 cc/kg IV fluid bolus in the ER -patient is received adequate amount of IV fluids, urine output has been adequate, creatinine improving -discontinue IV fluids at this time -hypomagnesemia, resolved -hypophosphatemia, resolved -hypokalemia, will replete -creatinine stable and improving (5) Elevated liver enzymes: Code(s): R74.8 - Abnormal levels of other serum enzymes Status: Acute Assessment and Plan: Elevated liver enzymes, could be related to severe hypoxemia, HCV, -hepatitis panel is negative -HCV RNA PCR : Elevated PCR titers, appreciate GI evaluation recommendations, if patient decides to stay with the family in the local area he can follow with them to discuss treatment option -07/23: RUQ ultrasound: Right pleural effusion, minimal fluid around the gallbladder. Evaluation of cholecystitis advised, otherwise normal limited ultrasound of the abdomen -LFTs trending down, continue to monitor (6) CHF (congestive heart failure): Code(s): I50.9 - Heart failure, unspecified Status: Acute Assessment and Plan: History of CHF, proBNP was 700 -chest x-ray did not show any pulmonary edema -continue amlodipine and lisinopril 07/24: Echocardiogram Summary 1. Complete two-dimensional, color flow and Doppler transthoracic echocardiogram is performed. 2. Left ventricle is normal in size with mildly reduced systolic function. The left ventricular ejection fraction is visually estimated to be 45-50%. 3. The right ventricle is normal in size and systolic function. 4. The aortic valve is not well visualized. The Doppler gradients does not suggest any hemodynamically significant stenosis. (7) Elevated troponin: Code(s): R79.89 - Other specified abnormal findings of blood chemistry Status: Acute Assessment and Plan: Elevated troponin likely related to 2 type 2 infarct, secondary to tachycardia, tachypnea -echocardiogram did not reveal any new wall motion abnormality, continue to monitor for chest pain -troponins have plateaued (8) Hyperglycemia: Code(s): R73.9 - Hyperglycemia, unspecified Status: Acute Assessment and Plan: Continue Accu-Cheks and sliding scale insulin, -will increase Lantus -check hemoglobin A1c (9) Essential hypertension: Code(s): I10 - Essential (primary) hypertension Status: Acute Assessment and Plan: Patient has been started on amlodipine and lisinopril Plan DVT prophylaxis: Will restart Lovenox as platelets are greater than 100k Stress ulcer prophylaxis: Protonix Nutrition: Tolerating tube, and banatrol Code Status: Full code Critical Care Time Spent: 32 minutes Discussed with patient's daughter, other family members in rounds a.m. updated them with his condition and plan of care. They are aware that we will place him on SBT and evaluate for extubation. I answered all questions 07/22/2024: Discuss with Miranda, patient's daughter and next of kin. She stated that the patient lives in [facility] by himself, has never , she is the only child. States he drinks alcohol from sun up to sun down, also uses marijuana and cocaine. Smokes cigarettes 1 pack per day for many years. She does not know what other medical conditions he has. I updated the daughter with patient's condition and plan of care. I answered all her questions Due to a high probability of clinically significant, life threatening deterioration, the patient required my highest level of preparedness to intervene emergently and I personally spent this critical care time directly and personally managing the patient. This critical care time included obtaining a history; examining the patient; pulse oximetry; ordering and review of studies; arranging urgent treatment with development of a management plan; evaluation of patient's response to treatment; frequent reassessment; and discussions with other providers. It was exclusive of separately billable procedures and treating other patients and teaching time. Please see Assessment and Plan section and the rest of the note for further information on patient assessment and treatment This dictation may have been done utilizing a voice recognition system. Attempts have been made to correct errors. However, there may be uncorrected grammatical, spelling, and recognitions errors present. Subjective Date/time seen: 07/28/24 11:35 Interval history: Reason for consult: Acute respiratory failure, pneumonia, severe sepsis, acute kidney injury Intubated: 07/2207/28/2024: Patient seen and examined the ICU, remains intubated on CMV mode of ventilation, peep of 8, 30% FiO2, sedated with Precedex and propofol infusion. Patient opens his eyes, follows simple commands in all extremities, hemodynamically stable, responded well to Lasix with negative fluid balance. Patient is afebrile Tolerating tube feeds, positive bowel move Review of Systems Review of Systems: ROS unobtainable: Yes unobtainable due to endotracheal tube and unobtainable due to medical condition Exam Narrative: General: Patient intubated, sedated, not in acute distress HEENT:? Pupils equal and reactive, sclera is clear, ETT in place Neck:? Neck movements are restricted Respiratory:? Coarse breath sounds bilaterally, rales in right lower base no wheezing, adequate air entry Cardiac:? S1-S2 is normal, sinus tachycardia Abdomen:? Soft, nondistended, nontender, hypoactive bowel sounds Extremities:? No edema, palpable pedal pulses Neuro:? Patient is intubated, sedated,, opens his eyes and follows simple commands, withdraws to pain in all extremities. Skin:? Dry skin, no other lesions noted Psych:? Unable to assess at this time Objective Data Vital Signs Vital Signs: Vital Signs - 24 hr 07/27/24 11:52 07/27/24 11:59 07/27/24 12:00 Temperature Pulse Rate 93 93 93 Respiratory Rate 36 H 35 H 35 H Blood Pressure Pulse Oximetry Oxygen Delivery Fraction of Inspired Oxygen 07/27/24 12:00 07/27/24 12:00 07/27/24 12:00 Temperature 99.8 F H Pulse Rate 91 93 Respiratory Rate 35 H 37 H Blood Pressure 138/79 Pulse Oximetry 96 97 Oxygen Delivery Mechanical Ventilation Fraction of Inspired Oxygen 30 30 07/27/24 12:00 07/27/24 12:05 07/27/24 13:18 Temperature Pulse Rate 89 91 87 Respiratory Rate 29 H Blood Pressure Pulse Oximetry 96 Oxygen Delivery Mechanical Ventilation Fraction of Inspired Oxygen 30 07/27/24 13:22 07/27/24 13:22 07/27/24 14:00 Temperature 100.4 F H Pulse Rate 87 84 Respiratory Rate 29 H 25 H Blood Pressure Pulse Oximetry Oxygen Delivery Fraction of Inspired Oxygen 07/27/24 14:00 07/27/24 14:00 07/27/24 14:00 Temperature 100.2 F H Pulse Rate 84 84 84 Respiratory Rate 25 H 25 H Blood Pressure 135/79 Pulse Oximetry 95 Oxygen Delivery Fraction of Inspired Oxygen 07/27/24 14:22 07/27/24 14:29 07/27/24 14:30 Temperature 100.1 F H Pulse Rate 87 86 Respiratory Rate 29 H Blood Pressure Pulse Oximetry 94 Oxygen Delivery Mechanical Ventilation Fraction of Inspired Oxygen 30 07/27/24 14:47 07/27/24 15:38 07/27/24 15:38 Temperature Pulse Rate 86 77 77 Respiratory Rate 28 H 22 H 22 H Blood Pressure Pulse Oximetry Oxygen Delivery Fraction of Inspired Oxygen 07/27/24 16:00 07/27/24 16:00 07/27/24 16:00 Temperature Pulse Rate 76 76 76 Respiratory Rate 22 H 22 H 22 H Blood Pressure Pulse Oximetry Oxygen Delivery Fraction of Inspired Oxygen 07/27/24 16:00 07/27/24 16:00 07/27/24 16:00 Temperature Pulse Rate 76 75 Respiratory Rate 22 H Blood Pressure Pulse Oximetry 94 Oxygen Delivery Mechanical Ventilation Fraction of Inspired Oxygen 30 30 07/27/24 16:00 07/27/24 17:14 07/27/24 17:15 Temperature 99.4 F Pulse Rate 76 85 84 Respiratory Rate 21 H 26 H Blood Pressure 150/97 H Pulse Oximetry 95 94 Oxygen Delivery Mechanical Ventilation Fraction of Inspired Oxygen 30 07/27/24 17:25 07/27/24 18:00 07/27/24 18:00 Temperature 98.6 F Pulse Rate 83 79 79 Respiratory Rate 24 H 24 H Blood Pressure 117/78 Pulse Oximetry 97 Oxygen Delivery Fraction of Inspired Oxygen 07/27/24 18:00 07/27/24 18:00 07/27/24 19:08 Temperature Pulse Rate 79 79 72 Respiratory Rate 24 H 24 H 21 H Blood Pressure Pulse Oximetry Oxygen Delivery Fraction of Inspired Oxygen 07/27/24 19:34 07/27/24 20:00 07/27/24 20:00 Temperature Pulse Rate 72 Respiratory Rate 21 H Blood Pressure Pulse Oximetry Oxygen Delivery Mechanical Ventilation Fraction of Inspired Oxygen 30 30 07/27/24 20:00 07/27/24 20:00 07/27/24 20:00 Temperature 98 F Pulse Rate 69 69 68 Respiratory Rate 20 20 Blood Pressure 100/70 Pulse Oximetry 99 Oxygen Delivery Fraction of Inspired Oxygen 07/27/24 20:00 07/27/24 20:45 07/27/24 20:45 Temperature Pulse Rate 68 68 68 Respiratory Rate 20 20 20 Blood Pressure Pulse Oximetry Oxygen Delivery Fraction of Inspired Oxygen 07/27/24 20:57 07/27/24 21:00 07/27/24 21:23 Temperature Pulse Rate 70 70 71 Respiratory Rate 20 28 H Blood Pressure Pulse Oximetry 100 Oxygen Delivery Mechanical Ventilation Fraction of Inspired Oxygen 30 07/27/24 22:00 07/27/24 22:00 07/27/24 22:00 Temperature Pulse Rate 71 71 71 Respiratory Rate 23 H 23 H Blood Pressure Pulse Oximetry Oxygen Delivery Fraction of Inspired Oxygen 07/27/24 22:00 07/27/24 22:42 07/27/24 22:44 Temperature 97.1 F L Pulse Rate 71 70 70 Respiratory Rate 23 H 27 H 27 H Blood Pressure 103/74 Pulse Oximetry 95 Oxygen Delivery Fraction of Inspired Oxygen 07/27/24 23:20 07/28/24 00:00 07/28/24 00:00 Temperature Pulse Rate 68 69 69 Respiratory Rate 22 H 22 H Blood Pressure Pulse Oximetry 96 Oxygen Delivery Mechanical Ventilation Fraction of Inspired Oxygen 30 07/28/24 00:00 07/28/24 00:00 07/28/24 00:00 Temperature Pulse Rate 69 Respiratory Rate Blood Pressure Pulse Oximetry Oxygen Delivery Mechanical Ventilation Fraction of Inspired Oxygen 30 30 07/28/24 00:00 07/28/24 01:52 07/28/24 01:52 Temperature 96.5 F L Pulse Rate 69 70 70 Respiratory Rate 22 H 21 H 21 H Blood Pressure 128/88 Pulse Oximetry 94 Oxygen Delivery Fraction of Inspired Oxygen 07/28/24 02:00 07/28/24 02:00 07/28/24 02:00 Temperature 97.4 F L Pulse Rate 70 70 70 Respiratory Rate 23 H 23 H Blood Pressure 139/96 H Pulse Oximetry 96 Oxygen Delivery Fraction of Inspired Oxygen 07/28/24 02:00 07/28/24 02:10 07/28/24 02:13 Temperature Pulse Rate 70 70 70 Respiratory Rate 23 H 27 H Blood Pressure Pulse Oximetry 95 Oxygen Delivery Mechanical Ventilation Fraction of Inspired Oxygen 30 07/28/24 02:23 07/28/24 03:05 07/28/24 03:05 Temperature Pulse Rate 74 73 73 Respiratory Rate 27 H 24 H 24 H Blood Pressure Pulse Oximetry Oxygen Delivery Fraction of Inspired Oxygen 07/28/24 04:00 07/28/24 04:00 07/28/24 04:00 Temperature Pulse Rate 74 Respiratory Rate 22 H Blood Pressure Pulse Oximetry Oxygen Delivery Mechanical Ventilation Fraction of Inspired Oxygen 30 30 07/28/24 04:00 07/28/24 04:00 07/28/24 04:43 Temperature 98 F Pulse Rate 74 74 75 Respiratory Rate 22 H Blood Pressure 137/92 H Pulse Oximetry 98 98 Oxygen Delivery Mechanical Ventilation Fraction of Inspired Oxygen 30 07/28/24 05:00 07/28/24 05:00 07/28/24 05:02 Temperature Pulse Rate 73 74 73 Respiratory Rate 21 H 24 H 21 H Blood Pressure Pulse Oximetry Oxygen Delivery Fraction of Inspired Oxygen 07/28/24 06:00 07/28/24 06:00 07/28/24 06:00 Temperature Pulse Rate 72 72 72 Respiratory Rate 24 H 24 H Blood Pressure Pulse Oximetry Oxygen Delivery Fraction of Inspired Oxygen 07/28/24 06:00 07/28/24 08:00 07/28/24 08:00 Temperature 98.2 F Pulse Rate 72 69 69 Respiratory Rate 24 H 22 H 22 H Blood Pressure 128/86 Pulse Oximetry 95 Oxygen Delivery Fraction of Inspired Oxygen 07/28/24 08:00 07/28/24 08:00 07/28/24 08:00 Temperature 98.1 F Pulse Rate 69 Respiratory Rate 20 Blood Pressure 127/90 Pulse Oximetry 97 Oxygen Delivery Mechanical Ventilation Fraction of Inspired Oxygen 30 30 07/28/24 08:00 07/28/24 08:03 07/28/24 08:03 Temperature Pulse Rate 69 68 68 Respiratory Rate 20 Blood Pressure Pulse Oximetry 97 Oxygen Delivery Mechanical Ventilation Fraction of Inspired Oxygen 30 07/28/24 08:10 07/28/24 08:11 07/28/24 08:16 Temperature Pulse Rate 70 70 70 Respiratory Rate 22 H 22 H 22 H Blood Pressure Pulse Oximetry Oxygen Delivery Fraction of Inspired Oxygen 07/28/24 08:16 07/28/24 08:22 07/28/24 08:48 Temperature Pulse Rate 70 72 75 Respiratory Rate 22 H 25 H 33 H Blood Pressure Pulse Oximetry Oxygen Delivery Fraction of Inspired Oxygen 07/28/24 09:45 07/28/24 10:00 07/28/24 10:00 Temperature Pulse Rate 77 84 84 Respiratory Rate 24 H 24 H 24 H Blood Pressure Pulse Oximetry Oxygen Delivery Fraction of Inspired Oxygen 07/28/24 10:00 07/28/24 10:00 07/28/24 10:45 Temperature Pulse Rate 83 82 81 Respiratory Rate 23 H Blood Pressure 140/95 H Pulse Oximetry 95 96 Oxygen Delivery Mechanical Ventilation Fraction of Inspired Oxygen 30 07/28/24 11:12 07/28/24 11:12 Temperature Pulse Rate 77 77 Respiratory Rate 21 H 21 H Blood Pressure Pulse Oximetry Oxygen Delivery Fraction of Inspired Oxygen Intake/Output Intake/Output: Intake & Output 07/25/24 07/26/24 07/27/24 07/28/24 23:59 23:59 23:59 23:59 Intake Total 3115.3 3498.0 3333.4 1829.1 Output Total 1400 2575 5625 450 Balance 1715.3 923.0 -2291.6 1379.1 Meds/Results Medications: Active Medications Generic Name Dose Route Start Last Admin Trade Name Freq PRN Reason Stop Dose Admin Acetaminophen 650 mg 07/22/24 17:34 07/27/24 13:22 Acetaminophen Elixir 325 Mg/10.15 Ml Udc PO 650 mg Q6H PRN Administration Mild Pain (1-3) or Fever Acetylcysteine 200 mg 12/24/24 14:00 07/28/24 08:03 Acetylcysteine 20% Inhal Soln 800 Mg/4 Ml Vial INHALATION 200 mg Q6HRT ACOSTA Administration Amlodipine Besylate 10 mg 07/27/24 09:00 07/28/24 08:17 Amlodipine Besylate 10 Mg Tablet PO 10 mg DAILY ACOSTA Administration Dextrose 12.5 gm 07/23/24 12:52 Dextrose 50% 25 Gm/50 Ml Syringe IV PUSH PRN PRN Hypoglycemia Protocol Enoxaparin Sodium 40 mg 07/23/24 09:00 07/28/24 09:05 Enoxaparin 40 Mg/0.4 Ml Syringe SUB-Q 40 mg DAILY ACOSTA Administration Glucagon 1 mg 07/23/24 12:52 Glucagon For Inj 1 Mg Vial IM PRN PRN Hypoglycemia Protocol Glucose 15 gm 07/23/24 12:52 Glucose Oral Gel 15 Gm Of Glucse In 37.5 Gm Tube PO PRN PRN Hypoglycemia Protocol Hydralazine HCl 10 mg 07/26/24 10:51 07/27/24 16:36 Hydralazine Hcl 20 Mg/Ml Vial IV PUSH 10 mg Q4H PRN Administration Blood Pressure - High Ceftriaxone Sodium 2 gm in 100 mls @ 200 mls/hr 07/23/24 09:00 07/28/24 10:24 Rocephin 2 Gm/Ns 100 Ml IVPB Infused QAM ACOSTA Infusion Azithromycin 500 mg in 250 mls @ 250 mls/hr 07/23/24 09:00 07/28/24 10:14 Zithromax IVPB 07/28/24 23:59 Infused QAM ACOSTA Infusion Dextrose 1,000 mls @ 100 mls/hr 07/23/24 12:52 Dextrose 5% 1,000 Ml IVPB PRN PRN Hypoglycemia Protocol Dexmedetomidine HCl 400 mcg in 100 mls @ 31.95 mls/hr 07/26/24 08:20 07/28/24 11:12 Precedex 400 Mcg/100 Ml IV CONT 1.5 mcg/kg/hr .Q3H8M ACOSTA 31.95 mls/hr Administration Protocol 1.5 MCG/KG/HR Propofol 100 mls @ 12.78 mls/hr 07/26/24 13:25 07/28/24 10:00 Diprivan IV CONT 25 mcg/kg/min .Q7H50M ACOSTA 12.78 mls/hr Titration Protocol 25 MCG/KG/MIN Potassium Chloride 100 mls @ 25 mls/hr 07/28/24 08:30 07/28/24 08:47 Kcl 40 Meq/Water 100 Ml IVPB 07/28/24 12:29 25 mls/hr ONCE ONE Administration Insulin Aspart 3 - 6 units 07/24/24 12:00 07/28/24 07:18 Insulin Aspart (*Bkc) 100 Units/Ml SUB-Q 3 units Q6HR ACOSTA Administration Protocol Insulin Glargine 20 units 07/28/24 09:00 07/28/24 08:23 Insulin Glargine (*Bkc) 100 Units/Ml SUB-Q 20 units DAILY ACOSTA Administration Ipratropium [place] 0.5 mg 07/22/24 20:00 07/28/24 08:03 Ipratropium Br 0.02% Inh Soln 0.5 Mg/2.5 Ml Vial INHALATION 0.5 mg Q6HRT ACOSTA Administration Labetalol HCl 20 mg 07/26/24 23:45 07/27/24 04:32 Labetalol Hcl Inj 100 Mg/20 Ml Vial IV PUSH 20 mg Q4HR PRN Administration Blood Pressure - High Levalbuterol HCl 1.25 mg 07/22/24 20:00 07/28/24 08:03 Levalbuterol Neb 1.25 Mg/3 Ml INHALATION 1.25 mg Q6HRT ACOSTA Administration Lisinopril 40 mg 07/27/24 09:00 07/28/24 08:17 Lisinopril 20 Mg Tablet PO 40 mg QAM ACOSTA Administration Multi-Ingred Cream/Lotion/Oil/Oint 1 applic 07/22/24 21:00 07/28/24 08:18 Mineral Oil/White Petrolatum Ointment EACH EYE 1 applic Q12HR ACOSTA Administration Pantoprazole Sodium 40 mg 07/23/24 09:00 07/28/24 08:18 Pantoprazole Sodium Iv 40 Mg Vial IV PUSH 40 mg DAILY ACOSTA Administration Quetiapine Fumarate 25 mg 07/27/24 10:34 07/28/24 08:17 Quetiapine Fumarate 25 Mg Tablet PO 25 mg Q12HR ACOSTA Administration Sodium Chloride 10 ml 07/22/24 22:00 07/28/24 05:04 Central Line Flush IV PUSH 10 ml Q8HR ACOSTA Administration Sodium Chloride 20 ml 07/22/24 16:23 Central Line Flush IV PUSH PRN PRN after blood draws Radiology Results: ITS Impressions Chest/Abdomen/Pelvis CTA 07/22/24 18:32 IMPRESSION: No evidence of pulmonary embolism Prominent bilateral lower lobe consolidation. Mild lobe infiltrate. Soft Tissue Neck CT 07/23/24 06:55 IMPRESSION: 1. Small right pleural effusion. 2. 17 mm right thyroid nodule. Consider thyroid ultrasound for risk stratification. 3. Multifocal dental disease. Abdomen Ultrasound 07/23/24 12:48 IMPRESSION: 1. Right pleural effusion. Minimal fluid around the gallbladder. Evaluation for cholecystitis advised. Otherwise, normal Limited ultrasound of the abdomen. Abdomen X-Ray 07/26/24 06:25 IMPRESSION: 1. Nasogastric tube tip in the stomach. 2. Small right pleural effusion. 3. Airspace opacities in the lower lung zones, consistent with atelectasis versus pneumonia. Renal Ultrasound 07/26/24 15:27 IMPRESSION: Mild right pelviectasis. Mild pericholecystic fluid and gallbladder wall thickening. Chest X-Ray 07/28/24 10:28 IMPRESSION: 1. Decreasing small right pleural effusion. 2. unchanged mild bibasilar atelectasis versus pneumonia. Labs Labs: Laboratory Results - last 24 hr 07/27/24 07/27/24 07/27/24 13:28 17:12 19:03 WBC RBC Hgb Hct MCV MCH MCHC RDW Plt Count MPV Immature Gran % (Auto) Neut % (Auto) Lymph % (Auto) [place] % (Auto) Eos % (Auto) Baso % (Auto) Lymph # (Auto) [place] # (Auto) Eos # (Auto) Baso # (Auto) Abs Immat Gran (auto) Absolute Neuts (auto) Absolute Nucleated RBC Nucleated RBC % Platelet Estimate Macrocytosis Schistocytes Puncture Site ABG pH ABG pCO2 ABG pO2 ABG PO2/FiO2 Ratio ABG HCO3 ABG O2 Saturation ABG O2 Content ABG Base Excess A-a Gradient Oxyhemoglobin Carboxyhemoglobin Methemoglobin Reduced Hemoglobin Total Hemoglobin O2 Delivery Device O2 Liters/Min Minute Volume Vent Rate Vent Mode FiO2 Tidal Volume PEEP Peak Inspir Pressure Pressure Support Sodium 141 143 Potassium 2.8 L* 3.3 L Chloride 110 H 113 H Carbon Dioxide 24 26 Anion Gap 7 4 BUN 57 H 55 H Creatinine 1.50 H 1.50 H Estim Creat Clear Calc 53 53 Estimated GFR 57 L 57 L Glucose 353 H 280 H POC Capillary Glucose 396 H Lactic Acid Calcium 8.8 8.9 Phosphorus Magnesium Total Bilirubin AST ALT Alkaline Phosphatase Total Protein Albumin 07/28/24 07/28/24 07/28/24 00:10 04:49 06:10 WBC 12.8 H RBC 2.96 L Hgb 10.3 L Hct 30.4 L MCV 102.7 H MCH 34.8 H MCHC 33.9 RDW 13.4 Plt Count 109 L MPV 11.9 H Immature Gran % (Auto) 3.2 H Neut % (Auto) 81.2 H Lymph % (Auto) 7.5 L [place] % (Auto) 7.6 Eos % (Auto) 0.2 Baso % (Auto) 0.3 Lymph # (Auto) 0.96 [place] # (Auto) 1.0 H Eos # (Auto) 0.0 Baso # (Auto) 0.0 Abs Immat Gran (auto) 0.41 H Absolute Neuts (auto) 10.4 H Absolute Nucleated RBC 0.100 H Nucleated RBC % 0.8 H Platelet Estimate Decreased Macrocytosis 1+ Schistocytes None seen Puncture Site Right radial ABG pH 7.504 H* ABG pCO2 30.0 L ABG pO2 74.7 L ABG PO2/FiO2 Ratio 2.49 ABG HCO3 23.1 ABG O2 Saturation 96.3 ABG O2 Content 14.7 L ABG Base Excess 0.6 A-a Gradient 104.0 Oxyhemoglobin 94.8 Carboxyhemoglobin 0.0 Methemoglobin 0.3 Reduced Hemoglobin 4.9 Total Hemoglobin 11.0 L O2 Delivery Device Ventilator O2 Liters/Min Not Reportable Minute Volume Not Reportable Vent Rate 20 Vent Mode Cmv FiO2 30 Tidal Volume 500 PEEP 8 Peak Inspir Pressure Not Reportable Pressure Support Not Reportable Sodium 145 Potassium 3.3 L Chloride 114 H Carbon Dioxide 26 Anion Gap 5 BUN 55 H Creatinine 1.30 Estim Creat Clear Calc 61 Estimated GFR > 60 Glucose 237 H POC Capillary Glucose 229 H Lactic Acid 1.6 Calcium 9.0 Phosphorus 3.3 Magnesium 2.2 Total Bilirubin 0.5 AST 52 ALT 54 H Alkaline Phosphatase 118 Total Protein 6.0 L Albumin 2.9 L Quality VTE Prophylaxis VTE prophylaxis: mechanical ordered and pharmacologic ordered
[2024-07-28 12:03] LABS: Glucose Point of Care 271 mg/dl (65-105)
[2024-07-28] MEDS: PROPOFOL IV EMULSION 100 ML 10.22 MG IV CONT (13:02)
[2024-07-28 13:42] LABS: Triglycerides 156 mg/dL (<150)
[2024-07-28 17:37] LABS: Glucose Point of Care 189 mg/dl (65-105)
[2024-07-28] MEDS: hydrALAZINE HCL 20 MG/ML VIAL 10 MG IV PUSH (18:09)
[2024-07-29] VITALS (35 sets, daily range): BP systolic 131–166; BP diastolic 82–98; PULSE 71–96; RESP 18–27; TEMP 37.3–37.6; O2SAT 96–99
[2024-07-29] MEDS: INSULIN ASPART (*BKC) 100 UNITS/ML SUB-Q ×2 (00:20→05:29)
[2024-07-29 00:24] LABS: Glucose Point of Care 237 mg/dl (65-105)
[2024-07-29] MEDS: IPRATROPIUM BR 0.02% INH SOLN 0.5 MG/2.5 ML VIAL INHALATION ×4 (01:52→20:40)
[2024-07-29] MEDS: LEVALBUTEROL NEB 1.25 MG/3 ML INHALATION ×4 (01:52→20:40)
[2024-07-29] MEDS: ACETYLCYSTEINE 20% INHAL SOLN 800 MG/4 ML VIAL 200 MG INHALATION ×4 (01:52→20:41)
[2024-07-29] MEDS: PROPOFOL IV EMULSION 100 ML 15.34 MG IV CONT (02:00)
[2024-07-29] MEDS: dexmedeTOMIDine 400 MCG/100 ML 400 MCG/100 ML BAG 31.95 MCG IV CONT ×3 (02:35→09:23)
[2024-07-29 03:45] LABS: Basophils Percent Auto 0.2 % (0.2-1.2); Eosinophils Absolute Auto 0.1 K/mm3 (0-0.3); Eosinophils Percent Auto 0.8 % (0-4.4); Hematocrit 29.6 % (42.0-52.0); Hemoglobin 10.1 g/dL (14.0-18.0); Immature Granulocyte Absolute 0.29 K/mm3 (0.00-0.031); Lymphocytes Absolute Auto 1.03 K/mm3 (0.9-3.2); Lymphocytes Percent Auto 10.7 % (18.3-44.2); Mean Corpuscular HGB Conc 34.1 g/dl (32-36); Mean Corpuscular Hemoglobin 34.9 pg (26-34); Mean Corpuscular Volume 102.4 fl (80-100); Mean Platelet Volume 11.4 fl (7.4-10.4); Monocytes Absolute Auto 0.9 K/mm3 (0.1-0.6); Monocytes Percent Auto 9.3 % (2.6-8.5); Neutrophils Absolute Auto 7.3 K/mm3 (1.3-6.7); Nucleated Red Blood Cells Perc 0.4 % (0.0-0.2); Platelet Count Result 116 k/mm3 (150-375); Red Blood Count 2.89 M/mm3 (4.6-6.20); Red Cell Distribution Width 13.7 % (11.5-14.5); White Blood Count 9.7 K/mm3 (4.5-10.0)
[2024-07-29 03:57] LABS: Alanine Aminotransferase 52 U/L (6-50); Albumin Level 2.9 g/dL (3.5-5.1); Alkaline Phosphatase 114 U/L (38-126); Anion Gap 2 mmol/L (4-12); Aspartate Amino Transferase 52 U/L (17-59); Bilirubin,Total 0.6 mg/dL (0.2-1.3); Blood Urea Nitrogen 47 mg/dL (9-20); Calcium 8.9 mg/dL (8.4-10.2); Carbon Dioxide 28 mmol/L (22-30); Chloride 115 mmol/L (98-107); Estimated CRCL calculation 65 ml/min; Estimated Glomerular Filt Rate > 60; Glucose 211 mg/dL (65-110); Magnesium 1.9 mg/dL (1.6-2.3); Phosphorus 4.2 mg/dL (2.5-4.5); Potassium 3.6 mmol/L (3.4-5.0); Sodium 145 mmol/L (137-145)
[2024-07-29 04:13] LABS: Hemoglobin A1C 7.2 % (<5.7)
[2024-07-29 04:43] LABS: Alveolar/Arterial O2 Gradient 100.6 mmHg; Base Excess ABG 1.3 mEq/l (+/-2.0); Carboxyhemoglobin 0.3 % THb (0-2.0); Fractional Inspired Oxygen 30 %; HCO3 ABG 23.9 mEq/l (22.0-26.0); Oxygen Content ABG 14.4 %vol (16.0-22.0); Oxygen Saturation ABG 96.5 % (95.0-100.0); Oxyhemoglobin 95.1 % THb (90.0-100.0); PCO2 ABG 30.9 mmHg (35.0-45.0); PO2 FiO2 Ratio Arterial Blood 2.57 %; Reduced Hemoglobin 4.6 %THb (0-5.0); Total Hemoglobin 10.7 g/dL (12.0-18.0)
[2024-07-29 04:44] LABS: Device VENTILATOR; Modified Allen's Test Pass; Site Drawn RIGHT RADIAL; pH ABG 7.506 (7.350-7.450)
[2024-07-29 04:45] LABS: Arterial Blood Gas PEEP 8 cmH2O; Arterial Blood Gas Tidal Volume 500 ml; Arterial Blood Gas Vent Mode CMV; Arterial Blood Gas Ventilator rate 18 /MIN
[2024-07-29] MEDS: CENTRAL LINE FLUSH 10 ML IV PUSH ×2 (05:29→22:01)
[2024-07-29 06:07] LABS: Glucose Point of Care 206 mg/dl (65-105)
[2024-07-29] MEDS: PROPOFOL IV EMULSION 100 ML 17.89 MG IV CONT (08:50)
[2024-07-29] MEDS: cefTRIAXone 2 GM/NS 100 ML 2 GM/100 ML BAG IVPB (08:53)
[2024-07-29] MEDS: lisinopriL 20 MG TABLET 40 MG PO (08:53)
[2024-07-29] MEDS: amLODIPine BESYLATE 10 MG TABLET PO (08:53)
[2024-07-29] MEDS: PANTOPRAZOLE SODIUM IV 40 MG VIAL IV PUSH (08:53)
[2024-07-29] MEDS: QUEtiapine FUMARATE 25 MG TABLET PO (08:53)
[2024-07-29] MEDS: ENOXAPARIN 40 MG/0.4 ML SYRINGE SUB-Q (08:54)
[2024-07-29] MEDS: MAGNESIUM SULF 2 GM/WATER 50ML 2 GM/50 ML BAG IVPB (08:56)
[2024-07-29] MEDS: KCL 40 MEQ/WATER 100 ML 100 ML 25 ML IVPB (08:56)
[2024-07-29] MEDS: INSULIN GLARGINE (*BKC) 100 UNITS/ML 20 UNITS SUB-Q (09:04)
[2024-07-29] MEDS: POTASSIUM CHLORIDE 20 MEQ PACKET (FOR LIQUID) 40 MEQ FEED TUBE (09:12)
[2024-07-29] MEDS: MINERAL OIL/WHITE PETROLATUM OINTMENT 1 APPLIC EACH EYE (09:22)
[2024-07-29 10:24] LABS: Base Excess ABG -1.7 mEq/l (+/-2.0); Fractional Inspired Oxygen 30 %; HCO3 ABG 20.2 mEq/l (22.0-26.0); Oxygen Saturation ABG 97.9 % (95.0-100.0); Oxyhemoglobin 96.9 % THb (90.0-100.0); PO2 ABG 94.4 mmHg (80.0-100.0); PO2 FiO2 Ratio Arterial Blood 3.15 %; Total Hemoglobin 10.9 g/dL (12.0-18.0)
[2024-07-29 10:26] LABS: Device VENTILATOR; Modified Allen's Test Pass; Site Drawn RIGHT RADIAL; pH ABG 7.509 (7.350-7.450)
[2024-07-29 10:27] LABS: Arterial Blood Gas PEEP 8 cmH2O; Arterial Blood Gas Pressure Support 8 cmH2O; Arterial Blood Gas Vent Mode SPONTANEOUS
[2024-07-29] MEDS: FUROSEMIDE INJ 40 MG/4 ML VIAL IV PUSH (11:05)
[2024-07-29 12:23] LABS: Glucose Point of Care 155 mg/dl (65-105)
[2024-07-29] MEDS: dexmedeTOMIDine 400 MCG/100 ML 400 MCG/100 ML BAG 29.82 MCG IV CONT (12:31)
--- NOTE | 2024-07-29 14:10 | WPDINTPN ---
Progress Note: A&P Assessment and Plan (1) Severe sepsis: Code(s): A41.9 - Sepsis, unspecified organism; R65.20 - Severe sepsis without septic shock Status: Acute Assessment and Plan: 07/22: Patient presented the ED with shortness of breath, chest x-ray showed right lower lobe consolidation/pneumonia, acute kidney injury, tachycardia, tachypnea -patient given 30 cc/kg IV fluids in the ER, patient was also given Lasix 40 mg IV x1 -07/22: Blood cultures growing Streptococcus pneumoniae 1/2 bottles -07/22: Sputum cultures growing Streptococcus pneumoniae 07/24: Repeat blood cultures negative so far -lactic acidosis has resolved -discontinued azithromycin and ceftriaxone -will continue vancomycin (07/22) for total of 10 days -07/22: Right IJ central line was inserted in the ICU -07/23: Patient has some blood in stool, Hemoccult was negative, DIC panel was within normal limits, hematuria has cleared up -07/24: Overnight patient dropped his blood pressures in the 70s, I had to be started on Levophed for a brief amount of time, -07/25: Remains on low-dose Levophed, wean to maintain MAP > 65 mmHg or SBP > 100 mmHg for adequate end organ perfusion -off Levophed 07/22: CT soft tissue neck without contrast: This was done as his neck movements were restricted. Impression: The endotracheal tube tip is in expected position. There is a small right pleural effusion. There are no pathologically enlarged lymph nodes. Partially visualized is an orogastric tube. Partially visualized is a right internal jugular central venous catheter with tip at least to the superior vena cava. There is mucosal thickening in right maxillary sinus. There is multifocal dental disease. There is a 17 mm nodule in right thyroid lobe. There are bridging endplate osteophytes at multiple levels in the spine, consistent with diffuse idiopathic skeletal hyperostosis (DISH). (2) Acute respiratory failure: Code(s): J96.00 - Acute respiratory failure, unspecified whether with hypoxia or hypercapnia Status: Acute Assessment and Plan: Acute respiratory failure likely related to right lower lobe pneumonia. Patient also tachypneic and tachycardic, will send patient for a CT scan of the chest PE protocol to rule out pulmonary embolism -07/22: Intubated in the ICU -continue CMV mode of ventilation, peep of10 and 30 FiO2, wean FiO2 to maintain O2 sats > 92%, will decrease PEEP to 8 -chest x-ray this morning and ABGs reviewed, continue low tidal volume strategy -continue bronchodilators -off Nimbex since 07/24 -07/24: patient had thick secretions, added Mucomyst and Pulmozyme nebs, secretions have improved 07/26: Will place patient on Precedex infusion, wean fentanyl and Versed infusion once patient is more awake will evaluate for extubation. Will diurese today 07/27: Failed SBT, was tachypneic, tachycardic, with decreased tidal volume -sedated with propofol and Precedex infusion, maintain RASS of 0 to -2. Daily SAT and SBT, diurese again today 07/28: Placed patient on ASV mode and tolerating. Once his propofol is weaned off, will place patient on SBT 07/29: Propofol was discontinued, patient only on Precedex infusion, awake, alert, placed on SBT, did well, RSBI is within good limits, patient was successfully extubated 07/22: CT a chest PE, abdomen/pelvis IMPRESSION: No evidence of pulmonary embolism Prominent bilateral lower lobe consolidation. Mild lobe infiltrate. (3) Pneumonia: Code(s): J18.9 - Pneumonia, unspecified organism Status: Acute Assessment and Plan: Right lower lobe pneumonia seen on chest x-ray -continue mechanical ventilation, bronchodilators -status post 5 days of hydrocortisone for pneumonia (4) MILENA (acute kidney injury): Code(s): N17.9 - Acute kidney failure, unspecified Status: Acute Assessment and Plan: Patient presented with severe sepsis, acute kidney injury with creatinine of 2.00. Baseline creatinine unknown -received 30 cc/kg IV fluid bolus in the ER -patient is received adequate amount of IV fluids, urine output has been adequate, creatinine improving -discontinue IV fluids at this time -hypomagnesemia, resolved -hypophosphatemia, resolved -hypokalemia, will replete -creatinine normalized (5) Elevated liver enzymes: Code(s): R74.8 - Abnormal levels of other serum enzymes Status: Acute Assessment and Plan: Elevated liver enzymes, could be related to severe hypoxemia, HCV, -hepatitis panel is negative -HCV RNA PCR : Elevated PCR titers, appreciate GI evaluation recommendations, if patient decides to stay with the family in the local area he can follow with them to discuss treatment option -07/23: RUQ ultrasound: Right pleural effusion, minimal fluid around the gallbladder. Evaluation of cholecystitis advised, otherwise normal limited ultrasound of the abdomen -LFTs trending down, continue to monitor (6) CHF (congestive heart failure): Code(s): I50.9 - Heart failure, unspecified Status: Acute Assessment and Plan: History of CHF, proBNP was 700 -chest x-ray did not show any pulmonary edema -continue amlodipine and lisinopril 07/24: Echocardiogram Summary 1. Complete two-dimensional, color flow and Doppler transthoracic echocardiogram is performed. 2. Left ventricle is normal in size with mildly reduced systolic function. The left ventricular ejection fraction is visually estimated to be 45-50%. 3. The right ventricle is normal in size and systolic function. 4. The aortic valve is not well visualized. The Doppler gradients does not suggest any hemodynamically significant stenosis. (7) Elevated troponin: Code(s): R79.89 - Other specified abnormal findings of blood chemistry Status: Acute Assessment and Plan: Elevated troponin likely related to 2 type 2 infarct, secondary to tachycardia, tachypnea -echocardiogram did not reveal any new wall motion abnormality, continue to monitor for chest pain -troponins have plateaued (8) Hyperglycemia: Code(s): R73.9 - Hyperglycemia, unspecified Status: Acute Assessment and Plan: Continue Accu-Cheks and sliding scale insulin, -will increase Lantus -hemoglobin A1c 7.2 this admission (9) Essential hypertension: Code(s): I10 - Essential (primary) hypertension Status: Acute Assessment and Plan: Patient has been started on amlodipine and lisinopril, blood pressures are controlled Plan DVT prophylaxis: Lower Stress ulcer prophylaxis: Protonix Nutrition: NPO except ice chips Code Status: Full code Critical Care Time Spent: 32 minutes Discussed with patient's daughter, other family members in rounds a.m. updated them with his condition and plan of care. Aware that the patient be placed on spontaneous breathing trial and evaluate for extubation this morning. I answered all the questions 07/22/2024: Discuss with Miranda, patient's daughter and next of kin. She stated that the patient lives in [facility] by himself, has never , she is the only child. States he drinks alcohol from sun up to sun down, also uses marijuana and cocaine. Smokes cigarettes 1 pack per day for many years. She does not know what other medical conditions he has. I updated the daughter with patient's condition and plan of care. I answered all her questions Due to a high probability of clinically significant, life threatening deterioration, the patient required my highest level of preparedness to intervene emergently and I personally spent this critical care time directly and personally managing the patient. This critical care time included obtaining a history; examining the patient; pulse oximetry; ordering and review of studies; arranging urgent treatment with development of a management plan; evaluation of patient's response to treatment; frequent reassessment; and discussions with other providers. It was exclusive of separately billable procedures and treating other patients and teaching time. Please see Assessment and Plan section and the rest of the note for further information on patient assessment and treatment This dictation may have been done utilizing a voice recognition system. Attempts have been made to correct errors. However, there may be uncorrected grammatical, spelling, and recognitions errors present. Subjective Date/time seen: 07/29/24 14:10 Interval history: Reason for consult: Acute respiratory failure, pneumonia, severe sepsis, acute kidney injury Intubated: 07/2207/29/2024: Patient seen and examined the ICU, remains intubated on CMV mode of ventilation, peep of 8 and 30% FiO2. Currently on Precedex infusion, propofol has been turned off. Patient opens eyes, follows simple commands in all extremities and nods to questions. He will be placed on SBT which he is aware. Responded well to diuresis with negative fluid balance in the last 24 hours. Patient has been afebrile and hemodynamically stable. Tolerating tube feeds with positive bowel movement Review of Systems Review of Systems: ROS unobtainable: Yes unobtainable due to endotracheal tube and unobtainable due to medical condition Exam Narrative: General: Patient intubated, sedated, not in acute distress HEENT:? Pupils equal and reactive, sclera is clear, ETT in place Neck:? Neck movements are restricted Respiratory:? Coarse breath sounds bilaterally, rales in right lower base no wheezing, adequate air entry Cardiac:? S1-S2 is normal, sinus tachycardia Abdomen:? Soft, nondistended, nontender, hypoactive bowel sounds Extremities:? No edema, palpable pedal pulses Neuro:? Patient is intubated, sedated,, opens his eyes and follows simple commands, withdraws to pain in all extremities. Skin:? Dry skin, no other lesions noted Psych:? Unable to assess at this time Objective Data Vital Signs Vital Signs: Vital Signs - 24 hr 07/28/24 14:14 07/28/24 14:14 07/28/24 14:15 Temperature Pulse Rate 77 77 78 Respiratory Rate 24 H 24 H 28 H Blood Pressure Pulse Oximetry Oxygen Delivery Oxygen Flow Rate Fraction of Inspired Oxygen 07/28/24 15:32 07/28/24 16:00 07/28/24 16:00 Temperature Pulse Rate 85 86 Respiratory Rate 28 H Blood Pressure Pulse Oximetry Oxygen Delivery Mechanical Ventilation Oxygen Flow Rate Fraction of Inspired Oxygen 30 07/28/24 16:00 07/28/24 16:00 07/28/24 16:00 Temperature 100 F H Pulse Rate 86 86 Respiratory Rate 27 H 27 H Blood Pressure 145/92 H Pulse Oximetry 94 Oxygen Delivery Oxygen Flow Rate Fraction of Inspired Oxygen 30 07/28/24 16:00 07/28/24 16:20 07/28/24 17:14 Temperature Pulse Rate 86 87 82 Respiratory Rate 27 H 25 H Blood Pressure Pulse Oximetry 94 Oxygen Delivery Mechanical Ventilation Oxygen Flow Rate Fraction of Inspired Oxygen 30 07/28/24 17:14 07/28/24 18:00 07/28/24 18:00 Temperature Pulse Rate 82 82 81 Respiratory Rate 25 H 21 H Blood Pressure Pulse Oximetry Oxygen Delivery Oxygen Flow Rate Fraction of Inspired Oxygen 07/28/24 18:00 07/28/24 18:00 07/28/24 19:53 Temperature 100 F H Pulse Rate 84 86 82 Respiratory Rate 24 H 24 H Blood Pressure 155/103 H Pulse Oximetry 96 97 Oxygen Delivery Mechanical Ventilation Oxygen Flow Rate Fraction of Inspired Oxygen 30 07/28/24 19:53 07/28/24 20:00 07/28/24 20:00 Temperature 100 F H Pulse Rate 82 83 83 Respiratory Rate 28 H 18 18 Blood Pressure 120/79 Pulse Oximetry 97 Oxygen Delivery Oxygen Flow Rate Fraction of Inspired Oxygen 07/28/24 20:00 07/28/24 20:00 07/28/24 20:00 Temperature Pulse Rate 83 84 Respiratory Rate 18 Blood Pressure Pulse Oximetry Oxygen Delivery Oxygen Flow Rate Fraction of Inspired Oxygen 30 07/28/24 20:00 07/28/24 20:15 07/28/24 20:20 Temperature Pulse Rate 84 88 84 Respiratory Rate 18 26 H 18 Blood Pressure Pulse Oximetry 97 Oxygen Delivery Mechanical Ventilation Oxygen Flow Rate Fraction of Inspired Oxygen 30 07/28/24 20:20 07/28/24 20:30 07/28/24 20:30 Temperature Pulse Rate 84 83 83 Respiratory Rate 18 18 18 Blood Pressure Pulse Oximetry Oxygen Delivery Oxygen Flow Rate Fraction of Inspired Oxygen 07/28/24 22:00 07/28/24 22:00 07/28/24 22:00 Temperature Pulse Rate 77 77 77 Respiratory Rate 18 18 Blood Pressure Pulse Oximetry Oxygen Delivery Oxygen Flow Rate Fraction of Inspired Oxygen 07/28/24 22:00 07/28/24 23:07 07/28/24 23:27 Temperature 100 F H Pulse Rate 77 82 78 Respiratory Rate 18 21 H Blood Pressure 125/83 Pulse Oximetry 98 98 Oxygen Delivery Mechanical Ventilation Oxygen Flow Rate Fraction of Inspired Oxygen 30 07/28/24 23:27 07/29/24 00:00 07/29/24 00:00 Temperature Pulse Rate 78 77 Respiratory Rate 21 H Blood Pressure Pulse Oximetry Oxygen Delivery Oxygen Flow Rate Fraction of Inspired Oxygen 30 07/29/24 00:00 07/29/24 00:00 07/29/24 00:00 Temperature 99.2 F Pulse Rate 77 77 77 Respiratory Rate 18 18 18 Blood Pressure 153/95 H Pulse Oximetry 97 97 Oxygen Delivery Mechanical Ventilation Oxygen Flow Rate Fraction of Inspired Oxygen 30 07/29/24 00:00 07/29/24 01:53 07/29/24 01:53 Temperature Pulse Rate 77 74 74 Respiratory Rate 18 18 Blood Pressure Pulse Oximetry 97 Oxygen Delivery Mechanical Ventilation Oxygen Flow Rate Fraction of Inspired Oxygen 30 07/29/24 02:00 07/29/24 02:00 07/29/24 02:00 Temperature Pulse Rate 75 75 75 Respiratory Rate 19 19 19 Blood Pressure Pulse Oximetry Oxygen Delivery Oxygen Flow Rate Fraction of Inspired Oxygen 07/29/24 02:00 07/29/24 02:00 07/29/24 02:04 Temperature 99.1 F Pulse Rate 75 75 75 Respiratory Rate 19 23 H Blood Pressure 157/97 H Pulse Oximetry 97 Oxygen Delivery Oxygen Flow Rate Fraction of Inspired Oxygen 07/29/24 02:35 07/29/24 02:35 07/29/24 04:00 Temperature Pulse Rate 82 82 96 Respiratory Rate 20 20 20 Blood Pressure Pulse Oximetry Oxygen Delivery Oxygen Flow Rate Fraction of Inspired Oxygen 07/29/24 04:00 07/29/24 04:00 07/29/24 04:00 Temperature 99.3 F Pulse Rate 96 96 Respiratory Rate 20 20 Blood Pressure 155/97 H Pulse Oximetry 99 Oxygen Delivery Oxygen Flow Rate Fraction of Inspired Oxygen 30 07/29/24 04:00 07/29/24 04:00 07/29/24 04:30 Temperature Pulse Rate 90 88 82 Respiratory Rate 19 18 Blood Pressure Pulse Oximetry 97 Oxygen Delivery Mechanical Ventilation Oxygen Flow Rate Fraction of Inspired Oxygen 30 07/29/24 04:46 07/29/24 06:00 07/29/24 06:00 Temperature Pulse Rate 84 73 73 Respiratory Rate 18 18 Blood Pressure Pulse Oximetry 96 Oxygen Delivery Mechanical Ventilation Oxygen Flow Rate Fraction of Inspired Oxygen 30 07/29/24 06:00 07/29/24 06:00 07/29/24 06:00 Temperature 99.4 F Pulse Rate 73 73 73 Respiratory Rate 18 18 Blood Pressure 135/91 H Pulse Oximetry 99 Oxygen Delivery Oxygen Flow Rate Fraction of Inspired Oxygen 07/29/24 07:47 07/29/24 07:47 07/29/24 08:00 Temperature Pulse Rate 72 72 76 Respiratory Rate 18 19 Blood Pressure Pulse Oximetry 96 Oxygen Delivery Mechanical Ventilation Oxygen Flow Rate Fraction of Inspired Oxygen 30 07/29/24 08:00 07/29/24 08:00 07/29/24 08:44 Temperature Pulse Rate 76 79 79 Respiratory Rate 19 20 Blood Pressure Pulse Oximetry Oxygen Delivery Oxygen Flow Rate Fraction of Inspired Oxygen 07/29/24 08:50 07/29/24 09:15 07/29/24 09:23 Temperature Pulse Rate 76 71 77 Respiratory Rate 18 18 23 H Blood Pressure Pulse Oximetry Oxygen Delivery Oxygen Flow Rate Fraction of Inspired Oxygen 07/29/24 10:00 07/29/24 10:39 07/29/24 11:36 Temperature Pulse Rate 79 79 Respiratory Rate 26 H Blood Pressure Pulse Oximetry 97 Oxygen Delivery Nasal Cannula Oxygen Flow Rate 2 Fraction of Inspired Oxygen 07/29/24 12:31 07/29/24 12:31 07/29/24 12:38 Temperature Pulse Rate 73 73 75 Respiratory Rate 27 H 27 H 25 H Blood Pressure Pulse Oximetry Oxygen Delivery Oxygen Flow Rate Fraction of Inspired Oxygen 07/29/24 13:57 Temperature Pulse Rate 72 Respiratory Rate 21 H Blood Pressure Pulse Oximetry Oxygen Delivery Oxygen Flow Rate Fraction of Inspired Oxygen Intake/Output Intake/Output: Intake & Output 07/26/24 07/27/24 07/28/24 07/29/24 23:59 23:59 23:59 23:59 Intake Total 3498.0 3333.4 3216.9 1410.9 Output Total 2575 5625 3500 1250 Balance 923.0 -2291.6 -283.1 160.9 Meds/Results Medications: Active Medications Generic Name Dose Route Start Last Admin Trade Name Freq PRN Reason Stop Dose Admin Acetaminophen 650 mg 07/22/24 17:34 07/27/24 13:22 Acetaminophen Elixir 325 Mg/10.15 Ml Udc PO 650 mg Q6H PRN Administration Mild Pain (1-3) or Fever Acetylcysteine 200 mg 07/24/24 14:00 07/29/24 14:00 Acetylcysteine 20% Inhal Soln 800 Mg/4 Ml Vial INHALATION 200 mg Q6HRT ACOSTA Administration Amlodipine Besylate 10 mg 07/27/24 09:00 07/29/24 08:53 Amlodipine Besylate 10 Mg Tablet PO 10 mg DAILY ACOSTA Administration Dextrose 12.5 gm 07/23/24 12:52 Dextrose 50% 25 Gm/50 Ml Syringe IV PUSH PRN PRN Hypoglycemia Protocol Enoxaparin Sodium 40 mg 07/23/24 09:00 07/29/24 08:54 Enoxaparin 40 Mg/0.4 Ml Syringe SUB-Q 40 mg DAILY ACOSTA Administration Glucagon 1 mg 07/23/24 12:52 Glucagon For Inj 1 Mg Vial IM PRN PRN Hypoglycemia Protocol Glucose 15 gm 07/23/24 12:52 Glucose Oral Gel 15 Gm Of Glucse In 37.5 Gm Tube PO PRN PRN Hypoglycemia Protocol Hydralazine HCl 10 mg 07/26/24 10:51 07/28/24 18:09 Hydralazine Hcl 20 Mg/Ml Vial IV PUSH 10 mg Q4H PRN Administration Blood Pressure - High Ceftriaxone Sodium 2 gm in 100 mls @ 200 mls/hr 07/23/24 09:00 07/29/24 09:53 Rocephin 2 Gm/Ns 100 Ml IVPB Infused QAM ACOSTA Infusion Dextrose 1,000 mls @ 100 mls/hr 07/23/24 12:52 Dextrose 5% 1,000 Ml IVPB PRN PRN Hypoglycemia Protocol Dexmedetomidine HCl 400 mcg in 100 mls @ 25.56 mls/hr 07/26/24 08:20 07/29/24 13:57 Precedex 400 Mcg/100 Ml IV CONT 1.2 mcg/kg/hr .Q3H55M ACOSTA 25.56 mls/hr Titration Protocol 1.2 MCG/KG/HR Insulin Aspart 3 - 6 units 07/24/24 12:00 07/29/24 12:37 Insulin Aspart (*Bkc) 100 Units/Ml SUB-Q Not Given Q6HR ACOSTA Protocol Insulin Glargine 20 units 07/28/24 09:00 07/29/24 09:04 Insulin Glargine (*Bkc) 100 Units/Ml SUB-Q 20 units DAILY ACOSTA Administration Ipratropium [place] 0.5 mg 07/22/24 20:00 07/29/24 14:00 Ipratropium Br 0.02% Inh Soln 0.5 Mg/2.5 Ml Vial INHALATION 0.5 mg Q6HRT ACOSTA Administration Labetalol HCl 20 mg 07/26/24 23:45 07/27/24 04:32 Labetalol Hcl Inj 100 Mg/20 Ml Vial IV PUSH 20 mg Q4HR PRN Administration Blood Pressure - High Levalbuterol HCl 1.25 mg 07/22/24 20:00 07/29/24 14:00 Levalbuterol Neb 1.25 Mg/3 Ml INHALATION 1.25 mg Q6HRT ACOSTA Administration Lisinopril 40 mg 07/27/24 09:00 07/29/24 08:53 Lisinopril 20 Mg Tablet PO 40 mg QAM ACOSTA Administration Multi-Ingred Cream/Lotion/Oil/Oint 1 applic 07/22/24 21:00 07/29/24 09:22 Mineral Oil/White Petrolatum Ointment EACH EYE 1 applic Q12HR ACOSTA Administration Pantoprazole Sodium 40 mg 07/23/24 09:00 07/29/24 08:53 Pantoprazole Sodium Iv 40 Mg Vial IV PUSH 40 mg DAILY ACOSTA Administration Quetiapine Fumarate 25 mg 07/27/24 10:34 07/29/24 08:53 Quetiapine Fumarate 25 Mg Tablet PO 25 mg Q12HR ACOSTA Administration Sodium Chloride 10 ml 07/22/24 22:00 07/29/24 12:37 Central Line Flush IV PUSH Not Given Q8HR ACOSTA Sodium Chloride 20 ml 07/22/24 16:23 Central Line Flush IV PUSH PRN PRN after blood draws Radiology Results: ITS Impressions Chest/Abdomen/Pelvis CTA 07/22/24 18:32 IMPRESSION: No evidence of pulmonary embolism Prominent bilateral lower lobe consolidation. Mild lobe infiltrate. Soft Tissue Neck CT 07/23/24 06:55 IMPRESSION: 1. Small right pleural effusion. 2. 17 mm right thyroid nodule. Consider thyroid ultrasound for risk stratification. 3. Multifocal dental disease. Abdomen Ultrasound 07/23/24 12:48 IMPRESSION: 1. Right pleural effusion. Minimal fluid around the gallbladder. Evaluation for cholecystitis advised. Otherwise, normal Limited ultrasound of the abdomen. Abdomen X-Ray 07/26/24 06:25 IMPRESSION: 1. Nasogastric tube tip in the stomach. 2. Small right pleural effusion. 3. Airspace opacities in the lower lung zones, consistent with atelectasis versus pneumonia. Renal Ultrasound 07/26/24 15:27 IMPRESSION: Mild right pelviectasis. Mild pericholecystic fluid and gallbladder wall thickening. Chest X-Ray 07/28/24 10:28 IMPRESSION: 1. Decreasing small right pleural effusion. 2. unchanged mild bibasilar atelectasis versus pneumonia. Labs Labs: Laboratory Results - last 24 hr 07/28/24 07/29/24 07/29/24 17:10 00:18 03:39 WBC 9.7 RBC 2.89 L Hgb 10.1 L Hct 29.6 L MCV 102.4 H MCH 34.9 H MCHC 34.1 RDW 13.7 Plt Count 116 L MPV 11.4 H Immature Gran % (Auto) 3.0 H Neut % (Auto) 76.0 H Lymph % (Auto) 10.7 L Power % (Auto) 9.3 H Eos % (Auto) 0.8 Baso % (Auto) 0.2 Lymph # (Auto) 1.03 Power # (Auto) 0.9 H Eos # (Auto) 0.1 Baso # (Auto) 0.0 Abs Immat Gran (auto) 0.29 H Absolute Neuts (auto) 7.3 H Absolute Nucleated RBC 0.040 H Nucleated RBC % 0.4 H Puncture Site ABG pH ABG pCO2 ABG pO2 ABG PO2/FiO2 Ratio ABG HCO3 ABG O2 Saturation ABG O2 Content ABG Base Excess A-a Gradient Oxyhemoglobin Carboxyhemoglobin Methemoglobin Reduced Hemoglobin Total Hemoglobin O2 Delivery Device O2 Liters/Min Minute Volume Vent Rate Vent Mode FiO2 Tidal Volume PEEP Peak Inspir Pressure Pressure Support Sodium 145 Potassium 3.6 Chloride 115 H Carbon Dioxide 28 Anion Gap 2 L BUN 47 H Creatinine 1.20 Estim Creat Clear Calc 65 Estimated GFR > 60 Glucose 211 H POC Capillary Glucose 189 H 237 H Hemoglobin A1c 7.2 H Calcium 8.9 Phosphorus 4.2 Magnesium 1.9 Total Bilirubin 0.6 AST 52 ALT 52 H Alkaline Phosphatase 114 Total Protein 6.0 L Albumin 2.9 L 07/29/24 07/29/24 07/29/24 04:35 05:28 10:22 WBC RBC Hgb Hct MCV MCH MCHC RDW Plt Count MPV Immature Gran % (Auto) Neut % (Auto) Lymph % (Auto) Power % (Auto) Eos % (Auto) Baso % (Auto) Lymph # (Auto) Power # (Auto) Eos # (Auto) Baso # (Auto) Abs Immat Gran (auto) Absolute Neuts (auto) Absolute Nucleated RBC Nucleated RBC % Puncture Site Right radial Right radial ABG pH 7.506 H* 7.509 H* ABG pCO2 30.9 L 26.0 L ABG pO2 77.0 L 94.4 ABG PO2/FiO2 Ratio 2.57 3.15 ABG HCO3 23.9 20.2 L ABG O2 Saturation 96.5 97.9 ABG O2 Content 14.4 L 15.0 L ABG Base Excess 1.3 -1.7 A-a Gradient 100.6 89.0 Oxyhemoglobin 95.1 96.9 Carboxyhemoglobin 0.3 Methemoglobin 0.0 Reduced Hemoglobin 4.6 Total Hemoglobin 10.7 L 10.9 L O2 Delivery Device Ventilator Ventilator O2 Liters/Min Not Reportable Not Reportable Minute Volume Not Reportable Not Reportable Vent Rate 18 Not Reportable Vent Mode Cmv Spontaneous FiO2 30 30 Tidal Volume 500 Not Reportable PEEP 8 8 Peak Inspir Pressure Not Reportable Not Reportable Pressure Support Not Reportable 8 Sodium Potassium Chloride Carbon Dioxide Anion Gap BUN Creatinine Estim Creat Clear Calc Estimated GFR Glucose POC Capillary Glucose 206 H Hemoglobin A1c Calcium Phosphorus Magnesium Total Bilirubin AST ALT Alkaline Phosphatase Total Protein Albumin 07/29/24 12:18 WBC RBC Hgb Hct MCV MCH MCHC RDW Plt Count MPV Immature Gran % (Auto) Neut % (Auto) Lymph % (Auto) Power % (Auto) Eos % (Auto) Baso % (Auto) Lymph # (Auto) Power # (Auto) Eos # (Auto) Baso # (Auto) Abs Immat Gran (auto) Absolute Neuts (auto) Absolute Nucleated RBC Nucleated RBC % Puncture Site ABG pH ABG pCO2 ABG pO2 ABG PO2/FiO2 Ratio ABG HCO3 ABG O2 Saturation ABG O2 Content ABG Base Excess A-a Gradient Oxyhemoglobin Carboxyhemoglobin Methemoglobin Reduced Hemoglobin Total Hemoglobin O2 Delivery Device O2 Liters/Min Minute Volume Vent Rate Vent Mode FiO2 Tidal Volume PEEP Peak Inspir Pressure Pressure Support Sodium Potassium Chloride Carbon Dioxide Anion Gap BUN Creatinine Estim Creat Clear Calc Estimated GFR Glucose POC Capillary Glucose 155 H Hemoglobin A1c Calcium Phosphorus Magnesium Total Bilirubin AST ALT Alkaline Phosphatase Total Protein Albumin Quality VTE Prophylaxis VTE prophylaxis: mechanical ordered and pharmacologic ordered
[2024-07-29] MEDS: dexmedeTOMIDine 400 MCG/100 ML 400 MCG/100 ML BAG 21.3 MCG IV CONT (16:31)
[2024-07-29] MEDS: ACETAMINOPHEN ELIXIR 325 MG/10.15 ML UDC 650 MG PO (16:32)
[2024-07-29 17:39] LABS: Glucose Point of Care 81 mg/dl (65-105)
[2024-07-29] MEDS: dexmedeTOMIDine 400 MCG/100 ML 400 MCG/100 ML BAG 19.17 MCG IV CONT (22:00)
--- NOTE | 2024-07-29 22:12 | PC.NURSE ---
Patient refusing BP medications at this time.
[2024-07-30] VITALS (27 sets, daily range): BP systolic 139–182; BP diastolic 85–115; PULSE 67–124; RESP 18–25; TEMP 36.9–37.6; O2SAT 91–100
[2024-07-30 00:03] LABS: Glucose Point of Care 75 mg/dl (65-105)
[2024-07-30] MEDS: dexmedeTOMIDine 400 MCG/100 ML 400 MCG/100 ML BAG 19.17 MCG IV CONT (03:13)
[2024-07-30 03:49] LABS: Basophils Percent Auto 0.2 % (0.2-1.2); Eosinophils Absolute Auto 0.1 K/mm3 (0-0.3); Eosinophils Percent Auto 1.2 % (0-4.4); Hematocrit 30.7 % (42.0-52.0); Hemoglobin 10.2 g/dL (14.0-18.0); Immature Granulocyte Absolute 0.14 K/mm3 (0.00-0.031); Immature Granulocyte Percent A 1.4 % (0-0.5); Lymphocytes Absolute Auto 1.09 K/mm3 (0.9-3.2); Lymphocytes Percent Auto 11.3 % (18.3-44.2); Mean Corpuscular HGB Conc 33.2 g/dl (32-36); Mean Corpuscular Hemoglobin 34.1 pg (26-34); Mean Corpuscular Volume 102.7 fl (80-100); Mean Platelet Volume 11.5 fl (7.4-10.4); Monocytes Absolute Auto 0.8 K/mm3 (0.1-0.6); Monocytes Percent Auto 8.6 % (2.6-8.5); Neutrophils Absolute Auto 7.5 K/mm3 (1.3-6.7); Neutrophils Percent Auto 77.3 % (45.5-73.1); Platelet Count Result 161 k/mm3 (150-375); Red Blood Count 2.99 M/mm3 (4.6-6.20); Red Cell Distribution Width 13.1 % (11.5-14.5); White Blood Count 9.7 K/mm3 (4.5-10.0)
[2024-07-30] MEDS: ACETAMINOPHEN ELIXIR 325 MG/10.15 ML UDC 650 MG PO (03:49)
[2024-07-30 04:00] LABS: Alanine Aminotransferase 52 U/L (6-50); Alkaline Phosphatase 104 U/L (38-126); Anion Gap 2 mmol/L (4-12); Aspartate Amino Transferase 45 U/L (17-59); Bilirubin,Total 0.7 mg/dL (0.2-1.3); Blood Urea Nitrogen 42 mg/dL (9-20); Calcium 8.8 mg/dL (8.4-10.2); Carbon Dioxide 28 mmol/L (22-30); Chloride 109 mmol/L (98-107); Estimated CRCL calculation 61 ml/min; Estimated Glomerular Filt Rate > 60; Glucose 81 mg/dL (65-110); Magnesium 1.9 mg/dL (1.6-2.3); Phosphorus 4.3 mg/dL (2.5-4.5); Potassium 3.8 mmol/L (3.4-5.0); Sodium 139 mmol/L (137-145)
[2024-07-30] MEDS: CENTRAL LINE FLUSH 10 ML IV PUSH (06:43)
[2024-07-30] MEDS: ENOXAPARIN 40 MG/0.4 ML SYRINGE SUB-Q (08:06)
[2024-07-30] MEDS: QUEtiapine FUMARATE 25 MG TABLET PO ×2 (08:06→21:34)
[2024-07-30] MEDS: PANTOPRAZOLE SODIUM IV 40 MG VIAL IV PUSH (08:06)
[2024-07-30] MEDS: amLODIPine BESYLATE 10 MG TABLET PO (08:06)
[2024-07-30] MEDS: lisinopriL 20 MG TABLET 40 MG PO (08:06)
[2024-07-30] MEDS: FUROSEMIDE INJ 40 MG/4 ML VIAL 20 MG IV PUSH (08:26)
[2024-07-30] MEDS: dexmedeTOMIDine 400 MCG/100 ML 400 MCG/100 ML BAG 14.91 MCG IV CONT (08:26)
--- NOTE | 2024-07-30 11:57 | PCFNICU ---
ICU Rounding Note: Pt current nutrition is Heart healthy diet. No intakes yet but able to eat. Nutrition recommendation: Continue heart healthy diet. Add oral nutrition supplement: Ensure Compact BID for additional 220 kcal and 9 g protein each Last recorded weight is 83.3 kg. Bowel Motility: Liquid stool +1 07/28/24 Labs Reviewed: Hgb 10.2 Hct 30.7, Alb 3.0, BUN 42 Meds Noted: Sedation is off. Seroquel. Novolog, lantus Skin: No skin issues Additional Notes: Pt was extubated 07/29 and able to take PO. Adding supplements for additional intakes Following daily in ICU rounds. Will monitor weight, labs, skin, meds, diet orders every Tuesday and Tuesday. .
[2024-07-30 11:58] LABS: Glucose Point of Care 113 mg/dl (65-105)
--- NOTE | 2024-07-30 12:09 | P.PNINT_ITS ---
Progress Note: A&P Assessment and Plan (1) Severe sepsis: Code(s): A41.9 - Sepsis, unspecified organism; R65.20 - Severe sepsis without septic shock Status: Acute Assessment and Plan: 07/22: Patient presented the ED with shortness of breath, chest x-ray showed right lower lobe consolidation/pneumonia, acute kidney injury, tachycardia, tachypnea -patient given 30 cc/kg IV fluids in the ER, patient was also given Lasix 40 mg IV x1 -07/22: Blood cultures growing Streptococcus pneumoniae 1/2 bottles -07/22: Sputum cultures growing Streptococcus pneumoniae 07/24: Repeat blood cultures negative so far -lactic acidosis has resolved -discontinued azithromycin and ceftriaxone -will continue vancomycin (07/22) for total of 10 days -07/22: Right IJ central line was inserted in the ICU -07/23: Patient has some blood in stool, Hemoccult was negative, DIC panel was within normal limits, hematuria has cleared up -07/24: Overnight patient dropped his blood pressures in the 70s, I had to be started on Levophed for a brief amount of time, -07/25: Remains on low-dose Levophed, wean to maintain MAP > 65 mmHg or SBP > 100 mmHg for adequate end organ perfusion -off Levophed 07/22: CT soft tissue neck without contrast: This was done as his neck movements were restricted. Impression: The endotracheal tube tip is in expected position. There is a small right pleural effusion. There are no pathologically enlarged lymph nodes. Partially visualized is an orogastric tube. Partially visualized is a right internal jugular central venous catheter with tip at least to the superior vena cava. There is mucosal thickening in right maxillary sinus. There is multifocal dental disease. There is a 17 mm nodule in right thyroid lobe. There are bridging endplate osteophytes at multiple levels in the spine, consistent with diffuse idiopathic skeletal hyperostosis (DISH). (2) Acute respiratory failure: Code(s): J96.00 - Acute respiratory failure, unspecified whether with hypoxia or hypercapnia Status: Acute Assessment and Plan: Acute respiratory failure likely related to right lower lobe pneumonia. Patient also tachypneic and tachycardic, will send patient for a CT scan of the chest PE protocol to rule out pulmonary embolism -07/22: Intubated in the ICU, status post Nimbex -07/29: Successfully extubated, currently on room air -continue bronchodilators -PT/OT ordered, up in chair with assistance only 07/22: CT a chest PE, abdomen/pelvis IMPRESSION: No evidence of pulmonary embolism Prominent bilateral lower lobe consolidation. Mild lobe infiltrate. (3) Pneumonia: Code(s): J18.9 - Pneumonia, unspecified organism Status: Acute Assessment and Plan: Right lower lobe pneumonia seen on chest x-ray -continue mechanical ventilation, bronchodilators -status post 5 days of hydrocortisone for pneumonia (4) MILENA (acute kidney injury): Code(s): N17.9 - Acute kidney failure, unspecified Status: Acute Assessment and Plan: Patient presented with severe sepsis, acute kidney injury with creatinine of 2.00. Baseline creatinine unknown -received 30 cc/kg IV fluid bolus in the ER -patient is received adequate amount of IV fluids, urine output has been adequate, creatinine improving -discontinue IV fluids at this time -hypomagnesemia, resolved -hypophosphatemia, resolved -hypokalemia, will replete -creatinine normalized (5) Elevated liver enzymes: Code(s): R74.8 - Abnormal levels of other serum enzymes Status: Acute Assessment and Plan: Elevated liver enzymes, could be related to severe hypoxemia, HCV, -hepatitis panel is negative -HCV RNA PCR : Elevated PCR titers, appreciate GI evaluation recommendations, if patient decides to stay with the family in the local area he can follow with them to discuss treatment option -07/23: RUQ ultrasound: Right pleural effusion, minimal fluid around the gallbladder. Evaluation of cholecystitis advised, otherwise normal limited ultrasound of the abdomen -LFTs trending down, continue to monitor (6) CHF (congestive heart failure): Code(s): I50.9 - Heart failure, unspecified Status: Acute Assessment and Plan: History of CHF, proBNP was 700 -chest x-ray did not show any pulmonary edema -continue amlodipine and lisinopril 07/24: Echocardiogram Summary 1. Complete two-dimensional, color flow and Doppler transthoracic echocardiogram is performed. 2. Left ventricle is normal in size with mildly reduced systolic function. The left ventricular ejection fraction is visually estimated to be 45-50%. 3. The right ventricle is normal in size and systolic function. 4. The aortic valve is not well visualized. The Doppler gradients does not suggest any hemodynamically significant stenosis. (7) Elevated troponin: Code(s): R79.89 - Other specified abnormal findings of blood chemistry Status: Acute Assessment and Plan: Elevated troponin likely related to type 2 infarct, secondary to tachycardia, tachypnea -echocardiogram did not reveal any new wall motion abnormality, continue to monitor for chest pain -troponins have plateaued (8) Hyperglycemia: Code(s): R73.9 - Hyperglycemia, unspecified Status: Acute Assessment and Plan: Continue Accu-Cheks and sliding scale insulin, -discontinue Lantus -hemoglobin A1c 7.2 this admission (9) Essential hypertension: Code(s): I10 - Essential (primary) hypertension Status: Acute Assessment and Plan: Patient has been started on amlodipine and lisinopril, blood pressures are controlled Plan DVT prophylaxis: Lovenox Stress ulcer prophylaxis: Protonix Nutrition: Heart healthy diet Code Status: Full code Critical Care Time Spent: 31 minutes Patient may be transferred out of the ICU if okay with hospitalist Discussed with patient's daughter, other family members in rounds a.m. updated them with his condition and plan of care. Due to a high probability of clinically significant, life threatening d eterioration, the patient required my highest level of preparedness to intervene emergently and I personally spent this critical care time directly and personally managing the patient. This critical care time included obtaining a history; examining the patient; pulse oximetry; ordering and review of studies; arranging urgent treatment with development of a management plan; evaluation of patient's response to treatment; frequent reassessment; and discussions with other providers. It was exclusive of separately billable procedures and treating other patients and teaching time. Please see Assessment and Plan section and the rest of the note for further information on patient assessment and treatment This dictation may have been done utilizing a voice recognition system. Attempts have been made to correct errors. However, there may be uncorrected grammatical, spelling, and recognitions errors present. Subjective Date/time seen: 07/30/24 12:09 Interval history: Reason for consult: Acute respiratory failure, pneumonia, severe sepsis, acute kidney injury Intubated: 07/22 Extubated: 07/2907/30/2024: Patient seen and examined the ICU, remains on room air after being successfully extubated yesterday. Is awake, alert, follows simple commands. Denies any chest pain, shortness a breath, abdominal pain, nausea vomiting at this time. Tolerating oral diet. Responded well to diuresis with negative fluid balance in the last 24 hours. Patient is afebrile and hemodynamically stable Review of Systems Review of Systems: All systems reviewed & are unremarkable except as noted in HPI and below Exam Narrative: General: Patient is awake, alert, in no acute distress HEENT:? Pupils equal and reactive, sclera is clear, Neck:? Neck movements are restricted Respiratory:? You to auscultation bilaterally, decreased air entry at bases, no wheezing Cardiac:? S1-S2 is normal, regular rate and rhythm Abdomen:? Soft, nondistended, nontender, hypoactive bowel sounds Extremities:? No edema, palpable pedal pulses Neuro:? Patient is awake, alert, able to answer questions appropriately and follows simple commands Skin:? Dry skin, no other lesions noted Psych:? Normal mentation and affect Objective Data Vital Signs Vital Signs: Vital Signs - 24 hr 07/29/24 12:31 07/29/24 12:31 07/29/24 12:38 Temperature Pulse Rate 73 73 75 Respiratory Rate 27 H 27 H 25 H Blood Pressure Pulse Oximetry Oxygen Delivery Oxygen Flow Rate Fraction of Inspired Oxygen 07/29/24 13:57 07/29/24 14:00 07/29/24 14:00 Temperature 99.4 F Pulse Rate 72 73 73 Respiratory Rate 21 H 21 H Blood Pressure 146/94 H Pulse Oximetry 98 Oxygen Delivery Oxygen Flow Rate Fraction of Inspired Oxygen 07/29/24 14:14 07/29/24 14:14 07/29/24 15:16 Temperature Pulse Rate 77 75 Respiratory Rate 20 20 Blood Pressure Pulse Oximetry 97 Oxygen Delivery Nasal Cannula Oxygen Flow Rate 2 Fraction of Inspired Oxygen 07/29/24 16:00 07/29/24 16:00 07/29/24 16:00 Temperature 99.5 F Pulse Rate 73 75 Respiratory Rate 24 H Blood Pressure 146/98 H Pulse Oximetry 98 97 Oxygen Delivery Nasal Cannula Oxygen Flow Rate 2 Fraction of Inspired Oxygen 07/29/24 16:24 07/29/24 16:31 07/29/24 17:25 Temperature Pulse Rate 74 74 73 Respiratory Rate 20 20 25 H Blood Pressure Pulse Oximetry Oxygen Delivery Oxygen Flow Rate Fraction of Inspired Oxygen 07/29/24 18:00 07/29/24 18:00 07/29/24 20:00 Temperature 99.6 F Pulse Rate 72 72 72 Respiratory Rate 22 H 21 H Blood Pressure 140/92 H Pulse Oximetry 97 Oxygen Delivery Oxygen Flow Rate Fraction of Inspired Oxygen 07/29/24 20:00 07/29/24 20:00 07/29/24 20:00 Temperature 99.3 F Pulse Rate 72 73 73 Respiratory Rate 21 H 23 H Blood Pressure 157/98 H Pulse Oximetry 98 97 Oxygen Delivery Nasal Cannula Oxygen Flow Rate 2 Fraction of Inspired Oxygen 07/29/24 20:41 07/29/24 20:51 07/29/24 21:02 Temperature Pulse Rate 72 78 77 Respiratory Rate 20 26 H Blood Pressure Pulse Oximetry 97 Oxygen Delivery Nasal Cannula Oxygen Flow Rate 2 Fraction of Inspired Oxygen 07/29/24 22:00 07/29/24 22:00 07/29/24 22:00 Temperature Pulse Rate 74 74 73 Respiratory Rate 21 H 21 H Blood Pressure Pulse Oximetry Oxygen Delivery Oxygen Flow Rate Fraction of Inspired Oxygen 07/29/24 22:00 07/30/24 00:00 07/30/24 00:00 Temperature 99.3 F 99.2 F Pulse Rate 73 73 74 Respiratory Rate 23 H 25 H 22 H Blood Pressure 166/98 H 154/98 H Pulse Oximetry 97 97 Oxygen Delivery Oxygen Flow Rate Fraction of Inspired Oxygen 07/30/24 00:00 07/30/24 00:00 07/30/24 02:00 Temperature Pulse Rate 74 74 70 Respiratory Rate 22 H Blood Pressure Pulse Oximetry 97 Oxygen Delivery Nasal Cannula Oxygen Flow Rate 2 Fraction of Inspired Oxygen 07/30/24 02:00 07/30/24 02:00 07/30/24 03:13 Temperature 99.2 F Pulse Rate 69 69 71 Respiratory Rate 20 20 23 H Blood Pressure 154/98 H Pulse Oximetry 100 Oxygen Delivery Oxygen Flow Rate Fraction of Inspired Oxygen 07/30/24 03:13 07/30/24 04:00 07/30/24 04:00 Temperature 99.1 F Pulse Rate 71 74 72 Respiratory Rate 23 H 23 H 20 Blood Pressure 156/98 H Pulse Oximetry 94 Oxygen Delivery Oxygen Flow Rate Fraction of Inspired Oxygen 07/30/24 04:00 07/30/24 04:00 07/30/24 06:00 Temperature Pulse Rate 72 72 88 Respiratory Rate 22 H 22 H Blood Pressure Pulse Oximetry 97 Oxygen Delivery Nasal Cannula Oxygen Flow Rate 2 Fraction of Inspired Oxygen 07/30/24 06:00 07/30/24 06:00 07/30/24 07:20 Temperature 98.9 F Pulse Rate 88 88 75 Respiratory Rate 19 21 H Blood Pressure 156/111 H Pulse Oximetry 98 Oxygen Delivery Oxygen Flow Rate Fraction of Inspired Oxygen 07/30/24 07:50 07/30/24 08:00 07/30/24 08:00 Temperature 98.7 F Pulse Rate 74 Respiratory Rate 25 H Blood Pressure 153/111 H Pulse Oximetry 95 94 Oxygen Delivery Room Air Room Air Oxygen Flow Rate Fraction of Inspired Oxygen 21 07/30/24 08:00 07/30/24 08:12 07/30/24 08:26 Temperature Pulse Rate 73 69 67 Respiratory Rate 23 H 20 Blood Pressure Pulse Oximetry Oxygen Delivery Oxygen Flow Rate Fraction of Inspired Oxygen 07/30/24 08:26 07/30/24 08:59 07/30/24 09:30 Temperature Pulse Rate 67 71 70 Respiratory Rate 20 20 18 Blood Pressure Pulse Oximetry Oxygen Delivery Oxygen Flow Rate Fraction of Inspired Oxygen 07/30/24 10:00 07/30/24 10:00 07/30/24 10:15 Temperature 98.5 F Pulse Rate 83 83 85 Respiratory Rate 22 H 24 H Blood Pressure 139/85 Pulse Oximetry 93 Oxygen Delivery Oxygen Flow Rate Fraction of Inspired Oxygen 07/30/24 10:35 07/30/24 10:53 Temperature Pulse Rate 92 92 Respiratory Rate 20 24 H Blood Pressure Pulse Oximetry Oxygen Delivery Oxygen Flow Rate Fraction of Inspired Oxygen Intake/Output Intake/Output: Intake & Output 07/27/24 07/28/24 07/29/24 07/30/24 23:59 23:59 23:59 23:59 Intake Total 3333.4 3216.9 1770.9 724.6 Output Total 5625 3500 4650 1000 Balance -2291.6 -283.1 -2879.1 -275.4 Meds/Results Medications: Active Medications Generic Name Dose Route Start Last Admin Trade Name Freq PRN Reason Stop Dose Admin Acetaminophen 650 mg 07/22/24 17:34 07/30/24 03:49 Acetaminophen Elixir 325 Mg/10.15 Ml Udc PO 650 mg Q6H PRN Administration Mild Pain (1-3) or Fever Amlodipine Besylate 10 mg 07/27/24 09:00 07/30/24 08:06 Amlodipine Besylate 10 Mg Tablet PO 10 mg DAILY ACOSTA Administration Dextrose 12.5 gm 07/23/24 12:52 Dextrose 50% 25 Gm/50 Ml Syringe IV PUSH PRN PRN Hypoglycemia Protocol Enoxaparin Sodium 40 mg 07/23/24 09:00 07/30/24 08:06 Enoxaparin 40 Mg/0.4 Ml Syringe SUB-Q 40 mg DAILY ACOSTA Administration Glucagon 1 mg 07/23/24 12:52 Glucagon For Inj 1 Mg Vial IM PRN PRN Hypoglycemia Protocol Glucose 15 gm 07/23/24 12:52 Glucose Oral Gel 15 Gm Of Glucse In 37.5 Gm Tube PO PRN PRN Hypoglycemia Protocol Hydralazine HCl 10 mg 07/26/24 10:51 07/28/24 18:09 Hydralazine Hcl 20 Mg/Ml Vial IV PUSH 10 mg Q4H PRN Administration Blood Pressure - High Dextrose 1,000 mls @ 100 mls/hr 07/23/24 12:52 Dextrose 5% 1,000 Ml IVPB PRN PRN Hypoglycemia Protocol Insulin Aspart 3 - 6 units 07/24/24 12:00 07/30/24 11:59 Insulin Aspart (*Bkc) 100 Units/Ml SUB-Q Not Given Q6HR ACOSTA Protocol Ipratropium [place] 0.5 mg 07/30/24 08:53 Ipratropium Br 0.02% Inh Soln 0.5 Mg/2.5 Ml Vial INHALATION Q6HRT PRN Wheezing Labetalol HCl 20 mg 07/26/24 23:45 07/27/24 04:32 Labetalol Hcl Inj 100 Mg/20 Ml Vial IV PUSH 20 mg Q4HR PRN Administration Blood Pressure - High Levalbuterol HCl 1.25 mg 07/30/24 08:53 Levalbuterol Neb 1.25 Mg/3 Ml INHALATION Q6HRT PRN Wheezing Lisinopril 40 mg 07/27/24 09:00 07/30/24 08:06 Lisinopril 20 Mg Tablet PO 40 mg QAM ACOSTA Administration Multi-Ingred Cream/Lotion/Oil/Oint 1 applic 07/22/24 21:00 07/30/24 08:06 Mineral Oil/White Petrolatum Ointment EACH EYE Not Given Q12HR ACOSTA Pantoprazole Sodium 40 mg 07/23/24 09:00 07/30/24 08:06 Pantoprazole Sodium Iv 40 Mg Vial IV PUSH 40 mg DAILY ACOSTA Administration Quetiapine Fumarate 25 mg 07/27/24 10:34 07/30/24 08:06 Quetiapine Fumarate 25 Mg Tablet PO 25 mg Q12HR A[facility]STA Administration Sodium Chloride 10 ml 07/22/24 22:00 07/30/24 11:59 Central Line Flush IV PUSH Not Given Q8HR [facility]STA Sodium Chloride 20 ml 07/22/24 16:23 Central Line Flush IV PUSH PRN PRN after blood draws Radiology Results: ITS Impressions Chest/Abdomen/Pelvis CTA 07/22/24 18:32 IMPRESSION: No evidence of pulmonary embolism Prominent bilateral lower lobe consolidation. Mild lobe infiltrate. Soft Tissue Neck CT 07/23/24 06:55 IMPRESSION: 1. Small right pleural effusion. 2. 17 mm right thyroid nodule. Consider thyroid ultrasound for risk stratification. 3. Multifocal dental disease. Abdomen Ultrasound 07/23/24 12:48 IMPRESSION: 1. Right pleural effusion. Minimal fluid around the gallbladder. Evaluation for cholecystitis advised. Otherwise, normal Limited ultrasound of the abdomen. Abdomen X-Ray 07/26/24 06:25 IMPRESSION: 1. Nasogastric tube tip in the stomach. 2. Small right pleural effusion. 3. Airspace opacities in the lower lung zones, consistent with atelectasis versus pneumonia. Renal Ultrasound 07/26/24 15:27 IMPRESSION: Mild right pelviectasis. Mild pericholecystic fluid and gallbladder wall thickening. Chest X-Ray 07/28/24 10:28 IMPRESSION: 1. Decreasing small right pleural effusion. 2. unchanged mild bibasilar atelectasis versus pneumonia. Labs Labs: Laboratory Results - last 24 hr 07/29/24 07/29/24 07/29/24 12:18 17:34 23:59 WBC RBC Hgb Hct MCV MCH MCHC RDW Plt Count MPV Immature Gran % (Auto) Neut % (Auto) Lymph % (Auto) [place] % (Auto) Eos % (Auto) Baso % (Auto) Lymph # (Auto) [place] # (Auto) Eos # (Auto) Baso # (Auto) Abs Immat Gran (auto) Absolute Neuts (auto) Absolute Nucleated RBC Nucleated RBC % Sodium Potassium Chloride Carbon Dioxide Anion Gap BUN Creatinine Estim Creat Clear Calc Estimated GFR Glucose POC Capillary Glucose 155 H 81 75 Calcium Phosphorus Magnesium Total Bilirubin AST ALT Alkaline Phosphatase Total Protein Albumin 07/30/24 07/30/24 03:41 11:44 WBC 9.7 RBC 2.99 L Hgb 10.2 L Hct 30.7 L MCV 102.7 H MCH 34.1 H MCHC 33.2 RDW 13.1 Plt Count 161 MPV 11.5 H Immature Gran % (Auto) 1.4 H Neut % (Auto) 77.3 H Lymph % (Auto) 11.3 L [place] % (Auto) 8.6 H Eos % (Auto) 1.2 Baso % (Auto) 0.2 Lymph # (Auto) 1.09 [place] # (Auto) 0.8 H Eos # (Auto) 0.1 Baso # (Auto) 0.0 Abs Immat Gran (auto) 0.14 H Absolute Neuts (auto) 7.5 H Absolute Nucleated RBC 0.000 Nucleated RBC % 0.0 Sodium 139 Potassium 3.8 Chloride 109 H Carbon Dioxide 28 Anion Gap 2 L BUN 42 H Creatinine 1.30 Estim Creat Clear Calc 61 Estimated GFR > 60 Glucose 81 POC Capillary Glucose 113 H Calcium 8.8 Phosphorus 4.3 Magnesium 1.9 Total Bilirubin 0.7 AST 45 ALT 52 H Alkaline Phosphatase 104 Total Protein 7.0 Albumin 3.0 L Quality VTE Prophylaxis VTE prophylaxis: mechanical ordered and pharmacologic ordered
--- NOTE | 2024-07-30 13:01 | P.PNIM_ITS ---
Progress Note: A&P Assessment and Plan (1) Severe sepsis: Code(s): A41.9 - Sepsis, unspecified organism; R65.20 - Severe sepsis without septic shock Status: Acute Assessment and Plan: 07/22: Patient presented the ED with shortness of breath, chest x-ray showed right lower lobe consolidation/pneumonia, acute kidney injury, tachycardia, tachypnea -07/22: Blood cultures growing Streptococcus pneumoniae 1/2 bottles -07/22: Sputum cultures growing Streptococcus pneumoniae 07/24: Repeat blood cultures negative so far Completed antibiotics and stable at bedside monitor (2) Acute respiratory failure: Code(s): J96.00 - Acute respiratory failure, unspecified whether with hypoxia or hypercapnia Status: Acute Assessment and Plan: Acute respiratory failure likely related to right lower lobe pneumonia. Patient also tachypneic and tachycardic, will send patient for a CT scan of the chest PE protocol to rule out pulmonary embolism -07/22: Intubated in the ICU, status post Nimbex -07/29: Successfully extubated, currently on room air -continue bronchodilators -COmpleted antibiotics as above (3) Pneumonia: Code(s): J18.9 - Pneumonia, unspecified organism Status: Acute Assessment and Plan: Right lower lobe pneumonia seen on chest x-ray -continue mechanical ventilation, bronchodilators -status post 5 days of hydrocortisone for pneumonia (4) MILENA (acute kidney injury): Code(s): N17.9 - Acute kidney failure, unspecified Status: Acute Assessment and Plan: resolved -hypomagnesemia, resolved -hypophosphatemia, resolved -hypokalemia, will replete Creatinine normal (5) Elevated liver enzymes: Code(s): R74.8 - Abnormal levels of other serum enzymes Status: Acute Assessment and Plan: Elevated liver enzymes, could be related to severe hypoxemia, HCV, -hepatitis panel is negative -HCV RNA PCR : Elevated PCR titers, appreciate GI evaluation recommendations, if patient decides to stay with the family in the local area he can follow with them to discuss treatment option -07/23: RUQ ultrasound: Right pleural effusion, minimal fluid around the gallbladder. Evaluation of cholecystitis advised, otherwise normal limited ultrasound of the abdomen -LFTs normal within normal limits (6) CHF (congestive heart failure): Code(s): I50.9 - Heart failure, unspecified Status: Acute Assessment and Plan: History of CHF, proBNP was 700 -chest x-ray did not show any pulmonary edema -continue amlodipine and lisinopril 07/24: Echocardiogram Summary 1. Complete two-dimensional, color flow and Doppler transthoracic echocardiogram is performed. 2. Left ventricle is normal in size with mildly reduced systolic function. The left ventricular ejection fraction is visually estimated to be 45-50%. 3. The right ventricle is normal in size and systolic function. 4. The aortic valve is not well visualized. The Doppler gradients does not suggest any hemodynamically significant stenosis. (7) Elevated troponin: Code(s): R79.89 - Other specified abnormal findings of blood chemistry Status: Acute Assessment and Plan: Elevated troponin likely related to type 2 infarct, secondary to tachycardia, tachypnea -echocardiogram did not reveal any new wall motion abnormality, continue to monitor for chest pain -troponins have plateaued (8) Hyperglycemia: Code(s): R73.9 - Hyperglycemia, unspecified Status: Acute Assessment and Plan: Continue Accu-Cheks and sliding scale insulin, -discontinue Lantus -hemoglobin A1c 7.2 this admission (9) Essential hypertension: Code(s): I10 - Essential (primary) hypertension Status: Acute Assessment and Plan: Patient has been started on amlodipine and lisinopril, blood pressures are controlled Plan DVT prophylaxis: Lovenox Stress ulcer prophylaxis: Protonix Nutrition: Heart healthy diet Code Status: Full code PT/OT eval for discharge disposition Subjective Date/time seen: 07/30/24 13:01 Interval history: Patient comfortable at bedside on room air Review of Systems Review of Systems: All systems reviewed & are unremarkable except as noted in HPI and below ROS unobtainable: Yes unobtainable due to endotracheal tube and unobtainable due to medical condition Exam Narrative: General: Patient is awake, alert, in no acute distress HEENT:? Pupils equal and reactive, sclera is clear, Neck:? Neck movements are restricted Respiratory:? You to auscultation bilaterally, decreased air entry at bases, no wheezing Cardiac:? S1-S2 is normal, regular rate and rhythm Abdomen:? Soft, nondistended, nontender, hypoactive bowel sounds Extremities:? No edema, palpable pedal pulses Neuro:? Patient is awake, alert, able to answer questions appropriately and follows simple commands Skin:? Dry skin, no other lesions noted Psych:? Normal mentation and affect Objective Data Vital Signs Vital Signs: Vital Signs - 24 hr 07/29/24 13:57 07/29/24 14:00 07/29/24 14:00 Temperature 99.4 F Pulse Rate 72 73 73 Respiratory Rate 21 H 21 H Blood Pressure 146/94 H Pulse Oximetry 98 Oxygen Delivery Oxygen Flow Rate Fraction of Inspired Oxygen 07/29/24 14:14 07/29/24 14:14 07/29/24 15:16 Temperature Pulse Rate 77 75 Respiratory Rate 20 20 Blood Pressure Pulse Oximetry 97 Oxygen Delivery Nasal Cannula Oxygen Flow Rate 2 Fraction of Inspired Oxygen 07/29/24 16:00 07/29/24 16:00 07/29/24 16:00 Temperature 99.5 F Pulse Rate 73 75 Respiratory Rate 24 H Blood Pressure 146/98 H Pulse Oximetry 98 97 Oxygen Delivery Nasal Cannula Oxygen Flow Rate 2 Fraction of Inspired Oxygen 07/29/24 16:24 07/29/24 16:31 07/29/24 17:25 Temperature Pulse Rate 74 74 73 Respiratory Rate 20 20 25 H Blood Pressure Pulse Oximetry Oxygen Delivery Oxygen Flow Rate Fraction of Inspired Oxygen 07/29/24 18:00 07/29/24 18:00 07/29/24 20:00 Temperature 99.6 F Pulse Rate 72 72 72 Respiratory Rate 22 H 21 H Blood Pressure 140/92 H Pulse Oximetry 97 Oxygen Delivery Oxygen Flow Rate Fraction of Inspired Oxygen 07/29/24 20:00 07/29/24 20:00 07/29/24 20:00 Temperature 99.3 F Pulse Rate 72 73 73 Respiratory Rate 21 H 23 H Blood Pressure 157/98 H Pulse Oximetry 98 97 Oxygen Delivery Nasal Cannula Oxygen Flow Rate 2 Fraction of Inspired Oxygen 07/29/24 20:41 07/29/24 20:51 07/29/24 21:02 Temperature Pulse Rate 72 78 77 Respiratory Rate 20 26 H Blood Pressure Pulse Oximetry 97 Oxygen Delivery Nasal Cannula Oxygen Flow Rate 2 Fraction of Inspired Oxygen 07/29/24 22:00 07/29/24 22:00 07/29/24 22:00 Temperature Pulse Rate 74 74 73 Respiratory Rate 21 H 21 H Blood Pressure Pulse Oximetry Oxygen Delivery Oxygen Flow Rate Fraction of Inspired Oxygen 07/29/24 22:00 07/30/24 00:00 07/30/24 00:00 Temperature 99.3 F 99.2 F Pulse Rate 73 73 74 Respiratory Rate 23 H 25 H 22 H Blood Pressure 166/98 H 154/98 H Pulse Oximetry 97 97 Oxygen Delivery Oxygen Flow Rate Fraction of Inspired Oxygen 07/30/24 00:00 07/30/24 00:00 07/30/24 02:00 Temperature Pulse Rate 74 74 70 Respiratory Rate 22 H Blood Pressure Pulse Oximetry 97 Oxygen Delivery Nasal Cannula Oxygen Flow Rate 2 Fraction of Inspired Oxygen 07/30/24 02:00 07/30/24 02:00 07/30/24 03:13 Temperature 99.2 F Pulse Rate 69 69 71 Respiratory Rate 20 20 23 H Blood Pressure 154/98 H Pulse Oximetry 100 Oxygen Delivery Oxygen Flow Rate Fraction of Inspired Oxygen 07/30/24 03:13 07/30/24 04:00 07/30/24 04:00 Temperature 99.1 F Pulse Rate 71 74 72 Respiratory Rate 23 H 23 H 20 Blood Pressure 156/98 H Pulse Oximetry 94 Oxygen Delivery Oxygen Flow Rate Fraction of Inspired Oxygen 07/30/24 04:00 07/30/24 04:00 07/30/24 06:00 Temperature Pulse Rate 72 72 88 Respiratory Rate 22 H 22 H Blood Pressure Pulse Oximetry 97 Oxygen Delivery Nasal Cannula Oxygen Flow Rate 2 Fraction of Inspired Oxygen 07/30/24 06:00 07/30/24 06:00 07/30/24 07:20 Temperature 98.9 F Pulse Rate 88 88 75 Respiratory Rate 19 21 H Blood Pressure 156/111 H Pulse Oximetry 98 Oxygen Delivery Oxygen Flow Rate Fraction of Inspired Oxygen 07/30/24 07:50 07/30/24 08:00 07/30/24 08:00 Temperature 98.7 F Pulse Rate 74 Respiratory Rate 25 H Blood Pressure 153/111 H Pulse Oximetry 95 94 Oxygen Delivery Room Air Room Air Oxygen Flow Rate Fraction of Inspired Oxygen 21 07/30/24 08:00 07/30/24 08:12 07/30/24 08:26 Temperature Pulse Rate 73 69 67 Respiratory Rate 23 H 20 Blood Pressure Pulse Oximetry Oxygen Delivery Oxygen Flow Rate Fraction of Inspired Oxygen 07/30/24 08:26 07/30/24 08:59 07/30/24 09:30 Temperature Pulse Rate 67 71 70 Respiratory Rate 20 20 18 Blood Pressure Pulse Oximetry Oxygen Delivery Oxygen Flow Rate Fraction of Inspired Oxygen 07/30/24 10:00 07/30/24 10:00 07/30/24 10:15 Temperature 98.5 F Pulse Rate 83 83 85 Respiratory Rate 22 H 24 H Blood Pressure 139/85 Pulse Oximetry 93 Oxygen Delivery Oxygen Flow Rate Fraction of Inspired Oxygen 07/30/24 10:35 07/30/24 10:53 07/30/24 12:00 Temperature 99.2 F Pulse Rate 92 92 107 H Respiratory Rate 20 24 H 22 H Blood Pressure 161/92 H Pulse Oximetry 92 Oxygen Delivery Oxygen Flow Rate Fraction of Inspired Oxygen 07/30/24 12:00 07/30/24 12:00 Temperature Pulse Rate 109 H Respiratory Rate Blood Pressure Pulse Oximetry Oxygen Delivery Room Air Oxygen Flow Rate Fraction of Inspired Oxygen Intake/Output Intake/Output: Intake & Output 07/27/24 07/28/24 07/29/24 07/30/24 23:59 23:59 23:59 23:59 Intake Total 3333.4 3216.9 1770.9 724.6 Output Total 5625 3500 4650 1000 Balance -2291.6 -283.1 -2879.1 -275.4 Meds/Results Medications: Active Medications Generic Name Dose Route Start Last Admin Trade Name Freq PRN Reason Stop Dose Admin Acetaminophen 650 mg 07/22/24 17:34 07/30/24 03:49 Acetaminophen Elixir 325 Mg/10.15 Ml Udc PO 650 mg Q6H PRN Administration Mild Pain (1-3) or Fever Amlodipine Besylate 10 mg 07/27/24 09:00 07/30/24 08:06 Amlodipine Besylate 10 Mg Tablet PO 10 mg DAILY ACOSTA Administration Dextrose 12.5 gm 07/23/24 12:52 Dextrose 50% 25 Gm/50 Ml Syringe IV PUSH PRN PRN Hypoglycemia Protocol Enoxaparin Sodium 40 mg 07/23/24 09:00 07/30/24 08:06 Enoxaparin 40 Mg/0.4 Ml Syringe SUB-Q 40 mg DAILY ACOSTA Administration Glucagon 1 mg 07/23/24 12:52 Glucagon For Inj 1 Mg Vial IM PRN PRN Hypoglycemia Protocol Glucose 15 gm 07/23/24 12:52 Glucose Oral Gel 15 Gm Of Glucse In 37.5 Gm Tube PO PRN PRN Hypoglycemia Protocol Hydralazine HCl 10 mg 07/26/24 10:51 07/28/24 18:09 Hydralazine Hcl 20 Mg/Ml Vial IV PUSH 10 mg Q4H PRN Administration Blood Pressure - High Dextrose 1,000 mls @ 100 mls/hr 07/23/24 12:52 Dextrose 5% 1,000 Ml IVPB PRN PRN Hypoglycemia Protocol Insulin Aspart 3 - 6 units 07/24/24 12:00 07/30/24 11:59 Insulin Aspart (*Bkc) 100 Units/Ml SUB-Q Not Given Q6HR ACOSTA Protocol Ipratropium Wiggins 0.5 mg 07/30/24 08:53 Ipratropium Br 0.02% Inh Soln 0.5 Mg/2.5 Ml Vial INHALATION Q6HRT PRN Wheezing Labetalol HCl 20 mg 07/26/24 23:45 07/27/24 04:32 Labetalol Hcl Inj 100 Mg/20 Ml Vial IV PUSH 20 mg Q4HR PRN Administration Blood Pressure - High Levalbuterol HCl 1.25 mg 07/30/24 08:53 Levalbuterol Neb 1.25 Mg/3 Ml INHALATION Q6HRT PRN Wheezing Lisinopril 40 mg 07/27/24 09:00 07/30/24 08:06 Lisinopril 20 Mg Tablet PO 40 mg QAM ACOSTA Administration Multi-Ingred Cream/Lotion/Oil/Oint 1 applic 07/22/24 21:00 07/30/24 08:06 Mineral Oil/White Petrolatum Ointment EACH EYE Not Given Q12HR ACOSTA Pantoprazole Sodium 40 mg 07/23/24 09:00 07/30/24 08:06 Pantoprazole Sodium Iv 40 Mg Vial IV PUSH 40 mg DAILY ACOSTA Administration Quetiapine Fumarate 25 mg 07/27/24 10:34 07/30/24 08:06 Quetiapine Fumarate 25 Mg Tablet PO 25 mg Q12HR ACOSTA Administration Sodium Chloride 10 ml 07/22/24 22:00 07/30/24 11:59 Central Line Flush IV PUSH Not Given Q8HR ACOSTA Sodium Chloride 20 ml 07/22/24 16:23 Central Line Flush IV PUSH PRN PRN after blood draws Radiology Results: ITS Impressions Chest/Abdomen/Pelvis CTA 07/22/24 18:32 IMPRESSION: No evidence of pulmonary embolism Prominent bilateral lower lobe consolidation. Mild lobe infiltrate. Soft Tissue Neck CT 07/23/24 06:55 IMPRESSION: 1. Small right pleural effusion. 2. 17 mm right thyroid nodule. Consider thyroid ultrasound for risk stratification. 3. Multifocal dental disease. Abdomen Ultrasound 07/23/24 12:48 IMPRESSION: 1. Right pleural effusion. Minimal fluid around the gallbladder. Evaluation for cholecystitis advised. Otherwise, normal Limited ultrasound of the abdomen. Abdomen X-Ray 07/26/24 06:25 IMPRESSION: 1. Nasogastric tube tip in the stomach. 2. Small right pleural effusion. 3. Airspace opacities in the lower lung zones, consistent with atelectasis versus pneumonia. Renal Ultrasound 07/26/24 15:27 IMPRESSION: Mild right pelviectasis. Mild pericholecystic fluid and gallbladder wall thickening. Chest X-Ray 07/28/24 10:28 IMPRESSION: 1. Decreasing small right pleural effusion. 2. unchanged mild bibasilar atelectasis versus pneumonia. Labs Labs: Laboratory Results - last 24 hr 07/29/24 07/29/24 07/30/24 17:34 23:59 03:41 WBC 9.7 RBC 2.99 L Hgb 10.2 L Hct 30.7 L MCV 102.7 H MCH 34.1 H MCHC 33.2 RDW 13.1 Plt Count 161 MPV 11.5 H Immature Gran % (Auto) 1.4 H Neut % (Auto) 77.3 H Lymph % (Auto) 11.3 L [place] % (Auto) 8.6 H Eos % (Auto) 1.2 Baso % (Auto) 0.2 Lymph # (Auto) 1.09 [place] # (Auto) 0.8 H Eos # (Auto) 0.1 Baso # (Auto) 0.0 Abs Immat Gran (auto) 0.14 H Absolute Neuts (auto) 7.5 H Absolute Nucleated RBC 0.000 Nucleated RBC % 0.0 Sodium 139 Potassium 3.8 Chloride 109 H Carbon Dioxide 28 Anion Gap 2 L BUN 42 H Creatinine 1.30 Estim Creat Clear Calc 61 Estimated GFR > 60 Glucose 81 POC Capillary Glucose 81 75 Calcium 8.8 Phosphorus 4.3 Magnesium 1.9 Total Bilirubin 0.7 AST 45 ALT 52 H Alkaline Phosphatase 104 Total Protein 7.0 Albumin 3.0 L 07/30/24 11:44 WBC RBC Hgb Hct MCV MCH MCHC RDW Plt Count MPV Immature Gran % (Auto) Neut % (Auto) Lymph % (Auto) [place] % (Auto) Eos % (Auto) Baso % (Auto) Lymph # (Auto) [place] # (Auto) Eos # (Auto) Baso # (Auto) Abs Immat Gran (auto) Absolute Neuts (auto) Absolute Nucleated RBC Nucleated RBC % Sodium Potassium Chloride Carbon Dioxide Anion Gap BUN Creatinine Estim Creat Clear Calc Estimated GFR Glucose POC Capillary Glucose 113 H Calcium Phosphorus Magnesium Total Bilirubin AST ALT Alkaline Phosphatase Total Protein Albumin Quality VTE Prophylaxis VTE prophylaxis: mechanical ordered and pharmacologic ordered
[2024-07-30 13:53] LABS: Vitamin B12 > 1000.0 pg/mL (239-931)
[2024-07-30] MEDS: ACETAMINOPHEN 325 MG TABLET 650 MG PO (16:39)
[2024-07-30 17:11] LABS: Glucose Point of Care 120 mg/dl (65-105)
--- NOTE | 2024-07-30 17:56 | PC.NURSE ---
This patient, Kofi Verduzco, was received from [ICU-[id number] ] on 07/30/24 at 1756. Patient/family oriented to unit policies and routines. Report received from EZEQUIEL Lebron @ [phone]
[2024-07-30] MEDS: LABETALOL HCL INJ 100 MG/20 ML VIAL 20 MG IV PUSH (18:13)
[2024-07-30 23:37] LABS: Glucose Point of Care 171 mg/dl (65-105)
[2024-07-31] VITALS (20 sets, daily range): BP systolic 131–185; BP diastolic 79–102; PULSE 96–112; RESP 16–20; TEMP 36.4–38.1; O2SAT 95–99
[2024-07-31 05:01] LABS: Basophils Percent Auto 0.3 % (0.2-1.2); Eosinophils Absolute Auto 0.1 K/mm3 (0-0.3); Eosinophils Percent Auto 1.4 % (0-4.4); Hematocrit 34.9 % (42.0-52.0); Hemoglobin 11.9 g/dL (14.0-18.0); Immature Granulocyte Absolute 0.05 K/mm3 (0.00-0.031); Immature Granulocyte Percent A 0.8 % (0-0.5); Lymphocytes Absolute Auto 0.75 K/mm3 (0.9-3.2); Lymphocytes Percent Auto 11.3 % (18.3-44.2); Mean Corpuscular HGB Conc 34.1 g/dl (32-36); Mean Corpuscular Hemoglobin 34.7 pg (26-34); Mean Corpuscular Volume 101.7 fl (80-100); Mean Platelet Volume 11.3 fl (7.4-10.4); Monocytes Absolute Auto 0.5 K/mm3 (0.1-0.6); Monocytes Percent Auto 7.2 % (2.6-8.5); Neutrophils Absolute Auto 5.3 K/mm3 (1.3-6.7); Platelet Count Result 271 k/mm3 (150-375); Red Blood Count 3.43 M/mm3 (4.6-6.20); Red Cell Distribution Width 12.7 % (11.5-14.5); White Blood Count 6.6 K/mm3 (4.5-10.0)
[2024-07-31 05:16] LABS: Alanine Aminotransferase 61 U/L (6-50); Albumin Level 3.6 g/dL (3.5-5.1); Alkaline Phosphatase 133 U/L (38-126); Anion Gap 4 mmol/L (4-12); Aspartate Amino Transferase 77 U/L (17-59); Bilirubin,Total 1.1 mg/dL (0.2-1.3); Blood Urea Nitrogen 39 mg/dL (9-20); Carbon Dioxide 27 mmol/L (22-30); Chloride 105 mmol/L (98-107); Estimated CRCL calculation 54 ml/min; Estimated Glomerular Filt Rate > 60; Glucose 136 mg/dL (65-110); Magnesium 1.9 mg/dL (1.6-2.3); Phosphorus 3.8 mg/dL (2.5-4.5); Potassium 3.5 mmol/L (3.4-5.0); Sodium 136 mmol/L (137-145)
[2024-07-31] MEDS: ENOXAPARIN 40 MG/0.4 ML SYRINGE SUB-Q (08:55)
[2024-07-31] MEDS: hydrALAZINE HCL 20 MG/ML VIAL 10 MG IV PUSH (08:55)
[2024-07-31] MEDS: lisinopriL 20 MG TABLET 40 MG PO (08:55)
[2024-07-31] MEDS: QUEtiapine FUMARATE 25 MG TABLET PO ×2 (08:55→21:32)
[2024-07-31] MEDS: PANTOPRAZOLE SODIUM IV 40 MG VIAL IV PUSH (08:55)
[2024-07-31] MEDS: amLODIPine BESYLATE 10 MG TABLET PO (08:56)
--- NOTE | 2024-07-31 09:59 | PCPTNOTE ---
Attempted PT evaluation this date. Pt declined stating that he needed to rest. Will attempt at a later date.
--- NOTE | 2024-07-31 11:59 | PM.IMPN ---
Progress Note: A&P Assessment and Plan (1) Severe sepsis: Code(s): A41.9 - Sepsis, unspecified organism; R65.20 - Severe sepsis without septic shock Status: Acute Assessment and Plan: 07/22: Patient presented the ED with shortness of breath, chest x-ray showed right lower lobe consolidation/pneumonia, acute kidney injury, tachycardia, tachypnea -07/22: Blood cultures growing Streptococcus pneumoniae 1/2 bottles -07/22: Sputum cultures growing Streptococcus pneumoniae 07/24: Repeat blood cultures negative so far Completed antibiotics and stable at bedside monitor 07/31/2024 Improving, will continue current treatment and monitor closely. (2) Acute respiratory failure: Code(s): J96.00 - Acute respiratory failure, unspecified whether with hypoxia or hypercapnia Status: Acute Assessment and Plan: Acute respiratory failure likely related to right lower lobe pneumonia. Patient also tachypneic and tachycardic, will send patient for a CT scan of the chest PE protocol to rule out pulmonary embolism -07/22: Intubated in the ICU, status post Nimbex -07/29: Successfully extubated, currently on room air 07/31/2024 Monitor closely -Completed antibiotics as above (3) Pneumonia: Code(s): J18.9 - Pneumonia, unspecified organism Status: Acute Assessment and Plan: Currently patient is feeling better. Continue with current treatment monitor closely. (4) MILENA (acute kidney injury): Code(s): N17.9 - Acute kidney failure, unspecified Status: Acute Assessment and Plan: resolved -hypomagnesemia, resolved -hypophosphatemia, resolved -hypokalemia, will replete Creatinine normal (5) Elevated liver enzymes: Code(s): R74.8 - Abnormal levels of other serum enzymes Status: Acute Assessment and Plan: Elevated liver enzymes, could be related to severe hypoxemia, HCV, -hepatitis panel is negative -HCV RNA PCR : Elevated PCR titers, appreciate GI evaluation recommendations, if patient decides to stay with the family in the local area he can follow with them to discuss treatment option -07/23: RUQ ultrasound: Right pleural effusion, minimal fluid around the gallbladder. Evaluation of cholecystitis advised, otherwise normal limited ultrasound of the abdomen (6) CHF (congestive heart failure): Code(s): I50.9 - Heart failure, unspecified Status: Acute Assessment and Plan: History of CHF, proBNP was 700 -chest x-ray did not show any pulmonary edema -continue amlodipine and lisinopril 07/24: Echocardiogram Summary 1. Complete two-dimensional, color flow and Doppler transthoracic echocardiogram is performed. 2. Left ventricle is normal in size with mildly reduced systolic function. The left ventricular ejection fraction is visually estimated to be 45-50%. 3. The right ventricle is normal in size and systolic function. 4. The aortic valve is not well visualized. The Doppler gradients does not suggest any hemodynamically significant stenosis. (7) Elevated troponin: Code(s): R79.89 - Other specified abnormal findings of blood chemistry Status: Acute Assessment and Plan: Elevated troponin likely related to type 2 infarct, secondary to tachycardia, tachypnea -echocardiogram did not reveal any new wall motion abnormality, continue to monitor for chest pain -troponins have plateaued (8) Hyperglycemia: Code(s): R73.9 - Hyperglycemia, unspecified Status: Acute Assessment and Plan: Continue Accu-Cheks and sliding scale insulin, -discontinue Lantus -hemoglobin A1c 7.2 this admission (9) Essential hypertension: Code(s): I10 - Essential (primary) hypertension Status: Acute Assessment and Plan: Patient has been started on amlodipine and lisinopril, blood pressures are controlled Plan DVT prophylaxis: Lovenox Stress ulcer prophylaxis: Protonix Nutrition: Heart healthy diet Code Status: Full code PT/OT eval for discharge disposition Subjective Date/time seen: 07/31/24 11:59 Interval history: Patient was seen during the morning rounds today. Patient is feeling slightly better. Decreased shortness of breath. No chest pain. Mood stable. Review of Systems Review of Systems: All systems reviewed & are unremarkable except as noted in HPI and below ROS unobtainable: Yes unobtainable due to endotracheal tube and unobtainable due to medical condition Exam Narrative: General: Patient is awake, alert, in no acute distress HEENT:? Pupils equal and reactive, sclera is clear, Neck:? Neck movements are restricted Respiratory:?Air entry is better. Cardiac:? S1-S2 is normal, regular rate and rhythm Abdomen:? Soft, nondistended, nontender, hypoactive bowel sounds Extremities:? No edema, palpable pedal pulses Neuro:? Patient is awake, alert, able to answer questions appropriately and follows simple commands Skin:? Dry skin, no other lesions noted Psych:? Normal mentation and affect Objective Data Vital Signs Vital Signs: Vital Signs - 24 hr 07/30/24 12:00 07/30/24 12:00 07/30/24 12:00 Temperature 37.3 C Pulse Rate 107 H 109 H Respiratory Rate 22 H Blood Pressure 161/92 H Pulse Oximetry 92 Oxygen Delivery Room Air 07/30/24 14:00 07/30/24 14:00 07/30/24 16:00 Temperature 37.4 C Pulse Rate 106 H 112 H Respiratory Rate 20 Blood Pressure 164/98 H Pulse Oximetry 91 Oxygen Delivery Room Air 07/30/24 16:00 07/30/24 16:00 07/30/24 17:59 Temperature 37.6 C H 36.9 C Pulse Rate 111 H 111 H 107 H Respiratory Rate 21 H 20 Blood Pressure 160/95 H 182/115 H Pulse Oximetry 91 97 Oxygen Delivery 07/30/24 18:00 07/30/24 18:13 07/30/24 18:30 Temperature Pulse Rate 124 H 108 H 84 Respiratory Rate Blood Pressure Pulse Oximetry Oxygen Delivery 07/30/24 19:57 07/30/24 20:00 07/30/24 20:00 Temperature 37.2 C Pulse Rate 84 88 Respiratory Rate 18 Blood Pressure 162/98 H Pulse Oximetry 100 Oxygen Delivery Room Air 07/30/24 22:00 07/30/24 23:44 07/31/24 00:00 Temperature 37.1 C Pulse Rate 95 97 97 Respiratory Rate 18 Blood Pressure 171/99 H Pulse Oximetry 97 Oxygen Delivery 07/31/24 00:00 07/31/24 02:00 07/31/24 04:00 Temperature Pulse Rate 96 Respiratory Rate Blood Pressure Pulse Oximetry Oxygen Delivery Room Air Room Air 07/31/24 04:00 07/31/24 04:31 07/31/24 06:00 Temperature 36.6 C Pulse Rate 100 100 96 Respiratory Rate 18 Blood Pressure 159/83 H Pulse Oximetry 95 Oxygen Delivery 07/31/24 07:34 07/31/24 08:00 07/31/24 08:40 Temperature 37.3 C Pulse Rate 104 H 104 H Respiratory Rate 18 18 Blood Pressure 185/102 H Pulse Oximetry 97 97 Oxygen Delivery Room Air Room Air 07/31/24 10:15 07/31/24 11:07 07/31/24 11:44 Temperature 37.2 C Pulse Rate 111 H Respiratory Rate 16 Blood Pressure 131/82 149/81 H Pulse Oximetry 95 97 Oxygen Delivery Room Air Intake/Output Intake/Output: Intake & Output 07/28/24 07/29/24 07/30/24 07/31/24 23:59 23:59 23:59 23:59 Intake Total 3216.9 1770.9 1224.6 740 Output Total 3500 4650 3300 1050 Balance -283.1 -2879.1 -2075.4 -310 Meds/Results Medications: Active Medications Generic Name Dose Route Start Last Admin Trade Name Freq PRN Reason Stop Dose Admin Acetaminophen 650 mg 07/30/24 15:44 07/30/24 16:39 Acetaminophen 325 Mg Tablet PO 650 mg Q6H PRN Administration Mild Pain (1-3) or Fever Amlodipine Besylate 5 mg 07/31/24 17:00 Amlodipine Besylate 5 Mg Tablet PO BID [facility] Dextrose 12.5 gm 07/23/24 12:52 Dextrose 50% 25 Gm/50 Ml Syringe IV PUSH PRN PRN Hypoglycemia Protocol Enoxaparin Sodium 40 mg 07/23/24 09:00 07/31/24 08:55 Enoxaparin 40 Mg/0.4 Ml Syringe SUB-Q 40 mg DAILY [facility] Administration Glucagon 1 mg 07/23/24 12:52 Glucagon For Inj 1 Mg Vial IM PRN PRN Hypoglycemia Protocol Glucose 15 gm 07/23/24 12:52 Glucose Oral Gel 15 Gm Of Glucse In 37.5 Gm Tube PO PRN PRN Hypoglycemia Protocol Dextrose 1,000 mls @ 100 mls/hr 07/23/24 12:52 Dextrose 5% 1,000 Ml IVPB PRN PRN Hypoglycemia Protocol Insulin Aspart 3 - 6 units 07/24/24 12:00 07/31/24 05:34 Insulin Aspart (*Bkc) 100 Units/Ml SUB-Q Not Given Q6HR [facility] Protocol Ipratropium [place] 0.5 mg 07/30/24 08:53 Ipratropium Br 0.02% Inh Soln 0.5 Mg/2.5 Ml Vial INHALATION Q6HRT PRN Wheezing Labetalol HCl 20 mg 07/26/24 23:45 07/30/24 18:13 Labetalol Hcl Inj 100 Mg/20 Ml Vial IV PUSH 20 mg Q4HR PRN Administration Blood Pressure - High Levalbuterol HCl 1.25 mg 07/30/24 08:53 Levalbuterol Neb 1.25 Mg/3 Ml INHALATION Q6HRT PRN Wheezing Lisinopril 20 mg 07/31/24 17:00 Lisinopril 20 Mg Tablet PO BID [facility] Multi-Ingred Cream/Lotion/Oil/Oint 1 applic 07/22/24 21:00 07/31/24 08:55 Mineral Oil/White Petrolatum Ointment EACH EYE Not Given Q12HR [facility] Quetiapine Fumarate 25 mg 07/27/24 10:34 07/31/24 08:55 Quetiapine Fumarate 25 Mg Tablet PO 25 mg Q12HR [facility] Administration Sodium Chloride 10 ml 07/22/24 22:00 07/30/24 21:59 Central Line Flush IV PUSH Not Given Q8HR [facility] Sodium Chloride 20 ml 07/22/24 16:23 Central Line Flush IV PUSH PRN PRN after blood draws Radiology Results: ITS Impressions Chest/Abdomen/Pelvis CTA 07/22/24 18:32 IMPRESSION: No evidence of pulmonary embolism Prominent bilateral lower lobe consolidation. Mild lobe infiltrate. Soft Tissue Neck CT 07/23/24 06:55 IMPRESSION: 1. Small right pleural effusion. 2. 17 mm right thyroid nodule. Consider thyroid ultrasound for risk stratification. 3. Multifocal dental disease. Abdomen Ultrasound 07/23/24 12:48 IMPRESSION: 1. Right pleural effusion. Minimal fluid around the gallbladder. Evaluation for cholecystitis advised. Otherwise, normal Limited ultrasound of the abdomen. Abdomen X-Ray 07/26/24 06:25 IMPRESSION: 1. Nasogastric tube tip in the stomach. 2. Small right pleural effusion. 3. Airspace opacities in the lower lung zones, consistent with atelectasis versus pneumonia. Renal Ultrasound 07/26/24 15:27 IMPRESSION: Mild right pelviectasis. Mild pericholecystic fluid and gallbladder wall thickening. Chest X-Ray 07/28/24 10:28 IMPRESSION: 1. Decreasing small right pleural effusion. 2. unchanged mild bibasilar atelectasis versus pneumonia. Labs Labs: Laboratory Results - last 24 hr 07/30/24 07/30/24 07/30/24 03:41 17:07 23:35 WBC RBC Hgb Hct MCV MCH MCHC RDW Plt Count MPV Immature Gran % (Auto) Neut % (Auto) Lymph % (Auto) [place] % (Auto) Eos % (Auto) Baso % (Auto) Lymph # (Auto) [place] # (Auto) Eos # (Auto) Baso # (Auto) Abs Immat Gran (auto) Absolute Neuts (auto) Absolute Nucleated RBC Nucleated RBC % Sodium Potassium Chloride Carbon Dioxide Anion Gap BUN Creatinine Estim Creat Clear Calc Estimated GFR Glucose POC Capillary Glucose 120 H 171 H Calcium Phosphorus Magnesium Total Bilirubin AST ALT Alkaline Phosphatase Total Protein Albumin Vitamin B12 > 1000.0 H Folate 8.0 07/31/24 07/31/24 04:25 04:26 WBC 6.6 RBC 3.43 L Hgb 11.9 L Hct 34.9 L MCV 101.7 H MCH 34.7 H MCHC 34.1 RDW 12.7 Plt Count 271 D MPV 11.3 H Immature Gran % (Auto) 0.8 H Neut % (Auto) 79.0 H Lymph % (Auto) 11.3 L [place] % (Auto) 7.2 Eos % (Auto) 1.4 Baso % (Auto) 0.3 Lymph # (Auto) 0.75 L [place] # (Auto) 0.5 Eos # (Auto) 0.1 Baso # (Auto) 0.0 Abs Immat Gran (auto) 0.05 H Absolute Neuts (auto) 5.3 Absolute Nucleated RBC 0.000 Nucleated RBC % 0.0 Sodium 136 L Potassium 3.5 Chloride 105 Carbon Dioxide 27 Anion Gap 4 BUN 39 H Creatinine 1.40 H Estim Creat Clear Calc 54 Estimated GFR > 60 Glucose 136 H POC Capillary Glucose Calcium 9.0 Phosphorus 3.8 Magnesium 1.9 Total Bilirubin 1.1 AST 77 H ALT 61 H Alkaline Phosphatase 133 H Total Protein 8.0 Albumin 3.6 Vitamin B12 Folate Quality VTE Prophylaxis VTE prophylaxis: mechanical ordered and pharmacologic ordered
[2024-07-31 12:13] LABS: Glucose Point of Care 211 mg/dl (65-105)
[2024-07-31] MEDS: INSULIN ASPART (*BKC) 100 UNITS/ML SUB-Q (12:44)
[2024-07-31] MEDS: lisinopriL 20 MG TABLET PO (16:32)
[2024-07-31] MEDS: amLODIPine BESYLATE 5 MG TABLET PO (16:33)
[2024-07-31] MEDS: hydrALAZINE HCL 25 MG TABLET PO (16:33)
[2024-07-31 16:59] LABS: Glucose Point of Care 126 mg/dl (65-105)
[2024-07-31 20:45] LABS: Glucose Point of Care 143 mg/dl (65-105)
[2024-08-01] VITALS (20 sets, daily range): BP systolic 159–188; BP diastolic 90–107; PULSE 76–113; RESP 18–20; TEMP 36.5–37.5; O2SAT 95–97
[2024-08-01] MEDS: LABETALOL HCL INJ 100 MG/20 ML VIAL 20 MG IV PUSH ×4 (01:54→22:04)
[2024-08-01 05:17] LABS: Basophils Percent Auto 0.5 % (0.2-1.2); Eosinophils Absolute Auto 0.1 K/mm3 (0-0.3); Eosinophils Percent Auto 1.3 % (0-4.4); Hematocrit 31.8 % (42.0-52.0); Hemoglobin 10.7 g/dL (14.0-18.0); Immature Granulocyte Absolute 0.02 K/mm3 (0.00-0.031); Immature Granulocyte Percent A 0.5 % (0-0.5); Lymphocytes Absolute Auto 0.58 K/mm3 (0.9-3.2); Lymphocytes Percent Auto 15.6 % (18.3-44.2); Mean Corpuscular HGB Conc 33.6 g/dl (32-36); Mean Corpuscular Hemoglobin 34.4 pg (26-34); Mean Corpuscular Volume 102.3 fl (80-100); Mean Platelet Volume 10.7 fl (7.4-10.4); Monocytes Absolute Auto 0.7 K/mm3 (0.1-0.6); Monocytes Percent Auto 19.4 % (2.6-8.5); Neutrophils Absolute Auto 2.3 K/mm3 (1.3-6.7); Neutrophils Percent Auto 62.7 % (45.5-73.1); Platelet Count Result 243 k/mm3 (150-375); Red Blood Count 3.11 M/mm3 (4.6-6.20); Red Cell Distribution Width 12.3 % (11.5-14.5); White Blood Count 3.7 K/mm3 (4.5-10.0)
[2024-08-01 05:34] LABS: Alanine Aminotransferase 77 U/L (6-50); Albumin Level 3.1 g/dL (3.5-5.1); Alkaline Phosphatase 109 U/L (38-126); Anion Gap 1 mmol/L (4-12); Aspartate Amino Transferase 111 U/L (17-59); Bilirubin,Total 0.9 mg/dL (0.2-1.3); Blood Urea Nitrogen 30 mg/dL (9-20); Calcium 8.5 mg/dL (8.4-10.2); Carbon Dioxide 30 mmol/L (22-30); Chloride 107 mmol/L (98-107); Estimated CRCL calculation 52 ml/min; Estimated Glomerular Filt Rate > 60; Glucose 134 mg/dL (65-110); Magnesium 1.8 mg/dL (1.6-2.3); Phosphorus 3.3 mg/dL (2.5-4.5); Potassium 3.8 mmol/L (3.4-5.0); Sodium 138 mmol/L (137-145)
[2024-08-01 08:09] LABS: Glucose Point of Care 133 mg/dl (65-105)
[2024-08-01] MEDS: PANTOPRAZOLE 40 MG TABLET PO (10:48)
[2024-08-01] MEDS: amLODIPine BESYLATE 5 MG TABLET PO ×2 (10:48→18:12)
[2024-08-01] MEDS: QUEtiapine FUMARATE 25 MG TABLET PO ×2 (10:49→22:04)
[2024-08-01] MEDS: ENOXAPARIN 40 MG/0.4 ML SYRINGE SUB-Q (10:49)
[2024-08-01] MEDS: lisinopriL 20 MG TABLET PO ×2 (10:49→18:12)
[2024-08-01] MEDS: hydrALAZINE HCL 25 MG TABLET PO ×3 (10:49→18:12)
--- NOTE | 2024-08-01 11:28 | P.PNIM_ITS ---
Progress Note: A&P Assessment and Plan (1) Severe sepsis: Code(s): A41.9 - Sepsis, unspecified organism; R65.20 - Severe sepsis without septic shock Status: Acute Assessment and Plan: 07/22: Patient presented the ED with shortness of breath, chest x-ray showed right lower lobe consolidation/pneumonia, acute kidney injury, tachycardia, tachypnea -07/22: Blood cultures growing Streptococcus pneumoniae / bottles -07/22: Sputum cultures growing Streptococcus pneumoniae 07/24: Repeat blood cultures negative so far Completed antibiotics and stable at bedside monitor 08/01/2024 Improving, will continue current treatment and monitor closely. (2) Acute respiratory failure: Code(s): J96.00 - Acute respiratory failure, unspecified whether with hypoxia or hypercapnia Status: Acute Assessment and Plan: Acute respiratory failure likely related to right lower lobe pneumonia. Patient also tachypneic and tachycardic, will send patient for a CT scan of the chest PE protocol to rule out pulmonary embolism -07/22: Intubated in the ICU, status post Nimbex -07/29: Successfully extubated, currently on room air 08/01/2024 Monitor closely -Completed antibiotics as above (3) Pneumonia: Code(s): J18.9 - Pneumonia, unspecified organism Status: Acute Assessment and Plan: Currently patient is feeling better. Continue with current treatment monitor closely. (4) MILENA (acute kidney injury): Code(s): N17.9 - Acute kidney failure, unspecified Status: Acute Assessment and Plan: resolved -hypomagnesemia, resolved -hypophosphatemia, resolved -hypokalemia, resolved. Creatinine normal (5) Elevated liver enzymes: Code(s): R74.8 - Abnormal levels of other serum enzymes Status: Acute Assessment and Plan: Elevated liver enzymes, could be related to severe hypoxemia, HCV, -hepatitis panel is negative -HCV RNA PCR : Elevated PCR titers, appreciate GI evaluation recommendations, if patient decides to stay with the family in the local area he can follow with them to discuss treatment option -07/23: RUQ ultrasound: Right pleural effusion, minimal fluid around the gallbladder. Evaluation of cholecystitis advised, otherwise normal limited ultrasound of the abdomen (6) CHF (congestive heart failure): Code(s): I50.9 - Heart failure, unspecified Status: Acute Assessment and Plan: History of CHF, proBNP was 700 -chest x-ray did not show any pulmonary edema -continue amlodipine and lisinopril 07/24: Echocardiogram Summary 1. Complete two-dimensional, color flow and Doppler transthoracic echocardiogram is performed. 2. Left ventricle is normal in size with mildly reduced systolic function. The left ventricular ejection fraction is visually estimated to be 45-50%. 3. The right ventricle is normal in size and systolic function. 4. The aortic valve is not well visualized. The Doppler gradients does not suggest any hemodynamically significant stenosis. (7) Elevated troponin: Code(s): R79.89 - Other specified abnormal findings of blood chemistry Status: Acute Assessment and Plan: Elevated troponin likely related to type 2 infarct, secondary to tachycardia, tachypnea -echocardiogram did not reveal any new wall motion abnormality, continue to monitor for chest pain -troponins have plateaued (8) Hyperglycemia: Code(s): R73.9 - Hyperglycemia, unspecified Status: Acute Assessment and Plan: Continue Accu-Cheks and sliding scale insulin, -discontinue Lantus -hemoglobin A1c 7.2 this admission (9) Essential hypertension: Code(s): I10 - Essential (primary) hypertension Status: Acute Assessment and Plan: Patient has been started on amlodipine and lisinopril, blood pressures are controlled Plan DVT prophylaxis: Lovenox Stress ulcer prophylaxis: Protonix Nutrition: Heart healthy diet Code Status: Full code PT/OT eval for discharge disposition Subjective Date/time seen: 08/01/24 11:28 Interval history: Patient was seen during the morning rounds today. No new overnight complaints. Patient is feeling slightly better. Decreased shortness of breath. No chest pain. Mood stable. Review of Systems Review of Systems: All systems reviewed & are unremarkable except as noted in HPI and below ROS unobtainable: Yes unobtainable due to endotracheal tube and unobtainable due to medical condition Exam Narrative: General: Patient is awake, alert, in no acute distress HEENT:? Pupils equal and reactive, sclera is clear, Neck:? Neck movements are restricted Respiratory:?Air entry is better. Cardiac:? S1-S2 is normal, regular rate and rhythm Abdomen:? Soft, nondistended, nontender, hypoactive bowel sounds Extremities:? No edema, palpable pedal pulses Neuro:? Patient is awake, alert, able to answer questions appropriately and follows simple commands Skin:? Dry skin, no other lesions noted Psych:? Normal mentation and affect Objective Data Vital Signs Vital Signs: Vital Signs - 24 hr 07/31/24 11:44 07/31/24 12:00 07/31/24 12:00 Temperature 37.2 C Pulse Rate 111 H 111 H 105 H Respiratory Rate 16 16 Blood Pressure 149/81 H Pulse Oximetry 97 97 Oxygen Delivery Room Air 07/31/24 14:00 07/31/24 15:57 07/31/24 16:00 Temperature Pulse Rate 104 H 98 Respiratory Rate Blood Pressure Pulse Oximetry Oxygen Delivery Room Air 07/31/24 16:27 07/31/24 18:00 07/31/24 20:00 Temperature 37.4 C Pulse Rate 104 H 104 H 105 H Respiratory Rate 18 Blood Pressure 174/95 H Pulse Oximetry 97 Oxygen Delivery 07/31/24 20:29 07/31/24 22:00 07/31/24 23:25 Temperature 38.1 C H 36.4 C Pulse Rate 98 99 102 H Respiratory Rate 18 20 Blood Pressure 167/95 H 179/79 H Pulse Oximetry 99 99 Oxygen Delivery 08/01/24 00:00 08/01/24 01:53 08/01/24 01:54 Temperature Pulse Rate 97 98 98 Respiratory Rate Blood Pressure 168/102 H Pulse Oximetry Oxygen Delivery 08/01/24 02:00 08/01/24 03:01 08/01/24 04:00 Temperature 36.7 C Pulse Rate 87 90 85 Respiratory Rate 18 Blood Pressure 159/96 H Pulse Oximetry 95 Oxygen Delivery 08/01/24 05:58 08/01/24 08:00 Temperature 36.5 C Pulse Rate 86 86 Respiratory Rate 20 Blood Pressure 165/107 H Pulse Oximetry 96 Oxygen Delivery Intake/Output Intake/Output: Intake & Output 07/29/24 07/30/24 07/31/24 08/01/24 23:59 23:59 23:59 23:59 Intake Total 1770.9 1224.6 740 Output Total 4650 3300 1325 520 [facility] -2879.1 -2075.4 -585 -520 Meds/Results Medications: Active Medications Generic Name Dose Route Start Last Admin Trade Name Freq PRN Reason Stop Dose Admin Acetaminophen 650 mg 07/30/24 15:44 07/30/24 16:39 Acetaminophen 325 Mg Tablet PO 650 mg Q6H PRN Administration Mild Pain (1-3) or Fever Amlodipine Besylate 5 mg 07/31/24 17:00 08/01/24 10:48 Amlodipine Besylate 5 Mg Tablet PO 5 mg BID [facility] Administration Dextrose 12.5 gm 07/23/24 12:52 Dextrose 50% 25 Gm/50 Ml Syringe IV PUSH PRN PRN Hypoglycemia Protocol Enoxaparin Sodium 40 mg 07/23/24 09:00 08/01/24 10:49 Enoxaparin 40 Mg/0.4 Ml Syringe SUB-Q 40 mg DAILY [facility] Administration Glucagon 1 mg 07/23/24 12:52 Glucagon For Inj 1 Mg Vial IM PRN PRN Hypoglycemia Protocol Glucose 15 gm 07/23/24 12:52 Glucose Oral Gel 15 Gm Of Glucse In 37.5 Gm Tube PO PRN PRN Hypoglycemia Protocol Hydralazine HCl 25 mg 07/31/24 13:00 08/01/24 10:49 Hydralazine Hcl 25 Mg Tablet PO 25 mg TID [facility] Administration Dextrose 1,000 mls @ 100 mls/hr 07/23/24 12:52 Dextrose 5% 1,000 Ml IVPB PRN PRN Hypoglycemia Protocol Insulin Aspart 3 - 6 units 07/31/24 17:00 08/01/24 10:47 Insulin Aspart (*Bkc) 100 Units/Ml SUB-Q Not Given TIDWM [facility] Protocol Ipratropium [place] 0.5 mg 07/30/24 08:53 Ipratropium Br 0.02% Inh Soln 0.5 Mg/2.5 Ml Vial INHALATION Q6HRT PRN Wheezing Labetalol HCl 20 mg 07/26/24 23:45 08/01/24 01:54 Labetalol Hcl Inj 100 Mg/20 Ml Vial IV PUSH 20 mg Q4HR PRN Administration Blood Pressure - High Levalbuterol HCl 1.25 mg 07/30/24 08:53 Levalbuterol Neb 1.25 Mg/3 Ml INHALATION Q6HRT PRN Wheezing Lisinopril 20 mg 07/31/24 17:00 08/01/24 10:49 Lisinopril 20 Mg Tablet PO 20 mg BID [facility]STA Administration Pantoprazole Sodium 40 mg 08/01/24 09:00 08/01/24 10:48 Pantoprazole 40 Mg Tablet PO 40 mg QAM [facility] Administration Quetiapine Fumarate 25 mg 07/27/24 10:34 08/01/24 10:49 Quetiapine Fumarate 25 Mg Tablet PO 25 mg Q12HR [facility] Administration Radiology Results: ITS Impressions Chest/Abdomen/Pelvis CTA 07/22/24 18:32 IMPRESSION: No evidence of pulmonary embolism Prominent bilateral lower lobe consolidation. Mild lobe infiltrate. Soft Tissue Neck CT 07/23/24 06:55 IMPRESSION: 1. Small right pleural effusion. 2. 17 mm right thyroid nodule. Consider thyroid ultrasound for risk stratification. 3. Multifocal dental disease. Abdomen Ultrasound 07/23/24 12:48 IMPRESSION: 1. Right pleural effusion. Minimal fluid around the gallbladder. Evaluation for cholecystitis advised. Otherwise, normal Limited ultrasound of the abdomen. Abdomen X-Ray 07/26/24 06:25 IMPRESSION: 1. Nasogastric tube tip in the stomach. 2. Small right pleural effusion. 3. Airspace opacities in the lower lung zones, consistent with atelectasis versus pneumonia. Renal Ultrasound 07/26/24 15:27 IMPRESSION: Mild right pelviectasis. Mild pericholecystic fluid and gallbladder wall thickening. Chest X-Ray 07/28/24 10:28 IMPRESSION: 1. Decreasing small right pleural effusion. 2. unchanged mild bibasilar atelectasis versus pneumonia. Labs Labs: Laboratory Results - last 24 hr 07/31/24 07/31/24 07/31/24 11:21 16:32 20:33 WBC RBC Hgb Hct MCV MCH MCHC RDW Plt Count MPV Immature Gran % (Auto) Neut % (Auto) Lymph % (Auto) [place] % (Auto) Eos % (Auto) Baso % (Auto) Lymph # (Auto) [place] # (Auto) Eos # (Auto) Baso # (Auto) Abs Immat Gran (auto) Absolute Neuts (auto) Absolute Nucleated RBC Nucleated RBC % Sodium Potassium Chloride Carbon Dioxide Anion Gap BUN Creatinine Estim Creat Clear Calc Estimated GFR Glucose POC Capillary Glucose 211 H 126 H 143 H Calcium Phosphorus Magnesium Total Bilirubin AST ALT Alkaline Phosphatase Total Protein Albumin 08/01/24 08/01/24 04:59 08:05 WBC 3.7 L RBC 3.11 L Hgb 10.7 L Hct 31.8 L MCV 102.3 H MCH 34.4 H MCHC 33.6 RDW 12.3 Plt Count 243 MPV 10.7 H Immature Gran % (Auto) 0.5 Neut % (Auto) 62.7 Lymph % (Auto) 15.6 L [place] % (Auto) 19.4 H Eos % (Auto) 1.3 Baso % (Auto) 0.5 Lymph # (Auto) 0.58 L [place] # (Auto) 0.7 H Eos # (Auto) 0.1 Baso # (Auto) 0.0 Abs Immat Gran (auto) 0.02 Absolute Neuts (auto) 2.3 Absolute Nucleated RBC 0.000 Nucleated RBC % 0.0 Sodium 138 Potassium 3.8 Chloride 107 Carbon Dioxide 30 Anion Gap 1 L BUN 30 H Creatinine 1.40 H Estim Creat Clear Calc 52 Estimated GFR > 60 Glucose 134 H POC Capillary Glucose 133 H Calcium 8.5 Phosphorus 3.3 Magnesium 1.8 Total Bilirubin 0.9 AST 111 H ALT 77 H Alkaline Phosphatase 109 Total Protein 7.0 Albumin 3.1 L Quality VTE Prophylaxis VTE prophylaxis: mechanical ordered and pharmacologic ordered
[2024-08-01 12:12] LABS: Glucose Point of Care 130 mg/dl (65-105)
[2024-08-01 18:05] LABS: Glucose Point of Care 168 mg/dl (65-105)
[2024-08-01 22:24] LABS: Glucose Point of Care 135 mg/dl (65-105)
[2024-08-02] VITALS (12 sets, daily range): BP systolic 108–176; BP diastolic 75–98; PULSE 74–97; RESP 14–20; TEMP 36.3–37.1; O2SAT 93–100
[2024-08-02 05:32] LABS: Estimated CRCL calculation 57 ml/min; Estimated Glomerular Filt Rate > 60
[2024-08-02 08:08] LABS: Glucose Point of Care 140 mg/dl (65-105)
[2024-08-02] MEDS: hydrALAZINE HCL 25 MG TABLET PO ×2 (08:40→17:02)
[2024-08-02] MEDS: lisinopriL 20 MG TABLET PO ×2 (08:40→17:02)
[2024-08-02] MEDS: PANTOPRAZOLE 40 MG TABLET PO (08:40)
[2024-08-02] MEDS: ENOXAPARIN 40 MG/0.4 ML SYRINGE SUB-Q (08:41)
[2024-08-02] MEDS: QUEtiapine FUMARATE 25 MG TABLET PO ×2 (08:41→20:44)
[2024-08-02] MEDS: amLODIPine BESYLATE 5 MG TABLET PO ×2 (08:41→17:02)
--- NOTE | 2024-08-02 10:57 | PM.IMPN ---
Progress Note: A&P Assessment and Plan (1) Severe sepsis: Code(s): A41.9 - Sepsis, unspecified organism; R65.20 - Severe sepsis without septic shock Status: Acute Assessment and Plan: 07/22: Patient presented the ED with shortness of breath, chest x-ray showed right lower lobe consolidation/pneumonia, acute kidney injury, tachycardia, tachypnea -07/22: Blood cultures growing Streptococcus pneumoniae / bottles -07/22: Sputum cultures growing Streptococcus pneumoniae 07/24: Repeat blood cultures negative so far Completed antibiotics and stable at bedside monitor 08/01/2024 Improving, will continue current treatment and monitor closely. (2) Acute respiratory failure: Code(s): J96.00 - Acute respiratory failure, unspecified whether with hypoxia or hypercapnia Status: Acute Assessment and Plan: Acute respiratory failure likely related to right lower lobe pneumonia. Patient also tachypneic and tachycardic, will send patient for a CT scan of the chest PE protocol to rule out pulmonary embolism -07/22: Intubated in the ICU, status post Nimbex -07/29: Successfully extubated, currently on room air 08/01/2024 Monitor closely -Completed antibiotics as above (3) Pneumonia: Code(s): J18.9 - Pneumonia, unspecified organism Status: Acute Assessment and Plan: Currently patient is feeling better. Continue with current treatment monitor closely. (4) MILENA (acute kidney injury): Code(s): N17.9 - Acute kidney failure, unspecified Status: Acute Assessment and Plan: resolved -hypomagnesemia, resolved -hypophosphatemia, resolved -hypokalemia, resolved. Creatinine normal (5) Elevated liver enzymes: Code(s): R74.8 - Abnormal levels of other serum enzymes Status: Acute Assessment and Plan: Elevated liver enzymes, could be related to severe hypoxemia, HCV, -hepatitis panel is negative -HCV RNA PCR : Elevated PCR titers, appreciate GI evaluation recommendations, if patient decides to stay with the family in the local area he can follow with them to discuss treatment option -07/23: RUQ ultrasound: Right pleural effusion, minimal fluid around the gallbladder. Evaluation of cholecystitis advised, otherwise normal limited ultrasound of the abdomen (6) CHF (congestive heart failure): Code(s): I50.9 - Heart failure, unspecified Status: Acute Assessment and Plan: History of CHF, proBNP was 700 -chest x-ray did not show any pulmonary edema -continue amlodipine and lisinopril 07/24: Echocardiogram Summary 1. Complete two-dimensional, color flow and Doppler transthoracic echocardiogram is performed. 2. Left ventricle is normal in size with mildly reduced systolic function. The left ventricular ejection fraction is visually estimated to be 45-50%. 3. The right ventricle is normal in size and systolic function. 4. The aortic valve is not well visualized. The Doppler gradients does not suggest any hemodynamically significant stenosis. (7) Elevated troponin: Code(s): R79.89 - Other specified abnormal findings of blood chemistry Status: Acute Assessment and Plan: Elevated troponin likely related to type 2 infarct, secondary to tachycardia, tachypnea -echocardiogram did not reveal any new wall motion abnormality, continue to monitor for chest pain -troponins have plateaued (8) Hyperglycemia: Code(s): R73.9 - Hyperglycemia, unspecified Status: Acute Assessment and Plan: Continue Accu-Cheks and sliding scale insulin, -discontinue Lantus -hemoglobin A1c 7.2 this admission (9) Essential hypertension: Code(s): I10 - Essential (primary) hypertension Status: Acute Assessment and Plan: Patient has been started on amlodipine and lisinopril, blood pressures are controlled Plan DVT prophylaxis: Lovenox Stress ulcer prophylaxis: Protonix Nutrition: Heart healthy diet Code Status: Full code PT/OT eval for discharge disposition Subjective Date/time seen: 08/02/24 10:57 Interval history: Patient social economic status is homeless and was found shortness of breath and intubated on 07/22 and extubated on 07/29. Patient is off on Precedex drip and Levophed. Ejection fraction 45%. Patient is alcohol abuser. Currently no signs of alcohol withdrawal. CIWA score 0. Review of Systems Review of Systems: All systems reviewed & are unremarkable except as noted in HPI and below ROS unobtainable: Yes unobtainable due to endotracheal tube and unobtainable due to medical condition Exam Narrative: General: Patient is awake, alert, in no acute distress HEENT:? Pupils equal and reactive, sclera is clear, Neck:? Neck movements are restricted Respiratory:?Air entry is better. Cardiac:? S1-S2 is normal, regular rate and rhythm Abdomen:? Soft, nondistended, nontender, hypoactive bowel sounds Extremities:? No edema, palpable pedal pulses Neuro:? Patient is awake, alert, able to answer questions appropriately and follows simple commands Skin:? Dry skin, no other lesions noted Psych:? Normal mentation and affect Objective Data Vital Signs Vital Signs: Vital Signs - 24 hr 08/01/24 12:00 08/01/24 12:00 08/01/24 12:00 Temperature 98.3 F Pulse Rate 89 90 Respiratory Rate 20 Blood Pressure 188/90 H Pulse Oximetry 97 Oxygen Delivery Room Air 08/01/24 13:04 08/01/24 14:00 08/01/24 16:00 Temperature 98.4 F Pulse Rate 95 113 H 88 Respiratory Rate 18 Blood Pressure 160/94 H Pulse Oximetry 97 Oxygen Delivery 08/01/24 16:00 08/01/24 16:00 08/01/24 18:00 Temperature Pulse Rate 84 84 Respiratory Rate Blood Pressure Pulse Oximetry Oxygen Delivery Room Air 08/01/24 18:10 08/01/24 18:14 08/01/24 20:00 Temperature Pulse Rate 86 Respiratory Rate Blood Pressure 161/92 H Pulse Oximetry Oxygen Delivery Room Air 08/01/24 20:00 08/01/24 21:38 08/01/24 22:00 Temperature 99.5 F Pulse Rate 86 86 84 Respiratory Rate 20 Blood Pressure 161/90 H Pulse Oximetry 97 Oxygen Delivery 08/01/24 22:04 08/02/24 00:00 08/02/24 00:00 Temperature Pulse Rate 76 80 Respiratory Rate Blood Pressure Pulse Oximetry Oxygen Delivery Room Air 08/02/24 00:19 08/02/24 02:00 08/02/24 04:00 Temperature 97.8 F 98.3 F Pulse Rate 85 79 81 Respiratory Rate 20 20 Blood Pressure 148/85 H 157/93 H Pulse Oximetry 96 96 Oxygen Delivery 08/02/24 04:00 08/02/24 04:00 08/02/24 06:00 Temperature Pulse Rate 84 74 Respiratory Rate Blood Pressure Pulse Oximetry Oxygen Delivery Room Air 08/02/24 07:43 08/02/24 08:51 08/02/24 10:31 Temperature 98.8 F Pulse Rate 92 87 Respiratory Rate 18 Blood Pressure 176/93 H Pulse Oximetry 93 Oxygen Delivery Room Air Intake/Output Intake/Output: Intake & Output 07/30/24 07/31/24 08/01/24 08/02/24 23:59 23:59 23:59 23:59 Intake Total 1224.6 740 550 550 Output Total 3300 1325 520 450 Balance -2075.4 -585 30 100 Meds/Results Medications: Active Medications Generic Name Dose Route Start Last Admin Trade Name Freq PRN Reason Stop Dose Admin Acetaminophen 650 mg 07/30/24 15:44 07/30/24 16:39 Acetaminophen 325 Mg Tablet PO 650 mg Q6H PRN Administration Mild Pain (1-3) or Fever Amlodipine Besylate 5 mg 07/31/24 17:00 08/02/24 08:41 Amlodipine Besylate 5 Mg Tablet PO 5 mg BID ACOSTA Administration Dextrose 12.5 gm 07/23/24 12:52 Dextrose 50% 25 Gm/50 Ml Syringe IV PUSH PRN PRN Hypoglycemia Protocol Enoxaparin Sodium 40 mg 07/23/24 09:00 08/02/24 08:41 Enoxaparin 40 Mg/0.4 Ml Syringe SUB-Q 40 mg DAILY ACOSTA Administration Glucagon 1 mg 07/23/24 12:52 Glucagon For Inj 1 Mg Vial IM PRN PRN Hypoglycemia Protocol Glucose 15 gm 07/23/24 12:52 Glucose Oral Gel 15 Gm Of Glucse In 37.5 Gm Tube PO PRN PRN Hypoglycemia Protocol Hydralazine HCl 25 mg 07/31/24 13:00 08/02/24 08:40 Hydralazine Hcl 25 Mg Tablet PO 25 mg TID ACOSTA Administration Dextrose 1,000 mls @ 100 mls/hr 07/23/24 12:52 Dextrose 5% 1,000 Ml IVPB PRN PRN Hypoglycemia Protocol Insulin Aspart 3 - 6 units 07/31/24 17:00 08/01/24 18:12 Insulin Aspart (*Bkc) 100 Units/Ml SUB-Q Not Given TIDWM [facility] Protocol Ipratropium [place] 0.5 mg 07/30/24 08:53 Ipratropium Br 0.02% Inh Soln 0.5 Mg/2.5 Ml Vial INHALATION Q6HRT PRN Wheezing Labetalol HCl 20 mg 07/26/24 23:45 08/01/24 22:04 Labetalol Hcl Inj 100 Mg/20 Ml Vial IV PUSH 20 mg Q4HR PRN Administration Blood Pressure - High Levalbuterol HCl 1.25 mg 07/30/24 08:53 Levalbuterol Neb 1.25 Mg/3 Ml INHALATION Q6HRT PRN Wheezing Lisinopril 20 mg 07/31/24 17:00 08/02/24 08:40 Lisinopril 20 Mg Tablet PO 20 mg BID ACOSTA Administration Pantoprazole Sodium 40 mg 08/01/24 09:00 08/02/24 08:40 Pantoprazole 40 Mg Tablet PO 40 mg QAM ACOSTA Administration Quetiapine Fumarate 25 mg 07/27/24 10:34 08/02/24 08:41 Quetiapine Fumarate 25 Mg Tablet PO 25 mg Q12HR A[facility]STA Administration Radiology Results: ITS Impressions Chest/Abdomen/Pelvis CTA 07/22/24 18:32 IMPRESSION: No evidence of pulmonary embolism Prominent bilateral lower lobe consolidation. Mild lobe infiltrate. Soft Tissue Neck CT 07/23/24 06:55 IMPRESSION: 1. Small right pleural effusion. 2. 17 mm right thyroid nodule. Consider thyroid ultrasound for risk stratification. 3. Multifocal dental disease. Abdomen Ultrasound 07/23/24 12:48 IMPRESSION: 1. Right pleural effusion. Minimal fluid around the gallbladder. Evaluation for cholecystitis advised. Otherwise, normal Limited ultrasound of the abdomen. Abdomen X-Ray 07/26/24 06:25 IMPRESSION: 1. Nasogastric tube tip in the stomach. 2. Small right pleural effusion. 3. Airspace opacities in the lower lung zones, consistent with atelectasis versus pneumonia. Renal Ultrasound 07/26/24 15:27 IMPRESSION: Mild right pelviectasis. Mild pericholecystic fluid and gallbladder wall thickening. Chest X-Ray 07/28/24 10:28 IMPRESSION: 1. Decreasing small right pleural effusion. 2. unchanged mild bibasilar atelectasis versus pneumonia. Labs Labs: Laboratory Results - last 24 hr 08/01/24 08/01/24 08/01/24 11:54 16:41 22:16 Creatinine Estim Creat Clear Calc Estimated GFR POC Capillary Glucose 130 H 168 H 135 H 08/02/24 08/02/24 04:58 07:44 Creatinine 1.30 Estim Creat Clear Calc 57 Estimated GFR > 60 POC Capillary Glucose 140 H Quality VTE Prophylaxis VTE prophylaxis: mechanical ordered and pharmacologic ordered Hospitalist [facility] Advance Care Plan I have confirmed that the patient's Advanced Care Plan is present, code status is documented, or surrogate decision maker is listed in patient medical record.: Yes Medication Reconciliation I have utilized all available resources to obtain, update and review the patients current medications (includes all prescriptions, OTC, herbals, cannabis, and nutritional supplements).: Yes
--- NOTE | 2024-08-02 11:54 | PCNFU ---
Nutrition Follow-Up Complete: Suboptimal Energy Intake as related to mechanical ventilation as evidenced by NPO. Goal:Meet estimated nutritional needs. Pt progressing to goal. continue with same goal Pt current nutrition is Heart healthy, Ensure compact BID. Nutrition recommendation: encourage po intake. Last recorded weight is 76.7 kg. Bowel Motility: +BM 07/31 Labs Reviewed: Glu:140 Meds Noted: novolog Skin: WNL Additional Notes: Pt advanced to a heart healthy diet, ensure compact and banatrol BID. Intake poor to fair at this time. Encourage po intake. Possible discharge. Will monitor weight, labs, skin, meds, Follow up in 5 days.
[2024-08-02 12:04] LABS: Glucose Point of Care 121 mg/dl (65-105)
[2024-08-02 17:06] LABS: Glucose Point of Care 106 mg/dl (65-105)
[2024-08-02 20:42] LABS: Glucose Point of Care 145 mg/dl (65-105)
[2024-08-03 04:39] VITALS: BP 142/81; PULSE 84; RESP 17; TEMP 36.7; O2SAT 98
[2024-08-03 06:49] LABS: Hematocrit 29.5 % (42.0-52.0); Hemoglobin 10.1 g/dL (14.0-18.0); Mean Corpuscular HGB Conc 34.2 g/dl (32-36); Mean Corpuscular Hemoglobin 34.2 pg (26-34); Mean Platelet Volume 10.8 fl (7.4-10.4); Platelet Count Result 289 k/mm3 (150-375); Red Blood Count 2.95 M/mm3 (4.6-6.20); Red Cell Distribution Width 11.9 % (11.5-14.5); White Blood Count 3.2 K/mm3 (4.5-10.0)
[2024-08-03 07:07] LABS: Alanine Aminotransferase 68 U/L (6-50); Albumin Level 3.1 g/dL (3.5-5.1); Alkaline Phosphatase 99 U/L (38-126); Anion Gap 0 mmol/L (4-12); Aspartate Amino Transferase 67 U/L (17-59); Bilirubin,Total 0.9 mg/dL (0.2-1.3); Blood Urea Nitrogen 23 mg/dL (9-20); Calcium 8.4 mg/dL (8.4-10.2); Carbon Dioxide 28 mmol/L (22-30); Chloride 105 mmol/L (98-107); Estimated CRCL calculation 53 ml/min; Estimated Glomerular Filt Rate > 60; Glucose 120 mg/dL (65-110); Magnesium 1.7 mg/dL (1.6-2.3); Phosphorus 3.7 mg/dL (2.5-4.5); Potassium 3.4 mmol/L (3.4-5.0); Sodium 133 mmol/L (137-145)
--- NOTE | 2024-08-03 07:21 | PM.IMPN ---
Progress Note: A&P Assessment and Plan (1) Severe sepsis: Code(s): A41.9 - Sepsis, unspecified organism; R65.20 - Severe sepsis without septic shock Status: Acute Assessment and Plan: 07/22: Patient presented the ED with shortness of breath, chest x-ray showed right lower lobe consolidation/pneumonia, acute kidney injury, tachycardia, tachypnea -07/22: Blood cultures growing Streptococcus pneumoniae / bottles -07/22: Sputum cultures growing Streptococcus pneumoniae 07/24: Repeat blood cultures negative so far Completed antibiotics and stable at bedside monitor 08/01/2024 Improving, will continue current treatment and monitor closely. (2) Acute respiratory failure: Code(s): J96.00 - Acute respiratory failure, unspecified whether with hypoxia or hypercapnia Status: Acute Assessment and Plan: Acute respiratory failure likely related to right lower lobe pneumonia. Patient also tachypneic and tachycardic, will send patient for a CT scan of the chest PE protocol to rule out pulmonary embolism -07/22: Intubated in the ICU, status post Nimbex -07/29: Successfully extubated, currently on room air 08/01/2024 Monitor closely -Completed antibiotics as above (3) Pneumonia: Code(s): J18.9 - Pneumonia, unspecified organism Status: Acute Assessment and Plan: Currently patient is feeling better. Continue with current treatment monitor closely. (4) MILENA (acute kidney injury): Code(s): N17.9 - Acute kidney failure, unspecified Status: Acute Assessment and Plan: resolved -hypomagnesemia, resolved -hypophosphatemia, resolved -hypokalemia, resolved. Creatinine normal (5) Elevated liver enzymes: Code(s): R74.8 - Abnormal levels of other serum enzymes Status: Acute Assessment and Plan: Elevated liver enzymes, could be related to severe hypoxemia, HCV, -hepatitis panel is negative -HCV RNA PCR : Elevated PCR titers, appreciate GI evaluation recommendations, if patient decides to stay with the family in the local area he can follow with them to discuss treatment option -07/23: RUQ ultrasound: Right pleural effusion, minimal fluid around the gallbladder. Evaluation of cholecystitis advised, otherwise normal limited ultrasound of the abdomen (6) CHF (congestive heart failure): Code(s): I50.9 - Heart failure, unspecified Status: Acute Assessment and Plan: History of CHF, proBNP was 700 -chest x-ray did not show any pulmonary edema -continue amlodipine and lisinopril 07/24: Echocardiogram Summary 1. Complete two-dimensional, color flow and Doppler transthoracic echocardiogram is performed. 2. Left ventricle is normal in size with mildly reduced systolic function. The left ventricular ejection fraction is visually estimated to be 45-50%. 3. The right ventricle is normal in size and systolic function. 4. The aortic valve is not well visualized. The Doppler gradients does not suggest any hemodynamically significant stenosis. (7) Elevated troponin: Code(s): R79.89 - Other specified abnormal findings of blood chemistry Status: Acute Assessment and Plan: Elevated troponin likely related to type 2 infarct, secondary to tachycardia, tachypnea -echocardiogram did not reveal any new wall motion abnormality, continue to monitor for chest pain -troponins have plateaued (8) Hyperglycemia: Code(s): R73.9 - Hyperglycemia, unspecified Status: Acute Assessment and Plan: Continue Accu-Cheks and sliding scale insulin, -discontinue Lantus -hemoglobin A1c 7.2 this admission (9) Essential hypertension: Code(s): I10 - Essential (primary) hypertension Status: Acute Assessment and Plan: Patient has been started on amlodipine and lisinopril, blood pressures are controlled Plan DVT prophylaxis: Lovenox Stress ulcer prophylaxis: Protonix Nutrition: Heart healthy diet Code Status: Full code PT/OT eval for discharge disposition Subjective Date/time seen: 08/03/24 07:21 Interval history: Replaced potassium. Started IV fluids due to increase in Cr. Pending placement. Exam Narrative: General: Patient is awake, alert, in no acute distress HEENT:? Pupils equal and reactive, sclera is clear, Neck:? Neck movements are restricted Respiratory:?Air entry is better. Cardiac:? S1-S2 is normal, regular rate and rhythm Abdomen:? Soft, nondistended, nontender, hypoactive bowel sounds Extremities:? No edema, palpable pedal pulses Neuro:? Patient is awake, alert, able to answer questions appropriately and follows simple commands Skin:? Dry skin, no other lesions noted Psych:? Normal mentation and affect Objective Data Vital Signs Vital Signs: Vital Signs - 24 hr 08/02/24 07:43 08/02/24 08:51 08/02/24 10:31 Temperature 98.8 F Pulse Rate 92 87 Respiratory Rate 18 Blood Pressure 176/93 H Pulse Oximetry 93 Oxygen Delivery Room Air 08/02/24 11:51 08/02/24 14:02 08/02/24 16:03 Temperature 98 F 97.3 F L Pulse Rate 97 78 Respiratory Rate 14 20 18 Blood Pressure 108/75 143/84 H 163/98 H Pulse Oximetry 100 99 Oxygen Delivery 08/02/24 17:01 08/02/24 19:57 08/03/24 04:39 Temperature 98.2 F 98.0 F Pulse Rate 94 84 Respiratory Rate 17 17 Blood Pressure 151/87 H 148/84 H 142/81 H Pulse Oximetry 98 98 Oxygen Delivery Intake/Output Intake/Output: Intake & Output 07/31/24 08/01/24 08/02/24 08/03/24 23:59 23:59 23:59 23:59 Intake Total 740 550 550 Output Total 1325 520 450 500 Balance -585 30 100 -500 Meds/Results Medications: Active Medications Generic Name Dose Route Start Last Admin Trade Name Freq PRN Reason Stop Dose Admin Acetaminophen 650 mg 07/30/24 15:44 07/30/24 16:39 Acetaminophen 325 Mg Tablet PO 650 mg Q6H PRN Administration Mild Pain (1-3) or Fever Amlodipine Besylate 5 mg 07/31/24 17:00 08/02/24 17:02 Amlodipine Besylate 5 Mg Tablet PO 5 mg BID ACOSTA Administration Dextrose 12.5 gm 07/23/24 12:52 Dextrose 50% 25 Gm/50 Ml Syringe IV PUSH PRN PRN Hypoglycemia Protocol Enoxaparin Sodium 40 mg 07/23/24 09:00 08/02/24 08:41 Enoxaparin 40 Mg/0.4 Ml Syringe SUB-Q 40 mg DAILY ACOSTA Administration Glucagon 1 mg 07/23/24 12:52 Glucagon For Inj 1 Mg Vial IM PRN PRN Hypoglycemia Protocol Glucose 15 gm 07/23/24 12:52 Glucose Oral Gel 15 Gm Of Glucse In 37.5 Gm Tube PO PRN PRN Hypoglycemia Protocol Hydralazine HCl 25 mg 07/31/24 13:00 08/02/24 17:02 Hydralazine Hcl 25 Mg Tablet PO 25 mg TID ACOSTA Administration Dextrose 1,000 mls @ 100 mls/hr 07/23/24 12:52 Dextrose 5% 1,000 Ml IVPB PRN PRN Hypoglycemia Protocol Sodium Chloride 1,000 mls @ 100 mls/hr 08/03/24 07:20 Normal Saline Iv IV CONT .Q10H ACOSTA Insulin Aspart 3 - 6 units 07/31/24 17:00 08/02/24 17:04 Insulin Aspart (*Bkc) 100 Units/Ml SUB-Q Not Given TIDWM [facility] Protocol Ipratropium [place] 0.5 mg 07/30/24 08:53 Ipratropium Br 0.02% Inh Soln 0.5 Mg/2.5 Ml Vial INHALATION Q6HRT PRN Wheezing Labetalol HCl 20 mg 07/26/24 23:45 08/01/24 22:04 Labetalol Hcl Inj 100 Mg/20 Ml Vial IV PUSH 20 mg Q4HR PRN Administration Blood Pressure - High Levalbuterol HCl 1.25 mg 07/30/24 08:53 Levalbuterol Neb 1.25 Mg/3 Ml INHALATION Q6HRT PRN Wheezing Lisinopril 20 mg 07/31/24 17:00 08/02/24 17:02 Lisinopril 20 Mg Tablet PO 20 mg BID ACOSTA Administration Pantoprazole Sodium 40 mg 08/01/24 09:00 08/02/24 08:40 Pantoprazole 40 Mg Tablet PO 40 mg QAM ACOSTA Administration Potassium Chloride 40 meq 08/03/24 07:20 Potassium Chloride 20 Meq Packet (For Liquid) PO 08/03/24 07:21 ONCE ONE Quetiapine Fumarate 25 mg 07/27/24 10:34 08/02/24 20:44 Quetiapine Fumarate 25 Mg Tablet PO 25 mg Q12HR ACOSTA Administration Radiology Results: ITS Impressions Chest/Abdomen/Pelvis CTA 07/22/24 18:32 IMPRESSION: No evidence of pulmonary embolism Prominent bilateral lower lobe consolidation. Mild lobe infiltrate. Soft Tissue Neck CT 07/23/24 06:55 IMPRESSION: 1. Small right pleural effusion. 2. 17 mm right thyroid nodule. Consider thyroid ultrasound for risk stratification. 3. Multifocal dental disease. Abdomen Ultrasound 07/23/24 12:48 IMPRESSION: 1. Right pleural effusion. Minimal fluid around the gallbladder. Evaluation for cholecystitis advised. Otherwise, normal Limited ultrasound of the abdomen. Abdomen X-Ray 07/26/24 06:25 IMPRESSION: 1. Nasogastric tube tip in the stomach. 2. Small right pleural effusion. 3. Airspace opacities in the lower lung zones, consistent with atelectasis versus pneumonia. Renal Ultrasound 07/26/24 15:27 IMPRESSION: Mild right pelviectasis. Mild pericholecystic fluid and gallbladder wall thickening. Chest X-Ray 07/28/24 10:28 IMPRESSION: 1. Decreasing small right pleural effusion. 2. unchanged mild bibasilar atelectasis versus pneumonia. Labs Labs: Laboratory Results - last 24 hr 08/02/24 08/02/24 08/02/24 07:44 11:57 17:03 WBC RBC Hgb Hct MCV MCH MCHC RDW Plt Count MPV Sodium Potassium Chloride Carbon Dioxide Anion Gap BUN Creatinine Estim Creat Clear Calc Estimated GFR Glucose POC Capillary Glucose 140 H 121 H 106 H Calcium Phosphorus Magnesium Total Bilirubin AST ALT Alkaline Phosphatase Total Protein Albumin 08/02/24 08/03/24 19:54 05:35 WBC 3.2 L RBC 2.95 L Hgb 10.1 L Hct 29.5 L MCV 100.0 MCH 34.2 H MCHC 34.2 RDW 11.9 Plt Count 289 MPV 10.8 H Sodium 133 L Potassium 3.4 Chloride 105 Carbon Dioxide 28 Anion Gap 0 L BUN 23 H Creatinine 1.40 H Estim Creat Clear Calc 53 Estimated GFR > 60 Glucose 120 H POC Capillary Glucose 145 H Calcium 8.4 Phosphorus 3.7 Magnesium 1.7 Total Bilirubin 0.9 AST 67 H ALT 68 H Alkaline Phosphatase 99 Total Protein 7.0 Albumin 3.1 L
[2024-08-03 07:57] LABS: Glucose Point of Care 127 mg/dl (65-105)
[2024-08-03 08:00] VITALS: BP 164/94; PULSE 78; RESP 18; TEMP 36.9; O2SAT 99
[2024-08-03] MEDS: hydrALAZINE HCL 25 MG TABLET PO (09:55)
[2024-08-03] MEDS: PANTOPRAZOLE 40 MG TABLET PO (09:55)
[2024-08-03] MEDS: QUEtiapine FUMARATE 25 MG TABLET PO (09:55)
[2024-08-03] MEDS: amLODIPine BESYLATE 5 MG TABLET PO (09:55)
[2024-08-03] MEDS: lisinopriL 20 MG TABLET PO (09:55)
[2024-08-03] MEDS: POTASSIUM CHLORIDE 20 MEQ PACKET (FOR LIQUID) 40 MEQ PO (09:56)
[2024-08-03] MEDS: ENOXAPARIN 40 MG/0.4 ML SYRINGE SUB-Q (09:56)
[2024-08-03] MEDS: SODIUM CHLORIDE 0.9% IV 1,000 ML 100 ML IV CONT (10:50)
[2024-08-03 11:42] LABS: Glucose Point of Care 126 mg/dl (65-105)
--- NOTE | 2024-08-03 15:41 | PM.DS ---
DS: Admitting Diagnosis Discharge Date Admitting Diagnosis Shortness of breath DS: Discharge Diagnosis Discharge Diagnosis (1) Severe sepsis: Code(s): A41.9 - Sepsis, unspecified organism; R65.20 - Severe sepsis without septic shock Status: Acute Assessment and Plan: 07/22: Patient presented the ED with shortness of breath, chest x-ray showed right lower lobe consolidation/pneumonia, acute kidney injury, tachycardia, tachypnea -07/22: Blood cultures growing Streptococcus pneumoniae / bottles -07/22: Sputum cultures growing Streptococcus pneumoniae 07/24: Repeat blood cultures negative so far Completed antibiotics and stable at bedside monitor 08/03/2024 Resolved (2) Acute respiratory failure: Code(s): J96.00 - Acute respiratory failure, unspecified whether with hypoxia or hypercapnia Status: Acute Assessment and Plan: Acute respiratory failure likely related to right lower lobe pneumonia. Patient also tachypneic and tachycardic, will send patient for a CT scan of the chest PE protocol to rule out pulmonary embolism -07/22: Intubated in the ICU, status post Nimbex -07/29: Successfully extubated, currently on room air 08/01/2024 Monitor closely -Completed antibiotics as above (3) Pneumonia: Code(s): J18.9 - Pneumonia, unspecified organism Status: Acute Assessment and Plan: Currently patient is feeling better. Continue with current treatment monitor closely. (4) MILENA (acute kidney injury): Code(s): N17.9 - Acute kidney failure, unspecified Status: Acute Assessment and Plan: resolved -hypomagnesemia, resolved -hypophosphatemia, resolved -hypokalemia, resolved. Creatinine normal (5) Elevated liver enzymes: Code(s): R74.8 - Abnormal levels of other serum enzymes Status: Acute Assessment and Plan: Elevated liver enzymes, could be related to severe hypoxemia, HCV, -hepatitis panel is negative -HCV RNA PCR : Elevated PCR titers, appreciate GI evaluation recommendations, if patient decides to stay with the family in the local area he can follow with them to discuss treatment option -07/23: RUQ ultrasound: Right pleural effusion, minimal fluid around the gallbladder. Evaluation of cholecystitis advised, otherwise normal limited ultrasound of the abdomen (6) CHF (congestive heart failure): Code(s): I50.9 - Heart failure, unspecified Status: Acute Assessment and Plan: History of CHF, proBNP was 700 -chest x-ray did not show any pulmonary edema -continue amlodipine and lisinopril 07/24: Echocardiogram Summary 1. Complete two-dimensional, color flow and Doppler transthoracic echocardiogram is performed. 2. Left ventricle is normal in size with mildly reduced systolic function. The left ventricular ejection fraction is visually estimated to be 45-50%. 3. The right ventricle is normal in size and systolic function. 4. The aortic valve is not well visualized. The Doppler gradients does not suggest any hemodynamically significant stenosis. (7) Elevated troponin: Code(s): R79.89 - Other specified abnormal findings of blood chemistry Status: Acute Assessment and Plan: Elevated troponin likely related to type 2 infarct, secondary to tachycardia, tachypnea -echocardiogram did not reveal any new wall motion abnormality, continue to monitor for chest pain -troponins have plateaued (8) Hyperglycemia: Code(s): R73.9 - Hyperglycemia, unspecified Status: Acute Assessment and Plan: Continue Accu-Cheks and sliding scale insulin, -discontinue Lantus -hemoglobin A1c 7.2 this admission (9) Essential hypertension: Code(s): I10 - Essential (primary) hypertension Status: Acute Assessment and Plan: Patient has been started on amlodipine and lisinopril, blood pressures are controlled DS: Summary Hospital Course Hospital Course: Kofi Verduzco is a 63 year old male with past medical history of CHF presented the ED on 07/20/2024 with complains of shortness of breath, hypoxia. He was found to be hypoxic with O2 sats of 70s on room air and remained hypoxic on non-rebreather at 15 L. In the ER patient was given Lasix 40 mg IV x1 for possible CHF exacerbation. Patient was tachypneic, tachycardic with adequate blood pressures. WBC count of 6.3, hemoglobin 13.4, platelets 195, her potassium of 3.7, BUN 22 and creatinine of 2.00 with a blood sugars of 224. Elevated LFTs, Patient had lactic acid of 11.7, troponin of 0.024. C-reactive protein of 4.0 proBNP was 727. UA was was not reflective of UTI, influenza RSV and SARS-CoV-2 PCR were negative. Patient was then given 30 cc/kg IV fluid bolus and placed on BiPAP after which the ER physician stated that his heart rate is tachypnea improved. Chest x-ray showed right lower lobe pneumonia. Blood cultures were ordered, patient was started on vancomycin and azithromycin and ceftriaxone and transferred to the ICU for further management. Patient seen and examined upon arrival to the ICU, he was breathing 40-50 times a minute, tachycardic in the 140s, could not complete a sentence. Patient was intubated 07/22. Patient was extubated on 07/29. I Assumed care on 08/02. Today patient was feeling better, CIWA score 0. Patient wants to go. Discussed with long term care administrator. Patient is started on 3 antihypertensive. Advised to follow-up with the PCP. If needed continue all 3 at the discretion of PCP. Status at Discharge Cognitive/behavioral status at discharge: Stable Time Spent with Patient Time attestation: Total time spent providing and/or coordinating discharge services: 45 minutes Exam Narrative: General: Patient is awake, alert, in no acute distress HEENT:? Pupils equal and reactive, sclera is clear, Neck:? Neck movements are restricted Respiratory:?Air entry is better. Cardiac:? S1-S2 is normal, regular rate and rhythm Abdomen:? Soft, nondistended, nontender, hypoactive bowel sounds Extremities:? No edema, palpable pedal pulses Neuro:? Patient is awake, alert, able to answer questions appropriately and follows simple commands Skin:? Dry skin, no other lesions noted Psych:? Normal mentation and affect DS: Data Data Completed and Pending Labs on day of discharge: Labs from last 24 hours 08/03/24 08/03/24 08/03/24 11:34 07:50 05:35 WBC 3.2 L RBC 2.95 L Hgb 10.1 L Hct 29.5 L MCV 100.0 MCH 34.2 H MCHC 34.2 RDW 11.9 Plt Count 289 MPV 10.8 H Sodium 133 L Potassium 3.4 Chloride 105 Carbon Dioxide 28 Anion Gap 0 L BUN 23 H Creatinine 1.40 H Estim Creat Clear Calc 53 Estimated GFR > 60 Glucose 120 H POC Capillary Glucose 126 H 127 H Calcium 8.4 Phosphorus 3.7 Magnesium 1.7 Total Bilirubin 0.9 AST 67 H ALT 68 H Alkaline Phosphatase 99 Total Protein 7.0 Albumin 3.1 L 08/02/24 08/02/24 19:54 17:03 WBC RBC Hgb Hct MCV MCH MCHC RDW Plt Count MPV Sodium Potassium Chloride Carbon Dioxide Anion Gap BUN Creatinine Estim Creat Clear Calc Estimated GFR Glucose POC Capillary Glucose 145 H 106 H Calcium Phosphorus Magnesium Total Bilirubin AST ALT Alkaline Phosphatase Total Protein Albumin Discharge Plan Discharge Attending physician on discharge: Mikel Lozano Consulting providers: Mathew Santos; Nidia Salinas; Molly Calvert Discharging Clinician: Mikel Lozano Anticipated Discharge Date/Time: 08/03/24 15:37 Patient Disposition: Home, Self-Care Activity: as tolerated Diet: as tolerated Discharge Instructions: Patient started on hypertensive medication. Please follow-up with the primary care and continue all the medication if necessary. About drinking alcohol. Consider rehabilitation. Take precautions to avoid falls. Contact your doctor or call 911 and come to the Emergency Room if you have any type of trauma, lightheadedness with standing or other worrisome symptoms. Follow-up with your primary care provider in 1-2 weeks. Please call for appointment. Thank you for using [facility] for your health care needs. Patient Instructions: Antibiotic Form, Heart Failure (GEN), Gregorio Catheter Placement and Care (ED), Removal of a Central Line, PICC, or Midline Catheter (GEN) Patient Language: Bel[place]ian Stand Alone Forms: General Discharge Information Follow-up/Referrals: Mathew Santos MD [Physician] - Discharge Medications: New lisinopril 20 mg Tablet 20 mg PO BID Qty: 30 0RF hydralazine 25 mg Tablet 25 mg PO TID Qty: 30 0RF amlodipine [Norvasc] 5 mg Tablet 5 mg PO BID Qty: 30 0RF Date of admission: 07/22/24 13:01 Primary Care Provider: PHYSICIAN,GASTROENTEROLOGY PHYSICIAN Admitting Provider: Mikle Lozano Attending physician on admission: Mikel Lozano Condition: Stable Quality VTE Prophylaxis VTE prophylaxis: mechanical ordered and pharmacologic ordered
== END 2024-08-03 16:30 | disposition home or self-care (01) | DRG 870 ==
LOC: ANHED 10:13 → ANHICU 13:51 → ANHIMU 07-30 17:57 → ANH2MED 08-02 15:42
PROVIDERS: Emergency Medicine; Internal Medicine; Nurse Practitioner Gerontology; Admitting Provider General Practice; Emergency Provider Student in an Organized Health Care Education/Training Program; Visit Provider General Practice
DX: A40.3 Sepsis due to Streptococcus pneumoniae (principal); J96.01 Acute respiratory failure with hypoxia; J13 Pneumonia due to Streptococcus pneumoniae; R65.20 Severe sepsis without septic shock; N17.9 Acute kidney failure, unspecified; E87.20 Acidosis, unspecified; I50.9 Heart failure, unspecified; R74.8 Abnormal levels of other serum enzymes; R79.89 Other specified abnormal findings of blood chemistry; D69.6 Thrombocytopenia, unspecified; F17.210 Nicotine dependence, cigarettes, uncomplicated
CPT/HCPCS: 31500; 36415; 36600; 70490; 71045; 71275; 74177; 76705; 76775; 80048; 80053; 80074; 80202; 81001; 82274; 82375; 82565; 82607; 82746; 82805; 82948; 83036; 83050; 83605; 83690; 83735; 83880; 84100; 84478; 84484; 85018; 85025; 85027; 85055; 85380; 85384; 85610; 85730; 86140; 86703; 87040; 87070; 87181; 87205; 87493; 87522; 87637; 87641; 93005; 93306; 94002; 94003; 94640; 96361; 96365; 96367; 96375; 97161; 97165; 97530; 97535; 99285; A9270; C1751; G0432; J0360; J0456; J0696; J1650; J1720; J1815; J1939; J1940; J2060; J2250; J2405; J2470; J2704; J3010; J3370; J3475; J3480; J7030; J7120; J7639; P9045; Q9967